=== PATIENT | male | born 1960 | race Caucasian/White ===

== ENCOUNTER 2020-03-21 14:40 | Inpatient (IN) | payer MEDICARE, SELFPAY ==
[2020-03-21 16:51] LABS: Troponin I 0.104 ng/mL (< 0.028)
[2020-03-21] MEDS ORDERED: Acetaminophen 650 MG Suppository PR PRN (17:10)
[2020-03-21] MEDS ORDERED: Acetaminophen 325 MG TAB PO PRN (17:10)
[2020-03-21 18:07] VITALS: BMI 49.1
--- NOTE | 2020-03-21 18:13 | PDOC.HHP ---
Addendum entered and electronically signed by Sesar Gamboa MD 03/21/20 19:08: exam remarkable for morbid obesity, 90% on 2L NC, b/l equal pitting edema with mild stasis dermatitis; inspiratory rales in b/l LLF, no wheezing or reduced breath sounds Of note, patient has device that he got from friend but has no known diagnosis requiring CPAP HS Original Note: Hospitalist HPI - History of Present Illness History of Present Illness: Patient presents with complaints of lower extremity swelling that has worsened over the last week. He states he has gained 20 lbs in the last 10 days. He has a known history of HF and denies any change with his diet. Continues using salt substitute and uses hot sauce with meals but no more than usual. He has been compliant with medications including Lasix which he takes twice daily, 40 mg. Reports feeling short of breath at baseline which is not worse than usual but he noted his saturations at home had dropped to the mid 80s. He uses an O2 concentrator at home continuously. Reports a cough productive for green sputum which is new. Normally he has a cough that is productive for white sputum. He has known COPD but does not use nebs or inhalers at home. Denies any fevers or chills. He reports long-term use of mucinex that helps with chest congestion but feels that it causes him to be dehydrated therefore stopped using it recently. Recently struggled with insomnia but this has improved with melatonin. Reports having issues with hallucinations for the last year which he has discussed with Dr. Schulte his PCP. He has not had any work-up and is concerned it has not been addressed. States it hasnt happened recently. Denies any psych history. It seems to only happen at night. He has no drug use and has never used medications such as Ambien for sleep or benzos. States he worries about not being able to wake up if he stops breathing due to his sleep apnea. Suffers from constipation but has been moving his bowels recently. Denies any blood in his stools. Does have a distended abdomen which is chronic and reports excess flatus. No abdominal pain, n/v and is tolerating PO intake. All other review of systems apart from those mentioned above are negative. Of note he was admitted 02/07/30 for CHF exacerbation at which time he had an Echo which showed an EF of 30-35%, posterior lateral hypokinesis, moderately dilated left atrium, mildly increased left ventricular size, mildly enlarged right atrium with mild MR present. ED COURSE: EKG showed sinus tachycardia with infrequent PVCs, inverted T waves in aV1. Q waves in aVf, V3, V4 and V5. CXR unremarkable. Labs showed normal lactic acid. BNP 157.2, Trop 0.085, Bicarb 35. WCC normal. Renal function normal. Furosemide 40 mg IV x 1 given. Aspirin 324 mg PO x 1 . Duoneb x 1. MethylPrednisolone 125 mg x 1. PAST MEDICAL HISTORY: 1. COPD. 2. VT x 3. 3. Hyperlipidemia. 4. CHF. 5. CAD. 6. Hypertension. 7. Morbid obesity. 8. Chronic constipation. PAST SURGICAL HISTORY: 1. Umbilical hernia repair. 2. Nasal surgery. 3. Right hand/wrist surgery. 4. Splenectomy. 5. Tonsillectomy. SOCIAL HISTORY: Lives alone. Former smoker but quit in 2012. Denies any alcohol consumption or drug use. ALLERGIES: Ampicillin and labetalol. CURRENT MEDICATIONS: aspirin oral ThuMar 21, 2020 14:53 MARVEL Coy Kelsey TABLET : Strength - 81 mg : ORAL Patient Dose: 1 tab(s) once a day. clopidogrel ThuMar 21, 2020 14:53 MARVEL Coy Kelsey TABLET : Strength - 75 mg : ORAL Patient Dose: 75 mg once a day. lisinopril ThuMar 21, 2020 14:53 MARVEL Coy Kelsey TABLET : Strength - 20 mg : ORAL Patient Dose: 10 mg once a day. nitroglycerin sublingual ThuMar 21, 2020 14:53 MARVEL Coy Kelsey TABLET, SUBLINGUAL : Strength - 0.4 mg : SUBLINGUAL Patient Dose: As Needed. simvastatin ThuMar 21, 2020 14:53 MARVEL Coy Kelsey TABLET : Strength - 40 mg : ORAL Patient Dose: 40 mg once a day. Coreg ThuMar 21, 2020 14:54 MARVEL Coy Kelsey tablet : Strength - 25 mg : ORAL Patient Dose: 25 mg 2 times a day. metOLazone ThuMar 21, 2020 14:54 MARVEL Coy Kelsey tablet : Strength - 5 mg : ORAL Patient Dose: 1 tab(s) once a day. - Exam General Appearance: NAD, awake alert General - other findings: BP: 139/100, HR: 100, RR: 16, Temp: 97.6, Pain: 0, O2 sat: 93 on 3L O2 Eye: PERRL ENT: normocephalic atraumatic, no oropharyngeal lesions Neck: supple, symmetric, no lymphadenopathy Heart: RRR, no murmur, no gallops, no rubs, normal peripheral pulses Respiratory: CTAB, no wheezes, no rales, no ronchi, normal chest expansion, no tachypnea Respiratory - other findings: mildly sob when speaking in long sentences Gastrointestinal: soft (obese/distended), normal bowel sounds, no guarding Extremities: 2+ LE edema (bilateral) Skin: no rashes Neurological: cranial nerve grossly intact, normal sensation to touch Musculoskeletal: normal tone, normal strength, no muscle wasting Psychiatric: normal affect, normal behavior, A&O x 3 Hospitalist Results - Labs Result Diagrams: 03/22/20 14:31 03/22/20 14:31 Lab results: Troponin I 0.104 ng/mL (< 0.028) H 03/21/20 16:18 Hospitalist H&P A/P - Problem (1) Acute on chronic systolic CHF (congestive heart failure) Code(s): I50.23 - ACUTE ON CHRONIC SYSTOLIC (CONGESTIVE) HEART FAILURE Status : Acute (2) Cough productive of purulent sputum Code(s): R05 - COUGH Status: Acute (3) Elevated troponin I measurement Code(s): R79.89 - OTHER SPECIFIED ABNORMAL FINDINGS OF BLOOD CHEMISTRY Status : Chronic (4) COPD (chronic obstructive pulmonary disease) Status: Chronic (5) HTN (hypertension) Code(s): I10 - ESSENTIAL (PRIMARY) HYPERTENSION Status: Chronic (6) Insomnia Code(s): G47.00 - INSOMNIA, UNSPECIFIED Status: Chronic (7) Constipation Code(s): K59.00 - CONSTIPATION, UNSPECIFIED Status: Chronic (8) HLD (hyperlipidemia) Code(s): E78.5 - HYPERLIPIDEMIA, UNSPECIFIED Status: Chronic - Plan Plan: Cardiac monitoring. Continue Lasix 40 mg IV BID (patient with symptomatic improvement since receiving first dose in ED). Consult for HF management. Venous doppler, bilateral. Continue to trend troponins. Monitor BP. Check d-dimer, given hypoxia at home. ABG and monitor O2 sats. CT Chest with/without contrast (depending on d-dimer). DVT Prophylaxis. GI Prophylaxis. Reconcile home medications once verified. Addendum - Attending - Attending Attestation Date/Time: 03/21/20 7096 I personally evaluated the patient and discussed the management with Dr. [] I agree with the History, Examination, Assessment and Plan documented above with any addition or exceptions noted below. #Decompensated HFrEF Class III likely due to unoptimized management due to not being able to afford medication -last echo 01/2020 EF 30-35% -not taking entresto because can't afford -EKG showing poor r-wave progression suggestive of old anterior infarct; no signs of new ischemia -change to lisinopril -lasix 40IVP bid -consult EP for AICD Full code
[2020-03-21] MEDS ORDERED: Ondansetron PF 4 MG/2 ML Vial IVP PRN (18:33)
[2020-03-21] MEDS ORDERED: Ondansetron ODT 4 MG TAB SL PRN (18:33)
[2020-03-21] MEDS ORDERED: Nitroglycerin 0.4 MG TAB 1 EACH SL PRN (18:51)
[2020-03-21] MEDS ORDERED: Albuterol Sulfate 1.25 MG/3 ML NEB NEB PRN (18:51)
[2020-03-21] MEDS ORDERED: Furosemide 40 MG/4 ML VIAL SLOW IVP SCH (19:15)
[2020-03-21 19:42] LABS: CKMB 1.7 ng/mL (0-6.6)
[2020-03-21] MEDS ORDERED: Famotidine/PF 20 mg/2ml Vial SLOW IVP SCH (21:00)
--- NOTE | 2020-03-21 21:12 | ULT ---
EXAM: Bilateral lower extremity venous ultrasound HISTORY: Bilateral lower extremity pain and edema. COMPARISON: None TECHNIQUE: Multiplanar grayscale and color Doppler images were obtained in a bilateral lower extremit y venous ultrasound. Spectral analysis of the Doppler waveforms were performed. FINDINGS: The bilateral common femoral vein, profunda femoral veins, superficial femoral veins, and p opliteal veins are normal in appearance without visible thrombus. These vessels demonstrate normal compression, flow, and augmentation. The bilateral posterior tibial veins, profunda femoral veins and greater saphenous veins are patent w ithout evidence of DVT. IMPRESSION: No evidence of DVT in the left or right lower extremity.
[2020-03-21] MEDS: Clopidogrel Bisulfate 75 MG TAB PO SCH (21:21)
[2020-03-21] MEDS: Atorvastatin Calcium 20 MG TAB PO SCH (21:21)
[2020-03-22] MEDS: Furosemide 40 MG/4 ML VIAL SLOW IVP SCH ×2 (05:23→14:19)
[2020-03-22 06:21] LABS: BUN (Urea Nitrogen) 21 mg/dL (8.4-25.7); Calc. Creatinine Clearance 201 mL/min (70-130); Estimated GFR-MDRD 84; Glucose 195 mg/dL (70-105); Magnesium 1.7 mg/dL (1.6-2.6)
[2020-03-22 06:30] LABS: Anion Gap 16 mmol/L (10-20); Carbon Dioxide 34 mmol/L (22-29); Chloride 95 mmol/L (98-107); Potassium 4.9 mmol/L (3.5-5.1); Sodium 140 mmol/L (136-145)
[2020-03-22 06:31] LABS: #Lymphocytes 1.3 thou/uL (1.20-3.40); #Monocytes 0.3 thou/uL (0.11-0.59); #Neutrophils 6.7 thou/uL (1.40-6.50); %Basophils 0.1 % (0.0-1.0); %Eosinophils 0.1 % (0.0-10.0); %Lymphocytes 15.2 % (21.0-51.0); %Monocytes 3.8 % (0.0-10.0); %Neutrophils 80.8 % (42.0-75.0); Hemoglobin 16.7 g/dL (14.0-18.0); MDiff Complete? YES; Macrocytosis SLIGHT = 6-15 cells (100X) (0-5/hpf); Mean Corpuscular HGB CONC 29.6 g/dL (32.0-36.0); Mean Corpuscular Hemoglobin 30.4 pg (27.0-31.0); Mean Platelet Volume 9.7 fL (7.4-10.4); Platelet Count 239 thou/uL (130-400); RBC Distribution Width 13.2 % (11.5-14.5); Red Blood Cell (RBC) Count 5.49 mill/uL (4.70-6.10); White Blood Cell (WBC) Count 8.3 thou/uL (4.8-10.8)
[2020-03-22] MEDS ORDERED: Potassium Chloride 20 MEQ TAB PO SCH (08:00)
[2020-03-22] MEDS ORDERED: Carvedilol 6.25 MG TAB PO SCH (08:00)
[2020-03-22] MEDS: Aspirin Chewable 81 MG TAB PO SCH (08:27)
[2020-03-22] MEDS: Lisinopril 10 MG TAB PO SCH (08:28)
[2020-03-22] MEDS: Enoxaparin Sodium 40 MG/0.4 ML SYRINGE SC SCH (08:28)
[2020-03-22 10:59] LABS: Actual Bicarbonate (HCO3a) 38.3 mEq/L (22-28); Base Excess (BEa) 8.6 mEq/L (-2.0 to +3.0); Calcium, Ionized (arterial) 1.15 mmol/L (1.12-1.30); Carboxyhemoglobin (COHb) 1.1 gm% (0.0-3.0); Hemoglobin (Hb) 16.8 g/dL (14.0-18.0); Potassium - ABG Lab 4.58 mmol/L (3.70-5.30); pH, Arterial 7.33 (7.35-7.45)
[2020-03-22 11:00] LABS: CO2 Tension 74.6 mmHg (35.0-45.0); O2 Tension (PaO2), arterial 58.9 mmHg (80.0-100.0); Puncture Site LRA
--- NOTE | 2020-03-22 12:22 | CT ---
CT CHEST WITHOUT CONTRAST: Date: 03/22/2020 HISTORY: Hypoxia, cough, purulent sputum. FINDINGS: Absence of IV contrast reduces the sensitivity of exam, particularly for evaluation of mediastinal, h ilar, and vascular structures. There are vascular calcifications without evidence of aneurysmal dilatation of the thoracic aorta. No pleural or pericardial effusions are seen. There are emphysematous changes in the lung etienne. No pn eumothoraces or focal areas of consolidation. A noncalcified 3.0 mm parenchymal nodule is seen in the left upper lobe. There is a calcified granuloma in the right lung base. There are mild dependent дмитрий nges in the lung bases. Calcified right hilar lymph nodes are consistent with old granulomatous disea se. There are degenerative changes in the spine. IMPRESSION: 1. No CT evidence of pneumonia. 2. 3.0 mm left upper lobe lung nodule. Follow-up exam should be obtained in [address] POS: OFF
--- NOTE | 2020-03-22 12:53 | CON ---
DATE OF CONSULTATION: 03/22/2020 ADDITIONAL REFERRING PHYSICIAN: Ravi Gupta MD HISTORY OF PRESENT ILLNESS: I am seeing Mr. 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 His problems are: 1. [id number] systolic congestive heart failure with ischemic cardiomyopathy. a. History of severely reduced LVEF at 15% in 2012. b. Most recent echocardiogram on 02/07/2020 reveals LVEF of 30% to 35%, moderately enlarged left atrium, and mild MR. c. Prior history of myocardial infarctions x3. d. History of chronically occluded LAD and prior stenting of the circumflex and right coronary arteries. 2. Advanced COPD. 3. Morbid obesity. 4. Hyperlipidemia. 5. Hypertension. ALLERGIES: AMPICILLIN, LABETALOL. MEDICATIONS AT HOME: Includin. Aspirin. 2. Clopidogrel. 3. Lisinopril. 4. Nitroglycerin. 5. Simvastatin. 6. Coreg 25 mg twice a day. 7. Metolazone. SUBJECTIVE: Mr. Arellano was admitted with progressive dyspnea and 20-pound weight gain in the last 10 days. This was not unusual for him. He has been hospitalized similarly in January with [id number] fluid overload and combined COPD exacerbation. He was brought to the [facility] ER and then transferred to our facility for further care. Here, he was given IV Lasix and his symptoms have improved. He has no current signs of angina. No fever, chills, or cough. No bleeding issues. He had negative COVID test on the . REVIEW OF SYSTEMS: Rest of 12-point review of systems otherwise unremarkable. PAST MEDICAL HISTORY: As above. The patient had prior myocardial infarctions, chronically occluded LAD, circumflex and RCA stents. He is usually cared for by Dr. Ravi Gupta at [facility]. PAST SURGICAL HISTORY: Significant for: 1. Umbilical hernia surgery. 2. Nasal surgery. 3. Right hand surgery. 4. Splenectomy. 5. Tonsillectomy. SOCIAL HISTORY: The patient is . He is a former smoker, quit in 2012. Denies EtOH and drug abuse. FAMILY HISTORY: Not contributory. OBJECTIVE DATA: VITAL SIGNS: Blood pressure is 126/81, heart rate 101, respirations 20, temperature 97.9 degrees Fahrenheit. GENERAL: This is a morbidly obese man, in no apparent distress. NECK: Supple. Jugular veins not distended. CHEST: Coarse without crackles. HEART: Sounds are regular to rate and rhythm. Somewhat distant. No murmur or gallop is heard. PMI is nonpalpable. ABDOMEN: Benign. Bowel sounds positive. EXTREMITIES: Lower extremities without edema, clubbing, or cyanosis. Pulses are adequate. NEUROLOGIC: The patient is nonfocal. MUSCULOSKELETAL: Without joint swelling or deformity. SKIN: Without rash. DATABASE: LABORATORY DATA: White cell count is 8.3, hemoglobin 16.7, and platelet count is 239. Sodium 140, potassium 4.9, BUN 20, and creatinine 0.92. Troponin level is 0.01 consecutively. BNP from 03/21/2020 is 157. IMAGING STUDIES: Chest x-ray from 03/21/2020 shows no acute findings. ASSESSMENT AND PLAN: Mr. Arellano is a 59-year-old man with history of ischemic cardiomyopathy, prior myocardial infarction, stent placement in the distant past, chronically occluded left anterior descending. He has a severely reduced left ventricular ejection fraction in the past. Most recent ejection fraction documented at 30% to 35% in January. He is now here with another episode of respiratory distress, possibly related to his advanced chronic obstructive pulmonary disease as well as some degree of heart failure exacerbation. 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 I discussed the rationale, risks, and benefits of prophylactic ICD implant to prevent sudden cardiac in his condition. We are using a decision-making pamphlet in the process. He understands the issue. At this point, he is still discussing this with his . Alternative therapies like Life Vest were discussed, although likely he is a poor candidate due to his body size. He is leaning towards the defibrillator implant. We will make final decision by tomorrow. We will start scheduling arrangements. Thank you again for allowing me to participate in the care of this patient. Job ID: [id number]
[2020-03-22 15:06] LABS: Lactic Acid 1.9 mmol/L (0.5-2.2)
[2020-03-22 15:10] LABS: Anion Gap 13 mmol/L (10-20); BUN (Urea Nitrogen) 29 mg/dL (8.4-25.7); Calc. Creatinine Clearance 155 mL/min (70-130); Calcium 8.9 mg/dL (7.8-10.44); Carbon Dioxide 36 mmol/L (22-29); Chloride 95 mmol/L (98-107); Estimated GFR-MDRD 63; Glucose 106 mg/dL (70-105); Potassium 5.4 mmol/L (3.5-5.1); Sodium 139 mmol/L (136-145)
[2020-03-22 15:18] LABS: #Lymphocytes 2.3 thou/uL (1.20-3.40); #Monocytes 1.2 thou/uL (0.11-0.59); #Neutrophils 10.8 thou/uL (1.40-6.50); %Basophils 0.2 % (0.0-1.0); %Eosinophils 0.1 % (0.0-10.0); %Lymphocytes 15.9 % (21.0-51.0); %Monocytes 8.7 % (0.0-10.0); %Neutrophils 75.1 % (42.0-75.0); Hemoglobin 15.9 g/dL (14.0-18.0); Large Platelets SLIGHT; MDiff Complete? YES; Macrocytosis SLIGHT = 6-15 cells (100X) (0-5/hpf); Mean Corpuscular Hemoglobin 30.5 pg (27.0-31.0); Mean Platelet Volume 9.9 fL (7.4-10.4); Platelet Count 240 thou/uL (130-400); Platelet Morphology Comment Appears Adequate; RBC Distribution Width 13.4 % (11.5-14.5); Red Blood Cell (RBC) Count 5.22 mill/uL (4.70-6.10); White Blood Cell (WBC) Count 14.4 thou/uL (4.8-10.8)
--- NOTE | 2020-03-22 16:33 | PDOC.HOSPP ---
- Subjective Encounter Date: 03/22/20 Encounter Time: 12:30 Subjective: Patient denies any complaints at the moment but vocal about not having his ABG done. Sats have been in the low 90s which he states is "good for me". Also states he was seen by Dr. Lucas who recommended defib, patient apparently has been noncompliant with Entresto because he is unable to afford it. No issues overnight. Tolerating PO intake. Denies any complaints at present. - Objective Vital Signs & Weight: Vital Signs (12 hours) Temp Pulse Resp BP Pulse Ox 03/22/20 12:25 97.8 F 95 16 85/54 L 93 L 03/22/20 12:12 91 95/64 93 L 03/22/20 11:00 97.8 F 96 20 97/64 92 L 03/22/20 07:40 97.9 F 101 H 20 126/81 91 L 03/22/20 04:56 97.6 F 99 18 123/75 91 L Weight Weight 361 lb 14.4 oz I&O: 03/21/20 03/22/20 03/23/20 06:59 06:59 06:59 Intake Total 1200 420 Output Total 500 Balance 1200 -80 Result Diagrams: 03/22/20 14:31 03/22/20 14:31 Hospitalist ROS - Review of Systems Constitutional: denies: fever, chills, sweats, weakness, malaise, other Eyes: denies: pain, vision change, conjunctivae inflammation, eyelid inflammation, redness, other ENT: denies: ear pain, ear discharge, nose pain, nose discharge, nose congestion , mouth pain, mouth swelling, throat pain, throat swelling, other Respiratory: reports: shortness of breath (currently at baseline). denies: cough, dry, hemoptysis, SOB with excertion, pleuritic pain, sputum, wheezing, other Cardiovascular: reports: orthopnea (chronic). denies: chest pain, palpitations , paroxysmal noc. dyspnea, edema, light headedness, other Gastrointestinal: denies: nausea, vomiting, abdominal pain, diarrhea, constipation, melena, hematochezia, other Genitourinary: denies: dysuria, frequency, incontinence, hematuria, retention, other - Medication Medications: Active Medications Generic Name Dose Route Start Last Admin Trade Name Freq PRN Reason Stop Dose Admin Aspirin 81 mg 03/22/20 09:00 03/22/20 08:27 Aspirin Chewable PO 81 mg QAM RUIZ Administration Atorvastatin Calcium 20 mg 03/21/20 21:00 03/21/20 21:21 Lipitor PO 20 mg HS RUIZ Administration Clopidogrel Bisulfate 75 mg 03/21/20 21:00 03/21/20 21:21 Plavix PO 75 mg HS RUIZ Administration Enoxaparin Sodium 40 mg 03/22/20 09:00 03/22/20 08:28 Lovenox SC Not Given 0900 [facility] Furosemide 40 mg 03/22/20 06:00 03/22/20 14:19 Lasix SLOW IVP Not Given 0600,1400 [facility] Isosorbide Mononitrate 30 mg 03/22/20 09:00 03/22/20 08:28 Imdur Er PO 30 mg DAILY RUIZ Administration Lisinopril 10 mg 03/22/20 09:00 03/22/20 08:28 Zestril PO 10 mg DAILY RUIZ Administration Potassium Chloride 20 meq 03/22/20 08:00 03/22/20 08:27 K-Dur PO 20 meq QAM-WM RUIZ Administration Ranolazine 1,000 mg 03/21/20 21:00 03/22/20 08:29 Ranexa PO Not Given BID RUIZ Sodium Chloride 10 ml 03/21/20 17:10 03/22/20 08:33 Flush - Normal Saline IVF 10 ml Q12HR PRN Administration Saline Flush - Exam General Appearance: NAD, awake alert Eye: PERRL, anicteric sclera ENT: normocephalic atraumatic Neck: supple, no JVD Heart: RRR, no murmur, no gallops, no rubs, normal peripheral pulses Respiratory: normal chest expansion, no tachypnea Respiratory - other findings: Coarse lung sounds bilaterally Gastrointestinal: soft, non-tender Extremities: 1+ LE edema Skin: no rashes Neurological: cranial nerve grossly intact Musculoskeletal: normal tone, normal strength, no muscle wasting Psychiatric: normal affect, normal behavior, A&O x 3 Hosp A/P (1) Acute on chronic systolic CHF (congestive heart failure) Code(s): I50.23 - ACUTE ON CHRONIC SYSTOLIC (CONGESTIVE) HEART FAILURE Status : Acute Plan: Continue IV Lasix 40 mg BID. HF consult. EP consult placed and patient for defib placement tomorrow NPO at midnight. Continue Fluid restrictions. (2) Cough productive of purulent sputum Code(s): R05 - COUGH Status: Acute Plan: D-dimer negative, will obtain CT Chest to assess for underlying pneumonia. Remains afebrile. Leukocytosis, WCC 8 to 14. Did receive steroids in ED yesterday. (3) Elevated troponin I measurement Code(s): R79.89 - OTHER SPECIFIED ABNORMAL FINDINGS OF BLOOD CHEMISTRY Status : Chronic (4) COPD (chronic obstructive pulmonary disease) Status: Chronic Plan: Continue duonebs. No further steroids, patient at baseline without apparent exacerbation of COPD. Will obtain ABG, per patient request. Does state sats are currently at baseline. (5) HTN (hypertension) Code(s): I10 - ESSENTIAL (PRIMARY) HYPERTENSION Status: Chronic Plan: Monitor BP. Continue home medications. (6) Insomnia Code(s): G47.00 - INSOMNIA, UNSPECIFIED Status: Chronic Plan: Melatonin for sleep. (7) Constipation Code(s): K59.00 - CONSTIPATION, UNSPECIFIED Status: Chronic Plan: Docusate sodium for constipation. (8) HLD (hyperlipidemia) Code(s): E78.5 - HYPERLIPIDEMIA, UNSPECIFIED Status: Chronic Plan: Simvastatin restarted. (9) Obesities, morbid Code(s): E66.01 - MORBID (SEVERE) OBESITY DUE TO EXCESS CALORIES Status: Chronic - Plan PT/OT, incentive spirometry Addendum - Attending - Attending Attestation Date/Time: 03/22/20 3296 I personally evaluated the patient and discussed the management with JACKSON Jacobs I agree with the History, Examination, Assessment and Plan documented above with any addition or exceptions noted below. Feeling about the same this morning. Lung sounds CTAB with mild rales in lower etienne. Became hypotensive during day so change HF regimen coreg to metoprolol succinate, held lasix. ABG c/w chronic hypercapnic respiratory failure, likely due to OHS. Started CPAP qHS. Pending AICD placement.
[2020-03-22] MEDS ORDERED: Docusate 100 MG CAP PO PRN (16:46)
[2020-03-22] MEDS: Atorvastatin Calcium 20 MG TAB PO SCH (21:14)
[2020-03-22] MEDS: Clopidogrel Bisulfate 75 MG TAB PO SCH (21:15)
[2020-03-23 06:25] LABS: Anion Gap 12 mmol/L (10-20); BUN (Urea Nitrogen) 27 mg/dL (8.4-25.7); Calc. Creatinine Clearance 213 mL/min (70-130); Calcium 8.3 mg/dL (7.8-10.44); Carbon Dioxide 37 mmol/L (22-29); Chloride 96 mmol/L (98-107); Estimated GFR-MDRD 90; Glucose 124 mg/dL (70-105); Magnesium 1.7 mg/dL (1.6-2.6); Potassium 4.5 mmol/L (3.5-5.1); Sodium 140 mmol/L (136-145)
[2020-03-23] MEDS: Senokot S 8.6-50 MG TAB PO SCH ×2 (07:59→20:05)
[2020-03-23] MEDS ORDERED: Ketorolac Tromethamine 30 MG/ML VIAL IVP SCH (08:00)
[2020-03-23] MEDS: Furosemide 40 MG TAB PO SCH ×2 (09:18→16:10)
[2020-03-23] MEDS: Aspirin Chewable 81 MG TAB PO SCH (09:20)
[2020-03-23] MEDS: Lisinopril 10 MG TAB PO SCH (09:20)
[2020-03-23] MEDS ORDERED: Succinylcholine Chloride 20 MG/ML 10 ml SYRINGE FS ONE (09:37)
[2020-03-23] MEDS ORDERED: PHENYLEPHRINE-NS 100 MCG/ML 10 ML SYRINGE ONE (09:37)
[2020-03-23] MEDS ORDERED: Lidocaine 1% PF 5 ML VIAL ONE (09:37)
[2020-03-23] MEDS ORDERED: Dexamethasone 20 MG/5 ML VIAL ONE (09:37)
[2020-03-23] MEDS ORDERED: Ondansetron PF 4 MG/2 ML Vial ONE (09:37)
[2020-03-23] MEDS ORDERED: Lidocaine 1% (PF) 30 ML VIAL ONE (12:06)
[2020-03-23] MEDS ORDERED: Ketamine 50 MG/ML (10ML VIAL) ONE (12:30)
[2020-03-23] MEDS ORDERED: Iopamidol 370 76% 50 ML VIAL FS ONE (12:46)
[2020-03-23] MEDS ORDERED: Gentamicin 80 MG/2 ML VIAL ONE (13:27)
[2020-03-23] MEDS ORDERED: Clindamycin/D5W 600 mg/50 ml Premix Bag ONE (13:27)
[2020-03-23] MEDS ORDERED: Clindamycin/D5W 900 mg/50 ml Premix Bag ONE (13:27)
--- NOTE | 2020-03-23 14:35 | RAD ---
RADIOGRAPH CHEST 1 VIEW: DATE: 03/23/2020 HISTORY: 59-year-old male status post ICD placement FINDINGS: There is no airspace density, pulmonary edema, or pneumothorax. The lateral costophrenic angles are n ot effaced. There is a left-sided pulse generator attached to a single lead which traverses the left supraclavicular vein, with distal tip overlying expected location of right ventricle. IMPRESSION: 1. Implantable cardioverter-defibrillator. 2. No pneumothorax. 3. No acute pulmonary findings.
[2020-03-23] MEDS ORDERED: Acetaminophen/Codeine 30-300mg Tablet PO PRN (16:45)
[2020-03-23] MEDS: Clindamycin 150 MG CAP PO SCH (17:38)
[2020-03-23] MEDS: Acetaminophen/Codeine 30-300mg Tablet PO PRN (17:46)
[2020-03-23] MEDS: Clopidogrel Bisulfate 75 MG TAB PO SCH (20:03)
[2020-03-23] MEDS: Atorvastatin Calcium 20 MG TAB PO SCH (20:03)
--- NOTE | 2020-03-23 21:05 | PDOC.EVN ---
Event Note - Event Note Event Note: Hypoxic after procedure, requiring Bipap. Improved with time. Suggestive of TISHA. ensure patient on CPAP qhs
--- NOTE | 2020-03-23 21:11 | PDOC.HOSPP ---
- Subjective Encounter Date: 03/23/20 Encounter Time: 09:00 Subjective: no overnight events. This morning, feeling well and at baseline breathing. Pending AICD. Can be DCed 03/24 per EP after device check - Objective Vital Signs & Weight: Vital Signs (12 hours) Temp Pulse Resp BP Pulse Ox 03/23/20 18:58 98.3 F 96 16 118/64 99 03/23/20 18:22 76 16 88 L 03/23/20 16:00 97.1 F L 93 18 158/89 H 93 L 03/23/20 13:40 93 18 94 L 03/23/20 11:10 97.7 F 90 18 124/85 93 L Weight Weight 363 lb 8.676 oz I&O: 03/22/20 03/23/20 03/24/20 06:59 06:59 06:59 Intake Total 1200 1460 960 Output Total 1200 350 Balance 1200 260 610 Result Diagrams: 03/22/20 14:31 03/23/20 05:53 Hospitalist ROS - Review of Systems Constitutional: denies: fever, chills Respiratory: reports: cough, SOB with excertion, sputum. denies: dry, shortness of breath, pleuritic pain Cardiovascular: reports: edema. denies: chest pain, palpitations, orthopnea, paroxysmal noc. dyspnea Gastrointestinal: denies: nausea, vomiting, abdominal pain, diarrhea Genitourinary: denies: dysuria, frequency, hematuria - Medication Medications: Active Medications Generic Name Dose Route Start Last Admin Trade Name Freq PRN Reason Stop Dose Admin Acetaminophen/Codeine Phosphate 2 tab 03/23/20 16:45 03/23/20 17:46 Tylenol #3 PO 2 tab Q4H PRN Administration Moderate Pain (4-6) Aspirin 81 mg 03/22/20 09:00 03/23/20 09:20 Aspirin Chewable PO 81 mg QAM RUIZ Administration Atorvastatin Calcium 20 mg 03/21/20 21:00 03/23/20 20:03 Lipitor PO 20 mg HS RUIZ Administration Clindamycin HCl 300 mg 03/23/20 18:00 03/23/20 17:38 Cleocin PO 03/30/20 12:01 300 mg Q6HR RUIZ Administration Clopidogrel Bisulfate 75 mg 03/21/20 21:00 03/23/20 20:03 Plavix PO 75 mg HS RUIZ Administration Enoxaparin Sodium 40 mg 03/22/20 09:00 03/22/20 08:28 Lovenox SC Not Given 0900 RUIZ Furosemide 40 mg 03/23/20 09:00 03/23/20 16:10 Lasix PO 40 mg 0900,1400 RUIZ Administration Isosorbide Mononitrate 30 mg 03/22/20 09:00 03/23/20 09:24 Imdur Er PO Not Given DAILY [facility] Lisinopril 10 mg 03/22/20 09:00 03/23/20 09:20 Zestril PO 10 mg DAILY RUIZ Administration Metoprolol Succinate 25 mg 03/23/20 09:00 03/23/20 09:20 Toprol Xl PO 25 mg DAILY RUIZ Administration Ranolazine 1,000 mg 03/21/20 21:00 03/23/20 20:03 Ranexa PO Not Given BID [facility] Senna/Docusate Sodium 1 tab 03/23/20 09:00 03/23/20 20:05 Senokot S PO Not Given BID [facility] Sodium Chloride 10 ml 03/21/20 17:10 03/22/20 08:33 Flush - Normal Saline IVF 10 ml Q12HR PRN Administration Saline Flush - Exam General Appearance: NAD, awake alert Neck: no JVD Heart: RRR, no murmur, no gallops, no rubs Respiratory: CTAB, no wheezes, no ronchi Respiratory - other findings: minimal lower field inspiratory rales, improved Extremities: 2+ LE edema Extremities - other findings: unchanged Psychiatric: normal affect, normal behavior, A&O x 3 Hosp A/P (1) Acute on chronic systolic CHF (congestive heart failure) Code(s): I50.23 - ACUTE ON CHRONIC SYSTOLIC (CONGESTIVE) HEART FAILURE Status : Acute (2) Cough productive of purulent sputum Code(s): R05 - COUGH Status: Acute (3) Elevated troponin I measurement Code(s): R79.89 - OTHER SPECIFIED ABNORMAL FINDINGS OF BLOOD CHEMISTRY Status : Chronic (4) COPD (chronic obstructive pulmonary disease) Status: Chronic (5) HTN (hypertension) Code(s): I10 - ESSENTIAL (PRIMARY) HYPERTENSION Status: Chronic (6) Insomnia Code(s): G47.00 - INSOMNIA, UNSPECIFIED Status: Chronic (7) Constipation Code(s): K59.00 - CONSTIPATION, UNSPECIFIED Status: Chronic (8) HLD (hyperlipidemia) Code(s): E78.5 - HYPERLIPIDEMIA, UNSPECIFIED Status: Chronic (9) Obesities, morbid Code(s): E66.01 - MORBID (SEVERE) OBESITY DUE TO EXCESS CALORIES Status: Chronic - Plan #HFrEF pending AICD placement; will require clindamycin as outpatient #OHS ensure received CPAP qHS on DC, sleep study #COPD rarely uses inhalers; CT lung mild apical emphysema continue proair PRN ELOS: 1 night
[2020-03-24] MEDS: Clindamycin 150 MG CAP PO SCH ×5 (01:12→23:31)
[2020-03-24 05:18] LABS: #Lymphocytes 1.1 thou/uL (1.20-3.40); #Monocytes 0.6 thou/uL (0.11-0.59); #Neutrophils 9.3 thou/uL (1.40-6.50); %Basophils 0.1 % (0.0-1.0); %Eosinophils 0.3 % (0.0-10.0); %Monocytes 5.5 % (0.0-10.0); %Neutrophils 84.3 % (42.0-75.0); Hemoglobin 16.8 g/dL (14.0-18.0); Mean Corpuscular HGB CONC 30.3 g/dL (32.0-36.0); Mean Corpuscular Hemoglobin 31.9 pg (27.0-31.0); Mean Platelet Volume 9.9 fL (7.4-10.4); Platelet Count 200 thou/uL (130-400); RBC Distribution Width 13.4 % (11.5-14.5); Red Blood Cell (RBC) Count 5.28 mill/uL (4.70-6.10); White Blood Cell (WBC) Count 11.1 thou/uL (4.8-10.8)
[2020-03-24 05:23] LABS: Anion Gap 18 mmol/L (10-20); BUN (Urea Nitrogen) 29 mg/dL (8.4-25.7); Calc. Creatinine Clearance 191 mL/min (70-130); Calcium 7.7 mg/dL (7.8-10.44); Carbon Dioxide 30 mmol/L (22-29); Chloride 95 mmol/L (98-107); Estimated GFR-MDRD 79; Glucose 196 mg/dL (70-105); Magnesium 1.9 mg/dL (1.6-2.6); Potassium 5.5 mmol/L (3.5-5.1); Sodium 137 mmol/L (136-145)
[2020-03-24] MEDS: Lisinopril 10 MG TAB PO SCH (09:30)
[2020-03-24] MEDS: Aspirin Chewable 81 MG TAB PO SCH (09:30)
[2020-03-24] MEDS: Acetaminophen/Codeine 30-300mg Tablet PO PRN ×2 (09:31→16:01)
[2020-03-24] MEDS: Furosemide 40 MG TAB PO SCH ×2 (09:31→15:54)
[2020-03-24] MEDS: Senokot S 8.6-50 MG TAB PO SCH ×2 (09:33→21:47)
[2020-03-24] MEDS: Enoxaparin Sodium 40 MG/0.4 ML SYRINGE SC SCH (09:34)
--- NOTE | 2020-03-24 09:58 | RAD ---
CHEST 1 VIEW: HISTORY: Left-sided chest pain. COMPARISON: Radiograph from prior day. FINDINGS: Single-lead AICD/pacer is similar and the tip is not well seen, although likely projects over the rig ht ventricle. The coronary arteries are dilated. Mild pulmonary venous congestion. No pneumothorax. Numerous leads project over the chest. IMPRESSION: Poor visualization of the AICD/pacer leads due to decreased penetration. Radiograph of the upper abd omen may be beneficial. POS: HOME
[2020-03-24] MEDS ORDERED: Dextrose 50% Abboject 50 ML SYRINGE SLOW IVP SCH (10:00)
[2020-03-24] MEDS ORDERED: Albuterol Sulfate 2.5 mg/3 ml Neb NEB SCH (10:00)
[2020-03-24] MEDS ORDERED: Insulin Regular 300 UNITS/3 ML VIAL IVP SCH (10:00)
--- NOTE | 2020-03-24 13:15 | PDOC.HOSPP ---
- Subjective Encounter Date: 03/24/20 Encounter Time: 13:13 Subjective: Pt seen for followup re: CHF exacerbation. c/o pain at procedure site. - Objective Vital Signs & Weight: Vital Signs (12 hours) Temp Pulse Pulse Pulse Resp BP BP 03/24/20 11:15 97.5 F L 92 18 03/24/20 10:04 86 88 111/53 L 99/63 03/24/20 07:25 97.6 F 80 18 03/24/20 03:44 98 F 92 16 BP BP BP Pulse Ox Pulse Ox Pulse Ox 03/24/20 11:15 92/54 L 91 L 03/24/20 10:04 102/63 94 L 91 L 03/24/20 07:25 119/71 89 L 03/24/20 03:44 109/71 91 L Weight Weight 368 lb 9.806 oz I&O: 03/23/20 03/24/20 03/25/20 06:59 06:59 06:59 Intake Total 1460 1560 Output Total 1200 1450 Balance 260 110 Result Diagrams: 03/24/20 04:13 03/24/20 04:13 Additional Labs: Labs and MARs reviewed by me EKG Reviewed by me: Yes (Tele: V-paced) Hospitalist ROS - Review of Systems Cardiovascular: reports: chest pain, edema. denies: palpitations, orthopnea, paroxysmal noc. dyspnea, light headedness Gastrointestinal: denies: nausea, vomiting, abdominal pain, diarrhea, constipation, melena, hematochezia - Medication Medications: Active Medications Generic Name Dose Route Start Last Admin Trade Name Freq PRN Reason Stop Dose Admin Acetaminophen/Codeine Phosphate 2 tab 03/23/20 16:45 03/24/20 09:31 Tylenol #3 PO 2 tab Q4H PRN Administration Moderate Pain (4-6) Aspirin 81 mg 03/22/20 09:00 03/24/20 09:30 Aspirin Chewable PO 81 mg QAM RUIZ Administration Atorvastatin Calcium 20 mg 03/21/20 21:00 03/23/20 20:03 Lipitor PO 20 mg HS RUIZ Administration Clindamycin HCl 300 mg 03/23/20 18:00 03/24/20 11:09 Cleocin PO 03/30/20 12:01 300 mg Q6HR RUIZ Administration Clopidogrel Bisulfate 75 mg 03/21/20 21:00 03/23/20 20:03 Plavix PO 75 mg HS RUIZ Administration Enoxaparin Sodium 40 mg 03/22/20 09:00 03/24/20 09:34 Lovenox SC Not Given 0900 RUIZ Furosemide 40 mg 03/23/20 09:00 03/24/20 09:31 Lasix PO 40 mg 0900,1400 RUIZ Administration Isosorbide Mononitrate 30 mg 03/22/20 09:00 03/24/20 09:31 Imdur Er PO 30 mg DAILY RUIZ Administration Lisinopril 10 mg 03/22/20 09:00 03/24/20 09:30 Zestril PO 10 mg DAILY RUIZ Administration Metoprolol Succinate 25 mg 03/23/20 09:00 03/24/20 09:31 Toprol Xl PO 25 mg DAILY URIZ Administration Ranolazine 1,000 mg 03/21/20 21:00 03/24/20 09:33 Ranexa PO Not Given BID [facility] Senna/Docusate Sodium 1 tab 03/23/20 09:00 03/24/20 09:33 Senokot S PO Not Given BID [facility] Sodium Chloride 10 ml 03/21/20 17:10 03/22/20 08:33 Flush - Normal Saline IVF 10 ml Q12HR PRN Administration Saline Flush - Exam General - other findings: Morbid obesity Eye: anicteric sclera ENT: normocephalic atraumatic Neck: supple Heart: RRR Respiratory: CTAB Gastrointestinal: soft, non-tender Extremities: 2+ LE edema Skin: normal turgor Musculoskeletal: normal tone Psychiatric: normal affect, normal behavior Hosp A/P - Plan (1) Acute on chronic systolic CHF (congestive heart failure) NYHA Class 3 Code(s): I50.23 - ACUTE ON CHRONIC SYSTOLIC (CONGESTIVE) HEART FAILURE Status : Acute (2) COPD (chronic obstructive pulmonary disease) Status: Chronic (3) Insomnia Code(s): G47.00 - INSOMNIA, UNSPECIFIED Status: Chronic (4) HTN (hypertension) Code(s): I10 - ESSENTIAL (PRIMARY) HYPERTENSION Status: Chronic (5) HLD (hyperlipidemia) Code(s): E78.5 - HYPERLIPIDEMIA, UNSPECIFIED Status: Chronic (6) Obesities, morbid Code(s): E66.01 - MORBID (SEVERE) OBESITY DUE TO EXCESS CALORIES Status: Chronic - Plan #HFrEF s/p AICD placement; will require clindamycin as outpatient check chest x-ray to evaluate for procedure-related complications #[facility] sleep study as outpt #COPD continue proair PRN
[2020-03-24 13:50] LABS: Potassium 4.7 mmol/L (3.5-5.1)
--- NOTE | 2020-03-24 15:18 | RAD ---
ABDOMEN ONE VIEW: 03/24/20 HISTORY: Evaluate pacemaker leads. FINDINGS/IMPRESSION: Correlation is made with the portable chest of 9:40 a.m. from same date. The unipolar lead of the left sided pacemaker is in the projection of the right ventricle. The bowel gas pattern is unremarkable. POS: OFF
[2020-03-24] MEDS: Atorvastatin Calcium 20 MG TAB PO SCH (20:36)
[2020-03-24] MEDS: Clopidogrel Bisulfate 75 MG TAB PO SCH (20:36)
[2020-03-25] MEDS: Acetaminophen/Codeine 30-300mg Tablet PO PRN ×2 (03:21→09:21)
[2020-03-25] MEDS: Clindamycin 150 MG CAP PO SCH ×2 (05:21→12:55)
[2020-03-25] MEDS ORDERED: Lisinopril 2.5 MG TAB PO SCH (09:00)
[2020-03-25] MEDS: Furosemide 40 MG TAB PO SCH ×2 (09:20→13:01)
[2020-03-25] MEDS: Senokot S 8.6-50 MG TAB PO SCH (09:20)
[2020-03-25] MEDS: Aspirin Chewable 81 MG TAB PO SCH (09:21)
[2020-03-25] MEDS: Enoxaparin Sodium 40 MG/0.4 ML SYRINGE SC SCH (09:26)
[2020-03-25 13:29] VITALS: BP 127/72; TEMP 98.2
--- NOTE | 2020-03-26 04:29 | DIS ---
DATE OF ADMISSION: 03/21/2020 DATE OF DISCHARGE: 03/25/2020 PRIMARY CARE PROVIDER: Dr. Regino Schulte. DISCHARGE DIAGNOSES: 1. Acute on chronic systolic congestive heart failure, [place] Heart Association class III. 2. Cardiomyopathy. 3. Hyperkalemia. 4. Morbid obesity. 5. Lung nodule. CONDITION OF THE PATIENT ON THE DAY OF DISCHARGE: Stable. I assessed Mr. Arellano on the day of discharge. He reports mild soreness at AICD site. Vital signs are stable. S1 and S2 are heard, regular. Lungs are clear to auscultation bilaterally. DISCHARGE MEDICATIONS: 1. Nitroglycerin p.r.n. 2. Albuterol p.r.n. 3. Aspirin 81 mg daily. 4. Plavix 75 mg at bedtime. 5. Lasix 40 mg 2 times a day. 6. Imdur 30 mg daily. 7. Ranexa 1000 mg 2 times a day. 8. Zocor 40 mg at bedtime. 9. Clindamycin 300 mg every 6 hours, 21 more doses. 10. Coreg 12.5 mg 2 times a day. 11. Lisinopril 5 mg daily. 12. Metolazone 2.5 mg daily. Please note that Entresto was discontinued because patient was noncompliant with this medication at home. CONSULTATIONS DURING THIS HOSPITALIZATION: Electrophysiology, Dr. Lucas. HOSPITAL COURSE: Mr. Arellano is a pleasant 59-year-old gentleman, who was admitted to [facility] on March 21, 2020, for congestive heart failure exacerbation. He received intravenous diuretics. CT scan of the chest on March 22, 2020, done for hypoxia, cough, and purulent sputum did not show any CT evidence of pneumonia. He has a 3 mm left upper lobe lung nodule. He should have a followup exam in 12 months. He is advised to follow up with his primary care provider for the same. He was also seen by Electrophysiology Service for cardiomyopathy. He underwent AICD placement. He is on clindamycin for infection prophylaxis. Please note that his potassium chloride was also discontinued because he was hyperkalemic during this hospitalization. DISCHARGE DESTINATION: Home. DIET: Heart-healthy and low-sodium. FOLLOWUP: Post acute care followup: With primary care provider on March 28, 2020, at 8:45 a.m., with Electrophysiology Service in 2 to 3 weeks, with Cardiology Service in 2 to 3 weeks. Home Health is also being arranged. Many thanks for allowing me to participate in your patient's care. Please feel free to contact me with any questions or concerns. DISCHARGE DESTINATION: Home. TIME SPENT: Total amount of time spent coordinating this discharge: Thirty-three minutes. Job ID: [id number]
--- NOTE | 2020-03-27 05:15 | PQF ---
Dear : Vj Esteves Date 03/25/20 Please exercise your independent, professional judgment in responding to the clarification form. Clinical indicators are provided on the bottom of this form for your review Can you please further clarify the nutritional status of the patient? Please check appropriate box(es): [ ] Protein Calorie Malnutrition: [ ] Mild [ ] Moderate [ ] Severe [ ] Other Malnutrition (please specify) __ [ ] Underweight without malnutrition [ ] Cachexia [ ] Other diagnosis [ ] Unable to determine Physician Signature: Date/Time: For continuity of documentation, please document condition throughout progress notes and discharge summary. Thank You. To be completed by CDI/Coding staff for physician review: Present Clinical Indicators - Signs / Symptoms / Labs Results and Location in Medical Record [ x ] BMI 13.9 Food and nutrition services assessment [ x ] Thin appearance with mild muscle wasting to trapezius Food and nutrition services assessment [ x ] Previous weight loss Food and nutrition services assessment [ x ] Poor appetite Food and nutrition services assessment [ x ] Severe weight loss Consult pg.2 [ x ] Albumin: 03/21=4.6 03/25=3.4 Labs 03/21 [ x ] Total Protein: 03/21=7.8 03/25=6.2 Labs 03/21 Present Risk Factors Results and Location in Medical Record [ x ] 64 years old H and P pg.2 [ x ] HTN H and P pg.2 [ x ] HLD H and P pg.2 [ x ] Hx of CVA H and P pg.2 [ x ] COPD H and P pg.2 [ x ] smoker H and P pg.2 [ x ] K2 abuse H and P pg.2 [ x ] NSTEMI H and P pg.2 [ x ] noncompliance H and P pg.2 [ x ] Hypercalcemia Consult pg.3 [ x ] GERD Consult 03/23 Present Treatments Results and Location in Medical Record [ x ] Dietary consult Food and nutrition services assessment [ x ] IV Fluids MAR [ x ] Cyanocobalamin 1000 1mg PO MAR [ x ] Magnesium 2gm IV MAR [ x ] Multi vit 1 tab PO daily MAR [ x ] Continue to ADAT to a Heart Healthy diet Dietitian Assessment 03/23 [ x ] Ensure Enlive BID Dietitian Assessment 03/23 [ x ] Monitor total protein intake Dietitian Assessment 03/23 [ x ] Monitor weight change Dietitian Assessment 03/23 CDS/Child And Family Therapist Signature: Noah Singh Phone #: ext [phone] Date 03/27/2020 Moderate Malnutrition (in acute illness) ? Energy Intake: <75% of estimated energy requirement for > 7 days ? Weight Loss: 1-2%/1 week; 5%/ 1 month; 7.5%/3 months ? Other: mild body fat loss; mild muscle mass loss; mild fluid accumulation; Severe Malnutrition (in acute illness) ? Energy Intake: ? 50% of estimated energy requirement for ? 5 days ? Weight Loss: >2%/1 week; >5%/1 month; >7.5%/3 months ? 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 Energy Intake: <75% of estimated energy requirement for ?1 month ? Weight Loss: 5%/1 month; 7.5%/3 months; 10%/6 months; 20%/1 year ? Other: mild body fat loss; mild muscle mass loss; mild fluid accumulation Severe Malnutrition (in chronic illness) ? Energy Intake: ?75% of estimated energy requirement for ?1 month ? Weight Loss: >5%/1 month; >7.5%/3 months; >10%/6 months; >20%/1 year ? 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
== END 2020-03-25 15:45 | disposition home or self-care (01) | DRG 227 ==
LOC: ERS 14:40 → OBSVTOIN 16:01 → T4-A 16:01 → 2NO 03-22 12:30
PROVIDERS: ADMIT Internal Medicine; ATTEND Internal Medicine
PROC: 0JH608Z Insertion of Defibrillator Generator into Chest Subcutaneous Tissue and Fascia, Open Approach (ICD-10-PCS; principal; 2020-03-23)
PROC: 02HK3KZ Insertion of Defibrillator Lead into Right Ventricle, Percutaneous Approach (ICD-10-PCS; 2020-03-23)
DX: I11.0 Hypertensive heart disease with heart failure (principal); J44.1 Chronic obstructive pulmonary disease with (acute) exacerbation; Z68.43 Body mass index [BMI] 50.0-59.9, adult; I50.23 Acute on chronic systolic (congestive) heart failure; E78.5 Hyperlipidemia, unspecified; E78.00 Pure hypercholesterolemia, unspecified; I87.2 Venous insufficiency (chronic) (peripheral); E66.01 Morbid (severe) obesity due to excess calories; G47.00 Insomnia, unspecified; G47.33 Obstructive sleep apnea (adult) (pediatric); K59.09 Other constipation; I42.9 Cardiomyopathy, unspecified; R91.1 Solitary pulmonary nodule; R79.89 Other specified abnormal findings of blood chemistry; E87.5 Hyperkalemia; Z87.891 Personal history of nicotine dependence; I25.2 Old myocardial infarction; Z88.1 Allergy status to other antibiotic agents; Z88.5 Allergy status to narcotic agent; Z88.8 Allergy status to other drugs, medicaments and biological substances; Z79.82 Long term (current) use of aspirin; Z79.899 Other long term (current) drug therapy
CPT/HCPCS: 33240; 36005; 36415; 71045; 71250; 74018; 75820; 80048; 82553; 82805; 83605; 83735; 85025; 85379; 93970; 94640; 94660; 96374; 96376; 97139; C1722; G0378; J1100; J1580; J1815; J1885; J1940; J2001; J2405; J3490; J7611; J7620

== ENCOUNTER 2020-04-18 09:00 | Inpatient (IN) | payer MEDICARE, OTHER ==
[2020-04-18] MEDS ORDERED: Furosemide 40 MG/4 ML VIAL ONE (09:49)
--- NOTE | 2020-04-18 10:08 | RAD ---
XR Chest 1 View Portable History: Shortness of breath Comparison: Radiograph March 24, 2020 Findings: Heart size is enlarged. Mild pulmonary venous congestion. Trace effusions. No pneumothorax. Single-lead cardiac device appears similar although the electrode tip is not well seen due to poor pe netration. Impression: Cardiomegaly and mild pulmonary venous congestion.
[2020-04-18 10:11] LABS: #Basophils 0.1 thou/uL (0.0-0.2); #Eosinphils 0.2 thou/uL (0.0-0.7); #Lymphocytes 2.9 thou/uL (1.20-3.40); #Neutrophils 4.8 thou/uL (1.40-6.50); %Eosinophils 2.1 % (0.0-10.0); %Lymphocytes 32.2 % (21.0-51.0); %Neutrophils 53.7 % (42.0-75.0); Hemoglobin 16.1 g/dL (14.0-18.0); Mean Corpuscular HGB CONC 29.8 g/dL (32.0-36.0); Mean Corpuscular Hemoglobin 31.1 pg (27.0-31.0); Platelet Count 228 thou/uL (130-400); RBC Distribution Width 13.9 % (11.5-14.5); Red Blood Cell (RBC) Count 5.18 mill/uL (4.70-6.10); White Blood Cell (WBC) Count 8.9 thou/uL (4.8-10.8)
[2020-04-18 10:35] LABS: ALT (SGPT) Less than 7 U/L (8-55); AST (SGOT) 12 U/L (5-34); Albumin 3.4 g/dL (3.5-5.0); Alkaline Phosphatase 80 U/L (40-110); BUN (Urea Nitrogen) 12 mg/dL (8.4-25.7); Bilirubin, Total 0.5 mg/dL (0.2-1.2); Calc. Creatinine Clearance 0 mL/min (70-130); Calcium 8.9 mg/dL (7.8-10.44); Estimated GFR-MDRD Greater than 90; Globulin 3.1 g/dL (2.4-3.5); Glucose 120 mg/dL (70-105); Protein, Total 6.5 g/dL (6.0-8.3)
[2020-04-18 10:45] LABS: Anion Gap 17 mmol/L (10-20); Carbon Dioxide 34 mmol/L (22-29); Chloride 93 mmol/L (98-107); Potassium 4.2 mmol/L (3.5-5.1); Sodium 140 mmol/L (136-145)
[2020-04-18 10:58] LABS: Band 3 % (5-11); Eosinophils 1 % (0-10); Lymphocytes 14 % (21-51); MDiff Complete? YES; Monocytes 6 % (0-10); Neutrophil 66 % (42-75); Polychromasia SLIGHT = 2-3 cells (100X) (0-2/hpf); Reactive Lymphocytes 10 % (0-10)
[2020-04-18 11:02] LABS: CKMB 1.7 ng/mL (0-6.6)
[2020-04-18] MEDS ORDERED: Aspirin Chewable 81 MG TAB ONE (13:03)
[2020-04-18] MEDS ORDERED: Senokot S 8.6-50 MG TAB PO PRN (13:05)
[2020-04-18] MEDS ORDERED: Ondansetron PF 4 MG/2 ML Vial IVP PRN (13:05)
[2020-04-18 14:40] LABS: Troponin I 0.113 ng/mL (< 0.028)
[2020-04-18] MEDS: Furosemide 40 MG/4 ML VIAL SLOW IVP SCH (15:57)
[2020-04-18 17:21] LABS: Troponin I 0.102 ng/mL (< 0.028)
[2020-04-18] MEDS ORDERED: Albuterol Sulfate 1.25 MG/3 ML NEB NEB PRN (18:12)
[2020-04-18] MEDS ORDERED: Nitroglycerin 0.4 MG TAB 1 EACH SL PRN (18:12)
--- NOTE | 2020-04-18 19:59 | PDOC.HHP ---
Hospitalist HPI - History of Present Illness SOB History of Present Illness: The patient is a pleasant 59 years old gentleman who has significant past medical history of congestive heart failure, COPD on home O2 2 L continuous, CAD with hx of PCIs, ischemic cardiomyopathy with status post AICD placement in March 2020, who presented to ED with complaint of worsening dyspnea. Patient reported his symptoms started about 3 days ago with increased lower extremity swelling. He also gained about 7 to 10 pounds in the past few days. Patient report that he has been compliant with his Lasix. Initial work- up in the ED, showed that his BNP mildly elevated. Chest x-ray show increased vascularity. Troponins with indeterminate range at 0.1. He denies any chest pain, fever or chill, no history of COVID exposure. Hospitalist was asked to admit the patient for further management of CHF exacerbation. He was given 80 mg IV Lasix x 1 in the ED. Hospitalist ROS - Review of Systems Other: Complete review of systems have been assessed and discussed with the patient. Negative and positive pertinent symptoms noted in the HPI; ALL other systems are reviewed and negative. - Medication Medications: Active Medications Generic Name Dose Route Start Last Admin Trade Name Freq PRN Reason Stop Dose Admin Furosemide 40 mg 04/18/20 14:00 04/18/20 15:57 Furosemide 40 Mg/4 Ml Vial SLOW IVP 40 mg 0600,1400 [facility] Administration Hospitalist History - Past Medical History Cardiac: reports: CAD, CHF, Hyperlipidemia Pulmonary: reports: angina, COPD - Past Surgical History Past Surgical History: reports: Appendectomy, Hernia Repair, Tonsillectomy, Other (AICD placement) - Family History Family History: reports: no pertinent history - Social History Smoking Status: Former smoker Alcohol: reports: None Drugs: reports: none Living Situation: With Family Domestic Violence: Negative Activity level: independent ambulation - Exam General Appearance: NAD Eye: PERRL ENT: normocephalic atraumatic Neck: supple Heart: RRR Respiratory: rhonchi, wheezes Gastrointestinal: soft, non-tender Extremities: no cyanosis, 2+ LE edema Skin: normal turgor Neurological: cranial nerve grossly intact Musculoskeletal: normal tone Psychiatric: normal affect, normal behavior, A&O x 3 Hospitalist Results - Labs Result Diagrams: 04/18/20 10:00 04/18/20 10:00 Lab results: WBC 8.9 thou/uL (4.8-10.8) 04/18/20 10:00 Hgb 16.1 g/dL (14.0-18.0) 04/18/20 10:00 Hct 54.1 % (42.0-52.0) H 04/18/20 10:00 MCV 104.0 fL (78.0-98.0) H 04/18/20 10:00 Plt Count 228 thou/uL (130-400) 04/18/20 10:00 Neutrophils % 53.7 % (42.0-75.0) 04/18/20 10:00 Band Neuts % (Manual) 3 % (5-11) L 04/18/20 10:00 Sodium 140 mmol/L (136-145) 04/18/20 10:00 Potassium 4.2 mmol/L (3.5-5.1) 04/18/20 10:00 Chloride 93 mmol/L (98-107) L 04/18/20 10:00 Carbon Dioxide 34 mmol/L (22-29) H 04/18/20 10:00 BUN 12 mg/dL (8.4-25.7) 04/18/20 10:00 Creatinine 0.77 mg/dL (0.7-1.3) 04/18/20 10:00 Glucose 120 mg/dL (70-105) H 04/18/20 10:00 Calcium 8.9 mg/dL (7.8-10.44) 04/18/20 10:00 Total Bilirubin 0.5 mg/dL (0.2-1.2) 04/18/20 10:00 AST 12 U/L (5-34) 04/18/20 10:00 ALT Less than 7 U/L (8-55) L 04/18/20 10:00 Alkaline Phosphatase 80 U/L (40-110) 04/18/20 10:00 CK-MB (CK-2) 1.7 ng/mL (0-6.6) 04/18/20 10:00 Troponin I 0.102 ng/mL (< 0.028) H 04/18/20 16:46 B-Natriuretic Peptide 213.4 pg/mL (0-100) H 04/18/20 10:00 Serum Total Protein 6.5 g/dL (6.0-8.3) 04/18/20 10:00 Albumin 3.4 g/dL (3.5-5.0) L 04/18/20 10:00 - Radiology Interpretation Chest x-ray Status: image reviewed by ne Hospitalist H&P A/P - Plan Plan: The patient is a pleasant 59 years old gentleman who has significant past medical history of COPD on home O2, chronic systolic heart failure, ischemic cardiomyopathy with EF around 30%, status post AICD in January 2020, who presented to the ED with 3-day history as of worsening dyspnea. Acute on chronic hypoxic respiratory failure - secondary to CHF exac --admit to tele, cont O2 suppl. wean as jojo. IV diuretic, nebs treatments Acute on chronic HF with reduced EF - s/p AICD --cont IV diuresis, monitor I&O, daily weight. Monitor renal function, replete lyte as needed --rpt 2D Echo to assess his LV function --cont serial enzymes, check TSH level --resume home meds Elevated troponin -patient denies any chest --Likely due to demand ischemia from above. Continue cycle enzymes. --mgt as above COPD with mild exac - home O2 dependent 2L continuous --Start breathing treatment with Duoneb and Pulmicort. --Hold off on systemic steroids. Morbid Obesity with BMI of 50 --Aggressive risk factor modification is recommended DVT ppx: Lovenox Code Status: Full
[2020-04-18] MEDS: Aspirin Chewable 81 MG TAB PO SCH (20:42)
[2020-04-18] MEDS: Atorvastatin Calcium 20 MG TAB PO SCH (20:42)
[2020-04-18] MEDS: Clopidogrel Bisulfate 75 MG TAB PO SCH (20:43)
--- NOTE | 2020-04-18 22:38 | CON ---
DATE OF CONSULTATION: 04/18/2020 INDICATION FOR CONSULTATION: A 59-year-old patient with CHF exacerbation. HISTORY OF PRESENT ILLNESS: This very unfortunate 59-year-old gentleman who has a long history of cardiomyopathy and coronary artery disease. He has undergone angioplasty and stent placement to the left circumflex and also to the right coronary artery and had a chronically occluded proximal left anterior descending artery, at which time he has suffered a large anterior myocardial infarction. Apparently, he has been followed by Dr. Ravi Gupta. He most recently was seen by Dr. Gupta apparently in the hospital on February 06 of this year at [facility]. Since that time after he was released, he has been in multiple admissions apparently for congestive heart failure. He becomes more short of breath, unable to lie flat for the last 5 or 6 days. He has been having increasing shortness of breath. He says he has been taking his medications, but says if he does not have money, he does not get the medications he can afford, but apparently has been taking his diuretics, but apparently does not completely watch his diet. He maybe drink too much fluid. He said he gets thirsty and also has not been completely compliant with not taking sodium intake. At this time, he came in with more congestive heart failure symptoms with edema and shortness of breath. He also has underlying COPD and he finds it very difficult to determine whether or not this is actually a flare up of his COPD or his congestive heart failure. Interestingly enough, at this time, his BNP was 213, which is not significantly elevated for congestive heart failure, but obviously was abnormal. His cardiac enzymes are indeterminate with a troponin I of 0.11, which increased up to 0.113. His sodium was 140. His BUN was 12 with a creatinine of 0.77. At this time, he is feeling better after being given some IV diuretics and already diuresed over a liter. PAST MEDICAL HISTORY: Significant for the coronary artery disease, myocardial infarction, angioplasty and stent placement as noted above, hypertension, COPD, dyslipidemia, cardiomyopathy. He had a recent AICD implanted, and a single lead AICD by Dr. Lucas. MEDICATIONS: Include: 1. Lisinopril 10 mg a day. 2. Coreg 25 mg b.i.d. 3. Ranolazine 1000 mg b.i.d. 4. Simvastatin 40 mg q.p.m. 5. Isosorbide mononitrate 30 mg a day, and he is not sure that he is still taking this medication. 6. Aspirin 81 mg a day. 7. Plavix 75 mg a day. 8. Metolazone 2.5 mg a day. 9. Potassium 20 mEq p.o. daily. ALLERGIES: HE IS ALLERGIC TO AMPICILLIN AND MORPHINE. FAMILY HISTORY: Noncontributory. REVIEW OF SYSTEMS: A 10-point review of systems is unremarkable except what is noted in the history of present illness. He denies any new GI complaints. No dysuria, polyuria, or hematuria. No nausea, vomiting, or diarrhea. He has had some lower extremity edema, but says the legs are better now than what they were when he was admitted earlier today. He has had no seizures or syncope. He mainly complains of fatigue and being tired since he has not been able to lie down or rest very comfortably over the last several days. PHYSICAL EXAMINATION: GENERAL: Reveals an elderly gentleman, who actually appears older than his stated age. VITAL SIGNS: Blood pressure is 175/97. He is afebrile. Heart rate is 103 and shows a regular rhythm. Respiratory rate is 20. HEENT: Shows the head to be normocephalic and atraumatic. Carotid pulses are present. I did not hear any bruits. CHEST: Has actually some decreased breath sounds, but did not hear any rales, rhonchi, or wheezing. CARDIOVASCULAR: Heart sounds are somewhat distant, but he has a normal S1 and S2. I do not hear an S3 or S4 at this time, but he is slightly tachycardic. There were no gross murmurs noted. ABDOMEN: Shows morbid obesity. Positive bowel sounds are present. I cannot elicit any masses or tenderness. EXTREMITIES: Showed 1 to 2+ lower extremity edema with mild erythema. Pedal pulses are present. NEUROLOGIC: The patient appears to be intact. LABORATORY DATA: Shows a hemoglobin of 16.1, hematocrit 54.1, platelet count was 228,000. WBC was 8.9, glucose was 120 and the other as noted above. DIAGNOSTIC STUDIES: EKG shows a sinus rhythm with no acute changes. He has evidence of probably an old anteroseptal myocardial infarction with Q-waves in V1 and V2. His chest x-ray shows some scattered infiltrates. He does have cardiomegaly on the evaluation. He does not have any significant pleural effusions. He did have an echocardiogram also in January, which showed ejection fraction to be about 30% to 35% with a moderately dilated left atrium. The left ventricle was also slightly increased in size. There was no evidence of pericardial effusion. IMPRESSION: 1. Congestive heart failure exacerbation with volume overload, most likely due to noncompliance with sodium and fluid intake. He will be diuresed. He will be given IV Lasix. He seems to be responding to this quite adequately. We will continue to monitor this patient. 2. Cardiomyopathy. He recently underwent an AICD implant by Dr. Lucas. This site appears to be stable and the device also seems to be stable. At this time, he is not pacing. He has had no shocks from the device. 3. History of coronary artery disease. This also appears to be stable. He denies any chest pain and has had apparently a proximal occlusion of the left anterior descending artery in the past. 4. Hypertension. We will need to resume his home medications. He has not yet been reinstated and he will need to be placed back on his routine medications. 5. Chronic obstructive pulmonary disease. He will need to undergo nebulizer treatments, this may help some with his breathing. We will be more than happy to continue to follow the patient with you throughout this hospital course. Hopefully, he will be here for a few days and then can be discharged. He will need to be much more compliant with taking his medications and also with his volume and fluid intake. Job ID: [id number]
[2020-04-18] MEDS ORDERED: Clindamycin 150 MG CAP PO SCH (23:59)
[2020-04-19] MEDS: Furosemide 40 MG/4 ML VIAL SLOW IVP SCH ×2 (05:10→15:10)
[2020-04-19 05:13] LABS: #Basophils 0.1 thou/uL (0.0-0.2); #Eosinphils 0.3 thou/uL (0.0-0.7); #Lymphocytes 2.4 thou/uL (1.20-3.40); #Neutrophils 4.4 thou/uL (1.40-6.50); %Basophils 0.9 % (0.0-1.0); %Eosinophils 3.2 % (0.0-10.0); %Lymphocytes 29.7 % (21.0-51.0); %Monocytes 11.9 % (0.0-10.0); %Neutrophils 54.2 % (42.0-75.0); Large Platelets SLIGHT; MDiff Complete? YES; Mean Corpuscular HGB CONC 30.3 g/dL (32.0-36.0); Mean Corpuscular Hemoglobin 31.5 pg (27.0-31.0); Mean Platelet Volume 10.9 fL (7.4-10.4); Platelet Count 192 thou/uL (130-400); Platelet Morphology Comment Appears Adequate; RBC Distribution Width 13.9 % (11.5-14.5); White Blood Cell (WBC) Count 8.2 thou/uL (4.8-10.8)
[2020-04-19] MEDS: Budesonide 0.5 MG/2 ML NEB NEB SCH ×2 (07:12→18:57)
[2020-04-19 07:31] LABS: Chloride 89 mmol/L (98-107); Potassium 3.9 mmol/L (3.5-5.1); Sodium 141 mmol/L (136-145)
[2020-04-19 07:32] LABS: Calcium 8.9 mg/dL (7.8-10.44); Glucose 177 mg/dL (70-105)
[2020-04-19 07:36] LABS: BUN (Urea Nitrogen) 14 mg/dL (8.4-25.7); Calc. Creatinine Clearance 237 mL/min (70-130); Estimated GFR-MDRD Greater than 90
[2020-04-19 07:37] LABS: Magnesium 1.5 mg/dL (1.6-2.6)
[2020-04-19 07:43] LABS: Carbon Dioxide 39 mmol/L (22-29)
[2020-04-19] MEDS ORDERED: Magnesium Sulfate 4 GM in Sodium Chloride 0.9% 250 ML 250 ML IVPB SCH (07:45)
[2020-04-19] MEDS: Carvedilol 6.25 MG TAB PO SCH ×2 (07:54→17:00)
[2020-04-19] MEDS: Metolazone 5 MG TAB PO SCH (07:54)
[2020-04-19] MEDS: Potassium Chloride 20 MEQ TAB PO SCH (07:58)
[2020-04-19] MEDS: Lisinopril 5 MG TAB PO SCH (08:00)
[2020-04-19] MEDS: Enoxaparin Sodium 40 MG/0.4 ML SYRINGE SC SCH (08:04)
[2020-04-19 11:02] LABS: Anion Gap 17 mmol/L (10-20)
[2020-04-19 11:54] LABS: SARS-CoV-2 MS2 Positive; SARS-CoV-2 N Gene Negative; SARS-CoV-2 S Gene Negative; SARS-CoV-2 by NAA Not Detected (NotDetected); SARS-CoV-2 orf1ab Negative
[2020-04-19] MEDS: HYDROcodone/Acetaminophen 5/325 mg Tablet PO PRN ×2 (16:09→20:55)
--- NOTE | 2020-04-19 18:12 | PDOC.HOSPP ---
- Subjective Subjective: Patient was seen examined at bedside. Patient stated he is feeling better. He had net negative fluid balance of 900 cc overnight. His leg still swollen. And still dyspneic with minimal exertion. Appreciate cardiology input - Objective Vital Signs & Weight: Vital Signs (12 hours) Temp Pulse Resp BP BP BP Pulse Ox 04/19/20 13:47 94 16 04/19/20 11:45 97.8 F 70 18 115/63 95 04/19/20 11:29 97.4 F L 93 16 97/55 L 92 L 04/19/20 08:00 98.2 F 101 H 22 H 127/77 93 L 04/19/20 07:54 127/77 04/19/20 07:12 100 16 Weight Weight 367 lb 1.6 oz I&O: 04/18/20 04/19/20 04/20/20 06:59 06:59 06:59 Intake Total 300 400 Output Total 1200 Balance -900 400 Result Diagrams: 04/19/20 04:17 04/19/20 07:04 Radiology Reviewed by me: Yes EKG Reviewed by me: Yes Hospitalist ROS - Medication Medications: Active Medications Generic Name Dose Route Start Last Admin Trade Name Freq PRN Reason Stop Dose Admin Hydrocodone Bitart/Acetaminophen 1 tab 04/18/20 13:05 04/19/20 16:09 Hydrocodone/Acetaminophen 5/325 Mg Tablet PO 1 tab Q4H PRN Administration Moderate Pain (4-6) Albuterol/Ipratropium 3 ml 04/19/20 01:00 04/19/20 13:47 Ipratropium/Albuterol Sulfate 3 Ml Neb NEB 3 ml [id number] RUIZ Administration Aspirin 81 mg 04/18/20 21:00 04/18/20 20:42 Aspirin Chewable 81 Mg Tab PO 81 mg QPM RUIZ Administration Atorvastatin Calcium 20 mg 04/18/20 21:00 04/18/20 20:42 Atorvastatin Calcium 20 Mg Tab PO 20 mg HS RUIZ Administration Budesonide 0.5 mg 04/19/20 06:30 04/19/20 07:12 Budesonide 0.5 Mg/2 Ml Neb NEB 0.5 mg BID-RT RUIZ Administration Carvedilol 12.5 mg 04/19/20 08:00 04/19/20 07:54 Carvedilol 6.25 Mg Tab PO 12.5 mg BID-WM RUIZ Administration Clopidogrel Bisulfate 75 mg 04/18/20 21:00 04/18/20 20:43 Clopidogrel Bisulfate 75 Mg Tab PO 75 mg HS RUIZ Administration Enoxaparin Sodium 40 mg 04/19/20 09:00 04/19/20 08:04 Enoxaparin Sodium 40 Mg/0.4 Ml Syringe SC Not Given 0900 RUIZ Furosemide 40 mg 04/18/20 14:00 04/19/20 15:10 Furosemide 40 Mg/4 Ml Vial SLOW IVP 40 mg 0600,1400 RUIZ Administration Isosorbide Mononitrate 30 mg 04/19/20 09:00 04/19/20 08:00 Isosorbide Mononitrate Er 30 Mg Tab PO 30 mg DAILY RUIZ Administration Lisinopril 10 mg 04/19/20 09:00 04/19/20 08:00 Lisinopril 5 Mg Tab PO 10 mg DAILY RUIZ Administration Metolazone 2.5 mg 04/19/20 08:30 04/19/20 07:54 Metolazone 5 Mg Tab PO 2.5 mg 0830 RUIZ Administration Potassium Chloride 20 meq 04/19/20 08:00 04/19/20 07:58 Potassium Chloride 20 Meq Tab PO 20 meq QAM-WM RUIZ Administration Ranolazine 1,000 mg 04/18/20 21:00 04/19/20 08:01 Ranolazine 500 Mg Tab PO 1,000 mg BID RUIZ Administration Hosp A/P - Plan - Exam General Appearance: NAD Eye: PERRL ENT: normocephalic atraumatic Neck: supple Heart: RRR Respiratory: rhonchi, wheezes Gastrointestinal: soft, non-tender Extremities: no cyanosis, 2+ LE edema Skin: normal turgor Neurological: cranial nerve grossly intact Musculoskeletal: normal tone Psychiatric: normal affect, normal behavior, A&O x 3 Assessment and plan: The patient is a pleasant 59 years old gentleman who has significant past medical history of COPD on home O2, chronic systolic heart failure, ischemic cardiomyopathy with EF around 30%, status post AICD in January 2020, who presented to the ED with 3-day history as of worsening dyspnea. Acute on chronic HF with reduced EF - s/p AICD --cont IV diuresis, monitor I&O, daily weight. Monitor renal function, replete lyte as needed --Echo pending. Fluid Restriction. --Lytes replaced. --Appreciate cardiology input Acute on chronic hypoxic respiratory failure - secondary to CHF exac. Improved. --cont O2 suppl. wean as jojo. IV diuretic, nebs treatments Elevated troponin -patient denies any chest --Likely due to demand ischemia from above. Continue cycle enzymes. --mgt as above COPD with mild exac - home O2 dependent 2L continuous --cont breathing treatment with Duoneb and Pulmicort. --Hold off on systemic steroids. Morbid Obesity with BMI of 50 --Aggressive risk factor modification is recommended DVT ppx: Lovenox Code Status: Full
[2020-04-19] MEDS: Clopidogrel Bisulfate 75 MG TAB PO SCH (20:55)
[2020-04-19] MEDS: Atorvastatin Calcium 20 MG TAB PO SCH (20:56)
[2020-04-19] MEDS: Aspirin Chewable 81 MG TAB PO SCH (20:56)
[2020-04-20 04:45] LABS: BUN (Urea Nitrogen) 21 mg/dL (8.4-25.7); Calc. Creatinine Clearance 202 mL/min (70-130); Calcium 8.9 mg/dL (7.8-10.44); Estimated GFR-MDRD 84; Glucose 154 mg/dL (70-105)
[2020-04-20 04:54] LABS: Anion Gap 16 mmol/L (10-20); Carbon Dioxide 37 mmol/L (22-29); Chloride 89 mmol/L (98-107); Potassium 4.3 mmol/L (3.5-5.1); Sodium 138 mmol/L (136-145)
[2020-04-20] MEDS: Furosemide 40 MG/4 ML VIAL SLOW IVP SCH ×2 (06:14→14:49)
[2020-04-20] MEDS: Budesonide 0.5 MG/2 ML NEB NEB SCH ×2 (08:17→18:16)
[2020-04-20] MEDS: Potassium Chloride 20 MEQ TAB PO SCH (09:09)
[2020-04-20] MEDS: HYDROcodone/Acetaminophen 5/325 mg Tablet PO PRN ×3 (09:10→20:56)
[2020-04-20] MEDS: Carvedilol 6.25 MG TAB PO SCH ×2 (09:11→17:00)
[2020-04-20] MEDS: Lisinopril 5 MG TAB PO SCH (09:11)
[2020-04-20] MEDS: Metolazone 5 MG TAB PO SCH (09:11)
[2020-04-20] MEDS: Enoxaparin Sodium 40 MG/0.4 ML SYRINGE SC SCH (09:12)
--- NOTE | 2020-04-20 13:35 | PDOC.HOSPP ---
- Subjective Subjective: Patient was seen examined at bedside. His ERVIN appears to be inaccurate. Patient stated that he is breathing easier. His legs are still swollen. His oxygen requirement is back to baseline 2L. His weight has trended down from 367-364 today. His electrolytes have been corrected. His blood pressure has been on the low side, but otherwise asymptomatic. - Objective Vital Signs & Weight: Vital Signs (12 hours) Temp Pulse Resp BP BP Pulse Ox 04/20/20 11:45 97.5 F L 20 109/57 L 92 L 04/20/20 09:11 88 04/20/20 08:17 101 H 16 04/20/20 08:00 93 L 04/20/20 07:47 98.0 F 88 20 118/75 92 L 04/20/20 04:00 97.7 F 98 18 110/68 91 L Weight Weight 364 lb I&O: 04/19/20 04/20/20 04/21/20 06:59 06:59 06:59 Intake Total 300 750 300 Output Total 1200 750 450 Balance -900 0 -150 Result Diagrams: 04/19/20 04:17 04/20/20 03:59 Radiology Reviewed by me: Yes EKG Reviewed by me: Yes Hospitalist ROS - Medication Medications: Active Medications Generic Name Dose Route Start Last Admin Trade Name Freq PRN Reason Stop Dose Admin Hydrocodone Bitart/Acetaminophen 1 tab 04/18/20 13:05 04/20/20 09:10 Hydrocodone/Acetaminophen 5/325 Mg Tablet PO 1 tab Q4H PRN Administration Moderate Pain (4-6) Albuterol/Ipratropium 3 ml 04/19/20 01:00 04/20/20 08:17 Ipratropium/Albuterol Sulfate 3 Ml Neb NEB 3 ml [id number] RUIZ Administration Aspirin 81 mg 04/18/20 21:00 04/19/20 20:56 Aspirin Chewable 81 Mg Tab PO 81 mg QPM RUIZ Administration Atorvastatin Calcium 20 mg 04/18/20 21:00 04/19/20 20:56 Atorvastatin Calcium 20 Mg Tab PO 20 mg HS RUIZ Administration Budesonide 0.5 mg 04/19/20 06:30 04/20/20 08:17 Budesonide 0.5 Mg/2 Ml Neb NEB 0.5 mg BID-RT RUIZ Administration Carvedilol 12.5 mg 04/19/20 08:00 04/20/20 09:11 Carvedilol 6.25 Mg Tab PO 12.5 mg BID-WM RUIZ Administration Clopidogrel Bisulfate 75 mg 04/18/20 21:00 04/19/20 20:55 Clopidogrel Bisulfate 75 Mg Tab PO 75 mg HS RUIZ Administration Enoxaparin Sodium 40 mg 04/19/20 09:00 04/20/20 09:12 Enoxaparin Sodium 40 Mg/0.4 Ml Syringe SC Not Given 0900 RUIZ Furosemide 40 mg 04/18/20 14:00 04/20/20 06:14 Furosemide 40 Mg/4 Ml Vial SLOW IVP 40 mg 0600,1400 RUIZ Administration Isosorbide Mononitrate 30 mg 04/19/20 09:00 04/20/20 09:11 Isosorbide Mononitrate Er 30 Mg Tab PO 30 mg DAILY RUIZ Administration Lisinopril 10 mg 04/19/20 09:00 04/20/20 09:11 Lisinopril 5 Mg Tab PO 10 mg DAILY RUIZ Administration Metolazone 2.5 mg 04/19/20 08:30 04/20/20 09:11 Metolazone 5 Mg Tab PO 2.5 mg 0830 RUIZ Administration Potassium Chloride 20 meq 04/19/20 08:00 04/20/20 09:09 Potassium Chloride 20 Meq Tab PO 20 meq QAM-WM RUIZ Administration Ranolazine 1,000 mg 04/18/20 21:00 04/20/20 09:09 Ranolazine 500 Mg Tab PO 1,000 mg BID RUIZ Administration Hosp A/P - Plan - Exam General Appearance: NAD Eye: PERRL ENT: normocephalic atraumatic Neck: supple Heart: RRR Respiratory: rhonchi, wheezes Gastrointestinal: soft, non-tender Extremities: no cyanosis, 2+ LE edema Skin: normal turgor Neurological: cranial nerve grossly intact Musculoskeletal: normal tone Psychiatric: normal affect, normal behavior, A&O x 3 Assessment and plan: The patient is a pleasant 59 years old gentleman who has significant past medical history of COPD on home O2, chronic systolic heart failure, ischemic cardiomyopathy with EF around 30%, status post AICD in January 2020, who presented to the ED with 3-day history as of worsening dyspnea. Acute on chronic HF with reduced EF - s/p AICD, improving. --cont IV diuresis, monitor I&O, daily weight. Monitor renal function, replete lyte as needed --Echo pending. Fluid Restriction 1600 ml/daily. --Lytes replaced. PT eval. --Appreciate cardiology input Acute on chronic hypoxic respiratory failure - secondary to CHF exac. Improved. --cont O2 suppl. wean as jojo. cont IV diuretic, nebs treatments Elevated troponin -patient denies any chest --Likely due to demand ischemia from above. Continue cycle enzymes. --mgt as above. Follow Echo COPD with mild exac - home O2 dependent 2L continuous --cont breathing treatment with Duoneb and Pulmicort. --Hold off on systemic steroids. Morbid Obesity with BMI of 50 --Aggressive risk factor modification is recommended DVT ppx: Lovenox Code Status: Full
[2020-04-20] MEDS: Aspirin Chewable 81 MG TAB PO SCH (20:55)
[2020-04-20] MEDS: Atorvastatin Calcium 20 MG TAB PO SCH (20:56)
[2020-04-20] MEDS: Clopidogrel Bisulfate 75 MG TAB PO SCH (20:56)
[2020-04-21] MEDS: HYDROcodone/Acetaminophen 5/325 mg Tablet PO PRN (00:52)
[2020-04-21] MEDS: Acetaminophen 325 MG TAB PO PRN (00:52)
[2020-04-21] MEDS: Furosemide 40 MG/4 ML VIAL SLOW IVP SCH ×2 (04:36→20:26)
[2020-04-21 05:16] LABS: BUN (Urea Nitrogen) 27 mg/dL (8.4-25.7); Calc. Creatinine Clearance 163 mL/min (70-130); Calcium 9.1 mg/dL (7.8-10.44); Estimated GFR-MDRD 66; Glucose 121 mg/dL (70-105)
[2020-04-21 05:25] LABS: Anion Gap 18 mmol/L (10-20); Carbon Dioxide 38 mmol/L (22-29); Chloride 88 mmol/L (98-107); Potassium 4.6 mmol/L (3.5-5.1); Sodium 139 mmol/L (136-145)
[2020-04-21] MEDS: Budesonide 0.5 MG/2 ML NEB NEB SCH ×2 (07:36→18:44)
[2020-04-21] MEDS: Enoxaparin Sodium 40 MG/0.4 ML SYRINGE SC SCH (08:29)
[2020-04-21] MEDS: Metolazone 5 MG TAB PO SCH (10:10)
[2020-04-21] MEDS: Lisinopril 5 MG TAB PO SCH (10:11)
[2020-04-21] MEDS: Carvedilol 6.25 MG TAB PO SCH ×2 (10:12→16:15)
[2020-04-21] MEDS: Potassium Chloride 20 MEQ TAB PO SCH (10:16)
[2020-04-21] MEDS ORDERED: Metolazone 2.5 MG TAB PO SCH (11:45)
--- NOTE | 2020-04-21 11:45 | PDOC.CPN ---
- Subjective Date: 04/21/20 Time: 11:43 Interval history: Patient still with c/o edema and [place]. Feels intermittent chest pressure "due to fluid" - Review of Systems General: reports: fatigue Respiratory: reports: shortness of breath, exercise intolerance Cardiovascular: reports: edema Gastrointestinal: denies: nausea, vomiting, diarrhea, constipation, abd pain, GI bleeding Musculoskeletal: denies: pain, tenderness, arthritis/arthralgias Neurological: denies: numbness, syncope, seizure, weakness - Objective Allergies/Adverse Reactions: Allergies Allergy/AdvReac Type Severity Reaction Status Date / Time morphine Allergy Mild Verified 04/18/20 13:45 ampicillin Allergy Tingling Verified 04/18/20 13:45 to Feet Visit Medications: Current Medications Acetaminophen (Acetaminophen 325 Mg Tab) 650 mg PO Q4H PRN PRN Reason: Headache/Fever/Mild Pain (1-3) Last Admin: 04/21/20 00:52 Dose: 650 mg Documented by: Hydrocodone Bitart/Acetaminophen (Hydrocodone/Acetaminophen 5/325 Mg Tablet) 1 tab PO Q4H PRN PRN Reason: Moderate Pain (4-6) Last Admin: 04/21/20 00:52 Dose: 1 tab Documented by: Albuterol Sulfate (Albuterol Sulfate 1.25 Mg/3 Ml Neb) 2.5 mg NEB Q8HR PRN PRN Reason: SOB &/or Wheezing Albuterol/Ipratropium (Ipratropium/Albuterol Sulfate 3 Ml Neb) 3 ml NEB [id number] RUIZ Last Admin: 04/21/20 07:36 Dose: 3 ml Documented by: Aspirin (Aspirin Chewable 81 Mg Tab) 81 mg PO QPM RUIZ Last Admin: 04/20/20 20:55 Dose: 81 mg Documented by: Atorvastatin Calcium (Atorvastatin Calcium 20 Mg Tab) 20 mg PO HS RUIZ Last Admin: 04/20/20 20:56 Dose: 20 mg Documented by: Budesonide (Budesonide 0.5 Mg/2 Ml Neb) 0.5 mg NEB BID-RT RUIZ Last Admin: 04/21/20 07:36 Dose: 0.5 mg Documented by: Carvedilol (Carvedilol 6.25 Mg Tab) 12.5 mg PO BID-WM RUIZ Last Admin: 04/21/20 10:12 Dose: 12.5 mg Documented by: Clopidogrel Bisulfate (Clopidogrel Bisulfate 75 Mg Tab) 75 mg PO HS [facility] Last Admin: 04/20/20 20:56 Dose: 75 mg Documented by: Enoxaparin Sodium (Enoxaparin Sodium 40 Mg/0.4 Ml Syringe) 40 mg SC 0900 [facility] Last Admin: 04/21/20 08:29 Dose: Not Given Documented by: Furosemide (Furosemide 40 Mg/4 Ml Vial) 40 mg SLOW IVP DAILY [facility] Isosorbide Mononitrate (Isosorbide Mononitrate Er 30 Mg Tab) 30 mg PO DAILY [facility] Last Admin: 04/21/20 10:08 Dose: Not Given Documented by: Lisinopril (Lisinopril 5 Mg Tab) 10 mg PO DAILY [facility] Last Admin: 04/21/20 10:11 Dose: 10 mg Documented by: Metolazone (Metolazone 5 Mg Tab) 2.5 mg PO 0830 [facility] Last Admin: 04/21/20 10:10 Dose: 2.5 mg Documented by: Nitroglycerin (Nitroglycerin 0.4 Mg Tab 1 Each) 0.4 mg SL Q5MIN PRN PRN Reason: Chest Pain Ondansetron HCl (Ondansetron Pf 4 Mg/2 Ml Vial) 4 mg IVP Q6H PRN PRN Reason: Nausea/Vomiting Ranolazine (Ranolazine 500 Mg Tab) 1,000 mg PO BID [facility] Last Admin: 04/21/20 10:10 Dose: 1,000 mg Documented by: Senna/Docusate Sodium (Senokot S 8.6-50 Mg Tab) 2 tab PO BIDPRN PRN PRN Reason: Constipation Vital Signs & Weight: Vital Signs Temp Pulse Resp BP BP Pulse Ox 04/21/20 11:21 98.4 F 95 16 98/69 90 L 04/21/20 07:36 89 16 04/21/20 07:13 97.8 F 89 16 109/74 90 L 04/21/20 04:00 97.9 F 96 18 116/65 90 L Weight 362 lb 4.8 oz - Physical Exam General: alert & oriented x3, appears well, no apparent distress HEENT: mucus membranes moist Neck: supple neck Cardiac: regular rate and rhythm Lungs: clear to auscultation, decreased breath sounds, other Neuro: grossly intact Abdomen: soft, non-tender Extremities: 2+ LE edema Skin: other (venous stasis) Musculoskeletal: no pain - Labs Result Diagrams: 04/19/20 04:17 04/21/20 03:55 Troponin/CKMB CK-MB (CK-2) 1.7 ng/mL (0-6.6) 04/18/20 10:00 Troponin I 0.102 ng/mL (< 0.028) H 04/18/20 16:46 - Assessment/Plan Assessment/Plan: 1.ACute on chronic systolic CHF 2. Morbid Obesity 3.COPD Will give extra zaroxolyn today. Might benefit from low dosage 1-2x weekly. Hopefully home soon. 04/21/2020 RG-Pt seen and examined. Agree with the above assessment.
--- NOTE | 2020-04-21 18:58 | PDOC.HOSPP ---
- Subjective Encounter Date: 04/21/20 Encounter Time: 10:00 Subjective: pt up in bed no complains - Objective Vital Signs & Weight: Vital Signs (12 hours) Temp Pulse Pulse Pulse Resp BP BP 04/21/20 15:00 97.7 F 92 18 04/21/20 14:33 95 16 04/21/20 11:21 98.4 F 95 16 04/21/20 10:23 102 H 94 131/95 H 109/67 04/21/20 07:36 89 16 04/21/20 07:13 97.8 F 89 16 BP BP Pulse Ox Pulse Ox Pulse Ox 04/21/20 15:00 125/71 90 L 04/21/20 14:33 04/21/20 11:21 98/69 90 L 04/21/20 10:23 90 L 90 L 04/21/20 07:36 04/21/20 07:13 109/74 90 L Weight Weight 362 lb 4.8 oz I&O: 04/20/20 04/21/20 04/22/20 06:59 06:59 06:59 Intake Total 750 1867 600 Output Total 750 2600 1665 Balance 0 -395 -7394 Result Diagrams: 04/19/20 04:17 04/22/20 04:09 Hospitalist ROS - Review of Systems Cardiovascular: denies: chest pain, palpitations, orthopnea, paroxysmal noc. dyspnea, edema, light headedness, other Gastrointestinal: denies: nausea, vomiting, abdominal pain, diarrhea, constipation, melena, hematochezia, other Genitourinary: denies: dysuria, frequency, incontinence, hematuria, retention, other - Medication Medications: Active Medications Generic Name Dose Route Start Last Admin Trade Name Freq PRN Reason Stop Dose Admin Acetaminophen 650 mg 04/18/20 13:05 04/21/20 00:52 Acetaminophen 325 Mg Tab PO 650 mg Q4H PRN Administration Headache/Fever/Mild Pain (1-3) Hydrocodone Bitart/Acetaminophen 1 tab 04/18/20 13:05 04/21/20 00:52 Hydrocodone/Acetaminophen 5/325 Mg Tablet PO 1 tab Q4H PRN Administration Moderate Pain (4-6) Albuterol/Ipratropium 3 ml 04/19/20 01:00 04/21/20 18:44 Ipratropium/Albuterol Sulfate 3 Ml Neb NEB Not Given [id number] RUIZ Aspirin 81 mg 04/18/20 21:00 04/20/20 20:55 Aspirin Chewable 81 Mg Tab PO 81 mg QPM RUIZ Administration Atorvastatin Calcium 20 mg 04/18/20 21:00 04/20/20 20:56 Atorvastatin Calcium 20 Mg Tab PO 20 mg HS RUIZ Administration Budesonide 0.5 mg 04/19/20 06:30 04/21/20 18:44 Budesonide 0.5 Mg/2 Ml Neb NEB Not Given BID-RT RUIZ Carvedilol 12.5 mg 04/19/20 08:00 04/21/20 16:15 Carvedilol 6.25 Mg Tab PO 12.5 mg BID-WM RUIZ Administration Clopidogrel Bisulfate 75 mg 04/18/20 21:00 04/20/20 20:56 Clopidogrel Bisulfate 75 Mg Tab PO 75 mg HS RUIZ Administration Enoxaparin Sodium 40 mg 04/19/20 09:00 04/21/20 08:29 Enoxaparin Sodium 40 Mg/0.4 Ml Syringe SC Not Given 0900 [facility] Isosorbide Mononitrate 30 mg 04/19/20 09:00 04/21/20 10:08 Isosorbide Mononitrate Er 30 Mg Tab PO Not Given DAILY RUIZ Lisinopril 10 mg 04/19/20 09:00 04/21/20 10:11 Lisinopril 5 Mg Tab PO 10 mg DAILY RUIZ Administration Metolazone 2.5 mg 04/19/20 08:30 04/21/20 10:10 Metolazone 5 Mg Tab PO 2.5 mg 0830 RUIZ Administration Ranolazine 1,000 mg 04/18/20 21:00 04/21/20 10:10 Ranolazine 500 Mg Tab PO 1,000 mg BID RUIZ Administration - Exam Neck: negative: supple, symmetric, no JVD, no thyromegaly, no lymphadenopathy, no carotid bruit, JVD Heart: negative: RRR, no murmur, no gallops, no rubs, normal peripheral pulses, irregular, diminshed peripheral pulses, murmur present, II/IV, III/IV Respiratory: negative: CTAB, no wheezes, no rales, no ronchi, normal chest expansion, no tachypnea, normal percussion, rales, rhonchi, tachypneic, wheezes Hosp A/P (1) Acute on chronic systolic CHF (congestive heart failure) Code(s): I50.23 - ACUTE ON CHRONIC SYSTOLIC (CONGESTIVE) HEART FAILURE Status: Acute (2) CHF (congestive heart failure) Code(s): I50.9 - HEART FAILURE, UNSPECIFIED Status: Acute (3) CAD (coronary artery disease) Code(s): I25.10 - ATHSCL HEART DISEASE OF [place] CORONARY ARTERY W/O ANG PCTRS Status: Chronic Qualifiers: Coronary Disease-Associated Artery/Lesion type: [place] artery Associated angina: without angina (4) COPD (chronic obstructive pulmonary disease) Status: Chronic (5) Chronic respiratory failure Code(s): J96.10 - CHRONIC RESPIRATORY FAILURE, UNSP W HYPOXIA OR HYPERCAPNIA Status: Chronic (6) HLD (hyperlipidemia) Code(s): E78.5 - HYPERLIPIDEMIA, UNSPECIFIED Status: Chronic (7) HTN (hypertension) Code(s): I10 - ESSENTIAL (PRIMARY) HYPERTENSION Status: Chronic (8) Obesities, morbid Code(s): E66.01 - MORBID (SEVERE) OBESITY DUE TO EXCESS CALORIES Status: Chronic - Plan We will continue IV diuretics. Patient still complains of shortness of breath and some chest pain when he lies down. Will check BMP in a.m.
[2020-04-21] MEDS: Clopidogrel Bisulfate 75 MG TAB PO SCH (20:25)
[2020-04-21] MEDS: Aspirin Chewable 81 MG TAB PO SCH (20:25)
[2020-04-21] MEDS: Atorvastatin Calcium 20 MG TAB PO SCH (20:25)
[2020-04-22] MEDS: HYDROcodone/Acetaminophen 5/325 mg Tablet PO PRN ×2 (02:34→16:11)
[2020-04-22] MEDS: Acetaminophen 325 MG TAB PO PRN (02:35)
[2020-04-22 04:49] LABS: BUN (Urea Nitrogen) 28 mg/dL (8.4-25.7); Calc. Creatinine Clearance 174 mL/min (70-130); Calcium 9.2 mg/dL (7.8-10.44); Estimated GFR-MDRD 72; Glucose 117 mg/dL (70-105)
[2020-04-22 04:59] LABS: Anion Gap 17 mmol/L (10-20); Carbon Dioxide 35 mmol/L (22-29); Chloride 89 mmol/L (98-107); Potassium 4.6 mmol/L (3.5-5.1); Sodium 136 mmol/L (136-145)
[2020-04-22] MEDS: Budesonide 0.5 MG/2 ML NEB NEB SCH ×2 (07:06→18:35)
[2020-04-22] MEDS: Metolazone 5 MG TAB PO SCH (08:35)
[2020-04-22] MEDS: Enoxaparin Sodium 40 MG/0.4 ML SYRINGE SC SCH (08:35)
[2020-04-22] MEDS ORDERED: Lisinopril 5 MG TAB PO SCH (08:54)
[2020-04-22] MEDS ORDERED: Furosemide 40 MG/4 ML VIAL SLOW IVP SCH ×2 (09:00→15:00)
[2020-04-22] MEDS: Carvedilol 6.25 MG TAB PO SCH ×2 (09:01→16:08)
[2020-04-22] MEDS: Furosemide 40 MG/4 ML VIAL SLOW IVP SCH (09:01)
--- NOTE | 2020-04-22 10:38 | PDOC.CPN ---
- Subjective Date: 04/22/20 Time: 10:15 Interval history: Patient feels ok. Major complaint is lack of sleep overnight. Walked in [place] more than once. - Review of Systems General: denies: fever/chills, weight/appetite/sleep changes, night sweats, fatigue Respiratory: reports: shortness of breath Cardiovascular: reports: edema. denies: chest pain, palpitation, paroxysmal nocturnal dyspnea, orthopnea Gastrointestinal: denies: nausea, vomiting, diarrhea, constipation, abd pain, GI bleeding Musculoskeletal: denies: pain, tenderness, stiffness, swelling, arthritis/arthralgias Neurological: denies: numbness, syncope, seizure, weakness - Objective Allergies/Adverse Reactions: Allergies Allergy/AdvReac Type Severity Reaction Status Date / Time morphine Allergy Mild Verified 04/18/20 13:45 ampicillin Allergy Tingling Verified 04/18/20 13:45 to Feet Visit Medications: Current Medications Acetaminophen (Acetaminophen 325 Mg Tab) 650 mg PO Q4H PRN PRN Reason: Headache/Fever/Mild Pain (1-3) Last Admin: 04/22/20 02:35 Dose: 650 mg Documented by: Hydrocodone Bitart/Acetaminophen (Hydrocodone/Acetaminophen 5/325 Mg Tablet) 1 tab PO Q4H PRN PRN Reason: Moderate Pain (4-6) Last Admin: 04/22/20 02:34 Dose: 1 tab Documented by: Albuterol Sulfate (Albuterol Sulfate 1.25 Mg/3 Ml Neb) 2.5 mg NEB Q8HR PRN PRN Reason: SOB &/or Wheezing Albuterol/Ipratropium (Ipratropium/Albuterol Sulfate 3 Ml Neb) 3 ml NEB L5PM-BP RUIZ Last Admin: 04/22/20 07:06 Dose: 3 ml Documented by: Aspirin (Aspirin Chewable 81 Mg Tab) 81 mg PO QPM RUIZ Last Admin: 04/21/20 20:25 Dose: 81 mg Documented by: Atorvastatin Calcium (Atorvastatin Calcium 20 Mg Tab) 20 mg PO HS RUIZ Last Admin: 04/21/20 20:25 Dose: 20 mg Documented by: Budesonide (Budesonide 0.5 Mg/2 Ml Neb) 0.5 mg NEB BID-RT RUIZ Last Admin: 04/22/20 07:06 Dose: 0.5 mg Documented by: Carvedilol (Carvedilol 6.25 Mg Tab) 12.5 mg PO BID-WM [facility] Last Admin: 04/22/20 09:01 Dose: 12.5 mg Documented by: Clopidogrel Bisulfate (Clopidogrel Bisulfate 75 Mg Tab) 75 mg PO HS [facility] Last Admin: 04/21/20 20:25 Dose: 75 mg Documented by: Enoxaparin Sodium (Enoxaparin Sodium 40 Mg/0.4 Ml Syringe) 40 mg SC 0900 [facility] Last Admin: 04/22/20 08:35 Dose: Not Given Documented by: Furosemide (Furosemide 40 Mg/4 Ml Vial) 40 mg SLOW IVP BID [facility] Last Admin: 04/22/20 09:01 Dose: 40 mg Documented by: Isosorbide Mononitrate (Isosorbide Mononitrate Er 30 Mg Tab) 30 mg PO DAILY [facility] Last Admin: 04/22/20 08:57 Dose: Not Given Documented by: Lisinopril (Lisinopril 10 Mg Tab) 10 mg PO 1200 [facility] Metolazone (Metolazone 5 Mg Tab) 2.5 mg PO 0830 [facility] Last Admin: 04/22/20 08:35 Dose: 2.5 mg Documented by: Nitroglycerin (Nitroglycerin 0.4 Mg Tab 1 Each) 0.4 mg SL Q5MIN PRN PRN Reason: Chest Pain Ondansetron HCl (Ondansetron Pf 4 Mg/2 Ml Vial) 4 mg IVP Q6H PRN PRN Reason: Nausea/Vomiting Ranolazine (Ranolazine 500 Mg Tab) 1,000 mg PO BID [facility] Last Admin: 04/22/20 08:35 Dose: 1,000 mg Documented by: Senna/Docusate Sodium (Senokot S 8.6-50 Mg Tab) 2 tab PO BIDPRN PRN PRN Reason: Constipation Sodium Chloride (Flush - Normal Saline 10 Ml Syringe) 10 ml IVF Q12HR [facility] Last Admin: 04/22/20 09:01 Dose: 10 ml Documented by: Sodium Chloride (Flush - Normal Saline 10 Ml Syringe) 10 ml IVF PRN PRN PRN Reason: Saline Flush Vital Signs & Weight: Vital Signs Temp Pulse Resp BP BP Pulse Ox 04/22/20 07:19 97.4 F L 91 20 115/75 93 L 04/22/20 07:06 93 16 04/22/20 04:00 97.6 F 93 20 120/68 91 L 04/22/20 00:00 99/60 Weight 359 lb 11.2 oz - Physical Exam General: alert & oriented x3, appears well, no apparent distress HEENT: mucus membranes moist Neck: supple neck Cardiac: regular rate and rhythm Lungs: no wheeze, rales, rhonchi, decreased breath sounds Neuro: grossly intact Abdomen: soft, non-tender Extremities: no edema Skin: clear Musculoskeletal: no pain - Labs Result Diagrams: 04/19/20 04:17 04/22/20 04:09 Troponin/CKMB CK-MB (CK-2) 1.7 ng/mL (0-6.6) 04/18/20 10:00 Troponin I 0.102 ng/mL (< 0.028) H 04/18/20 16:46 - Assessment/Plan Assessment/Plan: 1.Acute on chronic systolic CHF 2. Morbid Obesity 3.COPD Overall improved. Patient ambulating without difficulty. No edema today. Recommend discharge when ok with primary team. Possibly tomorrow.
[2020-04-22] MEDS ORDERED: Lisinopril 10 MG TAB PO SCH (12:00)
--- NOTE | 2020-04-22 15:45 | PDOC.HOSPP ---
- Subjective Encounter Date: 04/22/20 Encounter Time: 12:30 Subjective: pt up in bed no complains - Objective Vital Signs & Weight: Vital Signs (12 hours) Temp Pulse Resp BP BP BP Pulse Ox 04/22/20 11:16 97.7 F 91 20 108/71 92 L 04/22/20 07:19 97.4 F L 91 20 115/75 93 L 04/22/20 07:06 93 16 04/22/20 04:00 97.6 F 93 20 120/68 91 L Weight Weight 359 lb 11.2 oz I&O: 04/21/20 04/22/20 04/23/20 06:59 06:59 06:59 Intake Total 1866 840 Output Total 4868 3439 [id number] [facility]733 [phone] Result Diagrams: 04/19/20 04:17 04/22/20 04:09 Hospitalist ROS - Review of Systems Cardiovascular: denies: chest pain, palpitations, orthopnea, paroxysmal noc. dyspnea, edema, light headedness, other Gastrointestinal: denies: nausea, vomiting, abdominal pain, diarrhea, constipation, melena, hematochezia, other - Medication Medications: Active Medications Generic Name Dose Route Start Last Admin Trade Name Freq PRN Reason Stop Dose Admin Acetaminophen 650 mg 04/18/20 13:05 04/22/20 02:35 Acetaminophen 325 Mg Tab PO 650 mg Q4H PRN Administration Headache/Fever/Mild Pain (1-3) Hydrocodone Bitart/Acetaminophen 1 tab 04/18/20 13:05 04/22/20 02:34 Hydrocodone/Acetaminophen 5/325 Mg Tablet PO 1 tab Q4H PRN Administration Moderate Pain (4-6) Albuterol/Ipratropium 3 ml 04/19/20 01:00 04/22/20 13:11 Ipratropium/Albuterol Sulfate 3 Ml Neb NEB Not Given [id number] RUIZ Aspirin 81 mg 04/18/20 21:00 04/21/20 20:25 Aspirin Chewable 81 Mg Tab PO 81 mg QPM RUIZ Administration Atorvastatin Calcium 20 mg 04/18/20 21:00 04/21/20 20:25 Atorvastatin Calcium 20 Mg Tab PO 20 mg HS RUIZ Administration Budesonide 0.5 mg 04/19/20 06:30 04/22/20 07:06 Budesonide 0.5 Mg/2 Ml Neb NEB 0.5 mg BID-RT RUIZ Administration Clopidogrel Bisulfate 75 mg 04/18/20 21:00 04/21/20 20:25 Clopidogrel Bisulfate 75 Mg Tab PO 75 mg HS RUIZ Administration Enoxaparin Sodium 40 mg 04/19/20 09:00 04/22/20 08:35 Enoxaparin Sodium 40 Mg/0.4 Ml Syringe SC Not Given 0900 RUIZ Isosorbide Mononitrate 30 mg 04/22/20 09:00 04/22/20 08:57 Isosorbide Mononitrate Er 30 Mg Tab PO Not Given DAILY RUIZ Ranolazine 1,000 mg 04/18/20 21:00 04/22/20 08:35 Ranolazine 500 Mg Tab PO 1,000 mg BID RUIZ Administration Sodium Chloride 10 ml 04/22/20 09:00 04/22/20 09:01 Flush - Normal Saline 10 Ml Syringe IVF 10 ml Q12HR RUZI Administration - Exam Heart: negative: RRR, no murmur, no gallops, no rubs, normal peripheral pulses, irregular, diminshed peripheral pulses, murmur present, II/IV, III/IV Respiratory: negative: CTAB, no wheezes, no rales, no ronchi, normal chest expansion, no tachypnea, normal percussion, rales, rhonchi, tachypneic, wheezes Gastrointestinal: negative: soft, non-tender, non-distended, normal bowel sounds, no palpable masses, no hepatomegaly, no splenomegaly, no bruit, no guarding, no rigidity, tender to palpation, distended, diminished bowl sounds, voluntary guarding Extremities: 2+ LE edema Hosp A/P (1) Acute on chronic systolic CHF (congestive heart failure) Code(s): I50.23 - ACUTE ON CHRONIC SYSTOLIC (CONGESTIVE) HEART FAILURE Status: Acute (2) CHF (congestive heart failure) Code(s): I50.9 - HEART FAILURE, UNSPECIFIED Status: Acute (3) CAD (coronary artery disease) Code(s): I25.10 - ATHSCL HEART DISEASE OF [place] CORONARY ARTERY W/O ANG PCTRS Status: Chronic Qualifiers: Coronary Disease-Associated Artery/Lesion type: [place] artery Associated angina: without angina (4) COPD (chronic obstructive pulmonary disease) Status: Chronic (5) Chronic respiratory failure Code(s): J96.10 - CHRONIC RESPIRATORY FAILURE, UNSP W HYPOXIA OR HYPERCAPNIA Status: Chronic (6) HLD (hyperlipidemia) Code(s): E78.5 - HYPERLIPIDEMIA, UNSPECIFIED Status: Chronic (7) HTN (hypertension) Code(s): I10 - ESSENTIAL (PRIMARY) HYPERTENSION Status: Chronic (8) Obesities, morbid Code(s): E66.01 - MORBID (SEVERE) OBESITY DUE TO EXCESS CALORIES Status: Chronic - Plan We will continue IV diuretics. Patient still complains of shortness of breath and some chest pain when he lies down. Will check BMP in a.m. 04/22 patient states that he has been eating a lot of canned food at home. We will continue IV diuretics. Continue to monitor electrolytes. Will cut back on the dose of the blood pressure medications.
[2020-04-22] MEDS: Atorvastatin Calcium 20 MG TAB PO SCH (20:06)
[2020-04-22] MEDS: Clopidogrel Bisulfate 75 MG TAB PO SCH (20:06)
[2020-04-22] MEDS: Aspirin Chewable 81 MG TAB PO SCH (20:07)
[2020-04-23] MEDS: Budesonide 0.5 MG/2 ML NEB NEB SCH ×2 (05:16→18:48)
[2020-04-23] MEDS: Metolazone 5 MG TAB PO SCH (05:24)
[2020-04-23] MEDS: Furosemide 40 MG/4 ML VIAL SLOW IVP SCH ×2 (05:55→13:06)
[2020-04-23] MEDS: Carvedilol 6.25 MG TAB PO SCH ×2 (10:40→17:42)
[2020-04-23] MEDS: Enoxaparin Sodium 40 MG/0.4 ML SYRINGE SC SCH (10:41)
[2020-04-23] MEDS: Lisinopril 10 MG TAB PO SCH (13:05)
--- NOTE | 2020-04-23 17:44 | PDOC.CPN ---
- Subjective Date: 04/23/20 Time: 16:00 - Review of Systems General: denies: fever/chills, weight/appetite/sleep changes, night sweats, fatigue Respiratory: reports: shortness of breath Cardiovascular: denies: chest pain, palpitation, edema, paroxysmal nocturnal dyspnea, orthopnea Gastrointestinal: denies: nausea, vomiting, diarrhea, constipation, abd pain, GI bleeding Musculoskeletal: denies: pain, tenderness, stiffness, swelling, arthritis/arthralgias Neurological: denies: numbness, syncope, seizure, weakness - Objective Allergies/Adverse Reactions: Allergies Allergy/AdvReac Type Severity Reaction Status Date / Time ampicillin Allergy Tingling Verified 04/18/20 13:45 to Feet Visit Medications: Current Medications Acetaminophen (Acetaminophen 325 Mg Tab) 650 mg PO Q4H PRN PRN Reason: Headache/Fever/Mild Pain (1-3) Last Admin: 04/22/20 02:35 Dose: 650 mg Documented by: Hydrocodone Bitart/Acetaminophen (Hydrocodone/Acetaminophen 5/325 Mg Tablet) 1 tab PO Q4H PRN PRN Reason: Moderate Pain (4-6) Last Admin: 04/22/20 16:11 Dose: 1 tab Documented by: Albuterol Sulfate (Albuterol Sulfate 1.25 Mg/3 Ml Neb) 2.5 mg NEB Q8HR PRN PRN Reason: SOB &/or Wheezing Albuterol/Ipratropium (Ipratropium/Albuterol Sulfate 3 Ml Neb) 3 ml NEB [id number] RUIZ Last Admin: 04/23/20 13:59 Dose: 3 ml Documented by: Aspirin (Aspirin Chewable 81 Mg Tab) 81 mg PO QPM RUIZ Last Admin: 04/22/20 20:07 Dose: 81 mg Documented by: Atorvastatin Calcium (Atorvastatin Calcium 20 Mg Tab) 20 mg PO HS RUIZ Last Admin: 04/22/20 20:06 Dose: 20 mg Documented by: Budesonide (Budesonide 0.5 Mg/2 Ml Neb) 0.5 mg NEB BID-RT RUIZ Last Admin: 04/23/20 05:16 Dose: 0.5 mg Documented by: Carvedilol (Carvedilol 6.25 Mg Tab) 6.25 mg PO BID-WM RUIZ Last Admin: 04/23/20 10:40 Dose: 6.25 mg Documented by: Clopidogrel Bisulfate (Clopidogrel Bisulfate 75 Mg Tab) 75 mg PO HS [facility] Last Admin: 04/22/20 20:06 Dose: 75 mg Documented by: Enoxaparin Sodium (Enoxaparin Sodium 40 Mg/0.4 Ml Syringe) 40 mg SC 0900 [facility] Last Admin: 04/23/20 10:41 Dose: Not Given Documented by: Furosemide (Furosemide 40 Mg/4 Ml Vial) 40 mg SLOW IVP 0600,1400 [facility] Last Admin: 04/23/20 13:06 Dose: 40 mg Documented by: Isosorbide Mononitrate (Isosorbide Mononitrate Er 30 Mg Tab) 30 mg PO DAILY [facility] Last Admin: 04/23/20 10:39 Dose: Not Given Documented by: Lisinopril (Lisinopril 10 Mg Tab) 5 mg PO 1200 [facility] Last Admin: 04/23/20 13:05 Dose: 5 mg Documented by: Metolazone (Metolazone 5 Mg Tab) 2.5 mg PO 0530 [facility] Last Admin: 04/23/20 05:24 Dose: 2.5 mg Documented by: Nitroglycerin (Nitroglycerin 0.4 Mg Tab 1 Each) 0.4 mg SL Q5MIN PRN PRN Reason: Chest Pain Ondansetron HCl (Ondansetron Pf 4 Mg/2 Ml Vial) 4 mg IVP Q6H PRN PRN Reason: Nausea/Vomiting Ranolazine (Ranolazine 500 Mg Tab) 1,000 mg PO BID [facility] Last Admin: 04/23/20 10:35 Dose: 1,000 mg Documented by: Senna/Docusate Sodium (Senokot S 8.6-50 Mg Tab) 2 tab PO BIDPRN PRN PRN Reason: Constipation Sodium Chloride (Flush - Normal Saline 10 Ml Syringe) 10 ml IVF Q12HR [facility] Last Admin: 04/23/20 13:06 Dose: 10 ml Documented by: Sodium Chloride (Flush - Normal Saline 10 Ml Syringe) 10 ml IVF PRN PRN PRN Reason: Saline Flush Last Admin: 04/23/20 05:55 Dose: 10 ml Documented by: Vital Signs & Weight: Vital Signs Temp Pulse Pulse Pulse Resp BP BP 04/23/20 16:23 98.3 F 95 19 04/23/20 13:59 90 18 04/23/20 13:05 114/82 04/23/20 12:00 98.1 F 86 16 04/23/20 10:40 105/69 04/23/20 08:50 100 98 122/59 L 04/23/20 08:00 97.5 F L 90 18 04/23/20 07:55 91 16 BP BP BP Pulse Ox Pulse Ox Pulse Ox 04/23/20 16:23 106/60 92 L 04/23/20 13:59 04/23/20 13:05 04/23/20 12:00 145/68 H 93 L 04/23/20 10:40 04/23/20 08:50 102/56 L 92 L 87 L 04/23/20 08:00 115/75 91 L 04/23/20 07:55 Weight 358 lb 11.2 oz - Quality Measures CV meds: Beta Giovanni: Yes, HYACINTH/ARB: Yes, Statin: Yes, ASA: Yes - Physical Exam HEENT: normocephaly Neck: midline trachea, no JVD/HJR Cardiac: regular rate and rhythm, regular rate Lungs: clear to auscultation, no wheeze, rales, rhonchi Neuro: grossly intact Abdomen: unremarkable, active bowel sounds Extremities: no edema - Labs Result Diagrams: 04/19/20 04:17 04/22/20 04:09 Troponin/CKMB CK-MB (CK-2) 1.7 ng/mL (0-6.6) 04/18/20 10:00 Troponin I 0.102 ng/mL (< 0.028) H 04/18/20 16:46 - Telemetry Sinus rhythms and dysrhythmias: sinus rhythm - Assessment/Plan Assessment/Plan: 1.Acute on chronic systolic CHF 2. Morbid Obesity 3.COPD Overall improved. Patient ambulating without difficulty. No edema today. Recommend discharge soon.
[2020-04-23] MEDS: HYDROcodone/Acetaminophen 5/325 mg Tablet PO PRN (17:54)
--- NOTE | 2020-04-23 19:15 | PDOC.HOSPP ---
- Subjective Encounter Date: 04/23/20 Encounter Time: 10:30 Subjective: Patient up in bed still complains of some shortness of breath when he lies down flat. - Objective Vital Signs & Weight: Vital Signs (12 hours) Temp Pulse Pulse Pulse Resp BP BP 04/23/20 18:45 91 20 04/23/20 17:42 106/60 04/23/20 16:23 98.3 F 95 19 04/23/20 13:59 90 18 04/23/20 13:05 114/82 04/23/20 12:00 98.1 F 86 16 04/23/20 10:40 105/69 04/23/20 08:50 100 98 122/59 L 04/23/20 08:00 97.5 F L 90 18 04/23/20 07:55 91 16 BP BP BP Pulse Ox Pulse Ox Pulse Ox 04/23/20 18:45 91 L 04/23/20 17:42 04/23/20 16:23 106/60 92 L 04/23/20 13:59 04/23/20 13:05 04/23/20 12:00 145/68 H 93 L 04/23/20 10:40 04/23/20 08:50 102/56 L 92 L 87 L 04/23/20 08:00 115/75 91 L 04/23/20 07:55 Weight Weight 358 lb 11.2 oz I&O: 04/22/20 04/23/20 04/24/20 06:59 06:59 06:59 Intake Total 840 1320 735 Output Total 6223 3250 1999 [facility] -[phone] Result Diagrams: 04/19/20 04:17 04/22/20 04:09 Hospitalist ROS - Review of Systems Respiratory: denies: cough, dry, shortness of breath, hemoptysis, SOB with excertion, pleuritic pain, sputum, wheezing, other Gastrointestinal: denies: nausea, vomiting, abdominal pain, diarrhea, constipation, melena, hematochezia, other - Medication Medications: Active Medications Generic Name Dose Route Start Last Admin Trade Name Freq PRN Reason Stop Dose Admin Acetaminophen 650 mg 04/18/20 13:05 04/22/20 02:35 Acetaminophen 325 Mg Tab PO 650 mg Q4H PRN Administration Headache/Fever/Mild Pain (1-3) Hydrocodone Bitart/Acetaminophen 1 tab 04/18/20 13:05 04/23/20 17:54 Hydrocodone/Acetaminophen 5/325 Mg Tablet PO 1 tab Q4H PRN Administration Moderate Pain (4-6) Albuterol/Ipratropium 3 ml 04/19/20 01:00 04/23/20 18:45 Ipratropium/Albuterol Sulfate 3 Ml Neb NEB 3 ml [id number] RUIZ Administration Aspirin 81 mg 04/18/20 21:00 04/22/20 20:07 Aspirin Chewable 81 Mg Tab PO 81 mg QPM RUIZ Administration Atorvastatin Calcium 20 mg 04/18/20 21:00 04/22/20 20:06 Atorvastatin Calcium 20 Mg Tab PO 20 mg HS RUIZ Administration Budesonide 0.5 mg 04/19/20 06:30 04/23/20 18:48 Budesonide 0.5 Mg/2 Ml Neb NEB 0.5 mg BID-RT RUIZ Administration Carvedilol 6.25 mg 04/22/20 14:44 04/23/20 17:42 Carvedilol 6.25 Mg Tab PO 6.25 mg BID-WM RUIZ Administration Clopidogrel Bisulfate 75 mg 04/18/20 21:00 04/22/20 20:06 Clopidogrel Bisulfate 75 Mg Tab PO 75 mg HS RUIZ Administration Enoxaparin Sodium 40 mg 04/19/20 09:00 04/23/20 10:41 Enoxaparin Sodium 40 Mg/0.4 Ml Syringe SC Not Given 0900 RUIZ Furosemide 40 mg 04/23/20 06:00 04/23/20 13:06 Furosemide 40 Mg/4 Ml Vial SLOW IVP 40 mg 0600,1400 RUIZ Administration Isosorbide Mononitrate 30 mg 04/22/20 09:00 04/23/20 10:39 Isosorbide Mononitrate Er 30 Mg Tab PO Not Given DAILY RUIZ Lisinopril 5 mg 04/22/20 14:44 04/23/20 13:05 Lisinopril 10 Mg Tab PO 5 mg 1200 RUIZ Administration Metolazone 2.5 mg 04/23/20 05:30 04/23/20 05:24 Metolazone 5 Mg Tab PO 2.5 mg 0530 RUIZ Administration Ranolazine 1,000 mg 04/18/20 21:00 10/05/20 10:35 Ranolazine 500 Mg Tab PO 1,000 mg BID RUIZ Administration Sodium Chloride 10 ml 04/22/20 09:00 04/23/20 13:06 Flush - Normal Saline 10 Ml Syringe IVF 10 ml Q12HR RUIZ Administration Sodium Chloride 10 ml 04/22/20 09:00 04/23/20 05:55 Flush - Normal Saline 10 Ml Syringe IVF 10 ml PRN PRN Administration Saline Flush - Exam Neck: negative: supple, symmetric, no JVD, no thyromegaly, no lymphadenopathy, no carotid bruit, JVD Heart: negative: RRR, no murmur, no gallops, no rubs, normal peripheral pulses, irregular, diminshed peripheral pulses, murmur present, II/IV, III/IV Respiratory: negative: CTAB, no wheezes, no rales, no ronchi, normal chest expansion, no tachypnea, normal percussion, rales, rhonchi, tachypneic, wheezes Extremities: 2+ LE edema Hosp A/P (1) Acute on chronic systolic CHF (congestive heart failure) Code(s): I50.23 - ACUTE ON CHRONIC SYSTOLIC (CONGESTIVE) HEART FAILURE Status: Acute (2) CHF (congestive heart failure) Code(s): I50.9 - HEART FAILURE, UNSPECIFIED Status: Acute (3) CAD (coronary artery disease) Code(s): I25.10 - ATHSCL HEART DISEASE OF [place] CORONARY ARTERY W/O ANG PCTRS Status: Chronic Qualifiers: Coronary Disease-Associated Artery/Lesion type: [place] artery Associated angina: without angina (4) COPD (chronic obstructive pulmonary disease) Status: Chronic (5) Chronic respiratory failure Code(s): J96.10 - CHRONIC RESPIRATORY FAILURE, UNSP W HYPOXIA OR HYPERCAPNIA Status: Chronic (6) HLD (hyperlipidemia) Code(s): E78.5 - HYPERLIPIDEMIA, UNSPECIFIED Status: Chronic (7) HTN (hypertension) Code(s): I10 - ESSENTIAL (PRIMARY) HYPERTENSION Status: Chronic (8) Obesities, morbid Code(s): E66.01 - MORBID (SEVERE) OBESITY DUE TO EXCESS CALORIES Status: Chronic - Plan We will continue IV diuretics. Patient still complains of shortness of breath and some chest pain when he lies down. Will check BMP in a.m. 04/22 patient states that he has been eating a lot of canned food at home. We will continue IV diuretics. Continue to monitor electrolytes. Will cut back on the dose of the blood pressure medications. 04/23 patient states that he feels better in regards to getting up and moving around his shortness of breath has improved. He is lost about 10 pounds. We w ill continue diuresing patient.
[2020-04-23] MEDS: Aspirin Chewable 81 MG TAB PO SCH (22:37)
[2020-04-23] MEDS: Atorvastatin Calcium 20 MG TAB PO SCH (22:38)
[2020-04-23] MEDS: Clopidogrel Bisulfate 75 MG TAB PO SCH (22:38)
[2020-04-24] MEDS: Metolazone 5 MG TAB PO SCH (05:45)
[2020-04-24] MEDS: Furosemide 40 MG/4 ML VIAL SLOW IVP SCH ×2 (05:45→15:11)
[2020-04-24] MEDS: Budesonide 0.5 MG/2 ML NEB NEB SCH ×2 (07:20→18:20)
[2020-04-24] MEDS: Enoxaparin Sodium 40 MG/0.4 ML SYRINGE SC SCH (08:22)
[2020-04-24] MEDS: Carvedilol 6.25 MG TAB PO SCH ×2 (08:30→17:51)
[2020-04-24] MEDS: HYDROcodone/Acetaminophen 5/325 mg Tablet PO PRN ×2 (08:31→21:52)
[2020-04-24] MEDS: Lisinopril 10 MG TAB PO SCH ×2 (12:13→12:39)
--- NOTE | 2020-04-24 14:19 | PDOC.HOSPP ---
- Subjective Encounter Date: 04/24/20 Encounter Time: 11:15 Subjective: pt up in bed states that he has epistaxis. - Objective Vital Signs & Weight: Vital Signs (12 hours) Temp Pulse Resp BP BP Pulse Ox 04/24/20 13:41 93 18 92 L 04/24/20 12:15 98.0 F 101 H 18 92/56 L 90 L 04/24/20 07:30 97.6 F 84 18 121/75 94 L 04/24/20 07:19 89 18 90 L 04/24/20 03:50 98.1 F 88 18 128/74 90 L Weight Weight 352 lb 4.8 oz I&O: 04/23/20 04/24/20 04/25/20 06:59 06:59 06:59 Intake Total 1320 1215 Output Total 3250 2700 Balance -1930 -1485 Result Diagrams: 04/19/20 04:17 04/22/20 04:09 Hospitalist ROS - Review of Systems ENT: reports: other ([place]) Cardiovascular: denies: chest pain, palpitations, orthopnea, paroxysmal noc. dyspnea, edema, light headedness, other Gastrointestinal: denies: nausea, vomiting, abdominal pain, diarrhea, constipation, melena, hematochezia, other Genitourinary: denies: dysuria, frequency, incontinence, hematuria, retention, other - Medication Medications: Active Medications Generic Name Dose Route Start Last Admin Trade Name Freq PRN Reason Stop Dose Admin Acetaminophen 650 mg 04/18/20 13:05 04/22/20 02:35 Acetaminophen 325 Mg Tab PO 650 mg Q4H PRN Administration Headache/Fever/Mild Pain (1-3) Hydrocodone Bitart/Acetaminophen 1 tab 04/18/20 13:05 04/24/20 08:31 Hydrocodone/Acetaminophen 5/325 Mg Tablet PO 1 tab Q4H PRN Administration Moderate Pain (4-6) Albuterol/Ipratropium 3 ml 04/19/20 01:00 04/24/20 13:41 Ipratropium/Albuterol Sulfate 3 Ml Neb NEB 3 ml [id number] RUIZ Administration Aspirin 81 mg 04/18/20 21:00 04/23/20 22:37 Aspirin Chewable 81 Mg Tab PO 81 mg QPM RUIZ Administration Atorvastatin Calcium 20 mg 04/18/20 21:00 04/23/20 22:38 Atorvastatin Calcium 20 Mg Tab PO 20 mg HS RUIZ Administration Budesonide 0.5 mg 04/19/20 06:30 04/24/20 07:20 Budesonide 0.5 Mg/2 Ml Neb NEB 0.5 mg BID-RT RUIZ Administration Carvedilol 6.25 mg 04/22/20 14:44 04/24/20 08:30 Carvedilol 6.25 Mg Tab PO 6.25 mg BID-WM RUIZ Administration Clopidogrel Bisulfate 75 mg 04/18/20 21:00 04/23/20 22:38 Clopidogrel Bisulfate 75 Mg Tab PO 75 mg HS RUIZ Administration Enoxaparin Sodium 40 mg 04/19/20 09:00 04/24/20 08:22 Enoxaparin Sodium 40 Mg/0.4 Ml Syringe SC Not Given 0900 RUIZ Furosemide 40 mg 04/23/20 06:00 04/24/20 05:45 Furosemide 40 Mg/4 Ml Vial SLOW IVP 40 mg 0600,1400 RUIZ Administration Isosorbide Mononitrate 30 mg 04/22/20 09:00 04/24/20 08:31 Isosorbide Mononitrate Er 30 Mg Tab PO 30 mg DAILY RUIZ Administration Lisinopril 5 mg 04/22/20 14:44 04/24/20 12:39 Lisinopril 10 Mg Tab PO Not Given 1200 RUIZ Metolazone 2.5 mg 04/23/20 05:30 04/24/20 05:45 Metolazone 5 Mg Tab PO 2.5 mg 0530 RUIZ Administration Ranolazine 1,000 mg 04/18/20 21:00 04/24/20 08:31 Ranolazine 500 Mg Tab PO 1,000 mg BID RUIZ Administration Sodium Chloride 10 ml 04/22/20 09:00 04/24/20 08:32 Flush - Normal Saline 10 Ml Syringe IVF 10 ml Q12HR RUIZ Administration Sodium Chloride 10 ml 04/22/20 09:00 04/23/20 05:55 Flush - Normal Saline 10 Ml Syringe IVF 10 ml PRN PRN Administration Saline Flush - Exam Neck: negative: supple, symmetric, no JVD, no thyromegaly, no lymphadenopathy, no carotid bruit, JVD Heart: negative: RRR, no murmur, no gallops, no rubs, normal peripheral pulses, irregular, diminshed peripheral pulses, murmur present, II/IV, III/IV Respiratory: negative: CTAB, no wheezes, no rales, no ronchi, normal chest expansion, no tachypnea, normal percussion, rales, rhonchi, tachypneic, wheezes Gastrointestinal: negative: soft, non-tender, non-distended, normal bowel sounds, no palpable masses, no hepatomegaly, no splenomegaly, no bruit, no guarding, no rigidity, tender to palpation, distended, diminished bowl sounds, voluntary guarding Extremities: 1+ LE edema Hosp A/P (1) Acute on chronic systolic CHF (congestive heart failure) Code(s): I50.23 - ACUTE ON CHRONIC SYSTOLIC (CONGESTIVE) HEART FAILURE Status: Acute (2) CHF (congestive heart failure) Code(s): I50.9 - HEART FAILURE, UNSPECIFIED Status: Acute (3) CAD (coronary artery disease) Code(s): I25.10 - ATHSCL HEART DISEASE OF [place] CORONARY ARTERY W/O ANG PCTRS Status: Chronic Qualifiers: Coronary Disease-Associated Artery/Lesion type: [place] artery Associated angina: without angina (4) COPD (chronic obstructive pulmonary disease) Status: Chronic (5) Chronic respiratory failure Code(s): J96.10 - CHRONIC RESPIRATORY FAILURE, UNSP W HYPOXIA OR HYPERCAPNIA Status: Chronic (6) HLD (hyperlipidemia) Code(s): E78.5 - HYPERLIPIDEMIA, UNSPECIFIED Status: Chronic (7) HTN (hypertension) Code(s): I10 - ESSENTIAL (PRIMARY) HYPERTENSION Status: Chronic (8) Obesities, morbid Code(s): E66.01 - MORBID (SEVERE) OBESITY DUE TO EXCESS CALORIES Status: Chronic - Plan We will continue IV diuretics. Patient still complains of shortness of breath and some chest pain when he lies down. Will check BMP in a.m. 04/22 patient states that he has been eating a lot of canned food at home. We will continue IV diuretics. Continue to monitor electrolytes. Will cut back on the dose of the blood pressure medications. 04/23 patient states that he feels better in regards to getting up and moving around his shortness of breath has improved. He is lost about 10 pounds. We w ill continue diuresing patient. 04/24 patient had epistaxis today. Patient has lost over 10 pounds. He still has a little bit of shortness of breath. Stable discharge in a.m. we will change his diuretics to p.o.
--- NOTE | 2020-04-24 17:25 | PDOC.CPN ---
- Subjective Date: 04/24/20 Time: 17:00 - Review of Systems General: reports: fatigue Respiratory: denies: cough, congestion, shortness of breath, exercise int olerance Cardiovascular: denies: chest pain, palpitation, edema, paroxysmal nocturnal dyspnea, orthopnea Gastrointestinal: denies: nausea, vomiting, diarrhea, constipation, abd pain, GI bleeding Musculoskeletal: denies: pain, tenderness, stiffness, swelling, arthritis/arthralgias Neurological: denies: numbness, syncope, seizure, weakness - Objective Allergies/Adverse Reactions: Allergies Allergy/AdvReac Type Severity Reaction Status Date / Time ampicillin Allergy Tingling Verified 04/18/20 13:45 to Feet Visit Medications: Current Medications Acetaminophen (Acetaminophen 325 Mg Tab) 650 mg PO Q4H PRN PRN Reason: Headache/Fever/Mild Pain (1-3) Last Admin: 04/22/20 02:35 Dose: 650 mg Documented by: Hydrocodone Bitart/Acetaminophen (Hydrocodone/Acetaminophen 5/325 Mg Tablet) 1 tab PO Q4H PRN PRN Reason: Moderate Pain (4-6) Last Admin: 04/24/20 08:31 Dose: 1 tab Documented by: Albuterol Sulfate (Albuterol Sulfate 1.25 Mg/3 Ml Neb) 2.5 mg NEB Q8HR PRN PRN Reason: SOB &/or Wheezing Albuterol/Ipratropium (Ipratropium/Albuterol Sulfate 3 Ml Neb) 3 ml NEB [id number] [facility] Last Admin: 04/24/20 13:41 Dose: 3 ml Documented by: Aspirin (Aspirin Chewable 81 Mg Tab) 81 mg PO QPM [facility] Last Admin: 04/23/20 22:37 Dose: 81 mg Documented by: Atorvastatin Calcium (Atorvastatin Calcium 20 Mg Tab) 20 mg PO HS [facility] Last Admin: 04/23/20 22:38 Dose: 20 mg Documented by: Budesonide (Budesonide 0.5 Mg/2 Ml Neb) 0.5 mg NEB BID-RT [facility] Last Admin: 04/24/20 07:20 Dose: 0.5 mg Documented by: Carvedilol (Carvedilol 6.25 Mg Tab) 6.25 mg PO BID-[facility] Last Admin: 04/24/20 08:30 Dose: 6.25 mg Documented by: Clopidogrel Bisulfate (Clopidogrel Bisulfate 75 Mg Tab) 75 mg PO [facility] Last Admin: 04/23/20 22:38 Dose: 75 mg Documented by: Enoxaparin Sodium (Enoxaparin Sodium 40 Mg/0.4 Ml Syringe) 40 mg SC 0900 [facility] Last Admin: 04/24/20 08:22 Dose: Not Given Documented by: Furosemide (Furosemide 40 Mg Tab) 40 mg PO DAILY-AC [facility] Isosorbide Mononitrate (Isosorbide Mononitrate Er 30 Mg Tab) 30 mg PO DAILY [facility] Last Admin: 04/24/20 08:31 Dose: 30 mg Documented by: Lisinopril (Lisinopril 10 Mg Tab) 5 mg PO 1200 [facility] Last Admin: 04/24/20 12:39 Dose: Not Given Documented by: Nitroglycerin (Nitroglycerin 0.4 Mg Tab 1 Each) 0.4 mg SL Q5MIN PRN PRN Reason: Chest Pain Ondansetron HCl (Ondansetron Pf 4 Mg/2 Ml Vial) 4 mg IVP Q6H PRN PRN Reason: Nausea/Vomiting Ranolazine (Ranolazine 500 Mg Tab) 1,000 mg PO BID [facility] Last Admin: 04/24/20 08:31 Dose: 1,000 mg Documented by: Senna/Docusate Sodium (Senokot S 8.6-50 Mg Tab) 2 tab PO BIDPRN PRN PRN Reason: Constipation Sodium Chloride (Flush - Normal Saline 10 Ml Syringe) 10 ml IVF Q12HR [facility] Last Admin: 04/24/20 08:32 Dose: 10 ml Documented by: Sodium Chloride (Flush - Normal Saline 10 Ml Syringe) 10 ml IVF PRN PRN PRN Reason: Saline Flush Last Admin: 04/23/20 05:55 Dose: 10 ml Documented by: Vital Signs & Weight: Vital Signs Temp Pulse Resp BP BP Pulse Ox 04/24/20 15:25 98.7 F 90 18 108/60 90 L 04/24/20 13:41 93 18 92 L 04/24/20 12:15 98.0 F 101 H 18 92/56 L 90 L 04/24/20 07:30 97.6 F 84 18 121/75 94 L 04/24/20 07:19 89 18 90 L Weight 352 lb 4.8 oz - Quality Measures CV meds: Beta Giovanni: Yes, HYACINTH/ARB: Yes, Statin: Yes, ASA: Yes - Physical Exam HEENT: normocephaly Neck: no JVD/HJR Cardiac: regular rate and rhythm, no murmur Lungs: clear to auscultation Neuro: grossly intact Abdomen: other (morbid obesity) Extremities: no cyanosis, no clubbing, no edema Musculoskeletal: normal range of motion - Labs Result Diagrams: 04/19/20 04:17 04/22/20 04:09 Troponin/CKMB CK-MB (CK-2) 1.7 ng/mL (0-6.6) 04/18/20 10:00 Troponin I 0.102 ng/mL (< 0.028) H 04/18/20 16:46 - Telemetry Sinus rhythms and dysrhythmias: sinus rhythm - Assessment/Plan Assessment/Plan: 1.Acute on chronic systolic CHF 2. Morbid Obesity 3.COPD Overall improved. Patient ambulating without difficulty. No edema today. Recommend discharge soon.Only complaint is fatigue.
[2020-04-24] MEDS: Aspirin Chewable 81 MG TAB PO SCH (21:52)
[2020-04-24] MEDS: Clopidogrel Bisulfate 75 MG TAB PO SCH (21:52)
[2020-04-24] MEDS: Atorvastatin Calcium 20 MG TAB PO SCH (21:52)
[2020-04-25 04:12] LABS: #Basophils 0.1 thou/uL (0.0-0.2); #Eosinphils 0.2 thou/uL (0.0-0.7); #Monocytes 1.2 thou/uL (0.11-0.59); #Neutrophils 4.8 thou/uL (1.40-6.50); %Basophils 0.7 % (0.0-1.0); %Lymphocytes 32.3 % (21.0-51.0); %Monocytes 12.6 % (0.0-10.0); %Neutrophils 52.5 % (42.0-75.0); Hemoglobin 16.8 g/dL (14.0-18.0); Mean Corpuscular HGB CONC 31.8 g/dL (32.0-36.0); Mean Corpuscular Hemoglobin 31.8 pg (27.0-31.0); Mean Platelet Volume 11.2 fL (7.4-10.4); Platelet Count 199 thou/uL (130-400); RBC Distribution Width 13.6 % (11.5-14.5); Red Blood Cell (RBC) Count 5.29 mill/uL (4.70-6.10); White Blood Cell (WBC) Count 9.2 thou/uL (4.8-10.8)
[2020-04-25 04:36] LABS: ALT (SGPT) 9 U/L (8-55); AST (SGOT) 16 U/L (5-34); Albumin 3.6 g/dL (3.5-5.0); Alkaline Phosphatase 72 U/L (40-110); Anion Gap 15 mmol/L (10-20); BUN (Urea Nitrogen) 43 mg/dL (8.4-25.7); Bilirubin, Total 0.4 mg/dL (0.2-1.2); Calc. Creatinine Clearance 146 mL/min (70-130); Calcium 9.5 mg/dL (7.8-10.44); Carbon Dioxide 35 mmol/L (22-29); Chloride 91 mmol/L (98-107); Estimated GFR-MDRD 60; Globulin 3.1 g/dL (2.4-3.5); Glucose 122 mg/dL (70-105); Potassium 4.6 mmol/L (3.5-5.1); Protein, Total 6.7 g/dL (6.0-8.3); Sodium 136 mmol/L (136-145)
[2020-04-25] MEDS: Budesonide 0.5 MG/2 ML NEB NEB SCH ×2 (07:02→19:04)
[2020-04-25] MEDS: Enoxaparin Sodium 40 MG/0.4 ML SYRINGE SC SCH (08:20)
[2020-04-25] MEDS: HYDROcodone/Acetaminophen 5/325 mg Tablet PO PRN ×2 (08:21→13:02)
[2020-04-25] MEDS: Furosemide 40 MG TAB PO SCH (08:25)
[2020-04-25] MEDS: Carvedilol 6.25 MG TAB PO SCH ×2 (08:29→18:16)
[2020-04-25] MEDS: Lisinopril 10 MG TAB PO SCH (12:51)
--- NOTE | 2020-04-25 12:54 | EKG ---
Test Reason : Blood Pressure : / mmHG Vent. Rate : 096 BPM Atrial Rate : 096 BPM P-R Int : 186 ms QRS Dur : 092 ms QT Int : 398 ms P-R-T Axes : 055 -49 063 degrees QTc Int : 502 ms Normal sinus rhythm Right atrial enlargement Left axis deviation Low voltage QRS Septal infarct , age undetermined Prolonged QT Abnormal ECG Confirmed by SUMA FERRER DO ([id number]), marketing editor LUIS M FLORES ([id number] on 04/25/2020 12:54:10 PM Referred By: Confirmed By:SUMA FERRER DO
--- NOTE | 2020-04-25 17:39 | PDOC.HOSPP ---
- Subjective Encounter Date: 04/25/20 Encounter Time: 11:00 Subjective: pt up in bed did not sleep well last night - Objective Vital Signs & Weight: Vital Signs (12 hours) Temp Pulse Pulse Pulse Resp BP BP 04/25/20 15:57 97.2 F L 90 16 04/25/20 13:46 81 20 04/25/20 12:51 138/101 H 04/25/20 12:00 04/25/20 11:07 107 H 98 138/101 H 04/25/20 08:00 04/25/20 07:40 97.0 F L 90 20 04/25/20 07:01 88 18 BP BP BP Pulse Ox Pulse Ox Pulse Ox 04/25/20 15:57 109/71 96 04/25/20 13:46 88 L 04/25/20 12:51 04/25/20 12:00 90 L 04/25/20 11:07 103/71 90 L 88 L 04/25/20 08:00 89 L 04/25/20 07:40 126/70 89 L 04/25/20 07:01 92 L Weight Weight 359 lb 12.8 oz I&O: 04/24/20 04/25/20 04/26/20 06:59 06:59 06:59 Intake Total 1215 1680 480 Output Total 2700 9246 825 Balance -1485 -820 -345 Result Diagrams: 04/25/20 03:50 04/25/20 03:50 Hospitalist ROS - Review of Systems Cardiovascular: denies: chest pain, palpitations, orthopnea, paroxysmal noc. dyspnea, edema, light headedness, other Gastrointestinal: denies: nausea, vomiting, abdominal pain, diarrhea, constipation, melena, hematochezia, other Genitourinary: denies: dysuria, frequency, incontinence, hematuria, retention, other - Medication Medications: Active Medications Generic Name Dose Route Start Last Admin Trade Name Freq PRN Reason Stop Dose Admin Acetaminophen 650 mg 04/18/20 13:05 04/22/20 02:35 Acetaminophen 325 Mg Tab PO 650 mg Q4H PRN Administration Headache/Fever/Mild Pain (1-3) Hydrocodone Bitart/Acetaminophen 1 tab 04/18/20 13:05 04/25/20 13:02 Hydrocodone/Acetaminophen 5/325 Mg Tablet PO 1 tab Q4H PRN Administration Moderate Pain (4-6) Albuterol/Ipratropium 3 ml 04/19/20 01:00 04/25/20 13:46 Ipratropium/Albuterol Sulfate 3 Ml Neb NEB 3 ml [id number] RUIZ Administration Aspirin 81 mg 04/18/20 21:00 04/24/20 21:52 Aspirin Chewable 81 Mg Tab PO 81 mg QPM RUIZ Administration Atorvastatin Calcium 20 mg 04/18/20 21:00 04/24/20 21:52 Atorvastatin Calcium 20 Mg Tab PO 20 mg HS RUIZ Administration Budesonide 0.5 mg 04/19/20 06:30 04/25/20 07:02 Budesonide 0.5 Mg/2 Ml Neb NEB 0.5 mg BID-RT RUIZ Administration Carvedilol 6.25 mg 04/22/20 14:44 04/25/20 08:29 Carvedilol 6.25 Mg Tab PO 6.25 mg BID-WM RUIZ Administration Clopidogrel Bisulfate 75 mg 04/18/20 21:00 04/24/20 21:52 Clopidogrel Bisulfate 75 Mg Tab PO 75 mg HS RUIZ Administration Enoxaparin Sodium 40 mg 04/19/20 09:00 04/25/20 08:20 Enoxaparin Sodium 40 Mg/0.4 Ml Syringe SC Not Given 0900 RUIZ Furosemide 40 mg 04/25/20 07:30 04/25/20 08:25 Furosemide 40 Mg Tab PO 40 mg DAILY-AC RUIZ Administration Isosorbide Mononitrate 30 mg 04/22/20 09:00 04/25/20 12:57 Isosorbide Mononitrate Er 30 Mg Tab PO 30 mg DAILY RUIZ Administration Lisinopril 5 mg 04/22/20 14:44 04/25/20 12:51 Lisinopril 10 Mg Tab PO 5 mg 1200 RUIZ Administration Ranolazine 1,000 mg 04/18/20 21:00 04/25/20 08:20 Ranolazine 500 Mg Tab PO 1,000 mg BID RUIZ Administration Sodium Chloride 10 ml 04/22/20 09:00 04/25/20 08:25 Flush - Normal Saline 10 Ml Syringe IVF 10 ml Q12HR RUIZ Administration Sodium Chloride 10 ml 04/22/20 09:00 04/23/20 05:55 Flush - Normal Saline 10 Ml Syringe IVF 10 ml PRN PRN Administration Saline Flush - Exam Neck: negative: supple, symmetric, no JVD, no thyromegaly, no lymphadenopathy, no carotid bruit, JVD Heart: negative: RRR, no murmur, no gallops, no rubs, normal peripheral pulses, irregular, diminshed peripheral pulses, murmur present, II/IV, III/IV Respiratory: negative: CTAB, no wheezes, no rales, no ronchi, normal chest expan tiffanie, no tachypnea, normal percussion, rales, rhonchi, tachypneic, wheezes Gastrointestinal: negative: soft, non-tender, non-distended, normal bowel sounds, no palpable masses, no hepatomegaly, no splenomegaly, no bruit, no guarding, no rigidity, tender to palpation, distended, diminished bowl sounds, voluntary guarding Hosp A/P (1) Acute on chronic systolic CHF (congestive heart failure) Code(s): I50.23 - ACUTE ON CHRONIC SYSTOLIC (CONGESTIVE) HEART FAILURE Status: Acute (2) CHF (congestive heart failure) Code(s): I50.9 - HEART FAILURE, UNSPECIFIED Status: Acute (3) CAD (coronary artery disease) Code(s): I25.10 - ATHSCL HEART DISEASE OF [place] CORONARY ARTERY W/O ANG PCTRS Status: Chronic Qualifiers: Coronary Disease-Associated Artery/Lesion type: [place] artery Associated angina: without angina (4) COPD (chronic obstructive pulmonary disease) Status: Chronic (5) Chronic respiratory failure Code(s): J96.10 - CHRONIC RESPIRATORY FAILURE, UNSP W HYPOXIA OR HYPERCAPNIA Status: Chronic (6) HLD (hyperlipidemia) Code(s): E78.5 - HYPERLIPIDEMIA, UNSPECIFIED Status: Chronic (7) HTN (hypertension) Code(s): I10 - ESSENTIAL (PRIMARY) HYPERTENSION Status: Chronic (8) Obesities, morbid Code(s): E66.01 - MORBID (SEVERE) OBESITY DUE TO EXCESS CALORIES Status: Chronic - Plan We will continue IV diuretics. Patient still complains of shortness of breath and some chest pain when he lies down. Will check BMP in a.m. 04/22 patient states that he has been eating a lot of canned food at home. We will continue IV diuretics. Continue to monitor electrolytes. Will cut back on the dose of the blood pressure medications. 04/23 patient states that he feels better in regards to getting up and moving around his shortness of breath has improved. He is lost about 10 pounds. We will continue diuresing patient. 04/24 patient had epistaxis today. Patient has lost over 10 pounds. He still has a little bit of shortness of breath. Stable discharge in a.m. we will change his diuretics to p.o. 04/25 patient had no events of epistaxis last night. I did recommend that patient will need a sleep study as an outpatient. Patient had some mild eleva danilo of his creatinine. His weight in the computer indicates that he gained weight however I believe this is incorrect. We will continue to monitor the patient. He is on fluid restriction. Possible discharge in a.m. Will recheck labs in a.m.
[2020-04-25] MEDS: Clopidogrel Bisulfate 75 MG TAB PO SCH (21:15)
[2020-04-25] MEDS: Aspirin Chewable 81 MG TAB PO SCH (21:15)
[2020-04-25] MEDS: Atorvastatin Calcium 20 MG TAB PO SCH (21:15)
[2020-04-26] MEDS: Furosemide 40 MG TAB PO SCH (06:35)
[2020-04-26] MEDS: Budesonide 0.5 MG/2 ML NEB NEB SCH ×3 (07:29→18:28)
[2020-04-26] MEDS: Enoxaparin Sodium 40 MG/0.4 ML SYRINGE SC SCH (08:56)
[2020-04-26] MEDS: Carvedilol 6.25 MG TAB PO SCH ×2 (08:56→16:39)
[2020-04-26 11:25] LABS: #Eosinphils 0.1 thou/uL (0.0-0.7); #Lymphocytes 2.6 thou/uL (1.20-3.40); #Monocytes 1.1 thou/uL (0.11-0.59); #Neutrophils 5.7 thou/uL (1.40-6.50); %Basophils 0.5 % (0.0-1.0); %Eosinophils 1.3 % (0.0-10.0); %Monocytes 11.3 % (0.0-10.0); %Neutrophils 59.9 % (42.0-75.0); Hemoglobin 16.7 g/dL (14.0-18.0); Mean Corpuscular HGB CONC 30.5 g/dL (32.0-36.0); Mean Platelet Volume 10.4 fL (7.4-10.4); Platelet Count 192 thou/uL (130-400); RBC Distribution Width 13.6 % (11.5-14.5); Red Blood Cell (RBC) Count 5.38 mill/uL (4.70-6.10); White Blood Cell (WBC) Count 9.4 thou/uL (4.8-10.8)
[2020-04-26] MEDS: Lisinopril 10 MG TAB PO SCH (11:48)
[2020-04-26 12:20] LABS: BUN (Urea Nitrogen) 44 mg/dL (8.4-25.7); Calc. Creatinine Clearance 122 mL/min (70-130); Calcium 9.4 mg/dL (7.8-10.44); Estimated GFR-MDRD 49; Glucose 192 mg/dL (70-105)
[2020-04-26 12:29] LABS: Anion Gap 16 mmol/L (10-20); Carbon Dioxide 35 mmol/L (22-29); Chloride 90 mmol/L (98-107); Sodium 136 mmol/L (136-145)
[2020-04-26 14:29] VITALS: BMI 47.8
[2020-04-26] MEDS ORDERED: Sodium Chloride 0.9% 250 ML IV SCH (14:30)
--- NOTE | 2020-04-26 15:53 | PDOC.HOSPP ---
- Subjective Encounter Date: 04/26/20 Encounter Time: 15:37 Subjective: Patient up in bed denies any complaints states he feels much better today. - Objective Vital Signs & Weight: Vital Signs (12 hours) Temp Pulse Pulse Pulse Resp BP BP 04/26/20 11:29 97.7 F 81 18 04/26/20 09:13 97 92 134/87 95/60 04/26/20 08:05 04/26/20 07:47 97.5 F L 90 18 04/26/20 07:29 90 16 04/26/20 04:22 97.6 F 95 20 BP Pulse Ox Pulse Ox Pulse Ox 04/26/20 11:29 123/76 90 L 04/26/20 09:13 92 L 90 L 04/26/20 08:05 90 L 04/26/20 07:47 130/82 90 L 04/26/20 07:29 04/26/20 04:22 96/60 90 L Weight Admit Weight 368 lb 14.4 oz Weight 352 lb 9 oz I&O: 04/25/20 04/26/20 04/27/20 06:59 06:59 06:59 Intake Total 1680 1710 Output Total 2500 2500 Balance -820 -790 Result Diagrams: 04/26/20 10:47 04/26/20 10:47 Hospitalist ROS - Review of Systems Cardiovascular: denies: chest pain, palpitations, orthopnea, paroxysmal noc. dyspnea, edema, light headedness, other Gastrointestinal: denies: nausea, vomiting, abdominal pain, diarrhea, constipation, melena, hematochezia, other Genitourinary: denies: dysuria, frequency, incontinence, hematuria, retention, other - Medication Medications: Active Medications Generic Name Dose Route Start Last Admin Trade Name Freq PRN Reason Stop Dose Admin Acetaminophen 650 mg 04/18/20 13:05 04/22/20 02:35 Acetaminophen 325 Mg Tab PO 650 mg Q4H PRN Administration Headache/Fever/Mild Pain (1-3) Hydrocodone Bitart/Acetaminophen 1 tab 04/18/20 13:05 04/25/20 13:02 Hydrocodone/Acetaminophen 5/325 Mg Tablet PO 1 tab Q4H PRN Administration Moderate Pain (4-6) Albuterol/Ipratropium 3 ml 04/19/20 01:00 04/26/20 07:29 Ipratropium/Albuterol Sulfate 3 Ml Neb NEB 3 ml [id number] RUIZ Administration Aspirin 81 mg 04/18/20 21:00 04/25/20 21:15 Aspirin Chewable 81 Mg Tab PO 81 mg QPM RUIZ Administration Atorvastatin Calcium 20 mg 04/18/20 21:00 04/25/20 21:15 Atorvastatin Calcium 20 Mg Tab PO 20 mg HS RUIZ Administration Budesonide 0.5 mg 04/19/20 06:30 04/26/20 07:29 Budesonide 0.5 Mg/2 Ml Neb NEB 0.5 mg BID-RT RUIZ Administration Carvedilol 6.25 mg 04/22/20 14:44 04/26/20 08:56 Carvedilol 6.25 Mg Tab PO 6.25 mg BID-WM RUIZ Administration Clopidogrel Bisulfate 75 mg 04/18/20 21:00 04/25/20 21:15 Clopidogrel Bisulfate 75 Mg Tab PO 75 mg HS RUIZ Administration Enoxaparin Sodium 40 mg 04/19/20 09:00 04/26/20 08:56 Enoxaparin Sodium 40 Mg/0.4 Ml Syringe SC Not Given 0900 RUIZ Furosemide 40 mg 04/25/20 07:30 04/26/20 06:35 Furosemide 40 Mg Tab PO Not Given DAILY-AC [facility] Isosorbide Mononitrate 30 mg 04/22/20 09:00 04/26/20 08:56 Isosorbide Mononitrate Er 30 Mg Tab PO 30 mg DAILY RUIZ Administration Lisinopril 5 mg 04/22/20 14:44 04/26/20 11:48 Lisinopril 10 Mg Tab PO 5 mg 1200 RUIZ Administration Ranolazine 1,000 mg 04/18/20 21:00 04/26/20 09:30 Ranolazine 500 Mg Tab PO 1,000 mg BID RUIZ Administration Sodium Chloride 10 ml 04/22/20 09:00 04/26/20 08:57 Flush - Normal Saline 10 Ml Syringe IVF Not Given Q12HR RUIZ Sodium Chloride 10 ml 04/22/20 09:00 04/23/20 05:55 Flush - Normal Saline 10 Ml Syringe IVF 10 ml PRN PRN Administration Saline Flush - Exam Neck: negative: supple, symmetric, no JVD, no thyromegaly, no lymphadenopathy, no carotid bruit, JVD Heart: negative: RRR, no murmur, no gallops, no rubs, normal peripheral pulses, irregular, diminshed peripheral pulses, murmur present, II/IV, III/IV Respiratory: negative: CTAB, no wheezes, no rales, no ronchi, normal chest expansion, no tachypnea, normal percussion, rales, rhonchi, tachypneic, wheezes Gastrointestinal: negative: soft, non-tender, non-distended, normal bowel sounds, no palpable masses, no hepatomegaly, no splenomegaly, no bruit, no guar ding, no rigidity, tender to palpation, distended, diminished bowl sounds, voluntary guarding Extremities: 1+ LE edema Hosp A/P (1) Acute on chronic systolic CHF (congestive heart failure) Code(s): I50.23 - ACUTE ON CHRONIC SYSTOLIC (CONGESTIVE) HEART FAILURE Status: Acute (2) CHF (congestive heart failure) Code(s): I50.9 - HEART FAILURE, UNSPECIFIED Status: Acute (3) CAD (coronary artery disease) Code(s): I25.10 - ATHSCL HEART DISEASE OF [place] CORONARY ARTERY W/O ANG PCTRS Status: Chronic Qualifiers: Coronary Disease-Associated Artery/Lesion type: [place] artery Associated angina: without angina (4) COPD (chronic obstructive pulmonary disease) Status: Chronic (5) Chronic respiratory failure Code(s): J96.10 - CHRONIC RESPIRATORY FAILURE, UNSP W HYPOXIA OR HYPERCAPNIA Status: Chronic (6) HLD (hyperlipidemia) Code(s): E78.5 - HYPERLIPIDEMIA, UNSPECIFIED Status: Chronic (7) HTN (hypertension) Code(s): I10 - ESSENTIAL (PRIMARY) HYPERTENSION Status: Chronic (8) Obesities, morbid Code(s): E66.01 - MORBID (SEVERE) OBESITY DUE TO EXCESS CALORIES Status: Chronic - Plan We will continue IV diuretics. Patient still complains of shortness of breath and some chest pain when he lies down. Will check BMP in a.m. 04/22 patient states that he has been eating a lot of canned food at home. We will continue IV diuretics. Continue to monitor electrolytes. Will cut back on the dose of the blood pressure medications. 04/23 patient states that he feels better in regards to getting up and moving around his shortness of breath has improved. He is lost about 10 pounds. We will continue diuresing patient. 04/24 patient had epistaxis today. Patient has lost over 10 pounds. He still has a little bit of shortness of breath. Stable discharge in a.m. we will change his diuretics to p.o. 04/25 patient had no events of epistaxis last night. I did recommend that patient will need a sleep study as an outpatient. Patient had some mild elevated of his creatinine. His weight in the computer indicates that he gained weight however I believe this is incorrect. We will continue to monitor the patient. He is on fluid restriction. Possible discharge in a.m. Will recheck labs in a.m. 04/26 patient's creatinine mildly elevated. Will give a small IV bolus recheck labs in a.m. if stable will discharge. Will ask nurse to check a post void r esidual.
[2020-04-26] MEDS: Aspirin Chewable 81 MG TAB PO SCH (21:29)
[2020-04-26] MEDS: Clopidogrel Bisulfate 75 MG TAB PO SCH (21:30)
[2020-04-26] MEDS: Atorvastatin Calcium 20 MG TAB PO SCH (21:30)
[2020-04-26] MEDS: HYDROcodone/Acetaminophen 5/325 mg Tablet PO PRN (21:30)
[2020-04-26] MEDS: Acetaminophen 325 MG TAB PO PRN (21:30)
[2020-04-27] MEDS: Acetaminophen 325 MG TAB PO PRN (04:10)
[2020-04-27] MEDS: HYDROcodone/Acetaminophen 5/325 mg Tablet PO PRN (04:10)
[2020-04-27 04:34] LABS: #Basophils 0.1 thou/uL (0.0-0.2); #Eosinphils 0.2 thou/uL (0.0-0.7); #Lymphocytes 3.2 thou/uL (1.20-3.40); #Monocytes 0.9 thou/uL (0.11-0.59); #Neutrophils 4.6 thou/uL (1.40-6.50); %Basophils 0.7 % (0.0-1.0); %Eosinophils 1.7 % (0.0-10.0); %Lymphocytes 36.2 % (21.0-51.0); %Monocytes 10.3 % (0.0-10.0); %Neutrophils 51.1 % (42.0-75.0); Hemoglobin 16.1 g/dL (14.0-18.0); Mean Corpuscular HGB CONC 31.3 g/dL (32.0-36.0); Mean Corpuscular Hemoglobin 31.5 pg (27.0-31.0); Platelet Count 181 thou/uL (130-400); RBC Distribution Width 13.4 % (11.5-14.5); White Blood Cell (WBC) Count 8.9 thou/uL (4.8-10.8)
[2020-04-27 05:01] LABS: Anion Gap 13 mmol/L (10-20); BUN (Urea Nitrogen) 45 mg/dL (8.4-25.7); Calc. Creatinine Clearance 126 mL/min (70-130); Carbon Dioxide 36 mmol/L (22-29); Chloride 91 mmol/L (98-107); Estimated GFR-MDRD 51; Glucose 125 mg/dL (70-105); Sodium 135 mmol/L (136-145)
[2020-04-27] MEDS: Budesonide 0.5 MG/2 ML NEB NEB SCH (08:10)
[2020-04-27] MEDS: Carvedilol 6.25 MG TAB PO SCH (08:44)
[2020-04-27] MEDS: Furosemide 40 MG TAB PO SCH (08:48)
[2020-04-27] MEDS: Enoxaparin Sodium 40 MG/0.4 ML SYRINGE SC SCH (08:48)
[2020-04-27 11:55] VITALS: BP 111/76; TEMP 98.8
--- NOTE | 2020-04-28 01:42 | DIS ---
DATE OF ADMISSION: 04/18/2020 DATE OF DISCHARGE: 04/27/2020 DISCHARGE DIAGNOSES: 1. Acute on chronic systolic heart failure. 2. Coronary artery disease. 3. Chronic obstructive pulmonary disease, stable. 4. Chronic hypoxic respiratory failure. 5. Hypertension. 6. Obesity. HOSPITAL COURSE: The patient is a 59-year-old male who initially presented to the hospital on 04/18 with complaints of shortness of breath. The patient at this time normally uses 2 L of oxygen on a regular basis. He does have a history of heart failure. He has been eating a lot of canned foods at home. His COVID test was negative. He was given IV diuretics and was seen by Cardiology. The patient underwent diuresing. He had an echo checked, which indicated an EF of 15% to 20% with right ventricular global systolic dysfunction that was moderately reduced. The patient while in the hospital initially his weight was 368 pounds, currently he is 358 pounds on discharge. The patient will be discharged home. He is feeling well. Will follow up with his primary. On discharge, patient was noted to have a mildly elevated creatinine of 1.43, which was improved from prior. I have instructed him to follow up with his primary next week to get blood work done and also to hold lisinopril until Thursday. HOME MEDICATIONS: 1. Ranexa 1000 mg b.i.d. 2. Isosorbide 30 mg daily. 3. Coreg 12.5 b.i.d. 4. Zocor 40 mg at bedtime. 5. Lisinopril, hold until Thursday. 6. Plavix 75 mg daily. 7. Aspirin 81 mg daily. 8. Lasix 40 mg daily. The patient also has been educated on being aware of water intake. PHYSICAL EXAMINATION: VITAL SIGNS: On discharge; temperature of 98.8, 94, 19, and 93% on 2 L, 111/76. GENERAL: He is awake, alert, and oriented x3. Does not appear in distress. CVS: S1, S2 present. No murmurs, rubs, or gallops. Job ID: [id number]
== END 2020-04-27 13:41 | disposition home or self-care (01) | DRG 291 ==
LOC: ERS 09:00 → ERHOLD 11:40 → 2NO 14:59
PROVIDERS: ADMIT Family Medicine; ATTEND Family Medicine
DX: I11.0 Hypertensive heart disease with heart failure (principal); J96.21 Acute and chronic respiratory failure with hypoxia; J44.1 Chronic obstructive pulmonary disease with (acute) exacerbation; Z68.43 Body mass index [BMI] 50.0-59.9, adult; I24.8 Other forms of acute ischemic heart disease; I25.10 Atherosclerotic heart disease of native coronary artery without angina pectoris; E78.00 Pure hypercholesterolemia, unspecified; E66.01 Morbid (severe) obesity due to excess calories; I50.23 Acute on chronic systolic (congestive) heart failure; I25.5 Ischemic cardiomyopathy; Z20.828 Contact with and (suspected) exposure to other viral communicable diseases; R04.0 Epistaxis; Z98.890 Other specified postprocedural states; Z90.49 Acquired absence of other specified parts of digestive tract; Z79.82 Long term (current) use of aspirin; Z95.810 Presence of automatic (implantable) cardiac defibrillator; Z87.891 Personal history of nicotine dependence; Z88.1 Allergy status to other antibiotic agents; I25.2 Old myocardial infarction; Z95.5 Presence of coronary angioplasty implant and graft; Z79.899 Other long term (current) drug therapy; Z99.81 Dependence on supplemental oxygen
CPT/HCPCS: 36415; 71045; 80048; 80053; 82553; 83735; 83880; 84484; 85025; 87635; 93005; 93306; 93798; 94640; 94760; 96374; 97139; J1940; J3475; J7050; J7620; J7626; U0003

== ENCOUNTER 2020-05-24 13:02 | Inpatient (IN) | payer MEDICARE ==
[2020-05-24 13:32] LABS: #Basophils 0.1 thou/uL (0.0-0.2); #Eosinphils 0.2 thou/uL (0.0-0.7); #Lymphocytes 2.6 thou/uL (1.20-3.40); #Monocytes 1.2 thou/uL (0.11-0.59); #Neutrophils 9.6 thou/uL (1.40-6.50); %Basophils 0.4 % (0.0-1.0); %Eosinophils 1.7 % (0.0-10.0); %Lymphocytes 19.2 % (21.0-51.0); %Monocytes 8.5 % (0.0-10.0); %Neutrophils 70.3 % (42.0-75.0); Hemoglobin 14.4 g/dL (14.0-18.0); Mean Corpuscular HGB CONC 31.5 g/dL (32.0-36.0); Mean Corpuscular Hemoglobin 32.5 pg (27.0-31.0); Mean Platelet Volume 10.3 fL (7.4-10.4); Platelet Count 202 thou/uL (130-400); RBC Distribution Width 13.7 % (11.5-14.5); Red Blood Cell (RBC) Count 4.44 mill/uL (4.70-6.10); White Blood Cell (WBC) Count 13.7 thou/uL (4.8-10.8)
[2020-05-24] MEDS ORDERED: Azithromycin 500 MG VIAL ONE (13:47)
[2020-05-24] MEDS ORDERED: cefTRIAXone\\ROCEPHIN 2 GM VIAL ONE (13:47)
[2020-05-24] MEDS ORDERED: Furosemide 40 MG/4 ML VIAL ONE (13:47)
[2020-05-24] MEDS ORDERED: Magnesium 2 GM/50 ML BAG (IN WATER) ONE (13:47)
[2020-05-24 14:01] LABS: Chloride 98 mmol/L (98-107); Sodium 144 mmol/L (136-145)
[2020-05-24 14:04] LABS: Anion Gap 16 mmol/L (10-20); Carbon Dioxide 35 mmol/L (22-29)
[2020-05-24 14:11] LABS: CKMB 1.5 ng/mL (0-6.6)
[2020-05-24 14:25] LABS: ALT (SGPT) 12 U/L (8-55); AST (SGOT) 12 U/L (5-34); Albumin 3.3 g/dL (3.5-5.0); Alkaline Phosphatase 104 U/L (40-110); BUN (Urea Nitrogen) 22 mg/dL (8.4-25.7); Bilirubin, Total 0.2 mg/dL (0.2-1.2); Calc. Creatinine Clearance 0 mL/min (70-130); Calcium 8.7 mg/dL (7.8-10.44); Estimated GFR-MDRD Greater than 90; Globulin 2.6 g/dL (2.4-3.5); Glucose 132 mg/dL (70-105); Protein, Total 5.9 g/dL (6.0-8.3)
--- NOTE | 2020-05-24 14:27 | RAD ---
EXAM: CHEST ONE VIEW PORTABLE: 05/24/20 HISTORY: Dyspnea, chest pain with deep inspiration. COMPARISON: 04/18/20, 03/23/20. FINDINGS: Left transvenous pacemaker. Cardiomegaly with mild vascular congestion. Stable bilateral costophrenic angle blunting. Minimal patchy alveolar and ground glass opacity parenchymal changes, particularly i n the lateral aspect of the right lung and left mid and lower lung zones raising the possibility of atypical pneumonia or pneumonitis including COVID pneumonia. IMPRESSION: Cardiomegaly with mild vascular congestion. Some patchy peripheral alveolar and ground glass opacity changes in the right mid chest new from prior study raising the concern for the possibility of COVID pneumonia. POS: AH
[2020-05-24] MEDS ORDERED: Aspirin 325 MG TAB ONE (14:58)
[2020-05-24] MEDS ORDERED: Albuterol 200 PUFF (6.7GM INHALER) ONE (15:09)
[2020-05-24 15:27] LABS: SARS-CoV-2 NAA Rapid Test Not Detected (NotDetected)
[2020-05-24] MEDS ORDERED: Senokot S 8.6-50 MG TAB PO PRN (15:32)
[2020-05-24] MEDS ORDERED: Albuterol Sulfate 2.5 mg/3 ml Neb NEB PRN (15:35)
[2020-05-24 17:05] LABS: Troponin I 0.067 ng/mL (< 0.028)
--- NOTE | 2020-05-24 17:49 | CT ---
CT CHEST WITHOUT CONTRAST CLINICAL INDICATION: Shortness of breath. COMPARISON: 03/22/2020 FINDINGS: Aorta: Limited evaluation of the vascular structures due to lack of intravenous, stress. Vascular shawna cifications are seen in the thoracic aorta, but the thoracic aorta is normal in caliber. Coronary artery calcifications are present as well. Lungs: Again noted are mild emphysematous changes predominantly in the upper lobes. There is been int erval development of nodular opacity seen in the right upper lobe with largest lobulated nodular opacity measuring 2.2 cm x 1.1 cm. These findings could be related to infectious process, follow-up i s recommended to ensure resolution and exclude the possibility of an underlying neoplastic process. However, no findings were seen in this region on prior exam. Stable 3 to 4 mm pulmonary nodule within the lateral aspect left upper lobe is again present. Slightly irregular density in the region of the lateral aspect of the lingula is present Calcified granuloma is again seen at the right lung base. No pleural effusion is present. Mediastinum: Calcified right hilar lymph nodes present related to prior granulomatous disease. There is a mildly enlarged subcarinal lymph node present measuring 1.7 cm in short axis dimension with mild increase in number of lymph nodes within the mediastinum, but this is overall similar to the ellie or exam. Prominent pretracheal lymph node is seen, but a fatty cleft is seen centrally and this is a stable finding. A single lead left subclavian AICD device is noted in place. The heart is enlarged. Thyroid gland: Normal CT appearance. Osseous structures: Multilevel degenerative changes similar to prior exam. Chest wall: No abnormality visualized. 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 There is a small lobulated densi ty adjacent to the pancreas which may represent residual splenule. This is a stable finding. IMPRESSION: 1. Interval development of nodular densities in the right upper lobe with minimal adjacent groundglas s densities. Findings could be related to an infectious process. However, follow-up to resolution is recommended to ensure that there is a not on underlying neoplastic process. 2. Evidence of COPD. 3. Cardiomegaly. 4. Reactive mediastinal lymphadenopathy.
[2020-05-24 19:58] LABS: Actual Bicarbonate (HCO3a) 34.6 mEq/L (22-28); Analyzer IN Cardio ER; Base Excess (BEa) 7.1 mEq/L (-2.0 to +3.0); Calcium, Ionized (arterial) 1.15 mmol/L (1.12-1.30); Carboxyhemoglobin (COHb) 0.8 gm% (0.0-3.0); Hemoglobin (Hb) 14.7 g/dL (14.0-18.0); O2 Tension (PaO2), arterial 70.1 mmHg (80.0-100.0); Potassium - ABG Lab 4.72 mmol/L (3.70-5.30); pH, Arterial 7.37 (7.35-7.45)
[2020-05-24 20:33] LABS: Troponin I 0.053 ng/mL (< 0.028)
[2020-05-24 20:48] LABS: Puncture Site RRA
[2020-05-24] MEDS ORDERED: Simvastatin 40 MG TAB PO SCH (21:00)
[2020-05-24] MEDS ORDERED: Atorvastatin Calcium 20 MG TAB PO SCH (23:00)
[2020-05-24] MEDS: Aspirin Chewable 81 MG TAB PO SCH (23:05)
[2020-05-24] MEDS: Carvedilol 6.25 MG TAB PO SCH (23:06)
[2020-05-24] MEDS: Clopidogrel Bisulfate 75 MG TAB PO SCH (23:07)
[2020-05-24 23:11] VITALS: BMI 50.2
--- NOTE | 2020-05-24 23:55 | HP ---
CHIEF COMPLAINT: Shortness of breath. HISTORY OF PRESENT ILLNESS: Patient is a 59-year-old male, with a history of systolic heart failure, obesity, and COPD, who presents to the hospital with complaints of worsening shortness of breath for the past few days. Patient denies any fevers, however, states that he has been coughing and coughing up some purulent color discharge. He denies any sick contacts. He says he does not go anywhere. However, he lives with a whole bunch of young kids and older kids. Patient states that he has been compliant with his medications at home also. PAST MEDICAL HISTORY: 1. He has a history of systolic heart failure. 2. He has a history of COPD, on 2 L of oxygen. 3. CAD with history of PCIs, ischemic cardiomyopathy, AICD placement. PAST SURGICAL HISTORY: He has had an appendectomy, hernia repair. He has a left-sided AICD, tonsillectomy. FAMILY HISTORY: No history of heart disease or stroke. SOCIAL HISTORY: He is a former smoker. Denies any alcohol use or drug use. He is a full code. Lives with his family. REVIEW OF SYSTEMS: All negative, except for the ones mentioned above in the HPI. PHYSICAL EXAMINATION: VITAL SIGNS: As of the following; temperature 98.1, 22, 96% on high-flow, 101/55, and 102 heart rate. GENERAL: He is awake, alert, and oriented x3. Does not appear in any distress. CV: S1, S2 present. No murmurs, rubs, or gallops. LUNGS: Have mild expiratory wheezing. ABDOMEN: Obese. Bowel sounds are present x2. EXTREMITIES: He has 1+ lower extremity edema. NEURO: There are no focal deficits noted. SKIN: No cuts, lesions, or bruises noted. LABORATORY RESULTS: As of the following: His COVID test was negative. His chest x-ray indicates cardiomegaly with vascular congestion with peripheral patchy alveolar ground-glass opacity. His sodium was 144, potassium of 5.0, BUN of 22, and creatinine 0.83. Troponin of 0.060 and BNP of 79. WBCs of 13.7, hemoglobin of 14.4, and hematocrit of 45.8, and his platelets are 202. EKG; no acute changes, ST elevation or depression noted. ASSESSMENT AND PLAN: Patient is a 59-year-old male, who presents to the hospital with complaints of worsening shortness of breath. 1. Acute hypoxic respiratory failure. When he came in to the ER, he was noted to have oxygen saturations low in the 80s. At this time, EMS had given him albuterol and Solu-Medrol treatment en route. This could be chronic obstructive pulmonary disease exacerbation, this could be acute on chronic systolic heart failure. However, his BNP is normal. This also could be pneumonia versus COVID pneumonia. His COVID rapid test was negative. However, I will check inflammatory markers. I will get a CT chest to rule out for any ground-glass opacities. We will also start him on some prophylactic community-acquired antibiotics. I will start him on some Solu-Medrol and also we will continue his home medications, which includes diuretics. He did get Lasix in the ER. He also got Solu-Medrol in the ER. Patient states that he feels much better. 2. Mildly elevated troponins. Patient does have systolic heart failure. His troponins are around the similar range as it was before. We will continue to trend it. 3. Obesity. Diet, exercise, and weight loss have been discussed with this patient. 4. Elevated WBC. This could be secondary to a viral versus bacterial. We will continue antibiotics and continue to monitor the patient. 5. Deep venous thrombosis prophylaxis. Patient is currently on subcu Lovenox. 6. Coronary artery disease. We will continue patient's aspirin and Plavix. Job ID: [id number]
[2020-05-25 03:33] LABS: #Basophils 0.1 thou/uL (0.0-0.2); #Lymphocytes 0.9 thou/uL (1.20-3.40); #Monocytes 0.4 thou/uL (0.11-0.59); #Neutrophils 10.4 thou/uL (1.40-6.50); %Basophils 0.9 % (0.0-1.0); %Eosinophils 0.1 % (0.0-10.0); %Lymphocytes 7.9 % (21.0-51.0); %Monocytes 3.3 % (0.0-10.0); %Neutrophils 87.8 % (42.0-75.0); Hemoglobin 14.3 g/dL (14.0-18.0); Mean Corpuscular HGB CONC 31.4 g/dL (32.0-36.0); Mean Corpuscular Hemoglobin 32.3 pg (27.0-31.0); Mean Platelet Volume 9.9 fL (7.4-10.4); Platelet Count 233 thou/uL (130-400); RBC Distribution Width 13.8 % (11.5-14.5); Red Blood Cell (RBC) Count 4.43 mill/uL (4.70-6.10); White Blood Cell (WBC) Count 11.8 thou/uL (4.8-10.8)
[2020-05-25 04:03] LABS: BUN (Urea Nitrogen) 30 mg/dL (8.4-25.7); Calc. Creatinine Clearance 170 mL/min (70-130); Calcium 8.8 mg/dL (7.8-10.44); Estimated GFR-MDRD 68; Glucose 307 mg/dL (70-105)
[2020-05-25 04:12] LABS: Anion Gap 19 mmol/L (10-20); Carbon Dioxide 31 mmol/L (22-29); Chloride 95 mmol/L (98-107); Sodium 140 mmol/L (136-145)
[2020-05-25] MEDS ORDERED: Furosemide 40 MG TAB PO SCH (07:30)
[2020-05-25] MEDS ORDERED: FLU VACC QS2020-21(6MOS UP)/PF 60 MCG/0.5 ML SYRINGE IM ONE (09:00)
[2020-05-25] MEDS: Carvedilol 6.25 MG TAB PO SCH ×2 (09:36→16:54)
[2020-05-25] MEDS: methylPREDNISolone Sod Succ 40 MG VIAL IVP SCH (09:36)
[2020-05-25] MEDS: Furosemide 40 MG/4 ML VIAL SLOW IVP SCH (09:36)
[2020-05-25] MEDS: Enoxaparin Sodium 40 MG/0.4 ML SYRINGE SC SCH ×2 (09:36→09:51)
[2020-05-25] MEDS: cefTRIAXone\\ROCEPHIN 1 GM in Sodium Chloride 0.9% 100 ML IVPB SCH (14:52)
--- NOTE | 2020-05-25 14:58 | PDOC.HOSPP ---
- Subjective Encounter Date: 05/25/20 Encounter Time: 11:30 Subjective: breathing better, is sitting on bed and watching tv says he is compliant with meds and diet no fever or sputum production - Objective Vital Signs & Weight: Vital Signs (12 hours) Temp BP BP Pulse Ox 05/25/20 11:24 97.6 F 05/25/20 09:36 152/100 H 05/25/20 07:45 89 L 05/25/20 03:59 98.0 F 05/25/20 03:45 136/85 Weight Weight 370 lb 8 oz Most Recent Monitor Data Heart Rate from ECG 103 NIBP 117/67 NIBP BP-Mean 83 Respiration from ECG 19 SpO2 84 I&O: 05/24/20 05/25/20 05/26/20 06:59 06:59 06:59 Intake Total 960 Output Total 550 1450 Balance -550 -490 Result Diagrams: 05/25/20 03:11 05/25/20 03:11 Hospitalist ROS - Medication Medications: Active Medications Generic Name Dose Route Start Last Admin Trade Name Jessee PRN Reason Stop Dose Admin Aspirin 81 mg 05/24/20 21:00 05/24/20 23:05 Aspirin Chewable 81 Mg Tab PO 81 mg QPM RUIZ Administration Carvedilol 12.5 mg 05/24/20 17:00 05/25/20 09:36 Carvedilol 6.25 Mg Tab PO 12.5 mg BID-WM RUIZ Administration Clopidogrel Bisulfate 75 mg 05/24/20 21:00 05/24/20 23:07 Clopidogrel Bisulfate 75 Mg Tab PO 75 mg HS RUIZ Administration Enoxaparin Sodium 40 mg 05/25/20 09:00 05/25/20 09:51 Enoxaparin Sodium 40 Mg/0.4 Ml Syringe SC Not Given 0900 RUIZ Furosemide 40 mg 05/25/20 09:00 05/25/20 09:36 Furosemide 40 Mg/4 Ml Vial SLOW IVP 40 mg DAILY RUIZ Administration Ceftriaxone Sodium 1 gm/ 100 mls @ 200 mls/hr 05/25/20 15:00 05/25/20 14:52 Sodium Chloride IVPB 100 mls 1500 RUIZ Administration Isosorbide Mononitrate 30 mg 05/25/20 09:00 05/25/20 09:37 Isosorbide Mononitrate Er 30 Mg Tab PO 30 mg DAILY RUIZ Administration Methylprednisolone Sodium Succinate 40 mg 05/25/20 09:00 05/25/20 09:36 Methylprednisolone Sod Succ 40 Mg Vial IVP 40 mg DAILY RUIZ Administration Ranolazine 1,000 mg 05/24/20 21:00 05/25/20 09:36 Ranolazine 500 Mg Tab PO 1,000 mg BID RUIZ Administration - Exam General Appearance: awake alert Eye: PERRL, anicteric sclera ENT: no oropharyngeal lesions, moist mucosa Neck: supple, no JVD Heart: RRR, no murmur Respiratory: no wheezes, no rales, rhonchi Gastrointestinal: soft, non-tender, non-distended, normal bowel sounds Extremities: no cyanosis, 1+ LE edema Neurological: cranial nerve grossly intact, no focal deficits Psychiatric: normal affect, A&O x 3 Hosp A/P (1) Acute and chronic respiratory failure with hypercapnia Code(s): J96.22 - ACUTE AND CHRONIC RESPIRATORY FAILURE WITH HYPERCAPNIA St [place]: Acute (2) Acute on chronic systolic CHF (congestive heart failure) Code(s): I50.23 - ACUTE ON CHRONIC SYSTOLIC (CONGESTIVE) HEART FAILURE Status: Acute (3) CAD (coronary artery disease) Code(s): I25.10 - ATHSCL HEART DISEASE OF [place] CORONARY ARTERY W/O ANG PCTRS Status: Chronic Qualifiers: Coronary Disease-Associated Artery/Lesion type: [place] artery Associated angina: without angina (4) COPD (chronic obstructive pulmonary disease) Status: Chronic Qualifiers: COPD type: COPD with acute exacerbation Qualified Code(s): J44.1 - Chronic obstructive pulmonary disease with (acute) exacerbation (5) HLD (hyperlipidemia) Code(s): E78.5 - HYPERLIPIDEMIA, UNSPECIFIED Status: Chronic Qualifiers: Hyperlipidemia type: unspecified Qualified Code(s): E78.5 - Hyperlipidemia, unspecified (6) HTN (hypertension) Code(s): I10 - ESSENTIAL (PRIMARY) HYPERTENSION Status: Chronic Qualifiers: Hypertension type: essential hypertension Qualified Code(s): I10 - Essential (primary) hypertension (7) Obesities, morbid Code(s): E66.01 - MORBID (SEVERE) OBESITY DUE TO EXCESS CALORIES Status: Chronic (8) Obesity hypoventilation syndrome Code(s): E66.2 - MORBID (SEVERE) OBESITY WITH ALVEOLAR HYPOVENTILATION Status: Suspected - Plan is on aspirin, plavix, lipitor, coreg, lasix, solumedrol, ranexa and imdur may dc antibiotics if ok with pulm says he does not have sleep apnea, was seeing at [facility] before more than likely has obesity hypoventilation syndrome with bmi of 50, pCo2 of 61. may tx to telemetry to ambulate as tolerated is on home O2 has had covid pcr on 02/27, 04/18 and 05/24: all of which are -ve, has no symptoms specific to covid now, dc precautions.
[2020-05-25 15:55] LABS: Medtox Reader # READER 1
[2020-05-25 15:56] LABS: Amphetamine Not Detected (NotDetected); Barbiturates Screen Not Detected (NotDetected); Benzodiazepine Screen Not Detected (NotDetected); Cocaine Metabolite Screen Not Detected (NotDetected); Medtox Control Line Valid? VALID (VALID); Methadone Not Detected (NotDetected); Methamphetamine Not Detected (NotDetected); Opiate Screen Not Detected (NotDetected); Oxycodone Screen Not Detected (NotDetected); Phencyclidine (PCP) Not Detected (NotDetected); THC/Cannabinoid Screen Not Detected (NotDetected); Tricyclic Screen Not Detected (NotDetected)
[2020-05-25] MEDS ORDERED: Azithromycin 500 MG in Sodium Chloride 0.9% 250 ML 250 ML IVPB SCH (16:00)
[2020-05-25] MEDS: Atorvastatin Calcium 20 MG TAB PO SCH (20:23)
[2020-05-25] MEDS: Aspirin Chewable 81 MG TAB PO SCH (20:23)
[2020-05-25] MEDS: Clopidogrel Bisulfate 75 MG TAB PO SCH (20:23)
[2020-05-26] MEDS ORDERED: Cepastat Lozenges 1 LOZ PO PRN (07:28)
[2020-05-26] MEDS ORDERED: Ondansetron ODT 4 MG TAB PO PRN (07:28)
[2020-05-26] MEDS ORDERED: Calcium Carbonate 500 MG ChewTAB PO PRN (07:28)
[2020-05-26] MEDS ORDERED: hydrALAZINE 20 MG/ML VIAL SLOW IVP PRN (07:28)
[2020-05-26] MEDS ORDERED: Sodium Chloride 0.65% Nasal 44 ML BOT EA NARE PRN (07:28)
[2020-05-26] MEDS ORDERED: Nitroglycerin 0.4 MG TAB 1 EACH SL PRN (07:28)
[2020-05-26] MEDS ORDERED: Loperamide HCl 2 MG CAP PO PRN (07:28)
[2020-05-26] MEDS ORDERED: Bisacodyl 5 MG TAB PO PRN (07:28)
[2020-05-26] MEDS ORDERED: Loratadine 10 MG TAB PO PRN (07:28)
[2020-05-26] MEDS: Furosemide 40 MG/4 ML VIAL SLOW IVP SCH (09:55)
[2020-05-26] MEDS: Enoxaparin Sodium 40 MG/0.4 ML SYRINGE SC SCH (09:55)
[2020-05-26] MEDS: Saccharomyces boulardii 250 MG CAP PO SCH (09:55)
[2020-05-26] MEDS: Folic Acid 1 MG TAB PO SCH (09:55)
[2020-05-26] MEDS: Cyanocobalamin (Vitamin B-12) 1,000 MCG TAB PO SCH (09:56)
[2020-05-26] MEDS: Famotidine 20 MG TAB PO SCH ×2 (09:56→20:49)
[2020-05-26] MEDS: Lisinopril 5 MG TAB PO SCH (09:56)
[2020-05-26] MEDS: AcetaZOLAMIDE 250 MG TAB PO SCH ×2 (09:56→20:50)
[2020-05-26] MEDS: Doxycycline 100 MG CAP PO SCH ×2 (09:56→20:50)
[2020-05-26] MEDS: Carvedilol 6.25 MG TAB PO SCH ×2 (09:57→17:42)
[2020-05-26] MEDS: methylPREDNISolone Sod Succ 40 MG VIAL IVP SCH (10:06)
--- NOTE | 2020-05-26 12:02 | PDOC.HOSPP ---
- Subjective Encounter Date: 05/26/20 Encounter Time: 10:15 Subjective: Patient has sore throat, cough productive of sputum, he has dyspnea, he denies any chest pain, - Objective Vital Signs & Weight: Vital Signs (12 hours) Temp Pulse Pulse BP BP BP Pulse Ox 05/26/20 11:37 97.7 F 05/26/20 09:57 152/100 H 05/26/20 09:56 152/100 H 05/26/20 09:39 98 98 140/80 145/108 H 05/26/20 08:00 91 L 05/26/20 07:03 97.6 F 05/26/20 03:24 97.7 F Pulse Ox Pulse Ox 05/26/20 11:37 05/26/20 09:57 05/26/20 09:56 05/26/20 09:39 86 L 88 L 05/26/20 08:00 05/26/20 07:03 05/26/20 03:24 Weight Weight 370 lb 8 oz Most Recent Monitor Data Heart Rate from ECG 100 NIBP 145/108 NIBP BP-Mean 120 Respiration from ECG 14 SpO2 90 I&O: 05/25/20 05/26/20 05/27/20 06:59 06:59 06:59 Intake Total 2530 Output Total 550 3450 Balance -550 -920 Result Diagrams: 05/25/20 03:11 05/25/20 03:11 Radiology Reviewed by me: Yes EKG Reviewed by me: Yes Hospitalist ROS - Review of Systems Constitutional: reports: weakness. denies: fever, chills, sweats, malaise, other ENT: reports: throat pain. denies: ear pain, ear discharge, nose pain, nose discharge, nose congestion, mouth pain, mouth swelling, throat swelling, other Respiratory: reports: shortness of breath, SOB with excertion. denies: cough, dry, hemoptysis, pleuritic pain, sputum, wheezing, other Cardiovascular: denies: chest pain, palpitations, orthopnea, paroxysmal noc. dyspnea, edema, light headedness, other Gastrointestinal: reports: constipation. denies: nausea, vomiting, abdominal pain, diarrhea, melena, hematochezia, other Genitourinary: denies: dysuria, frequency, incontinence, hematuria, retention, other Musculoskeletal: denies: neck pain, shoulder pain, arm pain, back pain, hand pain, leg pain, foot pain, other Skin: denies: rash, lesions, cinthia, bruising, other - Medication Medications: Active Medications Generic Name Dose Route Start Last Admin Trade Name Heronq PRN Reason Stop Dose Admin Acetazolamide 250 mg 05/26/20 09:00 05/26/20 09:56 Acetazolamide 250 Mg Tab PO 250 mg BID RUIZ Administration Aspirin 81 mg 05/24/20 21:00 05/25/20 20:23 Aspirin Chewable 81 Mg Tab PO 81 mg QPM RUIZ Administration Atorvastatin Calcium 20 mg 05/25/20 21:00 05/25/20 20:23 Atorvastatin Calcium 20 Mg Tab PO 20 mg HS RUIZ Administration Carvedilol 12.5 mg 05/24/20 17:00 05/26/20 09:57 Carvedilol 6.25 Mg Tab PO 12.5 mg BID-WM RUIZ Administration Clopidogrel Bisulfate 75 mg 05/24/20 21:00 05/25/20 20:23 Clopidogrel Bisulfate 75 Mg Tab PO 75 mg HS RUIZ Administration Cyanocobalamin 1,000 mcg 05/26/20 09:00 05/26/20 09:56 Cyanocobalamin (Vitamin B-12) 1,000 Mcg Tab PO 1,000 mcg DAILY RUIZ Administration Doxycycline Hyclate 100 mg 05/26/20 09:00 05/26/20 09:56 Doxycycline 100 Mg Cap PO 100 mg BID RUIZ Administration Enoxaparin Sodium 40 mg 05/25/20 09:00 05/26/20 09:55 Enoxaparin Sodium 40 Mg/0.4 Ml Syringe SC 40 mg 0900 RUIZ Administration Famotidine 20 mg 05/26/20 09:00 05/26/20 09:56 Famotidine 20 Mg Tab PO 20 mg BID RUIZ Administration Folic Acid 1 mg 05/26/20 09:00 05/26/20 09:55 Folic Acid 1 Mg Tab PO 1 mg DAILY RUIZ Administration Furosemide 40 mg 05/25/20 09:00 05/26/20 09:55 Furosemide 40 Mg/4 Ml Vial SLOW IVP 40 mg DAILY RUIZ Administration Ceftriaxone Sodium 1 gm/ 100 mls @ 200 mls/hr 05/25/20 15:00 05/25/20 14:52 Sodium Chloride IVPB 100 mls 1500 RUIZ Administration Isosorbide Mononitrate 30 mg 05/25/20 09:00 05/26/20 09:55 Isosorbide Mononitrate Er 30 Mg Tab PO 30 mg DAILY RUIZ Administration Lisinopril 5 mg 05/26/20 09:00 05/26/20 09:56 Lisinopril 5 Mg Tab PO 5 mg DAILY RUIZ Administration Methylprednisolone Sodium Succinate 40 mg 05/25/20 09:00 05/26/20 10:06 Methylprednisolone Sod Succ 40 Mg Vial IVP 40 mg DAILY RUIZ Administration Ranolazine 1,000 mg 05/24/20 21:00 05/26/20 09:55 Ranolazine 500 Mg Tab PO 1,000 mg BID RUIZ Administration Saccharomyces Boulardii 250 mg 05/26/20 09:00 05/26/20 09:55 Saccharomyces Boulardii 250 Mg Cap PO 250 mg DAILY RUIZ Administration Sodium Chloride 10 ml 05/26/20 09:00 05/26/20 10:06 Flush - Normal Saline 10 Ml Syringe IVF 10 ml Q12HR RUIZ Administration - Exam General Appearance: NAD, awake alert Eye: PERRL, anicteric sclera ENT: normocephalic atraumatic, no oropharyngeal lesions Neck: supple, symmetric Heart: RRR, no murmur, no gallops, no rubs Respiratory - other findings: Morbid obesity limiting examination Gastrointestinal: soft Gastrointestinal - other findings: Acute obesity Extremities: 2+ LE edema Skin: normal turgor, no lesions Neurological: no focal deficits Musculoskeletal: normal tone, normal strength Psychiatric: normal affect, normal behavior Hosp A/P (1) Acute and chronic respiratory failure with hypercapnia Code(s): J96.22 - ACUTE AND CHRONIC RESPIRATORY FAILURE WITH HYPERCAPNIA Status: Acute (2) Acute on chronic systolic CHF (congestive heart failure) Code(s): I50.23 - ACUTE ON CHRONIC SYSTOLIC (CONGESTIVE) HEART FAILURE Status: Acute (3) Pneumonia Code(s): J18.9 - PNEUMONIA, UNSPECIFIED ORGANISM Status: Acute Qualifiers: Pneumonia type: due to unspecified organism Laterality: right Lung location: upper lobe of lung Qualified Code(s): J18.9 - Pneumonia, unspecified organism (4) Obesity hypoventilation syndrome Code(s): E66.2 - MORBID (SEVERE) OBESITY WITH ALVEOLAR HYPOVENTILATION Status: Chronic (5) CAD (coronary artery disease) Code(s): I25.10 - ATHSCL HEART DISEASE OF [place] CORONARY ARTERY W/O ANG PCTRS Status: Chronic Qualifiers: Coronary Disease-Associated Artery/Lesion type: [place] artery Associated angina: without angina (6) COPD (chronic obstructive pulmonary disease) Status: Chronic Qualifiers: COPD type: COPD with acute exacerbation Qualified Code(s): J44.1 - Chronic obstructive pulmonary disease with (acute) exacerbation (7) HLD (hyperlipidemia) Code(s): E78.5 - HYPERLIPIDEMIA, UNSPECIFIED Status: Chronic Qualifiers: Hyperlipidemia type: unspecified Qualified Code(s): E78.5 - Hyperlipidemia, unspecified (8) HTN (hypertension) Code(s): I10 - ESSENTIAL (PRIMARY) HYPERTENSION Status: Chronic Qualifiers: Hypertension type: essential hypertension Qualified Code(s): I10 - Essential (primary) hypertension - Plan old records reviewed/req, continue antibiotics, respiratory therapy Continue Lasix Continue Rocephin and add doxycycline Symptomatic treatment Monitor clinical response Continue PT OT Add Diamox Patient will need outpatient sleep study
[2020-05-26 13:32] LABS: Legionella Urinary Ag Negative (Negative)
[2020-05-26 13:33] LABS: Strep pneumo Urine Ag NEGATIVE (NEGATIVE)
[2020-05-26] MEDS: cefTRIAXone\\ROCEPHIN 1 GM in Sodium Chloride 0.9% 100 ML IVPB SCH (15:41)
[2020-05-26] MEDS: Aspirin Chewable 81 MG TAB PO SCH (20:48)
[2020-05-26] MEDS: Atorvastatin Calcium 20 MG TAB PO SCH (20:49)
[2020-05-26] MEDS: Clopidogrel Bisulfate 75 MG TAB PO SCH (20:49)
[2020-05-26] MEDS: Diabetic Tussin 200 MG/10 ML UDCUP PO PRN (21:44)
[2020-05-27] MEDS: Diabetic Tussin 200 MG/10 ML UDCUP PO PRN ×3 (02:18→15:21)
[2020-05-27] MEDS: Cyanocobalamin (Vitamin B-12) 1,000 MCG TAB PO SCH (09:04)
[2020-05-27] MEDS: methylPREDNISolone Sod Succ 40 MG VIAL IVP SCH (09:04)
[2020-05-27] MEDS: Furosemide 40 MG/4 ML VIAL SLOW IVP SCH (09:04)
[2020-05-27] MEDS: Lisinopril 5 MG TAB PO SCH (09:04)
[2020-05-27] MEDS: Folic Acid 1 MG TAB PO SCH (09:04)
[2020-05-27] MEDS: Acetaminophen 325 MG TAB PO PRN (09:05)
[2020-05-27] MEDS: Famotidine 20 MG TAB PO SCH ×2 (09:05→20:55)
[2020-05-27] MEDS: Doxycycline 100 MG CAP PO SCH ×2 (09:05→20:56)
[2020-05-27] MEDS: Saccharomyces boulardii 250 MG CAP PO SCH (09:05)
[2020-05-27] MEDS: AcetaZOLAMIDE 250 MG TAB PO SCH ×2 (09:05→20:55)
[2020-05-27] MEDS: Carvedilol 6.25 MG TAB PO SCH ×2 (09:05→17:00)
[2020-05-27] MEDS: Enoxaparin Sodium 40 MG/0.4 ML SYRINGE SC SCH (09:09)
--- NOTE | 2020-05-27 10:34 | PDOC.HOSPP ---
- Subjective Encounter Date: 05/27/20 Encounter Time: 09:00 Subjective: Patient seen and examined bedside today, patient is doing much better, today, he is still on 4 L nasal cannula oxygen, - Objective Vital Signs & Weight: Vital Signs (12 hours) Temp Pulse Resp BP Pulse Ox 05/27/20 07:25 97.7 F 93 17 172/88 H 94 L 05/27/20 05:54 94 16 174/118 H 95 05/27/20 03:52 97.0 F L 05/27/20 01:08 88 L 05/27/20 00:31 91 16 88 L 05/27/20 00:01 97.8 F Weight Weight 368 lb 2.751 oz Most Recent Monitor Data Heart Rate from ECG 100 NIBP 162/120 NIBP BP-Mean 134 Respiration from ECG 14 SpO2 90 I&O: 05/26/20 05/27/20 05/28/20 06:59 06:59 06:59 Intake Total 2530 720 Output Total 3450 2725 [facility] - Result Diagrams: 05/25/20 03:11 05/25/20 03:11 EKG Reviewed by me: Yes Hospitalist ROS - Review of Systems ENT: denies: ear pain, ear discharge, nose pain, nose discharge, nose congestion, mouth pain, mouth swelling, throat pain, throat swelling, other Respiratory: reports: cough, shortness of breath, SOB with excertion, sputum. denies: dry, hemoptysis, pleuritic pain, wheezing, other Cardiovascular: denies: chest pain, palpitations, orthopnea, paroxysmal noc. dyspnea, edema, light headedness, other Gastrointestinal: denies: nausea, vomiting, abdominal pain, diarrhea, constipation, melena, hematochezia, other Genitourinary: denies: dysuria, frequency, incontinence, hematuria, retention, other Musculoskeletal: denies: neck pain, shoulder pain, arm pain, back pain, hand pain, leg pain, foot pain, other - Medication Medications: Active Medications Generic Name Dose Route Start Last Admin Trade Name Freq PRN Reason Stop Dose Admin Acetaminophen 650 mg 05/24/20 15:32 05/27/20 09:05 Acetaminophen 325 Mg Tab PO 650 mg Q8H PRN Administration Headache/Fever/Mild Pain (1-3) Acetazolamide 250 mg 05/26/20 09:00 05/27/20 09:05 Acetazolamide 250 Mg Tab PO 250 mg BID RUIZ Administration Albuterol/Ipratropium 3 ml 05/26/20 13:00 05/27/20 00:31 Ipratropium/Albuterol Sulfate 3 Ml Neb NEB 3 ml [id number] RUIZ Administration Aspirin 81 mg 05/24/20 21:00 05/26/20 20:48 Aspirin Chewable 81 Mg Tab PO 81 mg QPM RUIZ Administration Atorvastatin Calcium 20 mg 05/25/20 21:00 05/26/20 20:49 Atorvastatin Calcium 20 Mg Tab PO 20 mg HS RUIZ Administration Clopidogrel Bisulfate 75 mg 05/24/20 21:00 05/26/20 20:49 Clopidogrel Bisulfate 75 Mg Tab PO 75 mg HS RUIZ Administration Cyanocobalamin 1,000 mcg 05/26/20 09:00 05/27/20 09:04 Cyanocobalamin (Vitamin B-12) 1,000 Mcg Tab PO 1,000 mcg DAILY RUIZ Administration Doxycycline Hyclate 100 mg 05/26/20 09:00 05/27/20 09:05 Doxycycline 100 Mg Cap PO 100 mg BID RUIZ Administration Enoxaparin Sodium 40 mg 05/25/20 09:00 05/27/20 09:09 Enoxaparin Sodium 40 Mg/0.4 Ml Syringe SC Not Given 899 [facility] Famotidine 20 mg 05/26/20 09:00 05/27/20 09:05 Famotidine 20 Mg Tab PO 20 mg BID RUIZ Administration Folic Acid 1 mg 05/26/20 09:00 05/27/20 09:04 Folic Acid 1 Mg Tab PO 1 mg DAILY RUIZ Administration Furosemide 40 mg 05/25/20 09:00 05/27/20 09:04 Furosemide 40 Mg/4 Ml Vial SLOW IVP 40 mg DAILY RUIZ Administration Guaifenesin 200 mg 05/26/20 07:28 05/27/20 09:25 Diabetic Tussin 200 Mg/10 Ml Udcup PO 200 mg Q4H PRN Administration Cough Ceftriaxone Sodium 1 gm/ 100 mls @ 200 mls/hr 05/25/20 15:00 05/26/20 15:41 Sodium Chloride IVPB 100 mls 1500 RUIZ Administration Isosorbide Mononitrate 30 mg 05/25/20 09:00 05/27/20 09:04 Isosorbide Mononitrate Er 30 Mg Tab PO 30 mg DAILY RUIZ Administration Ranolazine 1,000 mg 05/24/20 21:00 05/27/20 09:05 Ranolazine 500 Mg Tab PO 1,000 mg BID RUIZ Administration Saccharomyces Boulardii 250 mg 05/26/20 09:00 05/27/20 09:05 Saccharomyces Boulardii 250 Mg Cap PO 250 mg DAILY RUIZ Administration Senna/Docusate Sodium 2 tab 05/24/20 15:32 05/26/20 21:44 Senokot S 8.6-50 Mg Tab PO 2 tab BID PRN Administration Constipation Sodium Chloride 10 ml 05/26/20 09:00 05/27/20 09:06 Flush - Normal Saline 10 Ml Syringe IVF 10 ml Q12HR RUIZ Administration - Exam General Appearance: NAD, awake alert Eye: PERRL, anicteric sclera ENT: normocephalic atraumatic, no oropharyngeal lesions Neck: supple, symmetric, no JVD, no thyromegaly Heart: RRR, no murmur, no gallops, no rubs Respiratory: no wheezes, no rales, no ronchi Respiratory - other findings: Morbid obesity limiting examination Gastrointestinal: soft, non-tender, non-distended, normal bowel sounds Gastrointestinal - other findings: Morbid obesity noted Extremities: 1+ LE edema Skin: normal turgor, no lesions Neurological: no focal deficits Musculoskeletal: normal tone, normal strength Psychiatric: normal affect, normal behavior Hosp A/P (1) Acute and chronic respiratory failure with hypercapnia Code(s): J96.22 - ACUTE AND CHRONIC RESPIRATORY FAILURE WITH HYPERCAPNIA Status: Acute (2) Acute on chronic systolic CHF (congestive heart failure) Code(s): I50.23 - ACUTE ON CHRONIC SYSTOLIC (CONGESTIVE) HEART FAILURE Status: Acute (3) Pneumonia Code(s): J18.9 - PNEUMONIA, UNSPECIFIED ORGANISM Status: Acute Qualifiers: Pneumonia type: due to unspecified organism Laterality: right Lung location: upper lobe of lung Qualified Code(s): J18.9 - Pneumonia, unspecified organism (4) Obesity hypoventilation syndrome Code(s): E66.2 - MORBID (SEVERE) OBESITY WITH ALVEOLAR HYPOVENTILATION Status: Chronic (5) CAD (coronary artery disease) Code(s): I25.10 - ATHSCL HEART DISEASE OF [place] CORONARY ARTERY W/O ANG PCTRS Status: Chronic Qualifiers: Coronary Disease-Associated Artery/Lesion type: [place] artery Associated angina: without angina (6) COPD (chronic obstructive pulmonary disease) Status: Chronic Qualifiers: COPD type: COPD with acute exacerbation Qualified Code(s): J44.1 - Chronic obstructive pulmonary disease with (acute) exacerbation (7) HLD (hyperlipidemia) Code(s): E78.5 - HYPERLIPIDEMIA, UNSPECIFIED Status: Chronic Qualifiers: Hyperlipidemia type: unspecified Qualified Code(s): E78.5 - Hyperlipidemia, unspecified (8) HTN (hypertension) Code(s): I10 - ESSENTIAL (PRIMARY) HYPERTENSION Status: Chronic Qualifiers: Hypertension type: essential hypertension Qualified Code(s): I10 - Essential (primary) hypertension - Plan old records reviewed/req, continue antibiotics, respiratory therapy Discontinue Solu-Medrol Continue Rocephin and doxycycline Increased lisinopril 10 mg daily Continue IV Lasix Wean off oxygen as tolerated to baseline Continue PT OT
[2020-05-27] MEDS ORDERED: Lisinopril 5 MG TAB PO SCH (10:45)
[2020-05-27] MEDS: HYDROcodone/Acetaminophen 5/325 mg Tablet PO PRN (15:21)
[2020-05-27] MEDS: cefTRIAXone\\ROCEPHIN 1 GM in Sodium Chloride 0.9% 100 ML IVPB SCH (15:22)
[2020-05-27] MEDS: Aspirin Chewable 81 MG TAB PO SCH (20:55)
[2020-05-27] MEDS: Clopidogrel Bisulfate 75 MG TAB PO SCH (20:56)
[2020-05-27] MEDS: Atorvastatin Calcium 20 MG TAB PO SCH (20:56)
[2020-05-28 04:25] LABS: #Eosinphils 0.1 thou/uL (0.0-0.7); #Lymphocytes 2.6 thou/uL (1.20-3.40); #Monocytes 1.3 thou/uL (0.11-0.59); #Neutrophils 8.6 thou/uL (1.40-6.50); %Basophils 0.1 % (0.0-1.0); %Eosinophils 0.6 % (0.0-10.0); %Lymphocytes 20.9 % (21.0-51.0); %Monocytes 10.1 % (0.0-10.0); %Neutrophils 68.3 % (42.0-75.0); Hemoglobin 15.7 g/dL (14.0-18.0); Mean Corpuscular HGB CONC 30.9 g/dL (32.0-36.0); Mean Corpuscular Hemoglobin 31.8 pg (27.0-31.0); Mean Platelet Volume 9.5 fL (7.4-10.4); Platelet Count 275 thou/uL (130-400); RBC Distribution Width 13.7 % (11.5-14.5); Red Blood Cell (RBC) Count 4.95 mill/uL (4.70-6.10); White Blood Cell (WBC) Count 12.6 thou/uL (4.8-10.8)
[2020-05-28 04:44] LABS: BUN (Urea Nitrogen) 27 mg/dL (8.4-25.7); Calc. Creatinine Clearance 190 mL/min (70-130); Estimated GFR-MDRD 77; Glucose 143 mg/dL (70-105)
[2020-05-28 04:53] LABS: Anion Gap 16 mmol/L (10-20); Carbon Dioxide 37 mmol/L (22-29); Chloride 92 mmol/L (98-107); Potassium 5.5 mmol/L (3.5-5.1); Sodium 139 mmol/L (136-145)
[2020-05-28] MEDS: Diabetic Tussin 200 MG/10 ML UDCUP PO PRN (08:21)
[2020-05-28] MEDS: Carvedilol 6.25 MG TAB PO SCH ×2 (08:21→16:59)
[2020-05-28] MEDS: Saccharomyces boulardii 250 MG CAP PO SCH (08:22)
[2020-05-28] MEDS: Famotidine 20 MG TAB PO SCH ×2 (08:22→21:51)
[2020-05-28] MEDS: AcetaZOLAMIDE 250 MG TAB PO SCH ×2 (08:22→21:52)
[2020-05-28] MEDS: Doxycycline 100 MG CAP PO SCH ×2 (08:22→21:51)
[2020-05-28] MEDS: Folic Acid 1 MG TAB PO SCH (08:22)
[2020-05-28] MEDS: Cyanocobalamin (Vitamin B-12) 1,000 MCG TAB PO SCH (08:23)
[2020-05-28] MEDS: Enoxaparin Sodium 40 MG/0.4 ML SYRINGE SC SCH (08:23)
[2020-05-28] MEDS ORDERED: Lisinopril 10 MG TAB PO SCH (09:00)
[2020-05-28] MEDS ORDERED: Furosemide 40 MG/4 ML VIAL SLOW IVP SCH (09:45)
[2020-05-28] MEDS: HYDROcodone/Acetaminophen 5/325 mg Tablet PO PRN ×2 (10:02→21:49)
--- NOTE | 2020-05-28 10:40 | PDOC.HOSPP ---
- Subjective Encounter Date: 05/28/20 Encounter Time: 08:00 Subjective: Patient seen and examined bedside today, patient is able to ambulate to the bathroom, he is on 5 L nasal cannula oxygen, - Objective Vital Signs & Weight: Vital Signs (12 hours) Temp Pulse Resp BP Pulse Ox 05/28/20 08:15 97.7 F 86 16 135/79 94 L 05/28/20 07:20 95 20 94 L 05/28/20 03:06 98.4 F 95 15 124/80 97 Weight Weight 368 lb 2.751 oz Most Recent Monitor Data Heart Rate from ECG 100 NIBP 162/120 NIBP BP-Mean 134 Respiration from ECG 14 SpO2 90 I&O: 05/27/20 05/28/20 05/29/20 06:59 06:59 06:59 Intake Total 720 1540 Output Total 1908 5515 Balance -2004 Result Diagrams: 05/28/20 03:44 05/28/20 03:44 EKG Reviewed by me: Yes Hospitalist ROS - Review of Systems Constitutional: reports: weakness. denies: fever, chills, sweats, malaise, other Respiratory: reports: cough, shortness of breath, SOB with excertion, sputum. denies: dry, hemoptysis, pleuritic pain, wheezing, other Cardiovascular: denies: chest pain, palpitations, orthopnea, paroxysmal noc. dyspnea, edema, light headedness, other Gastrointestinal: denies: nausea, vomiting, abdominal pain, diarrhea, constipation, melena, hematochezia, other Genitourinary: denies: dysuria, frequency, incontinence, hematuria, retention, other Musculoskeletal: denies: neck pain, shoulder pain, arm pain, back pain, hand pain, leg pain, foot pain, other - Medication Medications: Active Medications Generic Name Dose Route Start Last Admin Trade Name Freq PRN Reason Stop Dose Admin Acetaminophen 650 mg 05/24/20 15:32 05/27/20 09:05 Acetaminophen 325 Mg Tab PO 650 mg Q8H PRN Administration Headache/Fever/Mild Pain (1-3) Hydrocodone Bitart/Acetaminophen 1 tab 05/26/20 07:28 05/28/20 10:02 Hydrocodone/Acetaminophen 5/325 Mg Tablet PO 1 tab Q4H PRN Administration Moderate Pain (4-6) Acetazolamide 250 mg 05/26/20 09:00 05/28/20 08:22 Acetazolamide 250 Mg Tab PO 250 mg BID RUIZ Administration Albuterol/Ipratropium 3 ml 05/26/20 13:00 05/28/20 07:20 Ipratropium/Albuterol Sulfate 3 Ml Neb NEB 3 ml [id number] RUIZ Administration Aspirin 81 mg 05/24/20 21:00 05/27/20 20:55 Aspirin Chewable 81 Mg Tab PO 81 mg QPM RUIZ Administration Atorvastatin Calcium 20 mg 05/25/20 21:00 05/27/20 20:56 Atorvastatin Calcium 20 Mg Tab PO 20 mg HS RUIZ Administration Carvedilol 12.5 mg 05/27/20 17:00 05/28/20 08:21 Carvedilol 6.25 Mg Tab PO 12.5 mg BID-WM RUIZ Administration Clopidogrel Bisulfate 75 mg 05/24/20 21:00 05/27/20 20:56 Clopidogrel Bisulfate 75 Mg Tab PO 75 mg HS RUIZ Administration Cyanocobalamin 1,000 mcg 05/26/20 09:00 05/28/20 08:23 Cyanocobalamin (Vitamin B-12) 1,000 Mcg Tab PO 1,000 mcg DAILY RUIZ Administration Doxycycline Hyclate 100 mg 05/26/20 09:00 05/28/20 08:22 Doxycycline 100 Mg Cap PO 100 mg BID RUIZ Administration Enoxaparin Sodium 40 mg 05/25/20 09:00 05/28/20 08:23 Enoxaparin Sodium 40 Mg/0.4 Ml Syringe SC Not Given 0900 RUIZ Famotidine 20 mg 05/26/20 09:00 05/28/20 08:22 Famotidine 20 Mg Tab PO 20 mg BID RUIZ Administration Folic Acid 1 mg 05/26/20 09:00 05/28/20 08:22 Folic Acid 1 Mg Tab PO 1 mg DAILY RUIZ Administration Furosemide 40 mg 05/28/20 09:45 05/28/20 10:02 Furosemide 40 Mg/4 Ml Vial SLOW IVP 05/28/20 12:00 40 mg NOW RUIZ Administration Guaifenesin 200 mg 05/26/20 07:28 05/28/20 08:21 Diabetic Tussin 200 Mg/10 Ml Udcup PO 200 mg Q4H PRN Administration Cough Ceftriaxone Sodium 1 gm/ 100 mls @ 200 mls/hr 05/25/20 15:00 05/27/20 15:22 Sodium Chloride IVPB 100 mls 1500 RUIZ Administration Isosorbide Mononitrate 30 mg 05/25/20 09:00 05/28/20 08:22 Isosorbide Mononitrate Er 30 Mg Tab PO 30 mg DAILY RUIZ Administration Ranolazine 1,000 mg 05/24/20 21:00 05/28/20 08:22 Ranolazine 500 Mg Tab PO 1,000 mg BID RUIZ Administration Saccharomyces Boulardii 250 mg 05/26/20 09:00 05/28/20 08:22 Saccharomyces Boulardii 250 Mg Cap PO 250 mg DAILY RUIZ Administration Senna/Docusate Sodium 2 tab 05/24/20 15:32 05/26/20 21:44 Senokot S 8.6-50 Mg Tab PO 2 tab BID PRN Administration Constipation Sodium Chloride 10 ml 05/26/20 09:00 05/28/20 08:23 Flush - Normal Saline 10 Ml Syringe IVF 10 ml Q12HR RUIZ Administration Throat Lozenges 1 renuka 05/26/20 07:28 05/27/20 11:57 Cepastat Lozenges 1 Renuka PO 1 renuka Q2H PRN Administration Sore Throat - Exam General Appearance: NAD, awake alert Eye: PERRL, anicteric sclera ENT: normocephalic atraumatic, no oropharyngeal lesions Neck: symmetric, no JVD, no thyromegaly Heart: RRR, no murmur, no gallops, no rubs Respiratory: no wheezes, no rales, no ronchi Respiratory - other findings: Morbid obesity limiting examination but clear exteriorly Gastrointestinal: soft, non-tender, non-distended, normal bowel sounds Gastrointestinal - other findings: Morbid obesity Extremities: 2+ LE edema Skin: normal turgor, no lesions Neurological: no focal deficits Musculoskeletal: normal tone, normal strength Psychiatric: normal affect, normal behavior Hosp A/P (1) Acute and chronic respiratory failure with hypercapnia Code(s): J96.22 - ACUTE AND CHRONIC RESPIRATORY FAILURE WITH HYPERCAPNIA Status: Acute (2) Acute on chronic systolic CHF (congestive heart failure) Code(s): I50.23 - ACUTE ON CHRONIC SYSTOLIC (CONGESTIVE) HEART FAILURE Status: Acute (3) Pneumonia Code(s): J18.9 - PNEUMONIA, UNSPECIFIED ORGANISM Status: Acute Qualifiers: Pneumonia type: due to unspecified organism Laterality: right Lung location: upper lobe of lung Qualified Code(s): J18.9 - Pneumonia, unspecified organism (4) Obesity hypoventilation syndrome Code(s): E66.2 - MORBID (SEVERE) OBESITY WITH ALVEOLAR HYPOVENTILATION Status: Chronic (5) CAD (coronary artery disease) Code(s): I25.10 - ATHSCL HEART DISEASE OF [place] CORONARY ARTERY W/O ANG PCTRS Status: Chronic Qualifiers: Coronary Disease-Associated Artery/Lesion type: [place] artery Associated angina: without angina (6) COPD (chronic obstructive pulmonary disease) Status: Chronic Qualifiers: COPD type: COPD with acute exacerbation Qualified Code(s): J44.1 - Chronic obstructive pulmonary disease with (acute) exacerbation (7) HLD (hyperlipidemia) Code(s): E78.5 - HYPERLIPIDEMIA, UNSPECIFIED Status: Chronic Qualifiers: Hyperlipidemia type: unspecified Qualified Code(s): E78.5 - Hyperlipidemia, unspecified (8) HTN (hypertension) Code(s): I10 - ESSENTIAL (PRIMARY) HYPERTENSION Status: Chronic Qualifiers: Hypertension type: essential hypertension Qualified Code(s): I10 - Essential (primary) hypertension - Plan old records reviewed/req, continue antibiotics, respiratory therapy Plan Because of relative hyperkalemia I will hold on lisinopril 1 more day We will increase Lasix 40 mg IV twice daily We will repeat labs tomorrow Reduce oxygen as tolerated to keep saturation above 92% Continue Rocephin and doxycycline Medication reviewed and continued per symptomatic and supportive care Expecting discharge soon once oxygen level reaches to his baseline level
[2020-05-28] MEDS: Ondansetron PF 4 MG/2 ML Vial IVP PRN (11:54)
[2020-05-28] MEDS: Furosemide 40 MG/4 ML VIAL SLOW IVP SCH (14:43)
[2020-05-28] MEDS: cefTRIAXone\\ROCEPHIN 1 GM in Sodium Chloride 0.9% 100 ML IVPB SCH (14:43)
[2020-05-28] MEDS: Aspirin Chewable 81 MG TAB PO SCH (21:51)
[2020-05-28] MEDS: Atorvastatin Calcium 20 MG TAB PO SCH (21:51)
[2020-05-28] MEDS: Clopidogrel Bisulfate 75 MG TAB PO SCH (21:51)
[2020-05-29 04:43] LABS: #Basophils 0.1 thou/uL (0.0-0.2); #Eosinphils 0.1 thou/uL (0.0-0.7); #Lymphocytes 2.7 thou/uL (1.20-3.40); #Neutrophils 11.2 thou/uL (1.40-6.50); %Basophils 0.7 % (0.0-1.0); %Eosinophils 0.5 % (0.0-10.0); %Lymphocytes 17.7 % (21.0-51.0); %Monocytes 6.8 % (0.0-10.0); %Neutrophils 74.3 % (42.0-75.0); Hemoglobin 16.4 g/dL (14.0-18.0); Mean Corpuscular HGB CONC 30.2 g/dL (32.0-36.0); Mean Corpuscular Hemoglobin 31.3 pg (27.0-31.0); Mean Platelet Volume 9.8 fL (7.4-10.4); Platelet Count 279 thou/uL (130-400); RBC Distribution Width 13.7 % (11.5-14.5); Red Blood Cell (RBC) Count 5.23 mill/uL (4.70-6.10)
[2020-05-29] MEDS ORDERED: Nitroglycerin 0.4 MG TAB (25 Tab Bottle) SL PRN (05:02)
[2020-05-29 05:04] LABS: BUN (Urea Nitrogen) 37 mg/dL (8.4-25.7); Calc. Creatinine Clearance 143 mL/min (70-130); Calcium 10.1 mg/dL (7.8-10.44); Estimated GFR-MDRD 59; Glucose 159 mg/dL (70-105)
[2020-05-29] MEDS: Furosemide 40 MG/4 ML VIAL SLOW IVP SCH ×2 (05:09→15:31)
[2020-05-29 05:13] LABS: Anion Gap 20 mmol/L (10-20); Carbon Dioxide 35 mmol/L (22-29); Chloride 88 mmol/L (98-107); Potassium 4.7 mmol/L (3.5-5.1); Sodium 138 mmol/L (136-145)
--- NOTE | 2020-05-29 06:36 | PDOC.EVN ---
Event Note - Event Note Event Note: called by RN patient had a transient change in EKG morphology he had chest pain that responded to nitro. will cycle cardiac enzymes, will do a 12 lead EKG.
[2020-05-29] MEDS: Carvedilol 6.25 MG TAB PO SCH (09:53)
[2020-05-29] MEDS: Doxycycline 100 MG CAP PO SCH ×2 (09:53→21:00)
[2020-05-29] MEDS: Famotidine 20 MG TAB PO SCH ×2 (09:53→21:00)
[2020-05-29] MEDS: Saccharomyces boulardii 250 MG CAP PO SCH (09:54)
[2020-05-29] MEDS: Folic Acid 1 MG TAB PO SCH (09:54)
[2020-05-29] MEDS: Cyanocobalamin (Vitamin B-12) 1,000 MCG TAB PO SCH (09:54)
[2020-05-29] MEDS: Enoxaparin Sodium 40 MG/0.4 ML SYRINGE SC SCH ×2 (09:54→12:44)
[2020-05-29] MEDS: AcetaZOLAMIDE 250 MG TAB PO SCH ×2 (09:57→21:00)
[2020-05-29 10:32] LABS: Troponin I 0.059 ng/mL (< 0.028)
--- NOTE | 2020-05-29 10:36 | PDOC.HOSPP ---
- Subjective Encounter Date: 05/29/20 Encounter Time: 08:20 Subjective: Last night patient had chest pain, EKG was abnormal, this morning he did not have any chest pain, cardiology has been consulted, he still has cough productive sputum, and he is still on 5 L nasal cannula oxygen. - Objective Vital Signs & Weight: Vital Signs (12 hours) Temp Pulse Resp BP Pulse Ox 05/29/20 03:35 97.6 F 97 18 124/87 94 L Weight Weight 352 lb 15.361 oz Most Recent Monitor Data Heart Rate from ECG 100 NIBP 162/120 NIBP BP-Mean 134 Respiration from ECG 14 SpO2 90 I&O: 05/28/20 05/29/20 05/30/20 06:59 06:59 06:59 Intake Total 1540 780 Output Total 0455 3310 Balance -2084 Result Diagrams: 05/29/20 03:42 05/29/20 03:42 EKG Reviewed by me: Yes Hospitalist ROS - Review of Systems ENT: denies: ear pain, ear discharge, nose pain, nose discharge, nose congestion, mouth pain, mouth swelling, throat pain, throat swelling, other Respiratory: reports: cough, shortness of breath, SOB with excertion, sputum. denies: dry, hemoptysis, pleuritic pain, wheezing, other Cardiovascular: reports: chest pain. denies: palpitations, orthopnea, paroxysmal noc. dyspnea, edema, light headedness, other Gastrointestinal: denies: nausea, vomiting, abdominal pain, diarrhea, constipation, melena, hematochezia, other Genitourinary: denies: dysuria, frequency, incontinence, hematuria, retention, other Musculoskeletal: denies: neck pain, shoulder pain, arm pain, back pain, hand pain, leg pain, foot pain, other - Medication Medications: Active Medications Generic Name Dose Route Start Last Admin Trade Name Freq PRN Reason Stop Dose Admin Acetaminophen 650 mg 05/24/20 15:32 05/27/20 09:05 Acetaminophen 325 Mg Tab PO 650 mg Q8H PRN Administration Headache/Fever/Mild Pain (1-3) Hydrocodone Bitart/Acetaminophen 1 tab 05/26/20 07:28 05/28/20 21:49 Hydrocodone/Acetaminophen 5/325 Mg Tablet PO 1 tab Q4H PRN Administration Moderate Pain (4-6) Acetazolamide 250 mg 05/26/20 09:00 05/29/20 09:57 Acetazolamide 250 Mg Tab PO 250 mg BID RUIZ Administration Albuterol/Ipratropium 3 ml 05/26/20 13:00 05/29/20 07:17 Ipratropium/Albuterol Sulfate 3 Ml Neb NEB Not Given [id number] RUIZ Aspirin 81 mg 05/24/20 21:00 05/28/20 21:51 Aspirin Chewable 81 Mg Tab PO 81 mg QPM RUIZ Administration Atorvastatin Calcium 20 mg 05/25/20 21:00 05/28/20 21:51 Atorvastatin Calcium 20 Mg Tab PO 20 mg HS RUIZ Administration Carvedilol 12.5 mg 05/27/20 17:00 05/29/20 09:53 Carvedilol 6.25 Mg Tab PO 12.5 mg BID-WM RUIZ Administration Clopidogrel Bisulfate 75 mg 05/24/20 21:00 05/28/20 21:51 Clopidogrel Bisulfate 75 Mg Tab PO 75 mg HS RUIZ Administration Cyanocobalamin 1,000 mcg 05/26/20 09:00 05/29/20 09:54 Cyanocobalamin (Vitamin B-12) 1,000 Mcg Tab PO 1,000 mcg DAILY RUIZ Administration Doxycycline Hyclate 100 mg 05/26/20 09:00 05/29/20 09:53 Doxycycline 100 Mg Cap PO 100 mg BID RUIZ Administration Enoxaparin Sodium 40 mg 05/25/20 09:00 05/29/20 09:54 Enoxaparin Sodium 40 Mg/0.4 Ml Syringe SC 40 mg 0900 RUIZ Administration Famotidine 20 mg 05/26/20 09:00 05/29/20 09:53 Famotidine 20 Mg Tab PO 20 mg BID RUIZ Administration Folic Acid 1 mg 05/26/20 09:00 05/29/20 09:54 Folic Acid 1 Mg Tab PO 1 mg DAILY RUIZ Administration Furosemide 40 mg 05/28/20 14:00 05/29/20 05:09 Furosemide 40 Mg/4 Ml Vial SLOW IVP 40 mg 0600,1400 RUIZ Administration Guaifenesin 200 mg 05/26/20 07:28 05/28/20 08:21 Diabetic Tussin 200 Mg/10 Ml Udcup PO 200 mg Q4H PRN Administration Cough Ceftriaxone Sodium 1 gm/ 100 mls @ 200 mls/hr 05/25/20 15:00 05/28/20 14:43 Sodium Chloride IVPB 100 mls 1500 RUIZ Administration Isosorbide Mononitrate 30 mg 05/25/20 09:00 05/29/20 09:53 Isosorbide Mononitrate Er 30 Mg Tab PO 30 mg DAILY RUIZ Administration Nitroglycerin 0.4 mg 05/29/20 05:02 05/29/20 05:08 Nitroglycerin 0.4 Mg Tab (25 Tab Bottle) SL 1 tab Q5MIN PRN Administration Chest Pain Ondansetron HCl 4 mg 05/26/20 07:28 05/28/20 11:54 Ondansetron Pf 4 Mg/2 Ml Vial IVP 4 mg Q6H PRN Administration Nausea/Vomiting Ondansetron HCl 4 mg 05/26/20 07:28 05/29/20 04:21 Ondansetron Odt 4 Mg Tab PO 4 mg Q6H PRN Administration Nausea/Vomiting Ranolazine 1,000 mg 05/24/20 21:00 05/29/20 09:53 Ranolazine 500 Mg Tab PO 1,000 mg BID RUIZ Administration Saccharomyces Boulardii 250 mg 05/26/20 09:00 05/29/20 09:54 Saccharomyces Boulardii 250 Mg Cap PO 250 mg DAILY RUIZ Administration Senna/Docusate Sodium 2 tab 05/24/20 15:32 05/26/20 21:44 Senokot S 8.6-50 Mg Tab PO 2 tab BID PRN Administration Constipation Sodium Chloride 10 ml 05/26/20 09:00 05/29/20 09:54 Flush - Normal Saline 10 Ml Syringe IVF 10 ml Q12HR RUIZ Administration Throat Lozenges 1 renuka 05/26/20 07:28 05/27/20 11:57 Cepastat Lozenges 1 [place] PO 1 renuka Q2H PRN Administration Sore Throat - Exam General Appearance: NAD, awake alert Eye: PERRL, anicteric sclera ENT: normocephalic atraumatic, no oropharyngeal lesions Neck: symmetric, no JVD Heart: RRR, no murmur, no gallops Respiratory: no wheezes, no rales, no ronchi Gastrointestinal: soft, non-tender, non-distended, normal bowel sounds Gastrointestinal - other findings: Obesity limiting examination Extremities: 2+ LE edema Skin: normal turgor, no lesions Neurological: no focal deficits Musculoskeletal: normal tone, normal strength Psychiatric: normal affect, normal behavior Hosp A/P (1) Acute and chronic respiratory failure with hypercapnia Code(s): J96.22 - ACUTE AND CHRONIC RESPIRATORY FAILURE WITH HYPERCAPNIA Status: Acute (2) Acute on chronic systolic CHF (congestive heart failure) Code(s): I50.23 - ACUTE ON CHRONIC SYSTOLIC (CONGESTIVE) HEART FAILURE Status: Acute (3) Pneumonia Code(s): J18.9 - PNEUMONIA, UNSPECIFIED ORGANISM Status: Acute Qualifiers: Pneumonia type: due to unspecified organism Laterality: right Lung loc ation: upper lobe of lung Qualified Code(s): J18.9 - Pneumonia, unspecified organism (4) Obesity hypoventilation syndrome Code(s): E66.2 - MORBID (SEVERE) OBESITY WITH ALVEOLAR HYPOVENTILATION Status: Chronic (5) CAD (coronary artery disease) Code(s): I25.10 - ATHSCL HEART DISEASE OF [place] CORONARY ARTERY W/O ANG PCTRS Status: Chronic Qualifiers: Coronary Disease-Associated Artery/Lesion type: [place] artery Associated angina: without angina (6) COPD (chronic obstructive pulmonary disease) Status: Chronic Qualifiers: COPD type: COPD with acute exacerbation Qualified Code(s): J44.1 - Chronic obstructive pulmonary disease with (acute) exacerbation (7) HLD (hyperlipidemia) Code(s): E78.5 - HYPERLIPIDEMIA, UNSPECIFIED Status: Chronic Qualifiers: Hyperlipidemia type: unspecified Qualified Code(s): E78.5 - Hyperlipidemia, unspecified (8) HTN (hypertension) Code(s): I10 - ESSENTIAL (PRIMARY) HYPERTENSION Status: Chronic Qualifiers: Hypertension type: essential hypertension Qualified Code(s): I10 - Ess ential (primary) hypertension (9) Chest pain Code(s): R07.9 - CHEST PAIN, UNSPECIFIED Status: Acute - Plan old records reviewed/req, continue antibiotics, respiratory therapy Plan Because of relative low blood pressure I have reduce Coreg to 3.125 mg p.o. twice daily Continue IV Lasix, patient has good diuretic response and he is improving from CHF perspective Regarding his recurrent chest pain which suspected atypical in nature, cardiology has been consulted and stress test has been ordered We will repeat labs tomorrow Continue Rocephin and doxycycline Because of relative hyperkalemia I will hold on lisinopril 1 more day We will increase Lasix 40 mg IV twice daily We will repeat labs tomorrow Reduce oxygen as tolerated to keep saturation above 92% Continue Rocephin and doxycycline Medication reviewed and continued per symptomatic and supportive care Expecting discharge soon once oxygen level reaches to his baseline level
--- NOTE | 2020-05-29 11:40 | CON ---
DATE OF CONSULTATION: 05/29/2020 INDICATION FOR CONSULTATION: A 59-year-old gentleman with CHF and COPD exacerbation. HISTORY OF PRESENT ILLNESS: This is a very unfortunate morbidly obese 59-year-old gentleman, who usually is followed by Dr. Ravi Gupta, but when he has emergent situation, always seems to be admitted to [facility]. He actually was recently in the hospital here back in March of 2020 due to CHF exacerbation and COPD exacerbation. At this time, he said he has not been doing very well. He has been coughing a lot. He has what he says a rib pain, but he denied any anterior chest pain, but has been having some discomfort. He said mainly he has been short of breath and coughing and presented to the hospital. His BNP is only 79. Cardiac enzymes are indeterminate at 0.06, increased up to 0.067 and back down to 0.053, which is not indicative of myocardial infarction. However, he does have a history of coronary artery disease and undergone angioplasty and stent placement in the past. At this time, we will continue to monitor patient. He did say that he had an echocardiogram about a month ago in Dr. Gputa's office. We will try to obtain the results of that. We will consider doing a stress test on this gentleman, however, he is morbidly obese. His weight is 352 pounds. PAST MEDICAL HISTORY: Significant for coronary artery disease, myocardial infarction, angioplasty and stent placement to the, I believe right coronary and also left circumflex. He has a chronically occluded left anterior descending artery. He has had hypertension, COPD, dyslipidemia, cardiomyopathy, AICD implant. He had a single lead AICD implanted by Dr. Lucas. MEDICATIONS: At this time include, 1. Ceftriaxone. 2. Acetazolamide. 3. Aspirin. 4. Atorvastatin 20 mg a day. 5. Coreg 12.5 mg b.i.d. 6. Plavix 75 mg a day. 7. He is on vitamin B6. 8. He is on Vibramycin. 9. Lovenox. 10. DVT prophylaxis. 11. Pepcid. 12. Folvite. 13. Furosemide 40 mg IV was given. This is being given once or twice a day. 14. IV Lasix. 15. He is on ipratropium/albuterol inhalers. 16. Isosorbide mononitrate 30 mg a day. 17. He is on Ranexa b.i.d. 18. P.r.n. nitroglycerin and also other p.r.n. medications. ALLERGIES: HE IS ALLERGIC TO PENICILLIN. SOCIAL HISTORY: He lives apparently with some younger people, uncertain exactly what his living situation is, but I believe he no longer smokes. No significant alcohol use. He has smoked in the past. REVIEW OF SYSTEMS: He mainly complains of the soreness in the chest area with coughing, which becomes worse. He says he is fatigued. He has shortness of breath. PHYSICAL EXAMINATION: GENERAL: Reveals a morbidly obese gentleman, who does not appear to be in any acute distress at this time. He was sleepy when I arrived to visit with him. VITAL SIGNS: His blood pressure is 124/87, heart rate is 97 and regular, respiratory rate is 18, and O2 saturation 94%. He is afebrile. HEENT: Shows the head to be normocephalic and atraumatic. Carotid pulses are present. I did not hear any significant bruits. CHEST: He has decreased breath sounds throughout, but I did not hear any rales, rhonchi, or wheezing. CARDIOVASCULAR: Heart sounds are distant. There does appear to be a normal S1 and S2. I cannot hear an S3 nor an S4. There were no significant murmurs noted. ABDOMEN: Shows morbid obesity. Positive bowel sounds are present. EXTREMITIES: Showed no significant lower extremity edema. Pedal pulses are present. NEUROLOGIC: He appears to be intact. LABORATORY DATA: Shows a hemoglobin of 16.4, WBC of 15, hematocrit 54.1, platelet count 279,000. BUN was 37, creatinine 1.26. Blood sugar was 169. Sodium was 138, potassium 4.7. Troponin I as noted above, but on admission was 0.06, is now decreased down to 0.05. BNP was 79. IMPRESSION: 1. Morbidly obese gentleman with a history of coronary artery disease, who presented with some chest discomfort mainly along the rib areas after significant amounts of coughing. This may or may not be cardiac, but given his history of cardiac disease in the past and no elevation of his BNP, we can try to see whether or not he is a candidate for any type of stress testing. However, given his weight, he may be too large for the table to do any type of nuclear evaluation. It would entail a two-day protocol due to his morbid obesity. 2. History of hypertension. This is under good control at this time. 3. History of chronic obstructive pulmonary disease. This will be dealt with by the primary care service. This may be some of his shortness of breath. 4. History of coronary artery disease, appears to be stable, but we will repeat a stress test. 5. History of cardiomyopathy. He has had decrease in ejection fraction. He has undergone AICD implant by Dr. Lucas, who would be advantageous to obtain records from Dr. Gupta's office as the patient said he had recently had an echocardiogram approximately a month ago and he may have had other evaluations also. Job ID: [id number]
[2020-05-29] MEDS: Ondansetron PF 4 MG/2 ML Vial IVP PRN (12:43)
[2020-05-29] MEDS: cefTRIAXone\\ROCEPHIN 1 GM in Sodium Chloride 0.9% 100 ML IVPB SCH (15:31)
[2020-05-29] MEDS: Carvedilol 3.125 MG TAB PO SCH (18:05)
[2020-05-29] MEDS: Clopidogrel Bisulfate 75 MG TAB PO SCH (21:00)
[2020-05-29] MEDS: Aspirin Chewable 81 MG TAB PO SCH (21:00)
[2020-05-29] MEDS: Atorvastatin Calcium 20 MG TAB PO SCH (21:00)
[2020-05-30] MEDS: Acetaminophen 325 MG TAB PO PRN (03:56)
[2020-05-30 05:11] LABS: #Eosinphils 0.1 thou/uL (0.0-0.7); #Lymphocytes 2.6 thou/uL (1.20-3.40); #Monocytes 1.2 thou/uL (0.11-0.59); #Neutrophils 8.8 thou/uL (1.40-6.50); %Basophils 0.2 % (0.0-1.0); %Eosinophils 1.1 % (0.0-10.0); %Lymphocytes 20.2 % (21.0-51.0); %Monocytes 9.6 % (0.0-10.0); %Neutrophils 68.9 % (42.0-75.0); Hemoglobin 15.2 g/dL (14.0-18.0); Mean Corpuscular Hemoglobin 31.3 pg (27.0-31.0); Mean Platelet Volume 9.5 fL (7.4-10.4); Platelet Count 255 thou/uL (130-400); RBC Distribution Width 13.6 % (11.5-14.5); Red Blood Cell (RBC) Count 4.85 mill/uL (4.70-6.10); White Blood Cell (WBC) Count 12.8 thou/uL (4.8-10.8)
[2020-05-30 05:22] LABS: BUN (Urea Nitrogen) 41 mg/dL (8.4-25.7); Calc. Creatinine Clearance 146 mL/min (70-130); Calcium 9.6 mg/dL (7.8-10.44); Estimated GFR-MDRD 60; Glucose 132 mg/dL (70-105); Magnesium 1.8 mg/dL (1.6-2.6)
[2020-05-30 05:31] LABS: Anion Gap 18 mmol/L (10-20); Carbon Dioxide 37 mmol/L (22-29); Chloride 89 mmol/L (98-107); Potassium 4.7 mmol/L (3.5-5.1); Sodium 139 mmol/L (136-145)
[2020-05-30] MEDS: Furosemide 40 MG/4 ML VIAL SLOW IVP SCH ×2 (05:55→13:10)
[2020-05-30] MEDS: Saccharomyces boulardii 250 MG CAP PO SCH (08:49)
[2020-05-30] MEDS: Folic Acid 1 MG TAB PO SCH (08:49)
[2020-05-30] MEDS: Doxycycline 100 MG CAP PO SCH ×2 (08:50→21:24)
[2020-05-30] MEDS: Famotidine 20 MG TAB PO SCH ×2 (08:51→21:24)
[2020-05-30] MEDS: AcetaZOLAMIDE 250 MG TAB PO SCH ×2 (08:51→21:23)
[2020-05-30] MEDS: Cyanocobalamin (Vitamin B-12) 1,000 MCG TAB PO SCH (08:51)
[2020-05-30] MEDS: Carvedilol 3.125 MG TAB PO SCH ×2 (08:53→17:31)
[2020-05-30] MEDS: Enoxaparin Sodium 40 MG/0.4 ML SYRINGE SC SCH (09:01)
[2020-05-30] MEDS: Lisinopril 2.5 MG TAB PO SCH (09:02)
[2020-05-30] MEDS ORDERED: Regadenoson 0.4 MG/5 ML SYRINGE ONE ×2 (10:34→14:06)
--- NOTE | 2020-05-30 11:11 | NM ---
NUCLEAR MEDICINE CARDIAC STRESS WITH EF AND WALL MOTION: HISTORY: Chest pain. Coronary disease. TECHNIQUE: Patient was administered 27.80 mm of technetium 99 sestamibi for rest imaging and 31 mCi of technetiu m sestamibi for stress imaging. Cardiac gating is performed. FINDINGS: There is a fixed defect involving the septum, apical anterior wall and the apex. There is no evidence of reversibility. Cardiac gating: There is decreased wall motion involving the anterior wall and septum. 19% ejection f raction. IMPRESSION: 1. Fixed defect involving the anterior wall and septum. No reversibility. 2. Decreased motion and contractility involving the septum and anterior wall of the left ventricle. 1 9% ejection fraction. Transcribed Date/Time: 05/30/2020 11:17 AM
[2020-05-30] MEDS ORDERED: methylPREDNISolone Sod Succ 40 MG VIAL IVP SCH (12:45)
[2020-05-30] MEDS: cefTRIAXone\\ROCEPHIN 1 GM in Sodium Chloride 0.9% 100 ML IVPB SCH (14:39)
[2020-05-30] MEDS: HYDROcodone/Acetaminophen 5/325 mg Tablet PO PRN ×2 (14:39→21:23)
[2020-05-30] MEDS: Diabetic Tussin 200 MG/10 ML UDCUP PO PRN ×2 (14:53→21:24)
--- NOTE | 2020-05-30 18:15 | PDOC.HOSPP ---
- Subjective Encounter Date: 05/30/20 Encounter Time: 11:15 Subjective: Patient up in bed still on 4 L of nasal cannula. - Objective Vital Signs & Weight: Vital Signs (12 hours) Temp Pulse Resp BP BP Pulse Ox 05/30/20 17:05 98.3 F 110 H 21 H 133/76 89 L 05/30/20 11:10 98.3 F 105 H 19 127/85 90 L 05/30/20 09:02 107 H 05/30/20 07:35 98.5 F 107 H 20 146/73 H 92 L Weight Weight 349 lb 3.395 oz Most Recent Monitor Data Heart Rate from ECG 100 NIBP 162/120 NIBP BP-Mean 134 Respiration from ECG 14 SpO2 90 I&O: 05/29/20 05/30/20 05/31/20 06:59 06:59 06:59 Intake Total 780 1380 Output Total 2800 1950 Balance -2019 Result Diagrams: 05/30/20 04:19 05/30/20 04:19 Hospitalist ROS - Review of Systems Respiratory: reports: shortness of breath Cardiovascular: denies: chest pain, palpitations, orthopnea, paroxysmal noc. dyspnea, edema, light headedness, other Gastrointestinal: denies: nausea, vomiting, abdominal pain, diarrhea, constipation, melena, hematochezia, other Genitourinary: denies: dysuria, frequency, incontinence, hematuria, retention, other - Medication Medications: Active Medications Generic Name Dose Route Start Last Admin Trade Name Freq PRN Reason Stop Dose Admin Acetaminophen 650 mg 05/24/20 15:32 05/30/20 03:56 Acetaminophen 325 Mg Tab PO 650 mg Q8H PRN Administration Headache/Fever/Mild Pain (1-3) Hydrocodone Bitart/Acetaminophen 1 tab 05/26/20 07:28 05/30/20 14:39 Hydrocodone/Acetaminophen 5/325 Mg Tablet PO 1 tab Q4H PRN Administration Moderate Pain (4-6) Acetazolamide 250 mg 05/26/20 09:00 05/30/20 08:51 Acetazolamide 250 Mg Tab PO 250 mg BID RUIZ Administration Albuterol/Ipratropium 3 ml 05/26/20 13:00 05/30/20 12:13 Ipratropium/Albuterol Sulfate 3 Ml Neb NEB Not Given [id number] RUIZ Aspirin 81 mg 05/24/20 21:00 05/29/20 21:00 Aspirin Chewable 81 Mg Tab PO 81 mg QPM RUIZ Administration Atorvastatin Calcium 20 mg 05/25/20 21:00 05/29/20 21:00 Atorvastatin Calcium 20 Mg Tab PO 20 mg HS RUIZ Administration Carvedilol 3.125 mg 05/29/20 17:00 05/30/20 17:31 Carvedilol 3.125 Mg Tab PO 3.125 mg BID-WM RUIZ Administration Clopidogrel Bisulfate 75 mg 05/24/20 21:00 05/29/20 21:00 Clopidogrel Bisulfate 75 Mg Tab PO 75 mg HS [facility] Administration Cyanocobalamin 1,000 mcg 05/26/20 09:00 05/30/20 08:51 Cyanocobalamin (Vitamin B-12) 1,000 Mcg Tab PO 1,000 mcg DAILY [facility] Administration Doxycycline Hyclate 100 mg 05/26/20 09:00 05/30/20 08:50 Doxycycline 100 Mg Cap PO 100 mg BID [facility] Administration Enoxaparin Sodium 40 mg 05/25/20 09:00 05/30/20 09:01 Enoxaparin Sodium 40 Mg/0.4 Ml Syringe SC Not Given 899 [facility] Famotidine 20 mg 05/26/20 09:00 05/30/20 08:51 Famotidine 20 Mg Tab PO 20 mg BID [facility] Administration Folic Acid 1 mg 05/26/20 09:00 05/30/20 08:49 Folic Acid 1 Mg Tab PO 1 mg DAILY [facility] Administration Guaifenesin 200 mg 05/26/20 07:28 05/30/20 14:53 Diabetic Tussin 200 Mg/10 Ml Udcup PO 200 mg Q4H PRN Administration Cough Ceftriaxone Sodium 1 gm/ 100 mls @ 200 mls/hr 05/25/20 15:00 05/30/20 14:39 Sodium Chloride IVPB 100 mls 1500 [facility] Administration Isosorbide Mononitrate 30 mg 05/25/20 09:00 05/30/20 08:51 Isosorbide Mononitrate Er 30 Mg Tab PO 30 mg DAILY [facility] Administration Lisinopril 2.5 mg 05/30/20 09:00 05/30/20 09:02 Lisinopril 2.5 Mg Tab PO Not Given DAILY [facility] Nitroglycerin 0.4 mg 05/29/20 05:02 05/29/20 05:08 Nitroglycerin 0.4 Mg Tab (25 Tab Bottle) SL 1 tab Q5MIN PRN Administration Chest Pain Ondansetron HCl 4 mg 05/26/20 07:28 05/29/20 12:43 Ondansetron Pf 4 Mg/2 Ml Vial IVP 4 mg Q6H PRN Administration Nausea/Vomiting Ondansetron HCl 4 mg 05/26/20 07:28 05/29/20 04:21 Ondansetron Odt 4 Mg Tab PO 4 mg Q6H PRN Administration Nausea/Vomiting Ranolazine 1,000 mg 05/24/20 21:00 05/30/20 09:02 Ranolazine 500 Mg Tab PO Not Given BID RUIZ Saccharomyces Boulardii 250 mg 05/26/20 09:00 05/30/20 08:49 Saccharomyces Boulardii 250 Mg Cap PO 250 mg DAILY [facility] Administration Senna/Docusate Sodium 2 tab 05/24/20 15:32 05/26/20 21:44 Senokot S 8.6-50 Mg Tab PO 2 tab BID PRN Administration Constipation Sodium Chloride 10 ml 05/26/20 09:00 05/30/20 09:02 Flush - Normal Saline 10 Ml Syringe IVF Not Given Q12HR RUIZ Throat Lozenges 1 renuka 05/26/20 07:28 05/27/20 11:57 Cepastat Lozenges 1 Renuka PO 1 renuka Q2H PRN Administration Sore Throat - Exam Heart: negative: RRR, no murmur, no gallops, no rubs, normal peripheral pulses, irregular, diminshed peripheral pulses, murmur present, II/IV, III/IV Respiratory: negative: CTAB, no wheezes, no rales, no ronchi, normal chest expansion, no tachypnea, normal percussion, rales, rhonchi, tachypneic, wheezes Gastrointestinal: negative: soft, non-tender, non-distended, normal bowel sounds, no palpable masses, no hepatomegaly, no splenomegaly, no bruit, no guarding, no rigidity, tender to palpation, distended, diminished bowl sounds, voluntary guarding Extremities: 1+ LE edema Hosp A/P (1) Acute and chronic respiratory failure with hypercapnia Code(s): J96.22 - ACUTE AND CHRONIC RESPIRATORY FAILURE WITH HYPERCAPNIA Status: Acute (2) Pneumonia Code(s): J18.9 - PNEUMONIA, UNSPECIFIED ORGANISM Status: Acute Qualifiers: Pneumonia type: due to unspecified organism Laterality: right Lung location: upper lobe of lung Qualified Code(s): J18.9 - Pneumonia, unspecified organism (3) Obesity hypoventilation syndrome Code(s): E66.2 - MORBID (SEVERE) OBESITY WITH ALVEOLAR HYPOVENTILATION Status: Chronic (4) CAD (coronary artery disease) Code(s): I25.10 - ATHSCL HEART DISEASE OF [place] CORONARY ARTERY W/O ANG PCTRS Status: Chronic Qualifiers: Coronary Disease-Associated Artery/Lesion type: [place] artery Associated angina: without angina (5) COPD (chronic obstructive pulmonary disease) Status: Chronic Qualifiers: COPD type: COPD with acute exacerbation Qualified Code(s): J44.1 - Chronic obstructive pulmonary disease with (acute) exacerbation (6) HTN (hypertension) Code(s): I10 - ESSENTIAL (PRIMARY) HYPERTENSION Status: Chronic Qualifiers: Hypertension type: essential hypertension Qualified Code(s): I10 - Essential (primary) hypertension (7) Obesities, morbid Code(s): E66.01 - MORBID (SEVERE) OBESITY DUE TO EXCESS CALORIES Status: Chronic - Plan We will continue IV antibiotics for now. We will start patient on some steroids. We will continue diuretics. He is diuresing well. Patient is still on 4 to 5 L nasal cannula. His baseline is 2-1/2 L nasal cannula. Patient is also on duo nebs. He is on DVT prophylaxis. If patient's oxygen saturation does not improve may require CTA. Patient stress test abnormal. Cardiology consulted.
[2020-05-30] MEDS: Aspirin Chewable 81 MG TAB PO SCH (21:23)
[2020-05-30] MEDS: Clopidogrel Bisulfate 75 MG TAB PO SCH (21:24)
[2020-05-30] MEDS: Atorvastatin Calcium 20 MG TAB PO SCH (21:24)
[2020-05-31] MEDS: HYDROcodone/Acetaminophen 5/325 mg Tablet PO PRN ×4 (05:25→21:45)
[2020-05-31] MEDS ORDERED: Metolazone 2.5 MG TAB PO SCH (05:30)
[2020-05-31] MEDS: Lisinopril 2.5 MG TAB PO SCH (08:35)
[2020-05-31] MEDS: Doxycycline 100 MG CAP PO SCH ×2 (08:36→21:43)
[2020-05-31] MEDS: Cyanocobalamin (Vitamin B-12) 1,000 MCG TAB PO SCH (08:37)
[2020-05-31] MEDS: Furosemide 40 MG TAB PO SCH (08:37)
[2020-05-31] MEDS: Carvedilol 3.125 MG TAB PO SCH ×2 (08:37→16:29)
[2020-05-31] MEDS: AcetaZOLAMIDE 250 MG TAB PO SCH ×2 (08:37→21:44)
[2020-05-31] MEDS: Famotidine 20 MG TAB PO SCH ×2 (08:37→21:42)
[2020-05-31] MEDS: Saccharomyces boulardii 250 MG CAP PO SCH (08:38)
[2020-05-31] MEDS: Folic Acid 1 MG TAB PO SCH (08:38)
[2020-05-31] MEDS: Enoxaparin Sodium 40 MG/0.4 ML SYRINGE SC SCH (08:39)
[2020-05-31] MEDS: methylPREDNISolone Sod Succ 40 MG VIAL IVP SCH (08:40)
[2020-05-31] MEDS: Diabetic Tussin 200 MG/10 ML UDCUP PO PRN ×3 (10:10→21:44)
--- NOTE | 2020-05-31 13:08 | PDOC.HOSPP ---
- Subjective Encounter Date: 05/31/20 Encounter Time: 09:45 Subjective: pt up in bed feels much better feels better today compared to yesterday. - Objective Vital Signs & Weight: Vital Signs (12 hours) Temp Pulse Resp BP BP Pulse Ox 05/31/20 08:35 94 05/31/20 07:17 92 L 05/31/20 07:16 98.7 F 79 18 144/90 H 92 L 05/31/20 04:00 99.1 F 94 20 134/86 91 L Weight Weight 345 lb 7.43 oz Most Recent Monitor Data Heart Rate from ECG 100 NIBP 162/120 NIBP BP-Mean 134 Respiration from ECG 14 SpO2 90 I&O: 05/30/20 05/31/20 06/01/20 06:59 06:59 06:59 Intake Total 1380 1620 Output Total 1950 2425 Balance -570 80 Result Diagrams: 05/30/20 04:19 05/30/20 04:19 Hospitalist ROS - Review of Systems Cardiovascular: denies: chest pain, palpitations, orthopnea, paroxysmal noc. dyspnea, edema, light headedness, other Gastrointestinal: denies: nausea, vomiting, abdominal pain, diarrhea, constipation, melena, hematochezia, other Genitourinary: denies: dysuria, frequency, incontinence, hematuria, retention, other - Medication Medications: Active Medications Generic Name Dose Route Start Last Admin Trade Name Freq PRN Reason Stop Dose Admin Acetaminophen 650 mg 05/24/20 15:32 05/30/20 03:56 Acetaminophen 325 Mg Tab PO 650 mg Q8H PRN Administration Headache/Fever/Mild Pain (1-3) Hydrocodone Bitart/Acetaminophen 1 tab 05/26/20 07:28 05/31/20 10:10 Hydrocodone/Acetaminophen 5/325 Mg Tablet PO 1 tab Q4H PRN Administration Moderate Pain (4-6) Acetazolamide 250 mg 05/26/20 09:00 05/31/20 08:37 Acetazolamide 250 Mg Tab PO 250 mg BID RUIZ Administration Albuterol/Ipratropium 3 ml 05/26/20 13:00 05/31/20 07:06 Ipratropium/Albuterol Sulfate 3 Ml Neb NEB Not Given [id number] RUIZ Aspirin 81 mg 05/24/20 21:00 05/30/20 21:23 Aspirin Chewable 81 Mg Tab PO 81 mg QPM RUIZ Administration Atorvastatin Calcium 20 mg 05/25/20 21:00 05/30/20 21:24 Atorvastatin Calcium 20 Mg Tab PO 20 mg HS [facility] Administration Carvedilol 3.125 mg 05/29/20 17:00 05/31/20 08:37 Carvedilol 3.125 Mg Tab PO 3.125 mg BID-WM RUIZ Administration Clopidogrel Bisulfate 75 mg 05/24/20 21:00 05/30/20 21:24 Clopidogrel Bisulfate 75 Mg Tab PO 75 mg HS [facility] Administration Cyanocobalamin 1,000 mcg 05/26/20 09:00 05/31/20 08:37 Cyanocobalamin (Vitamin B-12) 1,000 Mcg Tab PO 1,000 mcg DAILY [facility] Administration Doxycycline Hyclate 100 mg 05/26/20 09:00 05/31/20 08:36 Doxycycline 100 Mg Cap PO 100 mg BID [facility] Administration Enoxaparin Sodium 40 mg 05/25/20 09:00 05/31/20 08:39 Enoxaparin Sodium 40 Mg/0.4 Ml Syringe SC Not Given 899 [facility] Famotidine 20 mg 05/26/20 09:00 05/31/20 08:37 Famotidine 20 Mg Tab PO 20 mg BID [facility] Administration Folic Acid 1 mg 05/26/20 09:00 05/31/20 08:38 Folic Acid 1 Mg Tab PO 1 mg DAILY [facility] Administration Furosemide 40 mg 05/31/20 07:30 05/31/20 08:37 Furosemide 40 Mg Tab PO 40 mg DAILY-AC [facility] Administration Guaifenesin 200 mg 05/26/20 07:28 05/31/20 10:10 Diabetic Tussin 200 Mg/10 Ml Udcup PO 200 mg Q4H PRN Administration Cough Isosorbide Mononitrate 30 mg 05/25/20 09:00 05/31/20 08:37 Isosorbide Mononitrate Er 30 Mg Tab PO 30 mg DAILY [facility] Administration Lisinopril 2.5 mg 05/30/20 09:00 05/31/20 08:35 Lisinopril 2.5 Mg Tab PO 2.5 mg DAILY [facility] Administration Methylprednisolone Sodium Succinate 40 mg 05/31/20 09:00 05/31/20 08:40 Methylprednisolone Sod Succ 40 Mg Vial IVP 40 mg DAILY [facility] Administration Nitroglycerin 0.4 mg 05/29/20 05:02 05/29/20 05:08 Nitroglycerin 0.4 Mg Tab (25 Tab Bottle) SL 1 tab Q5MIN PRN Administration Chest Pain Ondansetron HCl 4 mg 05/26/20 07:28 05/29/20 12:43 Ondansetron Pf 4 Mg/2 Ml Vial IVP 4 mg Q6H PRN Administration Nausea/Vomiting Ondansetron HCl 4 mg 05/26/20 07:28 05/29/20 04:21 Ondansetron Odt 4 Mg Tab PO 4 mg Q6H PRN Administration Nausea/Vomiting Ranolazine 1,000 mg 05/24/20 21:00 05/31/20 08:38 Ranolazine 500 Mg Tab PO 1,000 mg BID [facility] Administration Saccharomyces Boulardii 250 mg 05/26/20 09:00 05/31/20 08:38 Saccharomyces Boulardii 250 Mg Cap PO 250 mg DAILY [facility] Administration Senna/Docusate Sodium 2 tab 05/24/20 15:32 05/26/20 21:44 Senokot S 8.6-50 Mg Tab PO 2 tab BID PRN Administration Constipation Sodium Chloride 10 ml 05/26/20 09:00 05/31/20 10:08 Flush - Normal Saline 10 Ml Syringe IVF 10 ml Q12HR RUIZ Administration Throat Lozenges 1 renuka 05/26/20 07:28 05/27/20 11:57 Cepastat Lozenges 1 Renuka PO 1 renuka Q2H PRN Administration Sore Throat - Exam Neck: negative: supple, symmetric, no JVD, no thyromegaly, no lymphadenopathy, no carotid bruit, JVD Heart: negative: RRR, no murmur, no gallops, no rubs, normal peripheral pulses, irregular, diminshed peripheral pulses, murmur present, II/IV, III/IV Respiratory: negative: CTAB, no wheezes, no rales, no ronchi, normal chest expansion, no tachypnea, normal percussion, rales, rhonchi, tachypneic, wheezes Gastrointestinal: negative: soft, non-tender, non-distended, normal bowel sounds, no palpable masses, no hepatomegaly, no splenomegaly, no bruit, no guarding, no rigidity, tender to palpation, distended, diminished bowl sounds, voluntary guarding Extremities: 1+ LE edema Hosp A/P (1) Acute and chronic respiratory failure with hypercapnia Code(s): J96.22 - ACUTE AND CHRONIC RESPIRATORY FAILURE WITH HYPERCAPNIA Status: Acute (2) Pneumonia Code(s): J18.9 - PNEUMONIA, UNSPECIFIED ORGANISM Status: Acute Qualifiers: Pneumonia type: due to unspecified organism Laterality: right Lung location: upper lobe of lung Qualified Code(s): J18.9 - Pneumonia, unspecified organism (3) Obesity hypoventilation syndrome Code(s): E66.2 - MORBID (SEVERE) OBESITY WITH ALVEOLAR HYPOVENTILATION Status: Chronic (4) CAD (coronary artery disease) Code(s): I25.10 - ATHSCL HEART DISEASE OF [place] CORONARY ARTERY W/O ANG PCTRS Status: Chronic Qualifiers: Coronary Disease-Associated Artery/Lesion type: [place] artery Associated angina: without angina (5) COPD (chronic obstructive pulmonary disease) Status: Chronic Qualifiers: COPD type: COPD with acute exacerbation Qualified Code(s): J44.1 - Chronic obstructive pulmonary disease with (acute) exacerbation (6) HTN (hypertension) Code(s): I10 - ESSENTIAL (PRIMARY) HYPERTENSION Status: Chronic Qualifiers: Hypertension type: essential hypertension Qualified Code(s): I10 - Essential (primary) hypertension (7) Obesities, morbid Code(s): E66.01 - MORBID (SEVERE) OBESITY DUE TO EXCESS CALORIES Status: Chronic - Plan We will continue IV antibiotics for now. We will start patient on some steroids. We will continue diuretics. He is diuresing well. Patient is still on 4 to 5 L nasal cannula. His baseline is 2-1/2 L nasal cannula. Patient is also on duo nebs. He is on DVT prophylaxis. If patient's oxygen saturation does not improve may require CTA. Patient stress test abnormal. Cardiology consulted. 05/31 pt's sputum cx did have some gram neg rods will switch abx to zosyn. will continue steroids for now. He feels much better. His oxygen is back to baseline. will continue to monitor. His stress test is still abnormal will talk to cardio.
[2020-05-31] MEDS: Piperacillin/Tazobactam 4.5 GM in Sodium Chloride 0.9% 100 ML IVPB SCH ×2 (13:39→21:44)
--- NOTE | 2020-05-31 17:00 | PQF ---
CLINICAL DOCUMENTATION CLARIFICATION FORM: Dear Dr. Cuevas Date: 05/31/2020 Please exercise your independent, professional judgment in responding to the clarification form. Clinical indicators are provided on the bottom of this form for your review. Please check appropriate box(es): [ x ] Empirically treating Gram Negative Pneumonia [ ] Empirically treating Anaerobic Pneumonia [ ] Pneumonia secondary to (specify organism / underlying disease) [ ] Simple Pneumonia [ ] Aspiration Pneumonia [ ] Pneumonia of unknown etiology [ ] Other diagnosis [ ] Unable to determine In addition, please specify: Present on Admission (POA): [ x] Yes [ ] No [ ] Unable to determine For continuity of documentation, please document condition throughout progress notes and discharge summary. Thank You. To be completed by CDI/Coding staff for physician review: CLINICAL INDICATORS - SIGNS / SYMPTOMS / LABS / RESULTS AND LOCATION IN MR *H&P 11 ([facility]) Lab: chest xray indicates cardiomegaly with vascular congestion with peripheral patchy alveolar ground-glass opacity. WBCs 13.7 A/P: Acute hypoxic respiratory failure. In the ER, he was noted to have O2 sats in the 80s *05/26 pn ([facility]) Pneumonia , unspecified organism *05/31 pn ([facility]) Plan: Pt's sputum cx did have some gram neg rods will switch abx to zosyn. RISK FACTORS / RESULTS AND LOCATION IN MR H&P 11/ ([facility]) HPI: hx systolic heart failure, obesity, and COPD. A/P: Acute hypoxic respiratory failure TREATMENTS / RESULTS AND LOCATION IN MR *05/26 pn ([facility]) Plan: continue Rocephin and add doxycycline *05/31 pn ([facility]) plan: Pt's sputum cx did have some gram neg rods will switch abx to zosyn. will continue steroids for now Thank you, Elis Ruelas RN, [email or web address] Cell This is a permanent part of the Medical Record [facility]
[2020-05-31] MEDS: Aspirin Chewable 81 MG TAB PO SCH (21:42)
[2020-05-31] MEDS: Clopidogrel Bisulfate 75 MG TAB PO SCH (21:43)
[2020-05-31] MEDS: Atorvastatin Calcium 20 MG TAB PO SCH (21:45)
[2020-06-01] MEDS: Piperacillin/Tazobactam 4.5 GM in Sodium Chloride 0.9% 100 ML IVPB SCH ×3 (06:23→21:00)
--- NOTE | 2020-06-01 08:38 | EKG ---
Test Reason : Blood Pressure : / mmHG Vent. Rate : 110 BPM Atrial Rate : 110 BPM P-R Int : 168 ms QRS Dur : 104 ms QT Int : 356 ms P-R-T Axes : 039 031 028 degrees QTc Int : 481 ms Sinus tachycardia Anterolateral infarct (cited on or before 18-APR-2020) Abnormal ECG Confirmed by LUZ MARIA RICE MD ([id number]) on 06/01/2020 8:37:38 AM Referred By: CHAZ Confirmed By:LUZ MARIA RICE MD
[2020-06-01] MEDS: HYDROcodone/Acetaminophen 5/325 mg Tablet PO PRN ×3 (08:47→21:00)
[2020-06-01] MEDS: Furosemide 40 MG TAB PO SCH (08:48)
[2020-06-01] MEDS: Famotidine 20 MG TAB PO SCH ×2 (08:48→21:01)
[2020-06-01] MEDS: Saccharomyces boulardii 250 MG CAP PO SCH (08:48)
[2020-06-01] MEDS: Carvedilol 3.125 MG TAB PO SCH ×2 (08:48→17:03)
[2020-06-01] MEDS: Doxycycline 100 MG CAP PO SCH ×2 (08:48→21:01)
[2020-06-01] MEDS: Lisinopril 2.5 MG TAB PO SCH (08:48)
[2020-06-01] MEDS: Cyanocobalamin (Vitamin B-12) 1,000 MCG TAB PO SCH (08:49)
[2020-06-01] MEDS: AcetaZOLAMIDE 250 MG TAB PO SCH ×2 (08:49→21:01)
[2020-06-01] MEDS: Enoxaparin Sodium 40 MG/0.4 ML SYRINGE SC SCH (08:49)
[2020-06-01] MEDS: Folic Acid 1 MG TAB PO SCH (08:49)
[2020-06-01] MEDS: methylPREDNISolone Sod Succ 40 MG VIAL IVP SCH (08:49)
[2020-06-01] MEDS: Diabetic Tussin 200 MG/10 ML UDCUP PO PRN ×2 (08:55→21:01)
[2020-06-01 10:34] LABS: #Basophils 0.1 thou/uL (0.0-0.2); #Eosinphils 0.2 thou/uL (0.0-0.7); #Lymphocytes 3.7 thou/uL (1.20-3.40); #Monocytes 1.2 thou/uL (0.11-0.59); %Basophils 0.5 % (0.0-1.0); %Eosinophils 1.4 % (0.0-10.0); %Lymphocytes 27.9 % (21.0-51.0); %Neutrophils 61.2 % (42.0-75.0); Hemoglobin 16.4 g/dL (14.0-18.0); Mean Corpuscular HGB CONC 31.1 g/dL (32.0-36.0); Mean Corpuscular Hemoglobin 31.6 pg (27.0-31.0); Mean Platelet Volume 9.9 fL (7.4-10.4); Platelet Count 269 thou/uL (130-400); RBC Distribution Width 13.9 % (11.5-14.5); White Blood Cell (WBC) Count 13.1 thou/uL (4.8-10.8)
[2020-06-01 10:59] LABS: ALT (SGPT) 12 U/L (8-55); AST (SGOT) 15 U/L (5-34); Albumin 3.7 g/dL (3.5-5.0); Alkaline Phosphatase 75 U/L (40-110); Anion Gap 13 mmol/L (10-20); BUN (Urea Nitrogen) 49 mg/dL (8.4-25.7); Bilirubin, Total 0.6 mg/dL (0.2-1.2); Calc. Creatinine Clearance 130 mL/min (70-130); Calcium 9.5 mg/dL (7.8-10.44); Carbon Dioxide 35 mmol/L (22-29); Chloride 94 mmol/L (98-107); Estimated GFR-MDRD 56; Globulin 3.4 g/dL (2.4-3.5); Glucose 160 mg/dL (70-105); Potassium 4.6 mmol/L (3.5-5.1); Protein, Total 7.1 g/dL (6.0-8.3); Sodium 137 mmol/L (136-145)
--- NOTE | 2020-06-01 13:44 | PDOC.HOSPP ---
- Subjective Encounter Date: 06/01/20 Encounter Time: 09:00 Subjective: pt up in bed feel well today but a bit dizzy. - Objective Vital Signs & Weight: Vital Signs (12 hours) Temp Pulse Resp BP BP Pulse Ox 06/01/20 12:18 97.9 F 101 H 16 115/70 92 L 06/01/20 08:40 97.9 F 99 16 114/64 91 L 06/01/20 07:49 93 16 06/01/20 03:13 97.7 F 93 16 123/69 92 L Weight Weight 335 lb 14.4 oz Most Recent Monitor Data Heart Rate from ECG 100 NIBP 162/120 NIBP BP-Mean 134 Respiration from ECG 14 SpO2 90 I&O: 05/31/20 06/01/20 06/02/20 06:59 06:59 06:59 Intake Total 1620 1650 Output Total 2425 1999 Balance -806 -213 Result Diagrams: 06/01/20 10:09 06/01/20 10:09 Hospitalist ROS - Review of Systems Cardiovascular: denies: chest pain, palpitations, orthopnea, paroxysmal noc. dyspnea, edema, light headedness, other Gastrointestinal: denies: nausea, vomiting, abdominal pain, diarrhea, constipation, melena, hematochezia, other Genitourinary: denies: dysuria, frequency, incontinence, hematuria, retention, other - Medication Medications: Active Medications Generic Name Dose Route Start Last Admin Trade Name Freq PRN Reason Stop Dose Admin Acetaminophen 650 mg 05/24/20 15:32 05/30/20 03:56 Acetaminophen 325 Mg Tab PO 650 mg Q8H PRN Administration Headache/Fever/Mild Pain (1-3) Hydrocodone Bitart/Acetaminophen 1 tab 05/26/20 07:28 06/01/20 08:47 Hydrocodone/Acetaminophen 5/325 Mg Tablet PO 1 tab Q4H PRN Administration Moderate Pain (4-6) Acetazolamide 250 mg 05/26/20 09:00 06/01/20 08:49 Acetazolamide 250 Mg Tab PO 250 mg BID RUIZ Administration Albuterol/Ipratropium 3 ml 05/26/20 13:00 06/01/20 13:04 Ipratropium/Albuterol Sulfate 3 Ml Neb NEB Not Given [id number] RUIZ Aspirin 81 mg 05/24/20 21:00 05/31/20 21:42 Aspirin Chewable 81 Mg Tab PO 81 mg QPM RUIZ Administration Atorvastatin Calcium 20 mg 05/25/20 21:00 05/31/20 21:45 Atorvastatin Calcium 20 Mg Tab PO 20 mg HS RUIZ Administration Carvedilol 3.125 mg 05/29/20 17:00 06/01/20 08:48 Carvedilol 3.125 Mg Tab PO 3.125 mg BID-WM RUIZ Administration Clopidogrel Bisulfate 75 mg 05/24/20 21:00 05/31/20 21:43 Clopidogrel Bisulfate 75 Mg Tab PO 75 mg HS RUIZ Administration Cyanocobalamin 1,000 mcg 05/26/20 09:00 06/01/20 08:49 Cyanocobalamin (Vitamin B-12) 1,000 Mcg Tab PO 1,000 mcg DAILY [facility] Administration Doxycycline Hyclate 100 mg 05/26/20 09:00 06/01/20 08:48 Doxycycline 100 Mg Cap PO 100 mg BID [facility] Administration Enoxaparin Sodium 40 mg 05/25/20 09:00 06/01/20 08:49 Enoxaparin Sodium 40 Mg/0.4 Ml Syringe SC Not Given 09 [facility] Famotidine 20 mg 05/26/20 09:00 06/01/20 08:48 Famotidine 20 Mg Tab PO 20 mg BID RUIZ Administration Folic Acid 1 mg 05/26/20 09:00 06/01/20 08:49 Folic Acid 1 Mg Tab PO 1 mg DAILY [facility] Administration Furosemide 40 mg 05/31/20 07:30 06/01/20 08:48 Furosemide 40 Mg Tab PO 40 mg DAILY-AC [facility] Administration Guaifenesin 200 mg 05/26/20 07:28 06/01/20 08:55 Diabetic Tussin 200 Mg/10 Ml Udcup PO 200 mg Q4H PRN Administration Cough Piperacillin Sod/Tazobactam 100 mls @ 200 mls/hr 05/31/20 14:00 06/01/20 06:23 Sod 4.5 gm/ Sodium Chloride IVPB 100 mls Q8HR [facility] Administration Isosorbide Mononitrate 30 mg 05/25/20 09:00 06/01/20 08:49 Isosorbide Mononitrate Er 30 Mg Tab PO 30 mg DAILY [facility] Administration Lisinopril 2.5 mg 05/30/20 09:00 06/01/20 08:48 Lisinopril 2.5 Mg Tab PO 2.5 mg DAILY [facility] Administration Methylprednisolone Sodium Succinate 40 mg 05/31/20 09:00 06/01/20 08:49 Methylprednisolone Sod Succ 40 Mg Vial IVP 40 mg DAILY [facility] Administration Nitroglycerin 0.4 mg 05/29/20 05:02 05/29/20 05:08 Nitroglycerin 0.4 Mg Tab (25 Tab Bottle) SL 1 tab Q5MIN PRN Administration Chest Pain Ondansetron HCl 4 mg 05/26/20 07:28 05/29/20 12:43 Ondansetron Pf 4 Mg/2 Ml Vial IVP 4 mg Q6H PRN Administration Nausea/Vomiting Ondansetron HCl 4 mg 05/26/20 07:28 05/29/20 04:21 Ondansetron Odt 4 Mg Tab PO 4 mg Q6H PRN Administration Nausea/Vomiting Ranolazine 1,000 mg 05/24/20 21:00 06/01/20 08:48 Ranolazine 500 Mg Tab PO 1,000 mg BID [facility] Administration Saccharomyces Boulardii 250 mg 05/26/20 09:00 06/01/20 08:48 Saccharomyces Boulardii 250 Mg Cap PO 250 mg DAILY [facility] Administration Senna/Docusate Sodium 2 tab 05/24/20 15:32 05/26/20 21:44 Senokot S 8.6-50 Mg Tab PO 2 tab BID PRN Administration Constipation Sodium Chloride 10 ml 05/26/20 09:00 06/01/20 08:49 Flush - Normal Saline 10 Ml Syringe IVF 10 ml Q12HR RUIZ Administration Throat Lozenges 1 renuka 05/26/20 07:28 05/27/20 11:57 Cepastat Lozenges 1 Renuka PO 1 renuka Q2H PRN Administration Sore Throat - Exam Heart: negative: RRR, no murmur, no gallops, no rubs, normal peripheral pulses, irregular, diminshed peripheral pulses, murmur present, II/IV, III/IV Respiratory: negative: CTAB, no wheezes, no rales, no ronchi, normal chest expansion, no tachypnea, normal percussion, rales, rhonchi, tachypneic, wheezes Gastrointestinal: negative: soft, non-tender, non-distended, normal bowel sounds, no palpable masses, no hepatomegaly, no splenomegaly, no bruit, no guarding, no rigidity, tender to palpation, distended, diminished bowl sounds, voluntary guarding Extremities: 1+ LE edema Skin: negative: normal turgor, no lesions, no rashes, tenting Hosp A/P (1) Acute and chronic respiratory failure with hypercapnia Code(s): J96.22 - ACUTE AND CHRONIC RESPIRATORY FAILURE WITH HYPERCAPNIA Status: Acute (2) Pneumonia Code(s): J18.9 - PNEUMONIA, UNSPECIFIED ORGANISM Status: Acute Qualifiers: Pneumonia type: due to unspecified organism Laterality: right Lung location: upper lobe of lung Qualified Code(s): J18.9 - Pneumonia, unspecified organism (3) Obesity hypoventilation syndrome Code(s): E66.2 - MORBID (SEVERE) OBESITY WITH ALVEOLAR HYPOVENTILATION Status: Chronic (4) CAD (coronary artery disease) Code(s): I25.10 - ATHSCL HEART DISEASE OF [place] CORONARY ARTERY W/O ANG PCTRS Status: Chronic Qualifiers: Coronary Disease-Associated Artery/Lesion type: [place] artery Associated angina: without angina (5) COPD (chronic obstructive pulmonary disease) Status: Chronic Qualifiers: COPD type: COPD with acute exacerbation Qualified Code(s): J44.1 - Chronic obstructive pulmonary disease with (acute) exacerbation (6) HTN (hypertension) Code(s): I10 - ESSENTIAL (PRIMARY) HYPERTENSION Status: Chronic Qualifiers: Hypertension type: essential hypertension Qualified Code(s): I10 - Essential (primary) hypertension (7) Obesities, morbid Code(s): E66.01 - MORBID (SEVERE) OBESITY DUE TO EXCESS CALORIES Status: Chronic - Plan We will continue IV antibiotics for now. We will start patient on some steroids. We will continue diuretics. He is diuresing well. Patient is still on 4 to 5 L nasal cannula. His baseline is 2-1/2 L nasal cannula. Patient is also on duo nebs. He is on DVT prophylaxis. If patient's oxygen saturation does not improve may require CTA. Patient stress test abnormal. Cardiology consulted. 05/31 pt's sputum cx did have some gram neg rods will switch abx to zosyn. will continue steroids for now. He feels much better. His oxygen is back to baseline. will continue to monitor. His stress test is still abnormal will talk to cardio. 06/01 will change steroids to po, will continue abx. no intervention per cardio fixed lesion on stress test. pt's diuretic changed to po. possible discharge in the next 24-48hr
[2020-06-01] MEDS: Aspirin Chewable 81 MG TAB PO SCH (21:01)
[2020-06-01] MEDS: Clopidogrel Bisulfate 75 MG TAB PO SCH (21:01)
[2020-06-01] MEDS: Atorvastatin Calcium 20 MG TAB PO SCH (21:01)
[2020-06-02 04:55] LABS: Anion Gap 13 mmol/L (10-20); BUN (Urea Nitrogen) 54 mg/dL (8.4-25.7); Calc. Creatinine Clearance 103 mL/min (70-130); Calcium 9.3 mg/dL (7.8-10.44); Carbon Dioxide 37 mmol/L (22-29); Chloride 94 mmol/L (98-107); Estimated GFR-MDRD 43; Glucose 161 mg/dL (70-105); Potassium 5.2 mmol/L (3.5-5.1); Sodium 139 mmol/L (136-145)
[2020-06-02] MEDS: Piperacillin/Tazobactam 4.5 GM in Sodium Chloride 0.9% 100 ML IVPB SCH ×2 (06:14→14:44)
[2020-06-02 09:11] LABS: Platelet Count 274 thou/uL (130-400)
[2020-06-02] MEDS: AcetaZOLAMIDE 250 MG TAB PO SCH ×2 (10:04→21:35)
[2020-06-02] MEDS: Carvedilol 3.125 MG TAB PO SCH ×2 (10:04→17:21)
[2020-06-02] MEDS: Furosemide 40 MG TAB PO SCH (10:04)
[2020-06-02] MEDS: Doxycycline 100 MG CAP PO SCH (10:05)
[2020-06-02] MEDS: Cyanocobalamin (Vitamin B-12) 1,000 MCG TAB PO SCH (10:05)
[2020-06-02] MEDS: Folic Acid 1 MG TAB PO SCH (10:06)
[2020-06-02] MEDS: Famotidine 20 MG TAB PO SCH ×2 (10:06→21:35)
[2020-06-02] MEDS: methylPREDNISolone Sod Succ 40 MG VIAL IVP SCH (10:07)
[2020-06-02] MEDS: Saccharomyces boulardii 250 MG CAP PO SCH (10:08)
[2020-06-02] MEDS: Enoxaparin Sodium 40 MG/0.4 ML SYRINGE SC SCH (10:09)
[2020-06-02] MEDS: HYDROcodone/Acetaminophen 5/325 mg Tablet PO PRN ×2 (14:46→19:32)
--- NOTE | 2020-06-02 15:37 | PDOC.HOSPP ---
- Subjective Encounter Date: 06/02/20 Encounter Time: 09:00 Subjective: pt up in bed feels dizzy - Objective Vital Signs & Weight: Vital Signs (12 hours) Temp Pulse Resp BP BP BP BP 06/02/20 12:00 137/60 127/66 156/74 H 06/02/20 11:48 97.7 F 98 12 120/84 06/02/20 08:00 97.8 F 93 14 132/89 06/02/20 07:26 89 16 Pulse Ox 06/02/20 12:00 06/02/20 11:48 93 L 06/02/20 08:00 99 06/02/20 07:26 Weight Weight 348 lb 15.868 oz Most Recent Monitor Data Heart Rate from ECG 100 NIBP 162/120 NIBP BP-Mean 134 Respiration from ECG 14 SpO2 90 I&O: 06/01/20 06/02/20 06/03/20 06:59 06:59 06:59 Intake Total 1650 2040 Output Total 1999 1175 Balance -350 865 Result Diagrams: 06/02/20 08:19 06/02/20 08:19 Hospitalist ROS - Review of Systems Constitutional: reports: other (dizziness) Cardiovascular: denies: chest pain, palpitations, orthopnea, paroxysmal noc. dyspnea, edema, light headedness, other Gastrointestinal: denies: nausea, vomiting, abdominal pain, diarrhea, constipation, melena, hematochezia, other Genitourinary: denies: dysuria, frequency, incontinence, hematuria, retention, other - Medication Medications: Active Medications Generic Name Dose Route Start Last Admin Trade Name Heronq PRN Reason Stop Dose Admin Acetaminophen 650 mg 05/24/20 15:32 05/30/20 03:56 Acetaminophen 325 Mg Tab PO 650 mg Q8H PRN Administration Headache/Fever/Mild Pain (1-3) Hydrocodone Bitart/Acetaminophen 1 tab 05/26/20 07:28 06/02/20 14:46 Hydrocodone/Acetaminophen 5/325 Mg Tablet PO 1 tab Q4H PRN Administration Moderate Pain (4-6) Acetazolamide 250 mg 05/26/20 09:00 06/02/20 10:04 Acetazolamide 250 Mg Tab PO 250 mg BID RUIZ Administration Albuterol/Ipratropium 3 ml 05/26/20 13:00 06/02/20 14:24 Ipratropium/Albuterol Sulfate 3 Ml Neb NEB 3 ml [id number] RUIZ Administration Aspirin 81 mg 05/24/20 21:00 06/01/20 21:01 Aspirin Chewable 81 Mg Tab PO 81 mg QPM RUIZ Administration Atorvastatin Calcium 20 mg 05/25/20 21:00 06/01/20 21:01 Atorvastatin Calcium 20 Mg Tab PO 20 mg HS RUIZ Administration Carvedilol 3.125 mg 05/29/20 17:00 06/02/20 10:04 Carvedilol 3.125 Mg Tab PO 3.125 mg BID-WM RUIZ Administration Clopidogrel Bisulfate 75 mg 05/24/20 21:00 06/01/20 21:01 Clopidogrel Bisulfate 75 Mg Tab PO 75 mg HS RUIZ Administration Cyanocobalamin 1,000 mcg 05/26/20 09:00 06/02/20 10:05 Cyanocobalamin (Vitamin B-12) 1,000 Mcg Tab PO 1,000 mcg DAILY RUIZ Administration Enoxaparin Sodium 40 mg 05/25/20 09:00 06/02/20 10:09 Enoxaparin Sodium 40 Mg/0.4 Ml Syringe SC Not Given 09 RUIZ Famotidine 20 mg 05/26/20 09:00 06/02/20 10:06 Famotidine 20 Mg Tab PO 20 mg BID RUIZ Administration Folic Acid 1 mg 05/26/20 09:00 06/02/20 10:06 Folic Acid 1 Mg Tab PO 1 mg DAILY RUIZ Administration Furosemide 40 mg 05/31/20 07:30 06/02/20 10:04 Furosemide 40 Mg Tab PO 40 mg DAILY-AC RUIZ Administration Guaifenesin 200 mg 05/26/20 07:28 06/01/20 21:01 Diabetic Tussin 200 Mg/10 Ml Udcup PO 200 mg Q4H PRN Administration Cough Isosorbide Mononitrate 30 mg 05/25/20 09:00 06/02/20 10:07 Isosorbide Mononitrate Er 30 Mg Tab PO 30 mg DAILY RUIZ Administration Lisinopril 2.5 mg 05/30/20 09:00 06/01/20 08:48 Lisinopril 2.5 Mg Tab PO 2.5 mg DAILY RUIZ Administration Nitroglycerin 0.4 mg 05/29/20 05:02 05/29/20 05:08 Nitroglycerin 0.4 Mg Tab (25 Tab Bottle) SL 1 tab Q5MIN PRN Administration Chest Pain Ondansetron HCl 4 mg 05/26/20 07:28 05/29/20 12:43 Ondansetron Pf 4 Mg/2 Ml Vial IVP 4 mg Q6H PRN Administration Nausea/Vomiting Ondansetron HCl 4 mg 05/26/20 07:28 05/29/20 04:21 Ondansetron Odt 4 Mg Tab PO 4 mg Q6H PRN Administration Nausea/Vomiting Ranolazine 1,000 mg 05/24/20 21:00 06/02/20 10:07 Ranolazine 500 Mg Tab PO 1,000 mg BID RUIZ Administration Saccharomyces Boulardii 250 mg 05/26/20 09:00 06/02/20 10:08 Saccharomyces Boulardii 250 Mg Cap PO 250 mg DAILY RUIZ Administration Senna/Docusate Sodium 2 tab 05/24/20 15:32 05/26/20 21:44 Senokot S 8.6-50 Mg Tab PO 2 tab BID PRN Administration Constipation Sodium Chloride 10 ml 05/26/20 09:00 06/02/20 10:08 Flush - Normal Saline 10 Ml Syringe IVF 10 ml Q12HR RUIZ Administration Throat Lozenges 1 renuka 05/26/20 07:28 05/27/20 11:57 Cepastat Lozenges 1 Renuka PO 1 renuka Q2H PRN Administration Sore Throat - Exam Heart: negative: RRR, no murmur, no gallops, no rubs, normal peripheral pulses, irregular, diminshed peripheral pulses, murmur present, II/IV, III/IV Respiratory: negative: CTAB, no wheezes, no rales, no ronchi, normal chest expansion, no tachypnea, normal percussion, rales, rhonchi, tachypneic, wheezes Gastrointestinal: negative: soft, non-tender, non-distended, normal bowel sounds, no palpable masses, no hepatomegaly, no splenomegaly, no bruit, no guarding, no rigidity, tender to palpation, distended, diminished bowl sounds, voluntary guarding Extremities: 1+ LE edema Hosp A/P (1) Acute and chronic respiratory failure with hypercapnia Code(s): J96.22 - ACUTE AND CHRONIC RESPIRATORY FAILURE WITH HYPERCAPNIA Status: Acute (2) Pneumonia Code(s): J18.9 - PNEUMONIA, UNSPECIFIED ORGANISM Status: Acute Qualifiers: Pneumonia type: due to unspecified organism Laterality: right Lung location: upper lobe of lung Qualified Code(s): J18.9 - Pneumonia, unspecified organism (3) Obesity hypoventilation syndrome Code(s): E66.2 - MORBID (SEVERE) OBESITY WITH ALVEOLAR HYPOVENTILATION Status: Chronic (4) CAD (coronary artery disease) Code(s): I25.10 - ATHSCL HEART DISEASE OF [place] CORONARY ARTERY W/O ANG PCTRS Status: Chronic Qualifiers: Coronary Disease-Associated Artery/Lesion type: [place] artery Associated angina: without angina (5) COPD (chronic obstructive pulmonary disease) Status: Chronic Qualifiers: COPD type: COPD with acute exacerbation Qualified Code(s): J44.1 - Chronic obstructive pulmonary disease with (acute) exacerbation (6) HTN (hypertension) Code(s): I10 - ESSENTIAL (PRIMARY) HYPERTENSION Status: Chronic Qualifiers: Hypertension type: essential hypertension Qualified Code(s): I10 - Essential (primary) hypertension (7) Obesities, morbid Code(s): E66.01 - MORBID (SEVERE) OBESITY DUE TO EXCESS CALORIES Status: Chronic - Plan We will continue IV antibiotics for now. We will start patient on some steroids. We will continue diuretics. He is diuresing well. Patient is still on 4 to 5 L nasal cannula. His baseline is 2-1/2 L nasal cannula. Patient is also on duo nebs. He is on DVT prophylaxis. If patient's oxygen saturation does not improve may require CTA. Patient stress test abnormal. Cardiology consulted. 05/31 pt's sputum cx did have some gram neg rods will switch abx to zosyn. will continue steroids for now. He feels much better. His oxygen is back to baseline. will continue to monitor. His stress test is still abnormal will talk to cardio. 06/01 will change steroids to po, will continue abx. no intervention per cardio fixed lesion on stress test. pt's diuretic changed to po. possible discharge in the next 24-48hr 06/02 will check orthostatic bp. will hold lasix and lisinopril. will check labs in am. will change abx to oral. if pt stable will discharge in am.
[2020-06-02] MEDS ORDERED: predniSONE 20 MG TAB PO SCH (15:45)
[2020-06-02] MEDS ORDERED: Sodium Chloride 0.9% 500 ML IV SCH (15:45)
[2020-06-02] MEDS ORDERED: Meclizine HCl 25 MG TAB PO SCH (19:00)
--- NOTE | 2020-06-02 19:29 | CT ---
EXAM: CT brain without contrast HISTORY: Dizziness and headache COMPARISON: None TECHNIQUE: Multiple contiguous axial images were obtained and a CT of the brain without contrast. FINDINGS: The brain is normal in morphology and attenuation without focal lesions or confluent areas of infarction. Intracranial vascular calcifications are present. There is no evidence of hydrocephalus, intracranial hemorrhage, or extra-axial fluid collection. The calvarium and overlying soft tissues are unremarkable. The visualized paranasal sinuses and masto id air cells are well aerated. IMPRESSION: No evidence of acute intracranial abnormality
[2020-06-02] MEDS: Atorvastatin Calcium 20 MG TAB PO SCH (21:35)
[2020-06-02] MEDS: Aspirin Chewable 81 MG TAB PO SCH (21:35)
[2020-06-02] MEDS: Clopidogrel Bisulfate 75 MG TAB PO SCH (21:35)
[2020-06-03 04:48] LABS: Anion Gap 12 mmol/L (10-20); BUN (Urea Nitrogen) 49 mg/dL (8.4-25.7); Calc. Creatinine Clearance 128 mL/min (70-130); Calcium 9.4 mg/dL (7.8-10.44); Carbon Dioxide 36 mmol/L (22-29); Chloride 97 mmol/L (98-107); Estimated GFR-MDRD 53; Glucose 289 mg/dL (70-105); Potassium 5.7 mmol/L (3.5-5.1); Sodium 139 mmol/L (136-145)
[2020-06-03] MEDS ORDERED: HumaLOG 300 UNITS/3 ML VIAL SC SCH (09:15)
[2020-06-03] MEDS: Carvedilol 3.125 MG TAB PO SCH ×2 (09:51→16:25)
[2020-06-03] MEDS: AcetaZOLAMIDE 250 MG TAB PO SCH (09:51)
[2020-06-03] MEDS: Cyanocobalamin (Vitamin B-12) 1,000 MCG TAB PO SCH (09:52)
[2020-06-03] MEDS: Folic Acid 1 MG TAB PO SCH (09:52)
[2020-06-03] MEDS: Famotidine 20 MG TAB PO SCH (09:52)
[2020-06-03] MEDS: Saccharomyces boulardii 250 MG CAP PO SCH (09:53)
[2020-06-03] MEDS: HYDROcodone/Acetaminophen 5/325 mg Tablet PO PRN (09:53)
[2020-06-03] MEDS ORDERED: Sodium Chloride 0.9% 500 ML IV SCH (10:15)
[2020-06-03] MEDS ORDERED: Meclizine HCl 25 MG TAB PO SCH (11:00)
[2020-06-03 13:23] LABS: Hemoglobin A1c 7.1 % (4.0-6.0)
[2020-06-03 13:34] LABS: Anion Gap 14 mmol/L (10-20); BUN (Urea Nitrogen) 44 mg/dL (8.4-25.7); Calc. Creatinine Clearance 164 mL/min (70-130); Calcium 9.2 mg/dL (7.8-10.44); Carbon Dioxide 28 mmol/L (22-29); Chloride 102 mmol/L (98-107); Estimated GFR-MDRD 70; Glucose 120 mg/dL (70-105); Potassium 4.5 mmol/L (3.5-5.1); Sodium 139 mmol/L (136-145)
[2020-06-03 16:25] VITALS: BP 134/95; TEMP 97.8
[2020-06-03] MEDS ORDERED: FLU VACC QS2020-21(6MOS UP)/PF 60 MCG/0.5 ML SYRINGE IM ONE (17:00)
--- NOTE | 2020-06-04 00:29 | DIS ---
DATE OF ADMISSION: 05/24/2020 DATE OF DISCHARGE: 06/03/2020 DISCHARGE DIAGNOSES: 1. Acute on chronic hypoxic respiratory failure. 2. Hypoxic and hypercapnic failure. 3. Hypertension. 4. Chronic obstructive pulmonary disease exacerbation. 5. Acute on chronic systolic heart failure. 6. Mildly elevated troponins, most likely demand related, type 2. 7. Obesity. 8. Hypertension. 9. Newly diagnosed diabetes. HOSPITAL COURSE: The patient is a 60-year-old male, who initially presented to the hospital with shortness of breath. He was initially put on broad-spectrum antibiotics. His CT chest was done, which indicated some nodular density in the right upper lobe and minimal adjacent ground-glass densities. At this time, his COVID test was negative. He was initially put on antibiotics. The patient required 5 L of oxygen. He is on baseline at 2.5 L. He also had a stress test and was seen by the Cardiology. His stress test indicated a fixed defect in the anterior wall and septum. Per Cardiology's note, no significant interventions would be done at this time. The patient initially continued to improve; however, he started having significant amount of dizziness, which was vertigo. He was given some fluid back. His vertigo was most likely attributed to initially the thought was probably over diuresing and dehydration. However, he was given some meclizine and his dizziness improved. He had a CT brain, which did not show any acute abnormalities. The patient continued to improve really well. He will be discharged home. He will follow up with his primary. I did speak with the patient and the patient's and recommended that he will require a sleep study. He probably has an obesity hypoventilation syndrome. I encouraged the patient to get a sleep study as an outpatient. He did continue a 5-day course of steroids. His antibiotics will be continued for another 4 days and he will be discharged home. He states he feels well. No more dizziness. HOME MEDICATIONS: 1. Aspirin 81 mg daily. 2. Plavix 75 mg daily. 3. Ranexa 1000 units b.i.d. 4. Lasix 40 mg daily. 5. Isosorbide 30 mg daily. 6. Simvastatin 40 mg at bedtime. 7. Lisinopril 2.5 daily. 8. Levofloxacin 750 for the next 4 days. 9. Coreg 3.125 b.i.d. 10. Diamox 250 mg b.i.d. only for 7 days. 11. Vitamin B12, 1000 daily. PHYSICAL EXAMINATION: VITAL SIGNS: Temperature of 97.8, 17, 95% on 2.5 L, 134/95. GENERAL: He is awake, alert, and oriented x3. Does not appear in distress. CV: S1, S2 present. No murmurs, rubs, or gallops. Again, he will be discharged home and follow up with his primary and also I have encouraged him to see Pulmonary for sleep study. Job ID: [id number]
== END 2020-06-03 17:10 | disposition home or self-care (01) | DRG 177 ==
LOC: ERS 13:02 → IMCU/EMU 15:53 → UNDOADMIN 15:56 → IMCU/EMU 15:56 → 2NO 05-27 05:52
PROVIDERS: ADMIT Internal Medicine; ATTEND Internal Medicine
DX: J15.6 Pneumonia due to other Gram-negative bacteria (principal); J96.22 Acute and chronic respiratory failure with hypercapnia; I50.23 Acute on chronic systolic (congestive) heart failure; J44.1 Chronic obstructive pulmonary disease with (acute) exacerbation; Z68.42 Body mass index [BMI] 45.0-49.9, adult; I24.8 Other forms of acute ischemic heart disease; J44.0 Chronic obstructive pulmonary disease with (acute) lower respiratory infection; I11.0 Hypertensive heart disease with heart failure; E78.00 Pure hypercholesterolemia, unspecified; I25.10 Atherosclerotic heart disease of native coronary artery without angina pectoris; E66.01 Morbid (severe) obesity due to excess calories; I25.5 Ischemic cardiomyopathy; Z20.828 Contact with and (suspected) exposure to other viral communicable diseases; Z99.81 Dependence on supplemental oxygen; Z98.890 Other specified postprocedural states; Z90.49 Acquired absence of other specified parts of digestive tract; Z87.891 Personal history of nicotine dependence; Z88.1 Allergy status to other antibiotic agents; I25.2 Old myocardial infarction; Z95.5 Presence of coronary angioplasty implant and graft; Z88.6 Allergy status to analgesic agent; Z79.899 Other long term (current) drug therapy; Z95.810 Presence of automatic (implantable) cardiac defibrillator; E87.5 Hyperkalemia; Z88.0 Allergy status to penicillin; E11.9 Type 2 diabetes mellitus without complications
CPT/HCPCS: 36415; 36416; 70450; 71045; 71250; 78452; 80048; 80053; 80306; 82553; 82728; 82805; 83036; 83615; 83735; 83880; 84145; 84484; 85014; 85018; 85025; 85049; 86140; 87070; 87205; 87449; 87899; 90471; 90662; 93005; 93010; 93017; 94640; 94760; 96365; 96367; 96375; A9500; G0008; J0280; J0456; J0696; J1650; J1940; J2405; J2543; J2785; J2920; J3475; J3490; J7050; J7512; J7620; Q0162; U0002

== ENCOUNTER 2020-10-11 14:36 | Inpatient (IN) | payer MEDICARE ==
[2020-10-11 15:16] LABS: #Basophils 0.1 thou/uL (0.0-0.2); #Eosinphils 0.2 thou/uL (0.0-0.7); #Lymphocytes 3.6 thou/uL (1.20-3.40); #Neutrophils 7.7 thou/uL (1.40-6.50); %Basophils 0.4 % (0.0-1.0); %Eosinophils 1.7 % (0.0-10.0); %Lymphocytes 28.5 % (21.0-51.0); %Neutrophils 61.4 % (42.0-75.0); Hemoglobin 15.1 g/dL (14.0-18.0); Mean Corpuscular HGB CONC 32.2 g/dL (32.0-36.0); Mean Corpuscular Hemoglobin 32.8 pg (27.0-31.0); Mean Platelet Volume 10.1 fL (7.4-10.4); Platelet Count 210 thou/uL (130-400); RBC Distribution Width 12.4 % (11.5-14.5); White Blood Cell (WBC) Count 12.5 thou/uL (4.8-10.8)
[2020-10-11 15:37] LABS: ALT (SGPT) 12 U/L (8-55); AST (SGOT) 14 U/L (5-34); Alkaline Phosphatase 84 U/L (40-110); Anion Gap 15 mmol/L (10-20); BUN (Urea Nitrogen) 42 mg/dL (8.4-25.7); Bilirubin, Total 0.3 mg/dL (0.2-1.2); Calc. Creatinine Clearance 0 mL/min (70-130); Calcium 9.9 mg/dL (7.8-10.44); Carbon Dioxide 35 mmol/L (22-29); Chloride 95 mmol/L (98-107); Globulin 3.5 g/dL (2.4-3.5); Glucose 108 mg/dL (70-105); Potassium 4.7 mmol/L (3.5-5.1); Protein, Total 7.5 g/dL (6.0-8.3); Sodium 140 mmol/L (136-145)
[2020-10-11 16:01] LABS: CKMB 1.1 ng/mL (0-6.6)
[2020-10-11 18:31] VITALS: BMI 51.0
[2020-10-11] MEDS ORDERED: Albuterol Sulfate 2.5 mg/3 ml Neb NEB PRN (18:45)
[2020-10-11] MEDS ORDERED: Carvedilol 3.125 MG TAB PO SCH (21:00)
[2020-10-11] MEDS ORDERED: Atorvastatin Calcium 20 MG TAB PO SCH (21:00)
[2020-10-11 21:39] LABS: SARS-CoV-2 NAA Rapid Test Not Detected (NotDetected)
[2020-10-11 22:12] LABS: Troponin I 0.066 ng/mL (< 0.028)
[2020-10-12] MEDS ORDERED: Carvedilol 3.125 MG TAB PO SCH (08:45)
[2020-10-12] MEDS ORDERED: Aspirin 81 mg Enteric Coated Tablet PO SCH (09:00)
[2020-10-12] MEDS ORDERED: Non-Formulary Item 1 EACH (Fluticasone/Vilanterol [Breo Ellipta 200-25 Mcg Inh] 1 EACH Bl PO SCH (09:00)
[2020-10-12] MEDS ORDERED: Enoxaparin Sodium 40 MG/0.4 ML SYRINGE SC SCH ×2 (09:00→17:00)
[2020-10-12] MEDS: Lisinopril 2.5 MG TAB PO SCH (09:02)
[2020-10-12] MEDS: Furosemide 40 MG TAB PO SCH ×2 (09:02→14:01)
[2020-10-12 10:07] LABS: Albumin 3.6 g/dL (3.5-5.0); Anion Gap 12 mmol/L (10-20); BUN (Urea Nitrogen) 42 mg/dL (8.4-25.7); BUN/Creatinine Ratio 36.52; Calc. Creatinine Clearance 165 mL/min (70-130); Calcium 8.8 mg/dL (7.8-10.44); Carbon Dioxide 36 mmol/L (22-29); Chloride 96 mmol/L (98-107); Glucose 158 mg/dL (70-105); Magnesium 1.6 mg/dL (1.6-2.6); Phosphorus 3.7 mg/dL (2.3-4.7); Potassium 4.7 mmol/L (3.5-5.1); Sodium 139 mmol/L (136-145)
[2020-10-12] MEDS: Mometasone 200 MCG/Formoterol 5 MCG 120 PUFF INHALER INH SCH ×2 (10:39→11:27)
[2020-10-12] MEDS ORDERED: Magnesium Sulfate 4 GM in Sodium Chloride 0.9% 250 ML 250 ML IVPB SCH (13:30)
[2020-10-12] MEDS ORDERED: Clopidogrel Bisulfate 300 MG TAB PO SCH (17:00)
[2020-10-12] MEDS ORDERED: Nitroglycerin 2% Ointment 1 INCH/1 GM Packet TOP SCH (17:15)
[2020-10-12] MEDS: Carvedilol 3.125 MG TAB PO SCH (17:24)
[2020-10-12] MEDS: Atorvastatin Calcium 20 MG TAB PO SCH (20:10)
[2020-10-12] MEDS: Enoxaparin Sodium 120 MG/0.8 ML SYRINGE SC SCH (20:11)
[2020-10-12] MEDS ORDERED: Simvastatin 40 MG TAB PO SCH (21:00)
[2020-10-12] MEDS: Nitroglycerin 2% Ointment 1 INCH/1 GM Packet TOP SCH (23:50)
[2020-10-13 05:10] LABS: #Basophils 0.1 thou/uL (0.0-0.2); #Eosinphils 0.2 thou/uL (0.0-0.7); #Lymphocytes 3.9 thou/uL (1.20-3.40); %Basophils 0.8 % (0.0-1.0); %Eosinophils 2.2 % (0.0-10.0); %Lymphocytes 34.5 % (21.0-51.0); %Monocytes 8.8 % (0.0-10.0); %Neutrophils 53.7 % (42.0-75.0); Hemoglobin 14.1 g/dL (14.0-18.0); Mean Corpuscular Hemoglobin 32.3 pg (27.0-31.0); Mean Platelet Volume 9.9 fL (7.4-10.4); Platelet Count 203 thou/uL (130-400); RBC Distribution Width 12.5 % (11.5-14.5); Red Blood Cell (RBC) Count 4.36 mill/uL (4.70-6.10); White Blood Cell (WBC) Count 11.2 thou/uL (4.8-10.8)
[2020-10-13 05:34] LABS: Albumin 3.5 g/dL (3.5-5.0); Anion Gap 17 mmol/L (10-20); BUN (Urea Nitrogen) 42 mg/dL (8.4-25.7); BUN/Creatinine Ratio 38.18; Calc. Creatinine Clearance 172 mL/min (70-130); Calcium 8.5 mg/dL (7.8-10.44); Carbon Dioxide 27 mmol/L (22-29); Chloride 96 mmol/L (98-107); Glucose 132 mg/dL (70-105); Magnesium 2.3 mg/dL (1.6-2.6); Phosphorus 3.8 mg/dL (2.3-4.7); Potassium 4.5 mmol/L (3.5-5.1); Sodium 135 mmol/L (136-145)
[2020-10-13] MEDS: Nitroglycerin 2% Ointment 1 INCH/1 GM Packet TOP SCH ×3 (05:55→22:06)
[2020-10-13] MEDS: Mometasone 200 MCG/Formoterol 5 MCG 120 PUFF INHALER INH SCH (08:01)
[2020-10-13] MEDS: Enoxaparin Sodium 120 MG/0.8 ML SYRINGE SC SCH ×3 (08:42→22:07)
[2020-10-13] MEDS: Carvedilol 3.125 MG TAB PO SCH ×2 (08:42→18:05)
[2020-10-13] MEDS: Clopidogrel Bisulfate 75 MG TAB PO SCH (08:43)
[2020-10-13] MEDS: Aspirin 325 mg Enteric Coated Tablet PO SCH (08:43)
[2020-10-13] MEDS: Furosemide 40 MG TAB PO SCH ×2 (08:43→14:30)
[2020-10-13] MEDS: Lisinopril 2.5 MG TAB PO SCH (08:43)
[2020-10-13] MEDS: Atorvastatin Calcium 20 MG TAB PO SCH (22:06)
[2020-10-14 05:20] LABS: #Basophils 0.1 thou/uL (0.0-0.2); #Eosinphils 0.3 thou/uL (0.0-0.7); #Lymphocytes 4.3 thou/uL (1.20-3.40); #Monocytes 1.1 thou/uL (0.11-0.59); #Neutrophils 7.2 thou/uL (1.40-6.50); %Basophils 0.7 % (0.0-1.0); %Eosinophils 2.2 % (0.0-10.0); %Lymphocytes 33.2 % (21.0-51.0); %Monocytes 8.7 % (0.0-10.0); %Neutrophils 55.2 % (42.0-75.0); Hemoglobin 13.9 g/dL (14.0-18.0); Mean Corpuscular HGB CONC 32.2 g/dL (32.0-36.0); Mean Corpuscular Hemoglobin 32.2 pg (27.0-31.0); Platelet Count 206 thou/uL (130-400); RBC Distribution Width 12.5 % (11.5-14.5); Red Blood Cell (RBC) Count 4.32 mill/uL (4.70-6.10)
[2020-10-14 06:04] LABS: Anion Gap 14 mmol/L (10-20); BUN (Urea Nitrogen) 43 mg/dL (8.4-25.7); Calc. Creatinine Clearance 175 mL/min (70-130); Calcium 8.9 mg/dL (7.8-10.44); Carbon Dioxide 29 mmol/L (22-29); Chloride 96 mmol/L (98-107); Glucose 134 mg/dL (70-105); Potassium 4.2 mmol/L (3.5-5.1); Sodium 135 mmol/L (136-145)
[2020-10-14] MEDS: Nitroglycerin 2% Ointment 1 INCH/1 GM Packet TOP SCH ×3 (06:07→23:37)
[2020-10-14] MEDS: Furosemide 40 MG TAB PO SCH ×2 (08:04→14:48)
[2020-10-14] MEDS: Carvedilol 3.125 MG TAB PO SCH ×2 (08:04→16:28)
[2020-10-14] MEDS: Clopidogrel Bisulfate 75 MG TAB PO SCH (08:04)
[2020-10-14] MEDS: Lisinopril 2.5 MG TAB PO SCH (08:04)
[2020-10-14] MEDS: Enoxaparin Sodium 120 MG/0.8 ML SYRINGE SC SCH ×2 (08:04→21:13)
[2020-10-14] MEDS: Aspirin 325 mg Enteric Coated Tablet PO SCH (08:04)
[2020-10-14] MEDS: Mometasone 200 MCG/Formoterol 5 MCG 120 PUFF INHALER INH SCH (08:22)
[2020-10-14] MEDS ORDERED: Nitroglycerin 0.4 MG TAB (25 Tab Bottle) SL PRN (16:21)
[2020-10-14] MEDS ORDERED: Communication Order-Pharmacy FS SCH ×2 (20:00)
[2020-10-14] MEDS: Atorvastatin Calcium 20 MG TAB PO SCH (21:12)
[2020-10-15 05:02] LABS: Anion Gap 13 mmol/L (10-20); BUN (Urea Nitrogen) 42 mg/dL (8.4-25.7); Calc. Creatinine Clearance 182 mL/min (70-130); Calcium 9.4 mg/dL (7.8-10.44); Carbon Dioxide 36 mmol/L (22-29); Chloride 96 mmol/L (98-107); Cholesterol 170 mg/dl (< 200 Desired); Glucose 134 mg/dL (70-105); HDL Cholesterol 34 mg/dL (>60 Neg Risk); LDL Cholesterol, Calculated 110 mg/dL; Magnesium 2.1 mg/dL (1.6-2.6); Potassium 4.5 mmol/L (3.5-5.1); Sodium 140 mmol/L (136-145); Triglycerides 129 mg/dL (Less than 150)
[2020-10-15] MEDS: Lisinopril 2.5 MG TAB PO SCH (05:21)
[2020-10-15] MEDS: Nitroglycerin 2% Ointment 1 INCH/1 GM Packet TOP SCH ×3 (05:22→23:47)
[2020-10-15] MEDS: Aspirin 325 mg Enteric Coated Tablet PO SCH (05:22)
[2020-10-15] MEDS: Carvedilol 3.125 MG TAB PO SCH ×2 (05:22→17:54)
[2020-10-15] MEDS ORDERED: Heparin 10,000 UNITS/ 10 ML VIAL ONE (06:46)
[2020-10-15] MEDS ORDERED: Nitroglycerin 100MG/250ML BOT 250 ML ONE (06:46)
[2020-10-15] MEDS ORDERED: Verapamil 5 MG/2 ML VIAL ONE (06:46)
[2020-10-15] MEDS ORDERED: Lidocaine 1% (PF) 30 ML VIAL ONE (06:59)
[2020-10-15] MEDS ORDERED: Midazolam HCl 2 mg/2 ml Vial ONE ×2 (07:23→07:39)
[2020-10-15] MEDS: Mometasone 200 MCG/Formoterol 5 MCG 120 PUFF INHALER INH SCH (07:30)
[2020-10-15] MEDS ORDERED: Acetaminophen/Codeine 30-300mg Tablet PO PRN ×2 (08:28)
[2020-10-15] MEDS ORDERED: Nitroglycerin 0.4 MG TAB (25 Tab Bottle) SL PRN (08:28)
[2020-10-15] MEDS ORDERED: Sodium Chloride 0.9% 200 ML IV PRN (08:28)
[2020-10-15] MEDS: Furosemide 40 MG TAB PO SCH ×2 (09:11→14:25)
[2020-10-15] MEDS: Clopidogrel Bisulfate 75 MG TAB PO SCH (09:12)
[2020-10-15] MEDS ORDERED: Iopamidol 370 76% 100 ML VIAL ONE (09:17)
[2020-10-15] MEDS ORDERED: HYDROcodone/Acetaminophen 5/325 mg Tablet PO SCH (13:30)
[2020-10-15] MEDS ORDERED: HYDROcodone/Acetaminophen 10/325 mg Tablet PO PRN (13:31)
[2020-10-15] MEDS: Atorvastatin Calcium 20 MG TAB PO SCH (20:08)
[2020-10-16] MEDS: Nitroglycerin 2% Ointment 1 INCH/1 GM Packet TOP SCH ×3 (07:06→20:02)
[2020-10-16] MEDS: Carvedilol 3.125 MG TAB PO SCH ×2 (08:04→17:00)
[2020-10-16] MEDS: Furosemide 40 MG TAB PO SCH (08:05)
[2020-10-16] MEDS: Aspirin 325 mg Enteric Coated Tablet PO SCH (08:05)
[2020-10-16] MEDS: Clopidogrel Bisulfate 75 MG TAB PO SCH (08:05)
[2020-10-16] MEDS: Lisinopril 2.5 MG TAB PO SCH (08:06)
[2020-10-16] MEDS: Mometasone 200 MCG/Formoterol 5 MCG 120 PUFF INHALER INH SCH (08:07)
[2020-10-16] MEDS ORDERED: Furosemide 40 MG/4 ML VIAL SLOW IVP SCH (10:00)
[2020-10-16] MEDS ORDERED: Furosemide 40 MG TAB PO SCH (16:00)
[2020-10-16] MEDS: Atorvastatin Calcium 20 MG TAB PO SCH (20:02)
[2020-10-17] MEDS: Furosemide 20 MG TAB PO SCH ×2 (05:37→13:49)
[2020-10-17] MEDS: Nitroglycerin 2% Ointment 1 INCH/1 GM Packet TOP SCH ×2 (05:39→14:04)
[2020-10-17] MEDS: Lisinopril 2.5 MG TAB PO SCH (08:01)
[2020-10-17] MEDS: Aspirin 325 mg Enteric Coated Tablet PO SCH (08:02)
[2020-10-17] MEDS: Clopidogrel Bisulfate 75 MG TAB PO SCH (08:02)
[2020-10-17] MEDS: Carvedilol 3.125 MG TAB PO SCH ×2 (08:02→16:10)
[2020-10-17] MEDS: Mometasone 200 MCG/Formoterol 5 MCG 120 PUFF INHALER INH SCH (08:06)
[2020-10-17 15:15] VITALS: BP 111/65; TEMP 98.3
== END 2020-10-17 17:47 | disposition home or self-care (01) | DRG 281 ==
LOC: ERS 14:36 → 2SW 17:19 → OBSVTOIN 10-12 15:05 → 2NO 10-13 17:44
PROVIDERS: ADMIT Internal Medicine; ATTEND Internal Medicine
PROC: 4B02XTZ Measurement of Cardiac Defibrillator, External Approach (ICD-10-PCS; 2020-10-12)
PROC: B2111ZZ Fluoroscopy of Multiple Coronary Arteries using Low Osmolar Contrast (ICD-10-PCS; principal; 2020-10-15)
DX: I25.110 Atherosclerotic heart disease of native coronary artery with unstable angina pectoris (principal); I21.4 Non-ST elevation (NSTEMI) myocardial infarction; J96.11 Chronic respiratory failure with hypoxia; J44.1 Chronic obstructive pulmonary disease with (acute) exacerbation; I50.22 Chronic systolic (congestive) heart failure; I13.0 Hypertensive heart and chronic kidney disease with heart failure and stage 1 through stage 4 chronic kidney disease, or unspecified chronic kidney disease; Z68.43 Body mass index [BMI] 50.0-59.9, adult; Z20.822 Contact with and (suspected) exposure to COVID-19; I42.9 Cardiomyopathy, unspecified; I35.1 Nonrheumatic aortic (valve) insufficiency; N18.30 Chronic kidney disease, stage 3 unspecified; E78.00 Pure hypercholesterolemia, unspecified; D72.829 Elevated white blood cell count, unspecified; E78.5 Hyperlipidemia, unspecified; R77.9 Abnormality of plasma protein, unspecified; E66.01 Morbid (severe) obesity due to excess calories; R91.1 Solitary pulmonary nodule; G47.33 Obstructive sleep apnea (adult) (pediatric); F40.240 Claustrophobia; Z95.5 Presence of coronary angioplasty implant and graft; Z88.1 Allergy status to other antibiotic agents; Z88.5 Allergy status to narcotic agent; Z87.891 Personal history of nicotine dependence; Z90.49 Acquired absence of other specified parts of digestive tract
CPT/HCPCS: 36415; 71045; 80048; 80053; 80061; 80069; 82553; 83735; 83880; 84484; 85025; 93005; 93454; 96374; 99152; 99153; G0378; J1644; J1650; J2001; J2250; J3475; J7050; Q9967; U0002

== ENCOUNTER 2020-10-23 19:13 | Emergency (ER) | payer MEDICARE, SELFPAY ==
[2020-10-23] MEDS ORDERED: Aspirin 325 MG TAB ONE (19:55)
[2020-10-23 20:17] LABS: #Basophils 0.1 thou/uL (0.0-0.2); #Eosinphils 0.2 thou/uL (0.0-0.7); #Lymphocytes 4.1 thou/uL (1.20-3.40); #Monocytes 1.1 thou/uL (0.11-0.59); #Neutrophils 8.9 thou/uL (1.40-6.50); %Basophils 0.5 % (0.0-1.0); %Eosinophils 1.2 % (0.0-10.0); %Lymphocytes 28.4 % (21.0-51.0); %Monocytes 7.7 % (0.0-10.0); %Neutrophils 62.2 % (42.0-75.0); Hemoglobin 13.9 g/dL (14.0-18.0); Mean Corpuscular HGB CONC 30.5 g/dL (32.0-36.0); Mean Corpuscular Hemoglobin 30.8 pg (27.0-31.0); Platelet Count 225 thou/uL (130-400); RBC Distribution Width 12.4 % (11.5-14.5); White Blood Cell (WBC) Count 14.3 thou/uL (4.8-10.8)
[2020-10-23] MEDS ORDERED: Aspirin Chewable 81 MG TAB ONE (20:37)
[2020-10-23 20:38] LABS: ALT (SGPT) 12 U/L (8-55); AST (SGOT) 15 U/L (5-34); Albumin 3.7 g/dL (3.5-5.0); Alkaline Phosphatase 78 U/L (40-110); Anion Gap 19 mmol/L (10-20); BUN (Urea Nitrogen) 52 mg/dL (8.4-25.7); Bilirubin, Total Less than 0.2 mg/dL (0.2-1.2); Calc. Creatinine Clearance 0 mL/min (70-130); Calcium 8.7 mg/dL (7.8-10.44); Carbon Dioxide 27 mmol/L (22-29); Chloride 96 mmol/L (98-107); Globulin 3.2 g/dL (2.4-3.5); Glucose 125 mg/dL (70-105); Potassium 4.6 mmol/L (3.5-5.1); Protein, Total 6.9 g/dL (6.0-8.3); Sodium 137 mmol/L (136-145)
[2020-10-23 21:43] LABS: CKMB 0.9 ng/mL (0-6.6)
== END 2020-10-23 23:21 | disposition home or self-care (01) ==
LOC: ERS 19:13
DX: R42 Dizziness and giddiness (principal); J44.9 Chronic obstructive pulmonary disease, unspecified; I25.2 Old myocardial infarction; E78.5 Hyperlipidemia, unspecified; E78.00 Pure hypercholesterolemia, unspecified; I10 Essential (primary) hypertension; Z87.891 Personal history of nicotine dependence
CPT/HCPCS: 36415; 71045; 80053; 82553; 83880; 84484; 85025; 93005

== ENCOUNTER 2021-06-23 20:15 | Inpatient (IN) | payer MEDICARE ==
[2021-06-23 21:10] LABS: #Eosinphils 0.1 thou/uL (0.0-0.7); #Lymphocytes 2.7 thou/uL (1.20-3.40); #Neutrophils 7.2 thou/uL (1.40-6.50); %Basophils 0.4 % (0.0-1.0); %Eosinophils 0.6 % (0.0-10.0); %Lymphocytes 24.2 % (21.0-51.0); %Monocytes 9.1 % (0.0-10.0); %Neutrophils 65.7 % (42.0-75.0); Hemoglobin 14.2 g/dL (14.0-18.0); Mean Corpuscular HGB CONC 32.4 g/dL (32.0-36.0); Mean Corpuscular Hemoglobin 31.6 pg (27.0-31.0); Mean Corpuscular Volume 97.6 fL (78.0-98.0); Mean Platelet Volume 8.7 fL (7.4-10.4); Platelet Count 265 thou/uL (130-400); RBC Distribution Width 12.9 % (11.5-14.5); Red Blood Cell (RBC) Count 4.49 mill/uL (4.70-6.10); White Blood Cell (WBC) Count 10.9 thou/uL (4.8-10.8)
[2021-06-23] MEDS ORDERED: Magnesium 2 GM/50 ML BAG (IN WATER) ONE (21:14)
[2021-06-23] MEDS ORDERED: Azithromycin 500 MG VIAL ONE (21:14)
[2021-06-23] MEDS ORDERED: cefTRIAXone\\ROCEPHIN 2 GM VIAL ONE (21:14)
[2021-06-23 21:24] LABS: Prothrombin Time 13.7 sec (12.0-14.7)
[2021-06-23 21:25] LABS: PTT 38.8 sec (22.9-36.1)
[2021-06-23 21:31] LABS: ALT (SGPT) 10 U/L (8-55); AST (SGOT) 17 U/L (5-34); Alkaline Phosphatase 90 U/L (40-110); Anion Gap 14 mmol/L (10-20); BUN (Urea Nitrogen) 20 mg/dL (8.4-25.7); Bilirubin, Total 0.5 mg/dL (0.2-1.2); Calc. Creatinine Clearance 0 mL/min (70-130); Calcium 8.6 mg/dL (7.8-10.44); Carbon Dioxide 32 mmol/L (23-31); Chloride 93 mmol/L (98-107); Glucose 155 mg/dL (80-115); Potassium 4.2 mmol/L (3.5-5.1); Sodium 135 mmol/L (136-145)
[2021-06-23 22:26] LABS: SARS-CoV-2 NAA Rapid Test Not Detected (NotDetected)
[2021-06-24] MEDS ORDERED: Dextrose 5% in Water 1,000 ML IV PRN (00:16)
[2021-06-24] MEDS ORDERED: Dextrose 50% Abboject 50 ML SYRINGE SLOW IVP PRN (00:16)
[2021-06-24] MEDS ORDERED: Benzonatate 100 MG CAP PO PRN (00:18)
[2021-06-24] MEDS ORDERED: Albuterol Sulfate 2.5 mg/3 ml Neb NEB PRN (00:18)
[2021-06-24] MEDS ORDERED: Ondansetron PF 4 MG/2 ML Vial IVP PRN (00:22)
[2021-06-24] MEDS ORDERED: Ondansetron ODT 4 MG TAB PO PRN (00:22)
[2021-06-24] MEDS ORDERED: Acetaminophen 325 MG TAB PO PRN (00:22)
[2021-06-24] MEDS ORDERED: Senokot S 8.6-50 MG TAB PO PRN (00:22)
[2021-06-24] MEDS: Sodium Chloride 0.9% 1,000 ML IV SCH ×3 (00:30→16:49)
[2021-06-24 00:31] LABS: Troponin I 0.019 ng/mL (< 0.028)
[2021-06-24 03:21] LABS: Band 20 % (5-11); Lymphocytes 8 % (21-51); MDiff Complete? YES; Mean Corpuscular HGB CONC 31.9 g/dL (32.0-36.0); Mean Platelet Volume 8.7 fL (7.4-10.4); Neutrophil 72 % (42-75); Platelet Count 267 thou/uL (130-400); Red Blood Cell (RBC) Count 4.38 mill/uL (4.70-6.10); White Blood Cell (WBC) Count 8.9 thou/uL (4.8-10.8)
[2021-06-24 03:30] LABS: Troponin I 0.016 ng/mL (< 0.028)
[2021-06-24 03:36] LABS: Anion Gap 17 mmol/L (10-20); BUN (Urea Nitrogen) 22 mg/dL (8.4-25.7); Calc. Creatinine Clearance 0 mL/min (70-130); Calcium 8.4 mg/dL (7.8-10.44); Carbon Dioxide 27 mmol/L (23-31); Chloride 93 mmol/L (98-107); Glucose 292 mg/dL (80-115); Magnesium 2.2 mg/dL (1.6-2.6); Potassium 4.1 mmol/L (3.5-5.1); Sodium 133 mmol/L (136-145)
[2021-06-24] MEDS ORDERED: Enoxaparin Sodium 40 MG/0.4 ML SYRINGE ONE (07:50)
[2021-06-24] MEDS: Enoxaparin Sodium 40 MG/0.4 ML SYRINGE SC SCH (08:42)
[2021-06-24] MEDS ORDERED: HumaLOG 300 UNITS/3 ML VIAL ONE (11:12)
[2021-06-24] MEDS: HumaLOG 300 UNITS/3 ML VIAL SC PRN ×2 (11:16→17:17)
[2021-06-24 14:15] VITALS: BMI 49.1
[2021-06-24 19:08] LABS: Clarity Clear (Clear); Leukocyte Negative Leu/uL (Negative); Nitrite Negative (Negative); Protein, Urine (Dipstick) 70 mg/dL (Neg-Trace); Specific Gravity, Urine 1.015 (1.002-1.036); pH, Urine 5.5 (5.0-9.0)
[2021-06-24 19:09] LABS: Bacteria/HPF None Seen HPF (None Seen); Bilirubin Negative (Negative); Blood, Urine Trace (Negative); Glucose, Urine (Dipstick) Greater than 1000 mg/dL (Negative); Ketone, Urine Negative (Negative); RBC/HPF 0-3 HPF (0-3); Squamous Epithelial 0-3 HPF (0-3); Urobilinogen Normal mg/dL (Less than 2); WBC/HPF 0-3 HPF (0-3)
[2021-06-24 19:26] LABS: Legionella Urinary Ag Negative (Negative); Strep pneumo Urine Ag NEGATIVE (NEGATIVE)
[2021-06-24] MEDS: Azithromycin 500 MG in Sodium Chloride 0.9% 250 ML 250 ML IVPB SCH (20:57)
[2021-06-24] MEDS: cefTRIAXone\\ROCEPHIN 2 GM in Sodium Chloride 0.9% 100 ML IVPB SCH (20:57)
[2021-06-24] MEDS ORDERED: Atorvastatin Calcium 20 MG TAB PO SCH (21:00)
[2021-06-24] MEDS ORDERED: Simvastatin 40 MG TAB PO SCH (21:00)
[2021-06-24] MEDS ORDERED: Bumetanide 1 MG TAB PO SCH (22:01)
[2021-06-25 07:59] LABS: Creatinine, Urine 86.43 mg/dL (63-166)
[2021-06-25 08:37] LABS: Anion Gap 12 mmol/L (10-20); BUN (Urea Nitrogen) 24 mg/dL (8.4-25.7); Calc. Creatinine Clearance 158 mL/min (70-130); Calcium 8.4 mg/dL (7.8-10.44); Carbon Dioxide 31 mmol/L (23-31); Chloride 102 mmol/L (98-107); Glucose 140 mg/dL (80-115); Sodium 141 mmol/L (136-145)
[2021-06-25] MEDS ORDERED: Bumetanide 1 MG TAB PO SCH (09:00)
[2021-06-25] MEDS: Aspirin Chewable 81 MG TAB PO SCH (09:28)
[2021-06-25] MEDS: Enoxaparin Sodium 40 MG/0.4 ML SYRINGE SC SCH (09:28)
[2021-06-25] MEDS: Acetylcysteine 20% 200 MG/ML 30 ML VIAL INH SCH ×4 (10:47→21:58)
[2021-06-25] MEDS ORDERED: Nitroglycerin 0.4 MG TAB (25 Tab Bottle) SL PRN (11:59)
[2021-06-25] MEDS: methylPREDNISolone Sod Succ 40 MG VIAL IVP SCH ×2 (14:22→21:09)
[2021-06-25] MEDS: Mometasone 200 MCG/Formoterol 5 MCG 120 PUFF INHALER INH SCH (18:27)
[2021-06-25] MEDS: cefTRIAXone\\ROCEPHIN 2 GM in Sodium Chloride 0.9% 100 ML IVPB SCH (21:09)
[2021-06-25] MEDS: HumaLOG 300 UNITS/3 ML VIAL SC PRN (21:11)
[2021-06-25] MEDS: Atorvastatin Calcium 10 MG TAB PO SCH (21:25)
[2021-06-25] MEDS: Azithromycin 500 MG in Sodium Chloride 0.9% 250 ML 250 ML IVPB SCH (22:22)
[2021-06-26] MEDS: Acetylcysteine 20% 200 MG/ML 30 ML VIAL INH SCH ×2 (01:33→06:38)
[2021-06-26] MEDS: methylPREDNISolone Sod Succ 40 MG VIAL IVP SCH ×3 (05:51→21:26)
[2021-06-26] MEDS: HumaLOG 300 UNITS/3 ML VIAL SC PRN ×3 (05:51→21:26)
[2021-06-26 07:42] LABS: Albumin 3.3 g/dL (3.4-4.8); Anion Gap 12 mmol/L (10-20); BUN (Urea Nitrogen) 24 mg/dL (8.4-25.7); Calc. Creatinine Clearance 184 mL/min (70-130); Calcium 8.4 mg/dL (7.8-10.44); Carbon Dioxide 30 mmol/L (23-31); Chloride 100 mmol/L (98-107); Glucose 177 mg/dL (80-115); Phosphorus 3.2 mg/dL (2.3-4.7); Potassium 4.4 mmol/L (3.5-5.1); Sodium 138 mmol/L (136-145)
[2021-06-26] MEDS: Mometasone 200 MCG/Formoterol 5 MCG 120 PUFF INHALER INH SCH ×2 (08:43→19:07)
[2021-06-26] MEDS ORDERED: Non-Formulary Item 1 EACH (Fluticasone/Vilanterol [Breo Ellipta 200-25 Mcg Inh] 1 EACH Bl NASAL SCH (09:00)
[2021-06-26] MEDS: Aspirin Chewable 81 MG TAB PO SCH (09:14)
[2021-06-26] MEDS: Enoxaparin Sodium 40 MG/0.4 ML SYRINGE SC SCH (09:15)
[2021-06-26] MEDS: Atorvastatin Calcium 10 MG TAB PO SCH (20:49)
[2021-06-26] MEDS: cefTRIAXone\\ROCEPHIN 2 GM in Sodium Chloride 0.9% 100 ML IVPB SCH (20:49)
[2021-06-26] MEDS: Azithromycin 500 MG in Sodium Chloride 0.9% 250 ML 250 ML IVPB SCH (21:26)
[2021-06-27 05:09] LABS: Albumin 3.3 g/dL (3.4-4.8); Anion Gap 12 mmol/L (10-20); BUN (Urea Nitrogen) 24 mg/dL (8.4-25.7); Calc. Creatinine Clearance 177 mL/min (70-130); Calcium 8.5 mg/dL (7.8-10.44); Carbon Dioxide 29 mmol/L (23-31); Chloride 99 mmol/L (98-107); Glucose 276 mg/dL (80-115); Phosphorus 2.9 mg/dL (2.3-4.7); Potassium 4.7 mmol/L (3.5-5.1); Sodium 135 mmol/L (136-145)
[2021-06-27] MEDS: methylPREDNISolone Sod Succ 40 MG VIAL IVP SCH ×2 (05:21→18:36)
[2021-06-27] MEDS: HumaLOG 300 UNITS/3 ML VIAL SC PRN ×4 (05:24→22:33)
[2021-06-27] MEDS: Mometasone 200 MCG/Formoterol 5 MCG 120 PUFF INHALER INH SCH ×2 (06:46→19:19)
[2021-06-27] MEDS: Enoxaparin Sodium 40 MG/0.4 ML SYRINGE SC SCH (10:43)
[2021-06-27] MEDS: Aspirin Chewable 81 MG TAB PO SCH (10:44)
[2021-06-27 10:45] LABS: Actual Bicarbonate (HCO3a) 28.4 mEq/L (22-28); Base Excess (BEa) 2.9 mEq/L (-2.0 to +3.0); CO2 Tension 46.6 mmHg (35.0-45.0); Calcium, Ionized (arterial) 1.12 mmol/L (1.12-1.30); Carboxyhemoglobin (COHb) 0.6 gm% (0.0-3.0); Hemoglobin (Hb) 15.3 g/dL (14.0-18.0); Potassium - ABG Lab 4.64 mmol/L (3.70-5.30)
[2021-06-27 10:47] LABS: O2 Tension (PaO2), arterial 58.9 mmHg (> 80.0); Puncture Site RRA
[2021-06-27] MEDS: Atorvastatin Calcium 10 MG TAB PO SCH (20:46)
[2021-06-27] MEDS: cefTRIAXone\\ROCEPHIN 2 GM in Sodium Chloride 0.9% 100 ML IVPB SCH (20:46)
[2021-06-27] MEDS: Azithromycin 500 MG in Sodium Chloride 0.9% 250 ML 250 ML IVPB SCH (21:34)
[2021-06-28] MEDS: methylPREDNISolone Sod Succ 40 MG VIAL IVP SCH (05:45)
[2021-06-28] MEDS: HumaLOG 300 UNITS/3 ML VIAL SC PRN (05:45)
[2021-06-28] MEDS: Mometasone 200 MCG/Formoterol 5 MCG 120 PUFF INHALER INH SCH (06:51)
[2021-06-28 07:01] LABS: Albumin 3.4 g/dL (3.4-4.8); Anion Gap 13 mmol/L (10-20); BUN (Urea Nitrogen) 24 mg/dL (8.4-25.7); BUN/Creatinine Ratio 24.49; Calc. Creatinine Clearance 188 mL/min (70-130); Calcium 8.8 mg/dL (7.8-10.44); Carbon Dioxide 27 mmol/L (23-31); Chloride 97 mmol/L (98-107); Glucose 260 mg/dL (80-115); Phosphorus 3.4 mg/dL (2.3-4.7); Potassium 5.2 mmol/L (3.5-5.1); Sodium 132 mmol/L (136-145)
[2021-06-28] MEDS: Aspirin Chewable 81 MG TAB PO SCH (07:59)
[2021-06-28] MEDS: Enoxaparin Sodium 40 MG/0.4 ML SYRINGE SC SCH (08:31)
[2021-06-28] MEDS ORDERED: Bumetanide 1 MG TAB PO SCH (09:00)
[2021-06-28 11:30] VITALS: BP 153/76; TEMP 98
== END 2021-06-28 12:02 | disposition home health service (06) | DRG 177 ==
LOC: ERS 20:15 → ERHOLD 23:08 → 2NO 06-24 12:41
PROVIDERS: ADMIT Student in an Organized Health Care Education/Training Program; ATTEND Internal Medicine
DX: J15.6 Pneumonia due to other Gram-negative bacteria (principal); J96.21 Acute and chronic respiratory failure with hypoxia; J96.22 Acute and chronic respiratory failure with hypercapnia; Z68.43 Body mass index [BMI] 50.0-59.9, adult; I50.22 Chronic systolic (congestive) heart failure; J44.1 Chronic obstructive pulmonary disease with (acute) exacerbation; I13.0 Hypertensive heart and chronic kidney disease with heart failure and stage 1 through stage 4 chronic kidney disease, or unspecified chronic kidney disease; E66.2 Morbid (severe) obesity with alveolar hypoventilation; N17.9 Acute kidney failure, unspecified; I42.8 Other cardiomyopathies; J44.0 Chronic obstructive pulmonary disease with (acute) lower respiratory infection; Z20.822 Contact with and (suspected) exposure to COVID-19; F40.240 Claustrophobia; E78.00 Pure hypercholesterolemia, unspecified; E11.22 Type 2 diabetes mellitus with diabetic chronic kidney disease; E86.0 Dehydration; E86.9 Volume depletion, unspecified; F10.10 Alcohol abuse, uncomplicated; F15.10 Other stimulant abuse, uncomplicated; T46.4X5A Adverse effect of angiotensin-converting-enzyme inhibitors, initial encounter; R59.0 Localized enlarged lymph nodes; R91.8 Other nonspecific abnormal finding of lung field; N18.30 Chronic kidney disease, stage 3 unspecified; I25.10 Atherosclerotic heart disease of native coronary artery without angina pectoris; E78.5 Hyperlipidemia, unspecified; E87.5 Hyperkalemia; T46.5X5A Adverse effect of other antihypertensive drugs, initial encounter; Z99.81 Dependence on supplemental oxygen; Z91.19 Patient's noncompliance with other medical treatment and regimen; Z95.810 Presence of automatic (implantable) cardiac defibrillator; Z95.5 Presence of coronary angioplasty implant and graft; Z88.1 Allergy status to other antibiotic agents; Z79.899 Other long term (current) drug therapy; Z79.51 Long term (current) use of inhaled steroids; Z79.02 Long term (current) use of antithrombotics/antiplatelets; Z79.82 Long term (current) use of aspirin; Z90.89 Acquired absence of other organs; Z90.81 Acquired absence of spleen; Z98.890 Other specified postprocedural states; Z88.5 Allergy status to narcotic agent; Z88.0 Allergy status to penicillin; Z87.891 Personal history of nicotine dependence
CPT/HCPCS: 0240U; 36415; 36416; 36600; 71045; 71275; 76770; 80048; 80053; 80069; 81001; 82570; 82805; 83605; 83735; 83880; 84145; 84156; 84300; 84484; 84540; 85025; 85610; 85730; 87040; 87149; 87449; 87899; 93005; 93306; 94640; 94760; 96365; 96366; 96367; J0132; J0456; J0696; J1650; J1815; J2920; J3475; J3490; J7050; J7620

== ENCOUNTER 2022-01-20 10:43 | Emergency (ER) | payer MEDICARE ==
[2022-01-20 11:25] LABS: Hemoglobin 14.9 g/dL (14.0-18.0); Mean Corpuscular HGB CONC 31.5 g/dL (32.0-36.0); Mean Platelet Volume 7.9 fL (7.4-10.4); Platelet Count 388 thou/uL (130-400); RBC Distribution Width 13.5 % (11.5-14.5); Red Blood Cell (RBC) Count 4.64 mill/uL (4.70-6.10); White Blood Cell (WBC) Count 15.5 thou/uL (4.8-10.8)
[2022-01-20 11:38] LABS: ALT (SGPT) 21 U/L (8-55); AST (SGOT) 27 U/L (5-34); Albumin 3.4 g/dL (3.4-4.8); Alkaline Phosphatase 76 U/L (40-110); Anion Gap 16 mmol/L (10-20); BUN (Urea Nitrogen) 9 mg/dL (8.4-25.7); Bilirubin, Total 0.5 mg/dL (0.2-1.2); Calc. Creatinine Clearance 0 mL/min (70-130); Calcium 8.4 mg/dL (7.8-10.44); Carbon Dioxide 28 mmol/L (23-31); Chloride 103 mmol/L (98-107); Estimated GFR 83; Globulin 2.9 g/dL (2.4-3.5); Glucose 99 mg/dL (80-115); Potassium 4.8 mmol/L (3.5-5.1); Protein, Total 6.3 g/dL (5.8-8.1); Sodium 142 mmol/L (136-145)
[2022-01-20 11:55] LABS: Band 3 % (5-11); Eosinophils 2 % (0-10); Lymphocytes 21 % (21-51); MDiff Complete? YES; Macrocytosis SLIGHT = 6-15 cells (100X) (0-5/hpf); Monocytes 4 % (0-10); Neutrophil 44 % (42-75); Platelet Morphology Comment Appears Adequate; Polychromasia SLIGHT = 2-3 cells (100X) (0-2/hpf); Reactive Lymphocytes 26 % (0-10); Schistocytes SLIGHT = 2-5 cells (100X) (0-1/hpf); Tear Drops SLIGHT = 2-5 cells (100X) (0-1/hpf)
[2022-01-20] MEDS ORDERED: methylPREDNISolone Sod Succ/PF 125 MG/2 ML VIAL ONE (12:16)
[2022-01-20 13:57] LABS: SARS-CoV-2 NAA Rapid Test DETECTED (NotDetected)
== END 2022-01-20 14:47 | disposition home or self-care (01) ==
LOC: ERS 10:43
DX: U07.1 COVID-19 (principal); J44.1 Chronic obstructive pulmonary disease with (acute) exacerbation; I25.2 Old myocardial infarction; E78.5 Hyperlipidemia, unspecified; E78.00 Pure hypercholesterolemia, unspecified; I10 Essential (primary) hypertension; Z87.891 Personal history of nicotine dependence; Z79.899 Other long term (current) drug therapy; Z79.51 Long term (current) use of inhaled steroids; Z79.82 Long term (current) use of aspirin
CPT/HCPCS: 71045; 80053; 83880; 84484; 85025; 87804 ×2; 93005; 94640; 96361; 96374; 99285; U0002; 36415; J2930; J7620

== ENCOUNTER 2022-11-15 11:02 | Inpatient (IN) | payer MEDICARE ==
[2022-11-15] MEDS ORDERED: methylPREDNISolone Sod Succ/PF 125 MG/2 ML VIAL ONE (11:42)
[2022-11-15] MEDS ORDERED: Aspirin Chewable 81 MG TAB ONE (11:42)
[2022-11-15 11:54] LABS: Mean Corpuscular Hemoglobin 29.4 pg (27.0-31.0); Mean Corpuscular Volume 98.1 fl (78.0-98.0); Mean Platelet Volume 8.8 fL (7.4-10.4); Platelet Count 330 10x3/uL (130-400); RBC Distribution Width 14.3 % (11.5-14.5); Red Blood Cell (RBC) Count 5.44 mill/uL (4.70-6.10); White Blood Cell (WBC) Count 13.7 10x3/uL (4.8-10.8)
[2022-11-15 12:04] LABS: Prothrombin Time 13.4 sec (12.0-14.7)
[2022-11-15 12:09] LABS: #Lymphocytes 2.3 thou/uL (1.20-3.40); #Monocytes 1.3 thou/uL (0.11-0.59); %Basophils 0.2 % (0.0-1.0); %Eosinophils 0.2 % (0.0-10.0); %Lymphocytes 16.5 % (21.0-51.0); %Monocytes 9.6 % (0.0-10.0); %Neutrophils 73.4 % (42.0-75.0)
[2022-11-15 12:17] LABS: ALT (SGPT) 9 U/L (8-55); AST (SGOT) 15 U/L (5-34); Albumin 3.8 g/dL (3.4-4.8); Alkaline Phosphatase 147 U/L (40-110); Anion Gap 17 mmol/L (10-20); BUN (Urea Nitrogen) 13 mg/dL (8.4-25.7); Calc. Creatinine Clearance 0 mL/min (70-130); Calcium 9.7 mg/dL (7.8-10.44); Carbon Dioxide 29 mmol/L (23-31); Chloride 95 mmol/L (98-107); Estimated GFR 81; Globulin 3.7 g/dL (2.4-3.5); Glucose 111 mg/dL (80-115); Lipase 17 U/L (8-78); Magnesium 2.2 mg/dL (1.6-2.6); Potassium 4.2 mmol/L (3.5-5.1); Protein, Total 7.5 g/dL (5.8-8.1); Sodium 137 mmol/L (136-145)
[2022-11-15 12:18] LABS: Platelet Morphology Comment Appears Adequate; RBC Morphology Normal
[2022-11-15] MEDS ORDERED: cefTRIAXone (ROCEPHIN) 2 GM VIAL ONE (12:28)
[2022-11-15 12:33] LABS: CKMB 0.9 ng/mL (0-6.6)
[2022-11-15] MEDS ORDERED: Azithromycin 500 MG VIAL ONE (12:49)
[2022-11-15] MEDS ORDERED: Ipratropium/Albuterol 3 ML NEB ONE (12:50)
[2022-11-15 13:36] LABS: SARS-CoV-2 NAA Rapid Test Not Detected (NotDetected)
[2022-11-15] MEDS ORDERED: Ondansetron PF 4 MG/2 ML Vial IVP PRN (14:44)
[2022-11-15] MEDS ORDERED: Ondansetron ODT 4 MG TAB PO PRN (14:44)
[2022-11-15] MEDS ORDERED: Acetaminophen 325 MG TAB PO PRN (14:44)
[2022-11-15] MEDS ORDERED: Nitroglycerin 0.4 MG TAB (25 Tab Bottle) SL PRN (14:50)
[2022-11-15] MEDS ORDERED: Ipratropium/Albuterol 3 ML NEB NEB PRN (14:57)
[2022-11-15] MEDS ORDERED: Electrolyte Replacement Protocol 1 EACH FS SCH (15:00)
[2022-11-15 15:04] LABS: Troponin I 0.028 ng/mL (< 0.028)
[2022-11-15 17:10] VITALS: BMI 43.4
[2022-11-15] MEDS: Cefepime 2 GM in Sodium Chloride 0.9% 100 ML IVPB SCH (17:38)
[2022-11-15 17:39] LABS: Troponin I 0.032 ng/mL (< 0.028)
[2022-11-15] MEDS: predniSONE 20 MG TAB PO SCH (17:39)
[2022-11-15] MEDS: Bumetanide 1 MG TAB PO SCH (17:39)
[2022-11-15] MEDS: Ipratropium/Albuterol 3 ML NEB NEB SCH ×2 (19:00→22:58)
[2022-11-15] MEDS: Mometasone 200 MCG/Formoterol 5 MCG 120 PUFF INHALER INH SCH (19:01)
[2022-11-15] MEDS ORDERED: Sacubitril 24MG/Valsartan 26 MG TAB PO SCH (21:00)
[2022-11-15] MEDS: Doxycycline 100 MG CAP PO SCH (21:35)
[2022-11-15] MEDS: Famotidine 20 MG TAB PO SCH (21:35)
[2022-11-15] MEDS: guaiFENesin ER 600 MG TAB PO SCH (21:35)
[2022-11-16] MEDS: Ipratropium/Albuterol 3 ML NEB NEB SCH ×6 (02:24→22:25)
[2022-11-16 05:25] LABS: #Basophils 0.1 thou/uL (0.0-0.2); #Lymphocytes 1.6 thou/uL (1.20-3.40); #Monocytes 0.8 thou/uL (0.11-0.59); #Neutrophils 9.7 thou/uL (1.40-6.50); %Basophils 0.4 % (0.0-1.0); %Eosinophils 0.1 % (0.0-10.0); %Monocytes 6.3 % (0.0-10.0); %Neutrophils 80.2 % (42.0-75.0); Hemoglobin 15.1 g/dL (14.0-18.0); Mean Corpuscular HGB CONC 32.7 g/dL (32.0-36.0); Mean Corpuscular Hemoglobin 31.6 pg (27.0-31.0); Mean Corpuscular Volume 96.6 fl (78.0-98.0); Mean Platelet Volume 8.5 fL (7.4-10.4); Platelet Count 327 10x3/uL (130-400); RBC Distribution Width 14.2 % (11.5-14.5); Red Blood Cell (RBC) Count 4.76 mill/uL (4.70-6.10); White Blood Cell (WBC) Count 12.1 10x3/uL (4.8-10.8)
[2022-11-16] MEDS: Cefepime 2 GM in Sodium Chloride 0.9% 100 ML IVPB SCH ×2 (05:31→15:45)
[2022-11-16 06:01] LABS: Anion Gap 14 mmol/L (10-20); BUN (Urea Nitrogen) 19 mg/dL (8.4-25.7); CRP (Inflammatory) 12.42 mg/dL (= or < 0.5); Calc. Creatinine Clearance 141 mL/min (70-130); Carbon Dioxide 28 mmol/L (23-31); Chloride 98 mmol/L (98-107); Estimated GFR 74; Glucose 219 mg/dL (80-115); Potassium 4.2 mmol/L (3.5-5.1); Sodium 136 mmol/L (136-145)
[2022-11-16] MEDS: Mometasone 200 MCG/Formoterol 5 MCG 120 PUFF INHALER INH SCH ×2 (07:31→19:03)
[2022-11-16] MEDS: Bumetanide 1 MG TAB PO SCH (07:42)
[2022-11-16] MEDS: predniSONE 20 MG TAB PO SCH ×2 (08:24→17:22)
[2022-11-16] MEDS ORDERED: Polyethylene Glycol 3350 17 GM Packet PO PRN (08:54)
[2022-11-16] MEDS ORDERED: Polyethylene Glycol 3350 17 GM Packet PO SCH (09:00)
[2022-11-16] MEDS: Sacubitril 24MG/Valsartan 26 MG TAB PO SCH ×2 (10:14→20:11)
[2022-11-16] MEDS: guaiFENesin ER 600 MG TAB PO SCH ×2 (10:15→20:13)
[2022-11-16] MEDS: Doxycycline 100 MG CAP PO SCH ×2 (10:15→20:12)
[2022-11-16] MEDS: Famotidine 20 MG TAB PO SCH ×2 (10:15→20:13)
[2022-11-16] MEDS: Multivit, Therapeutic 1 TAB PO SCH (10:15)
[2022-11-16] MEDS: Empagliflozin 10 MG TAB PO SCH (10:15)
[2022-11-16] MEDS ORDERED: Dextrose 5% in Water 1,000 ML IV PRN (13:18)
[2022-11-16] MEDS ORDERED: Insulin Regular 300 UNITS/3 ML VIAL SC PRN ×2 (13:18)
[2022-11-16] MEDS ORDERED: Dextrose 50% Abboject 50 ML SYRINGE SLOW IVP PRN (13:18)
[2022-11-16] MEDS: Benzonatate 100 MG CAP PO PRN (18:31)
[2022-11-17] MEDS: Ipratropium/Albuterol 3 ML NEB NEB SCH ×2 (02:42→06:43)
[2022-11-17] MEDS: Cefepime 2 GM in Sodium Chloride 0.9% 100 ML IVPB SCH (04:10)
[2022-11-17 05:40] LABS: Anion Gap 15 mmol/L (10-20); BUN (Urea Nitrogen) 26 mg/dL (8.4-25.7); Calc. Creatinine Clearance 145 mL/min (70-130); Calcium 9.4 mg/dL (7.8-10.44); Carbon Dioxide 26 mmol/L (23-31); Chloride 101 mmol/L (98-107); Estimated GFR 77; Glucose 180 mg/dL (80-115); Potassium 4.2 mmol/L (3.5-5.1); Sodium 138 mmol/L (136-145)
[2022-11-17 05:50] LABS: #Lymphocytes 2.3 thou/uL (1.20-3.40); #Monocytes 1.9 thou/uL (0.11-0.59); #Neutrophils 13.4 thou/uL (1.40-6.50); %Basophils 0.1 % (0.0-1.0); %Eosinophils 0.2 % (0.0-10.0); %Monocytes 10.9 % (0.0-10.0); %Neutrophils 75.9 % (42.0-75.0); Hemoglobin 15.6 g/dL (14.0-18.0); Mean Corpuscular HGB CONC 32.3 g/dL (32.0-36.0); Mean Corpuscular Hemoglobin 31.1 pg (27.0-31.0); Mean Corpuscular Volume 96.5 fl (78.0-98.0); Platelet Count 360 10x3/uL (130-400); RBC Distribution Width 14.6 % (11.5-14.5); Red Blood Cell (RBC) Count 5.01 mill/uL (4.70-6.10); White Blood Cell (WBC) Count 17.6 10x3/uL (4.8-10.8)
[2022-11-17] MEDS: Mometasone 200 MCG/Formoterol 5 MCG 120 PUFF INHALER INH SCH (06:45)
[2022-11-17] MEDS: predniSONE 20 MG TAB PO SCH (07:43)
[2022-11-17] MEDS: Famotidine 20 MG TAB PO SCH (09:00)
[2022-11-17] MEDS: Doxycycline 100 MG CAP PO SCH (09:00)
[2022-11-17] MEDS: Multivit, Therapeutic 1 TAB PO SCH (09:00)
[2022-11-17] MEDS ORDERED: Bumetanide 1 MG TAB PO SCH (09:00)
[2022-11-17] MEDS: Empagliflozin 10 MG TAB PO SCH (09:00)
[2022-11-17] MEDS: guaiFENesin ER 600 MG TAB PO SCH (09:01)
[2022-11-17] MEDS: Sacubitril 24MG/Valsartan 26 MG TAB PO SCH (09:01)
[2022-11-17] MEDS: Benzonatate 100 MG CAP PO PRN (11:28)
[2022-11-17 13:04] VITALS: BP 139/82; TEMP 97.5
[2022-11-17] MEDS ORDERED: Ipratropium 200 Puff Oral Inhaler INH SCH (18:30)
[2022-11-17] MEDS ORDERED: Albuterol 200 PUFF (6.7GM INHALER) INH SCH (18:30)
== END 2022-11-17 13:20 | disposition home or self-care (01) | DRG 871 ==
LOC: ERS 11:02 → 2SW 13:51
PROVIDERS: ADMIT Internal Medicine; ATTEND Emergency Medicine
DX: A41.89 Other specified sepsis (principal); J15.9 Unspecified bacterial pneumonia; J96.21 Acute and chronic respiratory failure with hypoxia; J44.1 Chronic obstructive pulmonary disease with (acute) exacerbation; J44.0 Chronic obstructive pulmonary disease with (acute) lower respiratory infection; I50.22 Chronic systolic (congestive) heart failure; I13.0 Hypertensive heart and chronic kidney disease with heart failure and stage 1 through stage 4 chronic kidney disease, or unspecified chronic kidney disease; Z68.41 Body mass index [BMI] 40.0-44.9, adult; N18.2 Chronic kidney disease, stage 2 (mild); E11.22 Type 2 diabetes mellitus with diabetic chronic kidney disease; E78.00 Pure hypercholesterolemia, unspecified; I25.5 Ischemic cardiomyopathy; E66.01 Morbid (severe) obesity due to excess calories; Z95.810 Presence of automatic (implantable) cardiac defibrillator; I25.2 Old myocardial infarction; Z87.891 Personal history of nicotine dependence; Z79.82 Long term (current) use of aspirin; Z79.51 Long term (current) use of inhaled steroids; Z79.899 Other long term (current) drug therapy; Z88.1 Allergy status to other antibiotic agents; Z88.5 Allergy status to narcotic agent
CPT/HCPCS: 36415; 36416; 71045; 80048; 80053; 82553; 83605; 83690; 83735; 83880; 84145; 84484; 85025; 85610; 85730; 86140; 87040; 93005; 94640; 94760; J0456; J0692; J0696; J2930; J3490; J7512; J7620

== ENCOUNTER 2023-05-05 21:53 | Inpatient (IN) | payer MEDICARE ==
[~2023-05-05 21:53] MED LIST: Iopamidol-370 76% 500 ML MDV (1 ML CHARGE) ONE
[2023-05-05 22:42] LABS: Hematocrit 46.4 % (42.0-52.0); Hemoglobin 15.2 g/dL (14.0-18.0); Mean Corpuscular HGB CONC 32.8 g/dL (32.0-36.0); Mean Corpuscular Hemoglobin 29.7 pg (27.0-31.0); Mean Corpuscular Volume 90.6 fl (78.0-98.0); Mean Platelet Volume 11.3 fL (7.4-10.4); Platelet Count 275 10x3/uL (130-400); RBC Distribution Width 16.5 % (11.5-14.5); Red Blood Cell (RBC) Count 5.12 mill/uL (4.70-6.10); White Blood Cell (WBC) Count 13.7 10x3/uL (4.8-10.8)
[2023-05-05 22:43] LABS: Delete Auto Diff?? YES; Manual Diff?? YES
[2023-05-05 23:10] LABS: Troponin I 0.026 ng/mL (< 0.028)
[2023-05-05 23:12] LABS: ALT (SGPT) 38 U/L (8-55); AST (SGOT) 83 U/L (5-34); Albumin 4.2 g/dL (3.4-4.8); Alkaline Phosphatase 172 U/L (40-110); Anion Gap 14 mmol/L (10-20); BUN (Urea Nitrogen) 18 mg/dL (8.4-25.7); Bilirubin, Total 0.9 mg/dL (0.2-1.2); Calc. Creatinine Clearance 0 mL/min (70-130); Calcium 9.5 mg/dL (7.8-10.44); Carbon Dioxide 27 mmol/L (23-31); Chloride 102 mmol/L (98-107); Estimated GFR 88; Globulin 2.6 g/dL (2.4-3.5); Glucose 142 mg/dL (80-115); Potassium 3.6 mmol/L (3.5-5.1); Protein, Total 6.8 g/dL (5.8-8.1); Sodium 139 mmol/L (136-145)
[2023-05-06 00:04] LABS: Anisocytosis SLIGHT = 6-15 cells HPF (0-5); CellaVision Operator ID lab.sh2; Eosinophils 1 % (0-10); Large Platelets 5.9 % (0-5); Lymphocytes 20 % (21-51); Macrocytosis SLIGHT = 6-15 cells HPF (0-5); Monocytes 9 % (0-10); Neutrophil 69 % (42-75); Platelet Adequacy Comment Platelets Normal; Polychromasia SLIGHT = 2-3 cells HPF (0-2); Smudge Cells 9.9 %; Stomatocytes SLIGHT = 2-5 cells HPF (0-1); Target Cells SLIGHT = 2-5 cells HPF (0-1); Total Cell Count 101
[2023-05-06] MEDS ORDERED: Acetaminophen 500 MG TAB ONE (00:18)
[2023-05-06] MEDS ORDERED: Lidocaine 2% Viscous Solution 10 ML, Aluminum & Magnesium Hydroxide 30 ML SSW SCH (00:30)
[2023-05-06] MEDS ORDERED: Ondansetron PF 4 MG/2 ML Vial ONE ×4 (02:49→11:50)
[2023-05-06] MEDS ORDERED: Morphine 4 MG/ML VIAL ONE ×2 (02:49→03:30)
[2023-05-06] MEDS ORDERED: LevoFLOXacin 750 mg/D5W 150 ml Premix Bag ONE (04:10)
[2023-05-06] MEDS ORDERED: Ipratropium/Albuterol 3 ML NEB NEB PRN (04:53)
[2023-05-06] MEDS ORDERED: Cyclobenzaprine 10 MG TAB PO PRN (04:53)
[2023-05-06] MEDS ORDERED: traMADol HCl 50 MG TAB PO PRN (04:53)
[2023-05-06] MEDS ORDERED: Nitroglycerin 0.4 MG TAB (25 Tab Bottle) SL PRN (05:03)
[2023-05-06] MEDS ORDERED: Albuterol 200 PUFF (6.7GM INHALER) INH PRN (05:07)
[2023-05-06] MEDS ORDERED: Dextrose 5% in Water 1,000 ML IV PRN (05:09)
[2023-05-06] MEDS ORDERED: HumaLOG 300 UNITS/3 ML VIAL SC PRN (05:09)
[2023-05-06] MEDS ORDERED: Glucagon 1 MG/ML KIT IM PRN (05:09)
[2023-05-06] MEDS ORDERED: Dextrose 50% Abboject 50 ML SYRINGE SLOW IVP PRN (05:09)
[2023-05-06] MEDS ORDERED: fentaNYL 50 mcg/mL 1 mL Vial SLOW IVP PRN (05:24)
[2023-05-06] MEDS ORDERED: fentaNYL 50 mcg/mL 1 mL Vial SLOW IVP SCH (05:30)
[2023-05-06 05:51] LABS: #Basophils 0.1 thou/uL (0.0-0.2); #Monocytes 0.9 thou/uL (0.11-0.59); #Neutrophils 12.6 thou/uL (1.40-6.50); %Basophils 0.3 % (0.0-1.0); %Eosinophils 0.1 % (0.0-10.0); %Lymphocytes 13.1 % (21.0-51.0); %Monocytes 5.9 % (0.0-10.0); Hematocrit 47.2 % (42.0-52.0); Hemoglobin 15.4 g/dL (14.0-18.0); Mean Corpuscular HGB CONC 32.6 g/dL (32.0-36.0); Mean Corpuscular Hemoglobin 29.7 pg (27.0-31.0); Mean Corpuscular Volume 91.1 fl (78.0-98.0); Mean Platelet Volume 11.4 fL (7.4-10.4); Platelet Count 278 10x3/uL (130-400); RBC Distribution Width 16.7 % (11.5-14.5); Red Blood Cell (RBC) Count 5.18 mill/uL (4.70-6.10); White Blood Cell (WBC) Count 15.7 10x3/uL (4.8-10.8)
[2023-05-06 06:04] LABS: INR-International Normal Ratio 0.9; PTT 32.3 sec (22.9-36.1); Prothrombin Time 12.7 sec (12.0-14.7)
[2023-05-06] MEDS: Acetaminophen 500 MG TAB PO SCH ×4 (06:26→22:40)
[2023-05-06] MEDS: traMADol HCl 50 MG TAB PO SCH ×4 (06:26→22:40)
[2023-05-06 06:35] VITALS: BMI 38.0
[2023-05-06 06:50] LABS: Troponin I 0.015 ng/mL (< 0.028)
[2023-05-06 06:52] LABS: ALT (SGPT) 91 U/L (8-55); AST (SGOT) 167 U/L (5-34); Albumin 4.1 g/dL (3.4-4.8); Alkaline Phosphatase 225 U/L (40-110); Bilirubin, Direct 1.6 mg/dL (0.1-0.3); Bilirubin, Total 1.9 mg/dL (0.2-1.2); Protein, Total 6.8 g/dL (5.8-8.1)
[2023-05-06] MEDS ORDERED: Ondansetron ODT 4 MG TAB PO PRN (06:52)
[2023-05-06 07:36] LABS: Lipase 9311 U/L (8-78)
[2023-05-06] MEDS ORDERED: Scopolamine 1.5 mg/72 hour Patch TD SCH (08:00)
[2023-05-06] MEDS: Senokot S 8.6-50 MG TAB PO SCH ×2 (08:11→20:15)
[2023-05-06] MEDS: Polyethylene Glycol 3350 17 GM Packet PO SCH (08:13)
[2023-05-06] MEDS: Bumetanide 1 MG TAB PO SCH (08:14)
[2023-05-06] MEDS ORDERED: Sodium Chloride 0.9% 1,000 ML IV SCH (08:15)
[2023-05-06] MEDS ORDERED: Morphine 2 MG/ML VIAL SLOW IVP PRN (08:41)
[2023-05-06] MEDS ORDERED: Morphine 4 MG/ML VIAL SLOW IVP SCH (08:45)
[2023-05-06] MEDS: Sodium Chloride 0.9% 1,000 ML IV SCH ×3 (08:54→22:41)
[2023-05-06] MEDS: Ipratropium/Albuterol 3 ML NEB NEB SCH ×3 (11:00→18:48)
[2023-05-06] MEDS ORDERED: Iopamidol 30 ML ONE (11:14)
[2023-05-06] MEDS ORDERED: Indomethacin 50 MG SUPP ONE (11:16)
[2023-05-06] MEDS ORDERED: fentaNYL PF 100 MCG/2 ML SYRINGE ONE (11:27)
[2023-05-06] MEDS ORDERED: NEOSTIGMINE 3 MG/3 ML SYR 3 MG/3 ML SYRINGE ONE (11:50)
[2023-05-06] MEDS ORDERED: Metoprolol Tartrate 5 MG/5 ML VIAL ONE (11:50)
[2023-05-06] MEDS ORDERED: PROPOFOL 200 MG/20 ML VIAL ONE (11:50)
[2023-05-06] MEDS ORDERED: Glycopyrrolate 0.2 MG/ML 5 ML SYRINGE ONE (11:50)
[2023-05-06] MEDS ORDERED: Rocuronium Bromide 10 MG/ML (10ML VIAL) ONE (11:50)
[2023-05-06] MEDS ORDERED: Glucagon 1 MG/ML KIT ONE (12:51)
[2023-05-06] MEDS ORDERED: Meropenem 1 GM in Sodium Chloride 0.9% 100 ML IVPB SCH ×2 (15:15→22:00)
[2023-05-06] MEDS: Morphine 4 MG/ML VIAL SLOW IVP PRN (18:18)
[2023-05-06] MEDS: Meropenem 1 GM in Sodium Chloride 0.9% 100 ML IVPB SCH (22:51)
[2023-05-07] MEDS: Morphine 4 MG/ML VIAL SLOW IVP PRN (03:59)
[2023-05-07 05:35] VITALS: TEMP 97.6
[2023-05-07] MEDS: Acetaminophen 500 MG TAB PO SCH (05:55)
[2023-05-07] MEDS: traMADol HCl 50 MG TAB PO SCH ×2 (05:55→08:05)
[2023-05-07 06:19] LABS: Hematocrit 49.6 % (42.0-52.0); Hemoglobin 15.9 g/dL (14.0-18.0); Mean Corpuscular HGB CONC 32.1 g/dL (32.0-36.0); Mean Corpuscular Hemoglobin 29.8 pg (27.0-31.0); Mean Corpuscular Volume 92.9 fl (78.0-98.0); Platelet Count 248 10x3/uL (130-400); RBC Distribution Width 17.7 % (11.5-14.5); Red Blood Cell (RBC) Count 5.34 mill/uL (4.70-6.10); White Blood Cell (WBC) Count 25.8 10x3/uL (4.8-10.8)
[2023-05-07 06:23] LABS: Delete Auto Diff?? YES; Manual Diff?? YES
[2023-05-07 06:32] LABS: Prothrombin Time 13.9 sec (12.0-14.7)
[2023-05-07 06:33] LABS: PTT 33.8 sec (22.9-36.1)
[2023-05-07 06:46] LABS: ALT (SGPT) 81 U/L (8-55); AST (SGOT) 74 U/L (5-34); Albumin 3.9 g/dL (3.4-4.8); Alkaline Phosphatase 233 U/L (40-110); Anion Gap 16 mmol/L (10-20); BUN (Urea Nitrogen) 23 mg/dL (8.4-25.7); Bilirubin, Direct 1.4 mg/dL (0.1-0.3); Bilirubin, Total 2.2 mg/dL (0.2-1.2); Calc. Creatinine Clearance 113 mL/min (70-130); Calcium 8.8 mg/dL (7.8-10.44); Carbon Dioxide 24 mmol/L (23-31); Chloride 106 mmol/L (98-107); Estimated GFR 67; Glucose 96 mg/dL (80-115); Lipase 862 U/L (8-78); Potassium 4.2 mmol/L (3.5-5.1); Protein, Total 6.7 g/dL (5.8-8.1); Sodium 142 mmol/L (136-145)
[2023-05-07] MEDS: Meropenem 1 GM in Sodium Chloride 0.9% 100 ML IVPB SCH (07:26)
[2023-05-07] MEDS: Ipratropium/Albuterol 3 ML NEB NEB SCH (07:46)
[2023-05-07] MEDS ORDERED: Sodium Chloride 0.9% 1,000 ML IV SCH ×2 (07:47→08:19)
[2023-05-07] MEDS: Polyethylene Glycol 3350 17 GM Packet PO SCH (08:01)
[2023-05-07] MEDS: Bumetanide 1 MG TAB PO SCH (08:01)
[2023-05-07] MEDS: Senokot S 8.6-50 MG TAB PO SCH (08:01)
[2023-05-07 08:41] LABS: Band 10 % (5-11); CellaVision Operator ID LAB.GE; Large Platelets 4.9 % (0-5); Lymphocytes 2 % (21-51); Neutrophil 85 % (42-75); Platelet Adequacy Comment Platelets Normal; Polychromasia SLIGHT = 2-3 cells HPF (0-2); Reactive Lymphocytes 2 % (0-10); Total Cell Count 102; Vacuoles SLIGHT
[2023-05-07 09:15] VITALS: BP 142/88
[2023-05-07] MEDS ORDERED: Non-Formulary Item 1 EACH (Lovastatin [Lovastatin] 40 MG Tablet) PO SCH (17:00)
[2023-05-07] MEDS ORDERED: Atorvastatin Calcium 20 MG TAB PO SCH (21:00)
== END 2023-05-07 08:50 | disposition short-term general hospital (02) | DRG 444 ==
LOC: ERS 21:53 → T4-A 05-06 04:24
PROVIDERS: ADMIT Surgery; ATTEND Surgery
PROC: 0FJB8ZZ Inspection of Hepatobiliary Duct, Via Natural or Artificial Opening Endoscopic (ICD-10-PCS; principal; 2023-05-06)
DX: K80.00 Calculus of gallbladder with acute cholecystitis without obstruction (principal); K85.10 Biliary acute pancreatitis without necrosis or infection; K80.42 Calculus of bile duct with acute cholecystitis without obstruction; J44.1 Chronic obstructive pulmonary disease with (acute) exacerbation; I42.8 Other cardiomyopathies; K82.1 Hydrops of gallbladder; E11.9 Type 2 diabetes mellitus without complications; E78.5 Hyperlipidemia, unspecified; I10 Essential (primary) hypertension; E66.01 Morbid (severe) obesity due to excess calories; D72.829 Elevated white blood cell count, unspecified; Z90.89 Acquired absence of other organs; Z98.890 Other specified postprocedural states; Z90.49 Acquired absence of other specified parts of digestive tract; Z95.810 Presence of automatic (implantable) cardiac defibrillator; Z79.82 Long term (current) use of aspirin; Z79.899 Other long term (current) drug therapy; Z87.891 Personal history of nicotine dependence; Z68.38 Body mass index [BMI] 38.0-38.9, adult
CPT/HCPCS: 36415; 36416; 71045; 74177; 76705; 80048; 80053; 80076; 83690; 83880; 84484; 85025; 85610; 85730; 86850; 86900; 86901; 93005; 93306; J1611; J1956; J2185; J2270; J2405; J2704; J3010; J3490; J7050; Q9967

== ENCOUNTER 2023-05-27 10:55 | Day surgery (SDC) | payer MEDICARE ==
[2023-05-26 09:55] VITALS: BMI 36.3
[2023-05-27] MEDS ORDERED: Midazolam HCl 2 mg/2 ml Vial ONE (13:38)
[2023-05-27] MEDS ORDERED: SUGAMMADEX SODIUM 200 MG/2 ML VIAL ONE (13:38)
[2023-05-27] MEDS ORDERED: fentaNYL 50 mcg/mL 1 mL Vial ONE (13:41)
[2023-05-27] MEDS ORDERED: PROPOFOL 200 MG/20 ML VIAL ONE (14:02)
[2023-05-27] MEDS ORDERED: Esmolol 100 MG/10 ML VIAL ONE (14:02)
[2023-05-27] MEDS ORDERED: Lidocaine 1% PF 5 ML VIAL ONE (14:02)
== END 2023-05-27 15:42 | disposition home or self-care (01) ==
LOC: SDC 10:55
PROVIDERS: ATTEND Internal Medicine Gastroenterology
PROC: 0FPD8DZ Removal of Intraluminal Device from Pancreatic Duct, Via Natural or Artificial Opening Endoscopic (ICD-10-PCS; principal; 2023-05-27)
DX: K83.1 Obstruction of bile duct (principal); I25.10 Atherosclerotic heart disease of native coronary artery without angina pectoris; E11.9 Type 2 diabetes mellitus without complications; I10 Essential (primary) hypertension; E78.00 Pure hypercholesterolemia, unspecified; I42.9 Cardiomyopathy, unspecified; E66.01 Morbid (severe) obesity due to excess calories; Z68.36 Body mass index [BMI] 36.0-36.9, adult; Z88.1 Allergy status to other antibiotic agents; Z79.899 Other long term (current) drug therapy; Z79.84 Long term (current) use of oral hypoglycemic drugs; Z87.891 Personal history of nicotine dependence
CPT/HCPCS: 43247; 74018; J3010; J2250; J2704

== ENCOUNTER 2023-11-29 19:44 | Inpatient (IN) | payer MEDICARE, OTHER ==
[2023-11-29 20:27] LABS: #Basophils 0.06 10x3/uL (0.0-0.2); %Basophils 0.5 % (0.0-1.0); %Eosinophils 1.8 % (0.0-10.0); %Lymphocytes 26.4 % (21.0-51.0); %Monocytes 8.9 % (0.0-10.0); %Neutrophils 61.9 % (42.0-75.0); Hematocrit 46.6 % (42.0-52.0); Hemoglobin 15.1 g/dL (14.0-18.0); Mean Corpuscular HGB CONC 32.4 g/dL (32.0-36.0); Mean Corpuscular Volume 95.7 fL (78.0-98.0); Mean Platelet Volume 10.8 fL (7.4-10.4); Platelet Count 310 10x3/uL (130-400); RBC Distribution Width 15.6 % (11.5-14.5); Red Blood Cell (RBC) Count 4.87 mill/uL (4.70-6.10)
[2023-11-29] MEDS ORDERED: Nitroglycerin 0.4 MG TAB 1 EACH ONE (20:33)
[2023-11-29 20:44] LABS: ALT (SGPT) 11 U/L (8-55); AST (SGOT) 17 U/L (5-34); Albumin 3.2 g/dL (3.4-4.8); Alkaline Phosphatase 88 U/L (40-110); Anion Gap 17 mmol/L (10-20); BUN (Urea Nitrogen) 22 mg/dL (8.4-25.7); Bilirubin, Total 0.3 mg/dL (0.2-1.2); Calc. Creatinine Clearance 0 mL/min (70-130); Calcium 9.1 mg/dL (7.8-10.44); Carbon Dioxide 23 mmol/L (23-31); Chloride 108 mmol/L (98-107); Estimated GFR 72; Globulin 3.1 g/dL (2.4-3.5); Glucose 120 mg/dL (80-115); Lipase 34 U/L (8-78); Potassium 3.6 mmol/L (3.5-5.1); Protein, Total 6.3 g/dL (5.8-8.1); Sodium 144 mmol/L (136-145)
[2023-11-29 20:50] LABS: Troponin I 0.021 ng/mL (< 0.028)
[2023-11-29] MEDS ORDERED: Cyclobenzaprine 10 MG TAB PO PRN (22:24)
[2023-11-29] MEDS ORDERED: Dextrose 50% Abboject 50 ML SYRINGE SLOW IVP PRN (22:26)
[2023-11-29] MEDS ORDERED: Acetaminophen 325 MG TAB PO PRN (22:26)
[2023-11-29] MEDS ORDERED: Dextrose 5% in Water 1,000 ML IV PRN (22:26)
[2023-11-29] MEDS ORDERED: Ondansetron PF 4 MG/2 ML Vial IVP PRN (22:26)
[2023-11-29] MEDS ORDERED: Glucagon 1 MG/ML KIT IM PRN (22:26)
[2023-11-29] MEDS ORDERED: Morphine 4 MG/ML VIAL ONE (22:36)
[2023-11-29] MEDS ORDERED: Lactulose 20 GM (30 mL) UDCUP PO PRN (22:48)
[2023-11-29 23:07] LABS: Troponin I 0.015 ng/mL (< 0.028)
[2023-11-30] MEDS: Morphine 2 MG/ML VIAL SLOW IVP PRN (01:04)
[2023-11-30] MEDS: Nitroglycerin 0.4 MG TAB (25 Tab Bottle) SL PRN (02:03)
[2023-11-30] MEDS: HYDROcodone/Acetaminophen 7.5/325 mg Tablet PO PRN (02:05)
[2023-11-30 02:56] VITALS: BMI 35.8
[2023-11-30 04:38] LABS: #Basophils 0.08 10x3/uL (0.0-0.2); %Basophils 0.7 % (0.0-1.0); %Eosinophils 2.2 % (0.0-10.0); %Monocytes 8.5 % (0.0-10.0); %Neutrophils 49.1 % (42.0-75.0); Hematocrit 44.3 % (42.0-52.0); Hemoglobin 14.4 g/dL (14.0-18.0); Mean Corpuscular HGB CONC 32.5 g/dL (32.0-36.0); Mean Corpuscular Hemoglobin 31.2 pg (27.0-31.0); Mean Corpuscular Volume 95.9 fL (78.0-98.0); Mean Platelet Volume 11.2 fL (7.4-10.4); Platelet Count 296 10x3/uL (130-400); RBC Distribution Width 15.6 % (11.5-14.5); Red Blood Cell (RBC) Count 4.62 mill/uL (4.70-6.10)
[2023-11-30 04:48] LABS: Anion Gap 14 mmol/L (10-20); BUN (Urea Nitrogen) 22 mg/dL (8.4-25.7); Calc. Creatinine Clearance 136 mL/min (70-130); Calcium 9.2 mg/dL (7.8-10.44); Carbon Dioxide 28 mmol/L (23-31); Chloride 104 mmol/L (98-107); Estimated GFR 91; Glucose 91 mg/dL (80-115); Potassium 3.5 mmol/L (3.5-5.1); Sodium 142 mmol/L (136-145)
[2023-11-30] MEDS: Mometasone 200 MCG/Formoterol 5 MCG 120 PUFF INHALER INH SCH (07:06)
[2023-11-30] MEDS: Sacubitril 24MG/Valsartan 26 MG TAB PO SCH (08:06)
[2023-11-30] MEDS: Aspirin Chewable 81 MG TAB PO SCH (08:06)
[2023-11-30] MEDS: Bumetanide 1 MG TAB PO SCH (08:06)
[2023-11-30] MEDS: Heparin 5,000 UNITS/ML VIAL SC SCH (08:07)
[2023-11-30] MEDS: Empagliflozin 10 MG TAB PO SCH (08:08)
[2023-11-30 17:07] LABS: Amphetamine Not Detected (NotDetected); Barbiturates Screen Not Detected (NotDetected); Benzodiazepine Screen Not Detected (NotDetected); Cocaine Metabolite Screen Not Detected (NotDetected); Methadone Not Detected (NotDetected); Methamphetamine Not Detected (NotDetected); Opiate Screen Detected (NotDetected); Oxycodone Screen Not Detected (NotDetected); Phencyclidine (PCP) Not Detected (NotDetected); THC/Cannabinoid Screen Detected (NotDetected); Tricyclic Screen Not Detected (NotDetected)
[2023-11-30] MEDS: Atorvastatin Calcium 10 MG TAB PO SCH (20:14)
[2023-12-01] MEDS ORDERED: Regadenoson 0.4 MG/5 ML SYRINGE ONE (10:42)
[2023-12-01 16:04] VITALS: BP 116/81; TEMP 98
== END 2023-12-01 18:48 | disposition home or self-care (01) | DRG 309 ==
LOC: ERS 19:44 → 2SW 22:29 → OBSVTOIN 11-30 15:54
PROVIDERS: ADMIT Student in an Organized Health Care Education/Training Program; ATTEND Student in an Organized Health Care Education/Training Program
DX: I47.10 Supraventricular tachycardia, unspecified (principal); I50.22 Chronic systolic (congestive) heart failure; I71.21 Aneurysm of the ascending aorta, without rupture; R00.1 Bradycardia, unspecified; I11.0 Hypertensive heart disease with heart failure; N28.89 Other specified disorders of kidney and ureter; J44.9 Chronic obstructive pulmonary disease, unspecified; I25.10 Atherosclerotic heart disease of native coronary artery without angina pectoris; E66.01 Morbid (severe) obesity due to excess calories; E11.9 Type 2 diabetes mellitus without complications; E78.5 Hyperlipidemia, unspecified; I25.5 Ischemic cardiomyopathy; Z71.3 Dietary counseling and surveillance; Z90.89 Acquired absence of other organs; Z98.890 Other specified postprocedural states; Z79.82 Long term (current) use of aspirin; Z79.899 Other long term (current) drug therapy; Z68.35 Body mass index [BMI] 35.0-35.9, adult; Z91.148 Patient's other noncompliance with medication regimen for other reason
CPT/HCPCS: 36415; 36416; 71045; 71275; 74174; 78452; 80048; 80053; 80306; 83690; 83880; 84484; 85025; 93005; 93017; 93306; 96374; 96376; A9502; G0378; J2270; J2272; J2785; Q9967

== ENCOUNTER → 2024-01-19 | Day surgery (SDC) | payer MEDICARE ==
[2024-01-19 08:23] LABS: Hemoglobin 16.6 g/dL (14.0-18.0)
[2024-01-19 08:32] LABS: INR-International Normal Ratio 0.9; PTT 31.1 sec (22.9-36.1)
[2024-01-19 09:30] LABS: #Basophils 0.09 10x3/uL (0.0-0.2); %Basophils 0.8 % (0.0-1.0); %Eosinophils 1.8 % (0.0-10.0); %Lymphocytes 45.1 % (21.0-51.0); %Neutrophils 42.9 % (42.0-75.0); Hematocrit 52.1 % (42.0-52.0); Mean Corpuscular HGB CONC 31.9 g/dL (32.0-36.0); Mean Corpuscular Volume 97.2 fL (78.0-98.0); Mean Platelet Volume 11.3 fL (7.4-10.4); Platelet Count 276 10x3/uL (130-400); RBC Distribution Width 16.6 % (11.5-14.5); Red Blood Cell (RBC) Count 5.36 mill/uL (4.70-6.10)
== END ==
LOC: CT 07:48
PROVIDERS: ATTEND Urology
PROC: 0T913ZX Drainage of Left Kidney, Percutaneous Approach, Diagnostic (ICD-10-PCS; principal; 2024-01-19)
DX: D30.02 Benign neoplasm of left kidney (principal); I11.0 Hypertensive heart disease with heart failure; I50.22 Chronic systolic (congestive) heart failure; J44.9 Chronic obstructive pulmonary disease, unspecified; I25.10 Atherosclerotic heart disease of native coronary artery without angina pectoris; E11.69 Type 2 diabetes mellitus with other specified complication; E66.01 Morbid (severe) obesity due to excess calories; Z68.35 Body mass index [BMI] 35.0-35.9, adult; Z79.84 Long term (current) use of oral hypoglycemic drugs; Z79.82 Long term (current) use of aspirin; Z79.899 Other long term (current) drug therapy; Z90.89 Acquired absence of other organs; Z87.891 Personal history of nicotine dependence; Z90.49 Acquired absence of other specified parts of digestive tract; Z95.810 Presence of automatic (implantable) cardiac defibrillator
CPT/HCPCS: 50200; 77012; 85025; 85610; 85730; 88305; 88333; 88334; 88341; 88342

== ENCOUNTER 2025-02-21 14:51 | Inpatient (IN) | payer MEDICARE ==
[~2025-02-21 14:51] MED LIST changes: +Iopamidol 370 76% 100 ML VIAL ONE; -Iopamidol-370 76% 500 ML MDV (1 ML CHARGE) ONE
[2025-02-21] MEDS ORDERED: Ondansetron PF 4 MG/2 ML Vial ONE (15:44)
[2025-02-21] MEDS ORDERED: Metoprolol Tartrate 5 MG (5 mL) VIAL ONE (15:50)
[2025-02-21] MEDS ORDERED: Adenosine 6 mg (2 mL) VIAL ONE ×2 (15:58→16:06)
[2025-02-21] MEDS ORDERED: Heparin 10,000 UNITS/ 10 ML VIAL ONE (17:06)
[2025-02-21] MEDS ORDERED: TICAGRELOR 90 MG TABLET ONE (18:29)
[2025-02-21] MEDS ORDERED: Milk Of Magnesia 30 ML UDCUP PO PRN (19:16)
[2025-02-21] MEDS ORDERED: Mag-Al 1200 mg/1200 mg/30 ML UDCUP PO PRN (19:16)
[2025-02-21] MEDS ORDERED: Nitroglycerin 0.4 MG TAB (25 Tab Bottle) SL PRN (19:22)
[2025-02-21] MEDS ORDERED: Electrolyte Replacement Protocol 1 EACH FS SCH (19:30)
[2025-02-21 19:59] LABS: #Basophils 0.06 10x3/uL (0.0-0.2); #Eosinophils Less than 0.03 10x3/uL (0.0-0.7); #Monocytes 0.98 10x3/uL (0.11-0.59); #Neutrophils 13.68 10x3/uL (1.40-6.50); %Basophils 0.4 % (0.0-1.0); %Eosinophils 0.0 % (0.0-10.0); %Lymphocytes 8.0 % (21.0-51.0); %Monocytes 6.1 % (0.0-10.0); %Neutrophils 84.9 % (42.0-75.0); Hematocrit 50.6 % (42.0-52.0); Hemoglobin 16.4 g/dL (14.0-18.0); Mean Corpuscular Hemoglobin 30.8 pg (27.0-31.0); Mean Corpuscular Volume 95.1 fL (78.0-98.0); Platelet Count 270 10x3/uL (130-400); Red Blood Cell (RBC) Count 5.32 mill/uL (4.70-6.10); White Blood Cell (WBC) Count 16.09 10x3/uL (4.8-10.8)
[2025-02-21] MEDS ORDERED: Dextrose 50% Abboject 50 ML SYRINGE SLOW IVP PRN (20:02)
[2025-02-21] MEDS ORDERED: Glucagon 1 MG/ML KIT IM PRN (20:02)
[2025-02-21 20:16] LABS: Anion Gap 15 mmol/L (10-20); BUN (Urea Nitrogen) 21 mg/dL (8.4-25.7); Calc. Creatinine Clearance 0 mL/min (70-130); Calcium 8.5 mg/dL (7.8-10.44); Carbon Dioxide 23 mmol/L (23-31); Chloride 107 mmol/L (98-107); Glucose 155 mg/dL (80-115); Potassium 3.6 mmol/L (3.5-5.1); Sodium 141 mmol/L (136-145)
[2025-02-21 20:21] VITALS: BMI 34.5
[2025-02-21 20:28] LABS: Troponin I 0.396 ng/mL (< 0.028)
[2025-02-21] MEDS: Sacubitril 24MG/Valsartan 26 MG TAB PO SCH (22:02)
[2025-02-21] MEDS: TICAGRELOR 90 MG TABLET PO SCH (22:02)
[2025-02-21] MEDS: Aspirin 81 mg Enteric Coated Tablet PO SCH (22:02)
[2025-02-21] MEDS: Famotidine/PF 20 mg/2ml Vial SLOW IVP SCH (22:03)
[2025-02-21] MEDS: Famotidine 20 MG TAB PO SCH (22:03)
[2025-02-21] MEDS: Heparin 10,000 UNITS/ 10 ML VIAL SLOW IVP SCH (22:04)
[2025-02-21 23:29] LABS: Troponin I 0.707 ng/mL (< 0.028)
[2025-02-22] MEDS ORDERED: Albuterol 200 PUFF INH INH PRN (01:00)
[2025-02-22 04:05] LABS: #Basophils 0.05 10x3/uL (0.0-0.2); #Eosinophils Less than 0.03 10x3/uL (0.0-0.7); #Monocytes 0.93 10x3/uL (0.11-0.59); #Neutrophils 9.02 10x3/uL (1.40-6.50); %Basophils 0.4 % (0.0-1.0); %Eosinophils 0.0 % (0.0-10.0); %Lymphocytes 15.4 % (21.0-51.0); %Monocytes 7.8 % (0.0-10.0); %Neutrophils 76.1 % (42.0-75.0); Hematocrit 48.7 % (42.0-52.0); Hemoglobin 15.7 g/dL (14.0-18.0); Mean Corpuscular Hemoglobin 30.5 pg (27.0-31.0); Mean Corpuscular Volume 94.6 fL (78.0-98.0); Platelet Count 267 10x3/uL (130-400); Red Blood Cell (RBC) Count 5.15 mill/uL (4.70-6.10); White Blood Cell (WBC) Count 11.87 10x3/uL (4.8-10.8)
[2025-02-22 04:23] LABS: ALT (SGPT) 10 U/L (Less than 45); AST (SGOT) 31 U/L (11-34); Albumin 3.3 g/dL (3.1-4.5); Alkaline Phosphatase 79 U/L (40-110); Anion Gap 13 mmol/L (10-20); BUN (Urea Nitrogen) 25 mg/dL (8.4-25.7); Bilirubin, Total 0.5 mg/dL (0.3-1.2); Calc. Creatinine Clearance 95 mL/min (70-130); Calcium 8.2 mg/dL (7.8-10.44); Carbon Dioxide 26 mmol/L (23-31); Cardiac Risk 4.4 (Less than 4.5); Chloride 105 mmol/L (98-107); Cholesterol 193 mg/dl (< 200 Desired); Globulin 2.7 g/dL (2.4-3.5); Glucose 139 mg/dL (80-115); HDL Cholesterol 44 mg/dL (>60 Neg Risk); LDL Cholesterol, Calculated 134 mg/dL; Potassium 3.7 mmol/L (3.5-5.1); Sodium 140 mmol/L (136-145); Triglycerides 76 mg/dL (Less than 150)
[2025-02-22] MEDS: Mometasone 200 MCG/Formoterol 5 MCG 120 PUFF INHALER INH SCH (07:14)
[2025-02-22] MEDS: Aspirin 81 mg Enteric Coated Tablet PO SCH (09:21)
[2025-02-22] MEDS: TICAGRELOR 90 MG TABLET PO SCH (09:21)
[2025-02-22] MEDS: Mupirocin 1 GM TUBE TP SCH (09:21)
[2025-02-22 09:50] LABS: Troponin I 2.390 ng/mL (< 0.028)
[2025-02-22] MEDS: Ondansetron PF 4 MG/2 ML Vial IVP PRN (14:48)
[2025-02-22 22:00] LABS: Troponin I 2.846 ng/mL (< 0.028)
[2025-02-23 04:19] LABS: Anion Gap 8 mmol/L (10-20); BUN (Urea Nitrogen) 14 mg/dL (8.4-25.7); Calc. Creatinine Clearance 128 mL/min (70-130); Calcium 8.2 mg/dL (7.8-10.44); Carbon Dioxide 30 mmol/L (23-31); Chloride 103 mmol/L (98-107); Glucose 92 mg/dL (80-115); Magnesium 1.8 mg/dL (1.6-2.6); Potassium 4.2 mmol/L (3.5-5.1); Sodium 137 mmol/L (136-145)
[2025-02-23] MEDS: Methocarbamol 1 GM in Sodium Chloride 0.9% 100 ML IVPB PRN (05:47)
[2025-02-23] MEDS: Magnesium 2 GM/50 ML(in water) 2 GM in Premix 1 BAG IVPB SCH (06:42)
[2025-02-23] MEDS: Acetaminophen 325 MG TAB PO PRN (07:43)
[2025-02-23] MEDS: Acetaminophen/Codeine 30-300mg Tablet PO PRN (09:58)
[2025-02-23] MEDS: Melatonin 3 MG TAB PO PRN (21:32)
[2025-02-24 04:42] LABS: #Basophils 0.06 10x3/uL (0.0-0.2); #Eosinophils 0.22 10x3/uL (0.0-0.7); #Monocytes 1.33 10x3/uL (0.11-0.59); #Neutrophils 6.17 10x3/uL (1.40-6.50); %Basophils 0.6 % (0.0-1.0); %Eosinophils 2.1 % (0.0-10.0); %Lymphocytes 26.1 % (21.0-51.0); %Monocytes 12.6 % (0.0-10.0); %Neutrophils 58.1 % (42.0-75.0); Hematocrit 41.9 % (42.0-52.0); Hemoglobin 13.4 g/dL (14.0-18.0); Mean Corpuscular Hemoglobin 30.7 pg (27.0-31.0); Mean Corpuscular Volume 95.9 fL (78.0-98.0); Platelet Count 251 10x3/uL (130-400); Red Blood Cell (RBC) Count 4.37 mill/uL (4.70-6.10); White Blood Cell (WBC) Count 10.59 10x3/uL (4.8-10.8)
[2025-02-24 05:06] LABS: Anion Gap 10 mmol/L (10-20); BUN (Urea Nitrogen) 17 mg/dL (8.4-25.7); Calc. Creatinine Clearance 120 mL/min (70-130); Calcium 8.3 mg/dL (7.8-10.44); Carbon Dioxide 28 mmol/L (23-31); Chloride 103 mmol/L (98-107); Glucose 87 mg/dL (80-115); Magnesium 1.8 mg/dL (1.6-2.6); Potassium 3.6 mmol/L (3.5-5.1); Sodium 137 mmol/L (136-145)
[2025-02-24] MEDS: Magnesium 2 GM/50 ML(in water) 2 GM in Premix 1 BAG IVPB SCH (08:45)
[2025-02-25 11:30] VITALS: TEMP 98.1
[2025-02-25 13:26] VITALS: BP 167/83
== END 2025-02-25 13:44 | disposition home or self-care (01) | DRG 321 ==
LOC: CCL 14:51 → CCU 19:17 → 2NO 02-23 12:17
PROVIDERS: ADMIT Internal Medicine Cardiovascular Disease; ATTEND Internal Medicine Cardiovascular Disease
PROC: 02C03ZZ Extirpation of Matter from Coronary Artery, One Artery, Percutaneous Approach (ICD-10-PCS; principal; 2025-02-21)
PROC: 027036Z Dilation of Coronary Artery, One Artery with Three Drug-eluting Intraluminal Devices, Percutaneous Approach (ICD-10-PCS; 2025-02-21)
PROC: 4B02XTZ Measurement of Cardiac Defibrillator, External Approach (ICD-10-PCS; 2025-02-21)
PROC: 05HY33Z Insertion of Infusion Device into Upper Vein, Percutaneous Approach (ICD-10-PCS; 2025-02-21)
PROC: 04HY32Z Insertion of Monitoring Device into Lower Artery, Percutaneous Approach (ICD-10-PCS; 2025-02-21)
PROC: 4A133B1 Monitoring of Arterial Pressure, Peripheral, Percutaneous Approach (ICD-10-PCS; 2025-02-21)
PROC: 4A133J1 Monitoring of Arterial Pulse, Peripheral, Percutaneous Approach (ICD-10-PCS; 2025-02-21)
DX: T82.855A Stenosis of coronary artery stent, initial encounter (principal); I21.11 ST elevation (STEMI) myocardial infarction involving right coronary artery; I50.42 Chronic combined systolic (congestive) and diastolic (congestive) heart failure; I42.9 Cardiomyopathy, unspecified; I47.10 Supraventricular tachycardia, unspecified; I25.10 Atherosclerotic heart disease of native coronary artery without angina pectoris; J44.9 Chronic obstructive pulmonary disease, unspecified; F12.90 Cannabis use, unspecified, uncomplicated; R00.1 Bradycardia, unspecified; I49.1 Atrial premature depolarization; I49.3 Ventricular premature depolarization; N28.89 Other specified disorders of kidney and ureter; I71.21 Aneurysm of the ascending aorta, without rupture; I08.1 Rheumatic disorders of both mitral and tricuspid valves; Y83.1 Surgical operation with implant of artificial internal device as the cause of abnormal reaction of the patient, or of later complication, without mention of misadventure at the time of the procedure; E11.9 Type 2 diabetes mellitus without complications; Z95.810 Presence of automatic (implantable) cardiac defibrillator; Z95.5 Presence of coronary angioplasty implant and graft; Z90.89 Acquired absence of other organs; Z90.81 Acquired absence of spleen; Z87.891 Personal history of nicotine dependence; Z88.0 Allergy status to penicillin; Z79.82 Long term (current) use of aspirin; Z79.899 Other long term (current) drug therapy; Z79.84 Long term (current) use of oral hypoglycemic drugs; Z90.49 Acquired absence of other specified parts of digestive tract; Z98.890 Other specified postprocedural states; Z88.1 Allergy status to other antibiotic agents
CPT/HCPCS: 36415; 36416; 36573; 71045; 80048; 80053; 80061; 83036; 83735; 84484; 85025; 85347; 85730; 92941; 92973; 92978; 93005; 93010; 93306; 93458; 93798; C1725; C1753; C1757; C1769; C1874; C1887; C9606; J0153; J1250; J1265; J1308; J1644; J2250; J2270; J2405; J2550; J2800; J3010; J3246; J3475; Q0162; Q9967

== ENCOUNTER 2025-04-30 00:16 | Inpatient (IN) | payer MEDICARE ==
[2025-05-01 01:52] LABS: #Basophils 0.08 10x3/uL (0.0-0.2); #Eosinophils 0.16 10x3/uL (0.0-0.7); #Monocytes 1.41 10x3/uL (0.11-0.59); #Neutrophils 8.35 10x3/uL (1.40-6.50); %Basophils 0.7 % (0.0-1.0); %Eosinophils 1.4 % (0.0-10.0); %Lymphocytes 14.0 % (21.0-51.0); %Monocytes 12.1 % (0.0-10.0); %Neutrophils 71.3 % (42.0-75.0); ALT (SGPT) 10 U/L (Less than 45); AST (SGOT) 20 U/L (11-34); Albumin 3.2 g/dL (3.1-4.5); Alkaline Phosphatase 125 U/L (40-110); Anion Gap 14 mmol/L (10-20); BUN (Urea Nitrogen) 16 mg/dL (8.4-25.7); Bilirubin, Total 0.4 mg/dL (0.3-1.2); Calc. Creatinine Clearance 0 mL/min (70-130); Calcium 9.5 mg/dL (7.8-10.44); Carbon Dioxide 29 mmol/L (23-31); Chloride 101 mmol/L (98-107); Globulin 3.3 g/dL (2.4-3.5); Glucose 109 mg/dL (80-115); Hematocrit 47.2 % (42.0-52.0); Hemoglobin 15.1 g/dL (14.0-18.0); Mean Corpuscular Hemoglobin 30.6 pg (27.0-31.0); Mean Corpuscular Volume 95.5 fL (78.0-98.0); Platelet Count 298 10x3/uL (130-400); Potassium 3.5 mmol/L (3.5-5.1); Red Blood Cell (RBC) Count 4.94 mill/uL (4.70-6.10); Sodium 140 mmol/L (136-145); White Blood Cell (WBC) Count 11.70 10x3/uL (4.8-10.8)
[2025-05-01] MEDS ORDERED: Nitroglycerin 0.4 MG TAB 1 EACH ONE (06:58)
[2025-05-01] MEDS ORDERED: Nitroglycerin 0.4 MG TAB (25 Tab Bottle) SL PRN (07:31)
[2025-05-01] MEDS ORDERED: Melatonin 3 MG TAB PO PRN (07:31)
[2025-05-01] MEDS ORDERED: Acetaminophen 325 MG TAB PO PRN (07:31)
[2025-05-01] MEDS ORDERED: Senokot S 8.6-50 MG TAB PO PRN (07:31)
[2025-05-01 08:14] LABS: Cardiac Risk 3.3 (Less than 4.5); Cholesterol 126.0 mg/dl (< 200 Desired); HDL Cholesterol 38.0 mg/dL (>60 Neg Risk); LDL Cholesterol, Calculated 73.0 mg/dL; Triglycerides 76.0 mg/dL (Less than 150)
[2025-05-01 10:32] VITALS: BMI 33.2
[2025-05-01] MEDS: Aspirin Chewable 81 MG TAB PO SCH (10:56)
[2025-05-01] MEDS: Famotidine 20 MG TAB PO SCH (10:57)
[2025-05-01] MEDS: Enoxaparin 40 MG (0.4 mL) SYRINGE SC SCH (11:00)
[2025-05-01] MEDS ORDERED: Mometasone 200 MCG/Formoterol 5 MCG 120 PUFF INHALER INH PRN (11:03)
[2025-05-01] MEDS: Guaifenesin DM 100-10/5 ML UDCUP PO PRN (14:42)
[2025-05-01] MEDS: HYDROcodone/Acetaminophen 5/325 mg Tablet PO PRN (17:09)
[2025-05-01] MEDS: Mometasone 200 MCG/Formoterol 5 MCG 120 PUFF INHALER INH SCH (19:53)
[2025-05-01] MEDS: TICAGRELOR 90 MG TABLET PO SCH (19:54)
[2025-05-01] MEDS: Sacubitril 24MG/Valsartan 26 MG TAB PO SCH (19:55)
[2025-05-01] MEDS: guaiFENesin/DM ER PO SCH (19:55)
[2025-05-01] MEDS ORDERED: Sacubitril 24MG/Valsartan 26 MG TAB PO SCH (21:00)
[2025-05-02 04:57] LABS: #Basophils 0.08 10x3/uL (0.0-0.2); #Eosinophils 0.10 10x3/uL (0.0-0.7); #Monocytes 1.51 10x3/uL (0.11-0.59); #Neutrophils 4.93 10x3/uL (1.40-6.50); %Basophils 0.9 % (0.0-1.0); %Eosinophils 1.1 % (0.0-10.0); %Lymphocytes 27.3 % (21.0-51.0); %Monocytes 16.5 % (0.0-10.0); %Neutrophils 53.9 % (42.0-75.0); Hematocrit 43.9 % (42.0-52.0); Hemoglobin 14.0 g/dL (14.0-18.0); Mean Corpuscular Hemoglobin 30.2 pg (27.0-31.0); Mean Corpuscular Volume 94.6 fL (78.0-98.0); Platelet Count 325 10x3/uL (130-400); Red Blood Cell (RBC) Count 4.64 mill/uL (4.70-6.10); White Blood Cell (WBC) Count 9.15 10x3/uL (4.8-10.8)
[2025-05-02 05:13] LABS: Anion Gap 9 mmol/L (10-20); BUN (Urea Nitrogen) 17 mg/dL (8.4-25.7); Calc. Creatinine Clearance 117 mL/min (70-130); Calcium 9.1 mg/dL (7.8-10.44); Carbon Dioxide 31 mmol/L (23-31); Chloride 101 mmol/L (98-107); Glucose 99 mg/dL (80-115); Potassium 4.1 mmol/L (3.5-5.1); Sodium 137 mmol/L (136-145)
[2025-05-02] MEDS ORDERED: Non-Formulary Item 1 EACH (Bumetanide [Bumetanide] 2 MG Tablet) PO SCH (09:00)
[2025-05-02] MEDS ORDERED: Non-Formulary Item 1 EACH (Fluticasone/Vilanterol [Breo Ellipta 200-25 Mcg Inhalr] 1 EACH IH SCH (09:00)
[2025-05-02] MEDS: Metoprolol Tartrate 5 MG (5 mL) VIAL IVP SCH (22:06)
[2025-05-02] MEDS: Metoprolol Tartrate 5 MG (5 mL) VIAL IVP PRN (23:11)
[2025-05-02 23:14] LABS: #Basophils 0.08 10x3/uL (0.0-0.2); #Eosinophils 0.14 10x3/uL (0.0-0.7); #Monocytes 1.22 10x3/uL (0.11-0.59); #Neutrophils 4.60 10x3/uL (1.40-6.50); %Basophils 0.8 % (0.0-1.0); %Eosinophils 1.5 % (0.0-10.0); %Lymphocytes 36.2 % (21.0-51.0); %Monocytes 12.8 % (0.0-10.0); %Neutrophils 48.2 % (42.0-75.0); Hematocrit 49.3 % (42.0-52.0); Hemoglobin 16.0 g/dL (14.0-18.0); Mean Corpuscular Hemoglobin 30.1 pg (27.0-31.0); Mean Corpuscular Volume 92.8 fL (78.0-98.0); Platelet Count 339 10x3/uL (130-400); Red Blood Cell (RBC) Count 5.31 mill/uL (4.70-6.10); White Blood Cell (WBC) Count 9.55 10x3/uL (4.8-10.8)
[2025-05-02 23:34] LABS: ALT (SGPT) 8 U/L (Less than 45); AST (SGOT) 17 U/L (11-34); Albumin 3.4 g/dL (3.1-4.5); Alkaline Phosphatase 129 U/L (40-110); Anion Gap 14 mmol/L (10-20); BUN (Urea Nitrogen) 27 mg/dL (8.4-25.7); Bilirubin, Total 0.2 mg/dL (0.3-1.2); Calc. Creatinine Clearance 80 mL/min (70-130); Calcium 9.8 mg/dL (7.8-10.44); Carbon Dioxide 25 mmol/L (23-31); Chloride 102 mmol/L (98-107); Globulin 3.4 g/dL (2.4-3.5); Glucose 148 mg/dL (80-115); Magnesium 1.8 mg/dL (1.6-2.6); Potassium 3.8 mmol/L (3.5-5.1); Sodium 137 mmol/L (136-145)
[2025-05-03] MEDS ORDERED: Ipratropium Bromide 2.5 ml Neb NEB PRN (00:26)
[2025-05-03] MEDS ORDERED: Melatonin 3 MG TAB PO PRN (00:51)
[2025-05-03] MEDS: Magnesium 2 GM/50 ML(in water) 2 GM in Premix 1 BAG IVPB SCH (00:53)
[2025-05-03 06:13] LABS: Anion Gap 14 mmol/L (10-20); BUN (Urea Nitrogen) 31 mg/dL (8.4-25.7); Calc. Creatinine Clearance 88 mL/min (70-130); Calcium 9.5 mg/dL (7.8-10.44); Carbon Dioxide 23 mmol/L (23-31); Chloride 102 mmol/L (98-107); Glucose 190 mg/dL (80-115); Potassium 4.2 mmol/L (3.5-5.1); Sodium 135 mmol/L (136-145)
[2025-05-03] MEDS: FLU (Fluarix Triv) 25-26 (6MOS UP)/PF 45 MCG/0.5 ML Syringe IM ONE (08:33)
[2025-05-04 06:01] LABS: #Basophils Less than 0.03 10x3/uL (0.0-0.2); #Eosinophils Less than 0.03 10x3/uL (0.0-0.7); #Monocytes 0.68 10x3/uL (0.11-0.59); #Neutrophils 17.23 10x3/uL (1.40-6.50); %Basophils 0.1 % (0.0-1.0); %Eosinophils 0.0 % (0.0-10.0); %Lymphocytes 6.8 % (21.0-51.0); %Monocytes 3.5 % (0.0-10.0); %Neutrophils 89.2 % (42.0-75.0); Hematocrit 49.3 % (42.0-52.0); Hemoglobin 15.9 g/dL (14.0-18.0); Mean Corpuscular Hemoglobin 30.3 pg (27.0-31.0); Mean Corpuscular Volume 93.9 fL (78.0-98.0); Platelet Count 364 10x3/uL (130-400); Red Blood Cell (RBC) Count 5.25 mill/uL (4.70-6.10); White Blood Cell (WBC) Count 19.33 10x3/uL (4.8-10.8)
[2025-05-04 06:20] LABS: ALT (SGPT) 10 U/L (Less than 45); AST (SGOT) 22 U/L (11-34); Albumin 3.5 g/dL (3.1-4.5); Alkaline Phosphatase 117 U/L (40-110); Anion Gap 14 mmol/L (10-20); BUN (Urea Nitrogen) 42 mg/dL (8.4-25.7); Bilirubin, Total 0.2 mg/dL (0.3-1.2); Calc. Creatinine Clearance 102 mL/min (70-130); Calcium 9.6 mg/dL (7.8-10.44); Carbon Dioxide 25 mmol/L (23-31); Chloride 105 mmol/L (98-107); Globulin 3.5 g/dL (2.4-3.5); Glucose 143 mg/dL (80-115); Magnesium 1.9 mg/dL (1.6-2.6); Potassium 4.6 mmol/L (3.5-5.1); Sodium 139 mmol/L (136-145)
[2025-05-05 06:45] LABS: #Basophils 0.03 10x3/uL (0.0-0.2); #Eosinophils Less than 0.03 10x3/uL (0.0-0.7); #Monocytes 1.03 10x3/uL (0.11-0.59); #Neutrophils 17.83 10x3/uL (1.40-6.50); %Basophils 0.1 % (0.0-1.0); %Eosinophils 0.0 % (0.0-10.0); %Lymphocytes 10.6 % (21.0-51.0); %Monocytes 4.9 % (0.0-10.0); %Neutrophils 84.0 % (42.0-75.0); Hematocrit 49.0 % (42.0-52.0); Hemoglobin 15.9 g/dL (14.0-18.0); Mean Corpuscular Hemoglobin 30.4 pg (27.0-31.0); Mean Corpuscular Volume 93.7 fL (78.0-98.0); Platelet Count 360 10x3/uL (130-400); Red Blood Cell (RBC) Count 5.23 mill/uL (4.70-6.10); White Blood Cell (WBC) Count 21.21 10x3/uL (4.8-10.8)
[2025-05-05 07:17] LABS: ALT (SGPT) 9 U/L (Less than 45); AST (SGOT) 19 U/L (11-34); Albumin 3.3 g/dL (3.1-4.5); Alkaline Phosphatase 104 U/L (40-110); Anion Gap 14 mmol/L (10-20); BUN (Urea Nitrogen) 43 mg/dL (8.4-25.7); Bilirubin, Total 0.2 mg/dL (0.3-1.2); Calc. Creatinine Clearance 104 mL/min (70-130); Calcium 9.3 mg/dL (7.8-10.44); Carbon Dioxide 25 mmol/L (23-31); Chloride 103 mmol/L (98-107); Globulin 3.2 g/dL (2.4-3.5); Glucose 161 mg/dL (80-115); Magnesium 1.8 mg/dL (1.6-2.6); Potassium 3.9 mmol/L (3.5-5.1); Sodium 138 mmol/L (136-145)
[2025-05-05 17:20] VITALS: BP 148/86; TEMP 97.2
== END 2025-05-05 17:20 | disposition home or self-care (01) | DRG 191 ==
LOC: ERS 00:16 → OBS 05-01 06:51 → OBSVTOIN 05-02 13:18
PROVIDERS: ADMIT Internal Medicine; ATTEND Student in an Organized Health Care Education/Training Program
PROC: 3E0234Z Introduction of Serum, Toxoid and Vaccine into Muscle, Percutaneous Approach (ICD-10-PCS; principal; 2025-05-02)
DX: J44.1 Chronic obstructive pulmonary disease with (acute) exacerbation (principal); I50.42 Chronic combined systolic (congestive) and diastolic (congestive) heart failure; N17.9 Acute kidney failure, unspecified; I11.0 Hypertensive heart disease with heart failure; I25.10 Atherosclerotic heart disease of native coronary artery without angina pectoris; E11.9 Type 2 diabetes mellitus without complications; F41.9 Anxiety disorder, unspecified; I25.2 Old myocardial infarction; Z95.1 Presence of aortocoronary bypass graft; Z88.1 Allergy status to other antibiotic agents; Z90.49 Acquired absence of other specified parts of digestive tract; Z95.0 Presence of cardiac pacemaker; Z98.890 Other specified postprocedural states; Z79.82 Long term (current) use of aspirin; Z79.899 Other long term (current) drug therapy; Z23 Encounter for immunization
CPT/HCPCS: 36415; 71045; 80048; 80053; 80061; 83735; 83880; 84484; 85025; 87428; 93005; 93010; 93306; 94640; 94760; 96374; 96376; G0378; J1650; J2270; J2919; J3475; J7030

== ENCOUNTER 2025-05-07 12:42 | Inpatient (IN) | payer MEDICARE ==
[~2025-05-07 12:42] MED LIST changes: -Iopamidol 370 76% 100 ML VIAL ONE; +Iopamidol-370 76% 500 ML MDV (1 ML CHARGE) ONE
[2025-05-07] MEDS ORDERED: Norepinephrine 8 MG/0.9% NS 250 ML ONE (12:51)
[2025-05-07 13:15] LABS: Hematocrit 52.8 % (42.0-52.0); Hemoglobin 17.9 g/dL (14.0-18.0); Mean Corpuscular Hemoglobin 30.9 pg (27.0-31.0); Mean Corpuscular Volume 91.2 fL (78.0-98.0); Platelet Count 334 10x3/uL (130-400); Red Blood Cell (RBC) Count 5.79 mill/uL (4.70-6.10); White Blood Cell (WBC) Count 17.33 10x3/uL (4.8-10.8)
[2025-05-07 13:33] LABS: ALT (SGPT) 37 U/L (Less than 45); AST (SGOT) 43 U/L (11-34); Albumin 3.1 g/dL (3.1-4.5); Alkaline Phosphatase 101 U/L (40-110); Anion Gap 23 mmol/L (10-20); BUN (Urea Nitrogen) 45 mg/dL (8.4-25.7); Bilirubin, Total 0.5 mg/dL (0.3-1.2); Calc. Creatinine Clearance 0 mL/min (70-130); Calcium 8.5 mg/dL (7.8-10.44); Carbon Dioxide 17 mmol/L (23-31); Chloride 108 mmol/L (98-107); Globulin 3.0 g/dL (2.4-3.5); Glucose 123 mg/dL (80-115); INR-International Normal Ratio 1.0; Lipase 24 U/L (8-78); Magnesium 1.5 mg/dL (1.6-2.6); Potassium 4.6 mmol/L (3.5-5.1); Prothrombin Time 13.6 sec (12.0-14.7); Sodium 143 mmol/L (136-145)
[2025-05-07 13:34] LABS: PTT 30.2 sec (22.9-36.1)
[2025-05-07] MEDS ORDERED: Ondansetron PF 4 MG/2 ML Vial ONE (13:42)
[2025-05-07 13:52] LABS: Plasma Cells 0 % (0-0)
[2025-05-07] MEDS ORDERED: Vasopressin In 0.9 % NaCl 100 ML ONE (15:57)
[2025-05-07] MEDS ORDERED: Ondansetron PF 4 MG/2 ML Vial IVP PRN (16:02)
[2025-05-07] MEDS ORDERED: Calcium Carbonate 500 MG ChewTAB PO PRN (16:02)
[2025-05-07] MEDS ORDERED: Albuterol 2.5 MG (3 mL) NEB NEB PRN (16:08)
[2025-05-07] MEDS ORDERED: Norepinephrine 8 MG/0.9% NS 250 ML IVPB SCH (16:15)
[2025-05-07] MEDS ORDERED: Electrolyte Replacement Protocol 1 EACH FS SCH (16:15)
[2025-05-07] MEDS: Vancomycin (BATCH) 2.5 GM in Premix 1 BAG IVPB SCH (17:29)
[2025-05-07] MEDS: Magnesium 2 GM/50 ML(in water) 2 GM in Premix 1 BAG IVPB SCH (17:29)
[2025-05-07] MEDS: Acetaminophen 325 MG TAB PO SCH (17:29)
[2025-05-07] MEDS ORDERED: VANCOMYCIN IVPB PRN (17:34)
[2025-05-07] MEDS: PNEUMOC 20-VAL CONJ-DIP CRM/PF 0.5 ML SYRINGE IM ONE (18:35)
[2025-05-07] MEDS: FLU (Fluarix Triv) 25-26 (6MOS UP)/PF 45 MCG/0.5 ML Syringe IM ONE (18:35)
[2025-05-07] MEDS: Heparin 5,000 UNITS/ML VIAL SC SCH (20:33)
[2025-05-07] MEDS: TICAGRELOR 90 MG TABLET PO SCH (20:34)
[2025-05-08 04:31] LABS: #Basophils 0.05 10x3/uL (0.0-0.2); #Eosinophils 0.04 10x3/uL (0.0-0.7); #Monocytes 1.10 10x3/uL (0.11-0.59); #Neutrophils 8.33 10x3/uL (1.40-6.50); %Basophils 0.4 % (0.0-1.0); %Eosinophils 0.3 % (0.0-10.0); %Lymphocytes 24.9 % (21.0-51.0); %Monocytes 8.6 % (0.0-10.0); %Neutrophils 64.7 % (42.0-75.0); Hematocrit 45.5 % (42.0-52.0); Hemoglobin 15.2 g/dL (14.0-18.0); Mean Corpuscular Hemoglobin 30.8 pg (27.0-31.0); Mean Corpuscular Volume 92.1 fL (78.0-98.0); Platelet Count 319 10x3/uL (130-400); Red Blood Cell (RBC) Count 4.94 mill/uL (4.70-6.10); White Blood Cell (WBC) Count 12.86 10x3/uL (4.8-10.8)
[2025-05-08] MEDS: Vasopressin In 0.9 % NaCl 100 ML IV SCH (04:42)
[2025-05-08 04:55] LABS: Vancomycin, Random 18.1 ug/mL (See Comment)
[2025-05-08 04:58] LABS: Anion Gap 10 mmol/L (10-20); BUN (Urea Nitrogen) 44 mg/dL (8.4-25.7); Calc. Creatinine Clearance 72 mL/min (70-130); Calcium 8.3 mg/dL (7.8-10.44); Carbon Dioxide 28 mmol/L (23-31); Chloride 102 mmol/L (98-107); Glucose 162 mg/dL (80-115); Potassium 4.1 mmol/L (3.5-5.1); Sodium 136 mmol/L (136-145)
[2025-05-08 05:08] VITALS: BMI 32.1
[2025-05-08] MEDS: Aspirin 81 mg Enteric Coated Tablet PO SCH (09:25)
[2025-05-08] MEDS ORDERED: Dextrose 50% Abboject 50 ML SYRINGE SLOW IVP PRN (09:31)
[2025-05-08] MEDS ORDERED: Glucagon 1 MG/ML KIT IM PRN (09:31)
[2025-05-08] MEDS: Vancomycin 1.25 GM / NS 250 ML VIAL-2-BAG IVPB SCH (16:30)
[2025-05-10 06:53] LABS: Calc. Creatinine Clearance 116.0 mL/min (70-130)
[2025-05-10 06:54] LABS: Vancomycin, Random 13.3 ug/mL (See Comment)
[2025-05-10] MEDS ORDERED: Heparin 10,000 UNITS/ 10 ML VIAL ONE (13:11)
[2025-05-10] MEDS ORDERED: Isoproterenol 0.2 MG/1 ML AMP ONE (13:12)
[2025-05-10] MEDS ORDERED: Heparin 25,000 units/D5W 0 ML ONE (13:15)
[2025-05-10] MEDS ORDERED: Ketamine In 0.9 % NaCl 50 MG/5 ML SYRINGE ONE (15:43)
[2025-05-10] MEDS ORDERED: Etomidate 40 MG (20 mL) VIAL ONE (15:43)
[2025-05-10] MEDS ORDERED: Famotidine/PF 20 mg/2ml Vial ONE (15:47)
[2025-05-10] MEDS ORDERED: Glycopyrrolate 0.2 MG/ML 5 ML SYRINGE ONE (15:56)
[2025-05-10] MEDS ORDERED: Lidocaine 1% (PF) 30 ML VIAL ONE (16:14)
[2025-05-10] MEDS: Vancomycin 1 GM in Premix 1 BAG IVPB SCH (18:05)
[2025-05-11 05:11] LABS: #Basophils Less than 0.03 10x3/uL (0.0-0.2); #Eosinophils Less than 0.03 10x3/uL (0.0-0.7); #Monocytes 0.83 10x3/uL (0.11-0.59); #Neutrophils 10.63 10x3/uL (1.40-6.50); %Basophils 0.1 % (0.0-1.0); %Eosinophils 0.0 % (0.0-10.0); %Lymphocytes 11.0 % (21.0-51.0); %Monocytes 6.4 % (0.0-10.0); %Neutrophils 81.8 % (42.0-75.0); Hematocrit 42.8 % (42.0-52.0); Hemoglobin 13.7 g/dL (14.0-18.0); Mean Corpuscular Hemoglobin 30.5 pg (27.0-31.0); Mean Corpuscular Volume 95.3 fL (78.0-98.0); Platelet Count 293 10x3/uL (130-400); Red Blood Cell (RBC) Count 4.49 mill/uL (4.70-6.10); White Blood Cell (WBC) Count 12.99 10x3/uL (4.8-10.8)
[2025-05-11 05:33] LABS: ALT (SGPT) 16 U/L (Less than 45); AST (SGOT) 25 U/L (11-34); Albumin 2.9 g/dL (3.1-4.5); Alkaline Phosphatase 66 U/L (40-110); Anion Gap 10 mmol/L (10-20); BUN (Urea Nitrogen) 23 mg/dL (8.4-25.7); Bilirubin, Total 0.5 mg/dL (0.3-1.2); Calc. Creatinine Clearance 107 mL/min (70-130); Calcium 8.3 mg/dL (7.8-10.44); Carbon Dioxide 25 mmol/L (23-31); Chloride 106 mmol/L (98-107); Globulin 2.5 g/dL (2.4-3.5); Glucose 113 mg/dL (80-115); Potassium 4.3 mmol/L (3.5-5.1); Sodium 137 mmol/L (136-145)
[2025-05-11] MEDS: Sacubitril 24MG/Valsartan 26 MG TAB PO SCH (21:43)
[2025-05-12 05:12] LABS: #Basophils 0.03 10x3/uL (0.0-0.2); #Eosinophils 0.05 10x3/uL (0.0-0.7); #Monocytes 1.39 10x3/uL (0.11-0.59); #Neutrophils 11.55 10x3/uL (1.40-6.50); %Basophils 0.2 % (0.0-1.0); %Eosinophils 0.3 % (0.0-10.0); %Lymphocytes 18.1 % (21.0-51.0); %Monocytes 8.6 % (0.0-10.0); %Neutrophils 71.9 % (42.0-75.0); Hematocrit 44.4 % (42.0-52.0); Hemoglobin 14.2 g/dL (14.0-18.0); Mean Corpuscular Hemoglobin 30.0 pg (27.0-31.0); Mean Corpuscular Volume 93.7 fL (78.0-98.0); Platelet Count 284 10x3/uL (130-400); Red Blood Cell (RBC) Count 4.74 mill/uL (4.70-6.10); White Blood Cell (WBC) Count 16.08 10x3/uL (4.8-10.8)
[2025-05-12 05:23] LABS: Vancomycin, Random 19.5 ug/mL (See Comment)
[2025-05-12 05:26] LABS: ALT (SGPT) 13 U/L (Less than 45); AST (SGOT) 12 U/L (11-34); Albumin 3.1 g/dL (3.1-4.5); Alkaline Phosphatase 70 U/L (40-110); Anion Gap 9 mmol/L (10-20); BUN (Urea Nitrogen) 19 mg/dL (8.4-25.7); Bilirubin, Total 0.3 mg/dL (0.3-1.2); Calc. Creatinine Clearance 115 mL/min (70-130); Calcium 9.0 mg/dL (7.8-10.44); Carbon Dioxide 28 mmol/L (23-31); Chloride 106 mmol/L (98-107); Globulin 2.4 g/dL (2.4-3.5); Glucose 92 mg/dL (80-115); Potassium 4.3 mmol/L (3.5-5.1); Sodium 139 mmol/L (136-145)
[2025-05-12 13:07] VITALS: BMI 33.1
[2025-05-13 10:50] VITALS: BP 166/98; TEMP 97.8
== END 2025-05-13 14:20 | disposition home or self-care (01) | DRG 273 ==
LOC: ERS 12:42 → ERHOLD 14:50 → CCU 16:26 → 2NO 05-08 18:06
PROVIDERS: ADMIT Internal Medicine; ATTEND Internal Medicine
PROC: 3E02340 Introduction of Influenza Vaccine into Muscle, Percutaneous Approach (ICD-10-PCS; 2025-05-07)
PROC: 3E033XZ Introduction of Vasopressor into Peripheral Vein, Percutaneous Approach (ICD-10-PCS; 2025-05-07)
PROC: 3E03329 Introduction of Other Anti-infective into Peripheral Vein, Percutaneous Approach (ICD-10-PCS; 2025-05-07)
PROC: 02HV33Z Insertion of Infusion Device into Superior Vena Cava, Percutaneous Approach (ICD-10-PCS; 2025-05-07)
PROC: 4A02X4A Measurement of Cardiac Electrical Activity, Guidance, External Approach (ICD-10-PCS; 2025-05-07)
PROC: 3E0234Z Introduction of Serum, Toxoid and Vaccine into Muscle, Percutaneous Approach (ICD-10-PCS; 2025-05-07)
PROC: 02583ZZ Destruction of Conduction Mechanism, Percutaneous Approach (ICD-10-PCS; principal; 2025-05-10)
PROC: 02K83ZZ Map Conduction Mechanism, Percutaneous Approach (ICD-10-PCS; 2025-05-10)
DX: I47.19 Other supraventricular tachycardia (principal); I21.A1 Myocardial infarction type 2; I50.43 Acute on chronic combined systolic (congestive) and diastolic (congestive) heart failure; N17.9 Acute kidney failure, unspecified; J44.1 Chronic obstructive pulmonary disease with (acute) exacerbation; I25.10 Atherosclerotic heart disease of native coronary artery without angina pectoris; I25.2 Old myocardial infarction; Z23 Encounter for immunization; E11.9 Type 2 diabetes mellitus without complications; I71.21 Aneurysm of the ascending aorta, without rupture; Z98.890 Other specified postprocedural states; Z95.810 Presence of automatic (implantable) cardiac defibrillator; Z87.891 Personal history of nicotine dependence; E66.01 Morbid (severe) obesity due to excess calories; R79.89 Other specified abnormal findings of blood chemistry; Z68.33 Body mass index [BMI] 33.0-33.9, adult; N28.9 Disorder of kidney and ureter, unspecified; F41.9 Anxiety disorder, unspecified; K21.9 Gastro-esophageal reflux disease without esophagitis; K59.09 Other constipation; I25.5 Ischemic cardiomyopathy; I08.1 Rheumatic disorders of both mitral and tricuspid valves; I11.0 Hypertensive heart disease with heart failure; E78.5 Hyperlipidemia, unspecified; Z90.49 Acquired absence of other specified parts of digestive tract; Z95.5 Presence of coronary angioplasty implant and graft; Z88.1 Allergy status to other antibiotic agents; Z79.82 Long term (current) use of aspirin; Z79.02 Long term (current) use of antithrombotics/antiplatelets; N28.89 Other specified disorders of kidney and ureter; Z95.1 Presence of aortocoronary bypass graft; Z79.899 Other long term (current) drug therapy
CPT/HCPCS: 36415; 36416; 36556; 71045; 71275; 74174; 80048; 80053; 80202; 82565; 83605; 83690; 83735; 83880; 84145; 84484; 85025; 85610; 85730; 87040; 93005; 93623; 93653; 94660; 96365; 96366; 96368; 96375; 99292; C1730; C1732; C1760; C1894; J1308; J1644; J2003; J2270; J2405; J2543; J2720; J3010; J3373; J3475; J3490; J7050; J7512; Q9967